=== PATIENT | female | born 1935 ===

== ENCOUNTER 2017-10-31 12:19 | Inpatient (IN) | payer MEDICARE, OTHER ==
--- NOTE | 2017-10-31 13:22 | C.PDOC ---
History Of Present Illness <Tho Herrera - Last Filed: 10/31/17 22:23> <Darlene Sanabria - Last Filed: 11/03/17 11:56> Patient is an 82 y/o female, with a Hx of stroke, who presents to the ED BIBA for evaluation of swollen and gangrenous right foot. Patient is not a reliable historian; unclear when patient noticed symptoms. Patient states she was seen at [facility] within the last few days; unknown antibiotics given. Patient denies fever or any pain to right foot. No other physical complaints at this time. (Darlene Sanabria) <Tho Herrera E - Last Filed: 10/31/17 22:23> History Per: Patient History/Exam Limitations: no limitations Onset/Duration Of Symptoms: Days Current Symptoms Are (Timing): Still Present <Darlene Sanabria - Last Filed: 11/03/17 11:56> Time Seen by Provider: 10/31/17 12:59 Chief Complaint (Nursing): Lower Extremity Problem/Injury Past Medical History Reviewed: Historical Data, Nursing Documentation, Vital Signs - Medical History PMH: HTN, Hyperlipidemia, TIA Surgical History: No Surg Hx Family History: States: No Known Family Hx - Social History Hx Tobacco Use: No Hx Alcohol Use: No Hx Substance Use: No <Darlene Sanabria - Last Filed: 11/03/17 11:56> Vital Signs: Last Vital Signs Temp 97.3 F L 11/03/17 08:49 Pulse 59 L 11/03/17 08:49 Resp 18 11/03/17 08:49 BP 148/64 11/03/17 08:49 Pulse Ox 96 11/03/17 08:49 Review Of Systems Constitutional: Negative for: Fever Musculoskeletal: Negative for: Foot Pain Skin: Positive for: Other (swollen and gangrenous right foot) <Darlene Sanabria - Last Filed: 11/03/17 11:56> Physical Exam - Physical Exam Appears: Non-toxic, No Acute Distress, Other (left sided paralysis to body secondary to stroke) Skin: Dry, Other (right foot distally erythematous; dry gangrenous lesion and ulcerations to great right toe; dry gangrenous lesion to 4th right toe; white exudate between toes) Head: Atraumatic, Normacephalic Eye(s): bilateral: PERRL, EOMI Oral Mucosa: Moist Neck: Supple Chest: Symmetrical Cardiovascular: Rhythm Regular, No Murmur, Other (regular rate) Respiratory: Normal Breath Sounds, No Rales, No Rhonchi, No Wheezing, Other ( clear to auscultation bilaterally) Gastrointestinal/Abdominal: Bowel Sounds (normoactive), Soft, No Tenderness, No Distention, No Guarding, No Rebound Back: No CVA Tenderness Extremity: No Tenderness, Swelling (right foot), Other (+1 TP pulse right foot, no palpable right dp pulse; RN did doppler of right foot with faint dppulse noted. ) Pulses: Right Dorsalis Pedis: Absent (not palpable) Neurological/Psych: Oriented x3, Normal Speech, Normal Cognition, Other (no focal deficits) <Darlene Sanabria - Last Filed: 11/03/17 11:56> ED Course And Treatment - Laboratory Results Result Diagrams: 10/31/17 13:36 10/31/17 13:36 ECG: Interpreted By Me (ED attending Dr. Herrera) ECG Rhythm: Sinus Rhythm ECG Interpretation: Normal Rate From EC <Tho Herrera - Last Filed: 10/31/17 22:23> - Laboratory Results Result Diagrams: 11/02/17 08:10 11/02/17 08:10 O2 Sat by Pulse Oximetry: 98 - Other Rad right foot XR X-Ray: Interpreted by Me, Viewed By Me Interpretation: PROCEDURE: Right Foot Radiographs. HISTORY: infection to toes and dorsum foot, eval for osteo. COMPARISON: None. FINDINGS: BONES: There is severe diffuse bone demineralization. There is no acute displaced fracture or bone destruction. Bone alignment is normal. Calcifications there is a prominent plantar calcaneal spur. JOINTS: Normal. SOFT TISSUES: Normal. OTHER FINDINGS: There are advanced atherosclerotic vascular. IMPRESSION: No radiographic evidence of bone destruction or osteomyelitis. Progress Note: Blood work, UA, right foot XR ordered. Podiatry consult. <Darlene Sanabria - Last Filed: 11/03/17 11:56> Disposition <Tho Herrera Last Filed: 10/31/17 22:23> Discussed With DrCarol: Shauna Jason Doctor Will See Patient In The: Hospital - Disposition Disposition Time: 16:07 <Darlene Sanabria - Last Filed: 11/03/17 11:56> - Disposition Disposition: HOSPITALIZED Condition: GOOD - Clinical Impression Clinical Impression: Dry gangrene, Diabetic infection of right foot <Tho Herrera - Last Filed: 10/31/17 22:23> - Scribe Statement The provider has reviewed the documentation as recorded by the Scribe <Darlene Sanabria - Last Filed: 11/03/17 11:56> - Scribe Statement Laurita Salguero All medical record entries made by the Scribe were at my direction and personally dictated by me. I have reviewed the chart and agree that the record accurately reflects my personal performance of the history, physical exam, medical decision making, and the department course for this patient. I have also personally directed, reviewed, and agree with the discharge instructions and disposition. (Darlene Sanabria)
[2017-10-31 13:46] LABS: BASO % 0.4 % (0.0-2.0); EOS # 0.2 K/uL (0.0-0.7); HEMOGLOBIN 11.3 g/dL (11.0-16.0); LYMPH # 1.3 K/uL (1.0-4.3); LYMPH % 15.5 % (20.0-40.0); MEAN CELL VOLUME 87.2 fL (81.0-99.0); MEAN CORPUSCULAR HEMOGLOBIN 29.8 pg (27.0-31.0); MEAN CORPUSCULAR HGB CONC 34.2 g/dL (33.0-37.0); MEAN PLATELET VOLUME 8.2 fL (7.2-11.7); MONO # 0.5 K/uL (0.0-0.8); MONO % 6.1 % (0.0-10.0); NEUT # 6.1 K/uL (1.8-7.0); RBC 3.79 Mil/uL (3.80-5.20); RED CELL DISTRIBUTION WIDTH 20.3 % (11.5-14.5)
[2017-10-31 13:55] LABS: INR 1.6; PROTHROMBIN TIME 17.2 SECONDS (9.7-12.2)
--- NOTE | 2017-10-31 13:58 | RAD ---
PROCEDURE: Right Foot Radiographs. HISTORY: infection to toes and dorsum foot, eval for osteo COMPARISON: None. FINDINGS: BONES: There is severe diffuse bone demineralization. There is no acute displaced fracture or bone destruction. Bone alignment is normal. Calcifications there is a prominent plantar calcaneal spur. JOINTS: Normal. SOFT TISSUES: Normal. OTHER FINDINGS: There are advanced atherosclerotic vascular. IMPRESSION: No radiographic evidence of bone destruction or osteomyelitis.
[2017-10-31 14:05] LABS: ALB/GLOB RATIO 0.9 (1.0-2.1); ALT/SGPT 20 U/L (9-52); AST/SGOT 26 U/L (14-36); BLOOD UREA NITROGEN 7 mg/dL (7-17); CALCIUM 8.2 mg/dl (8.6-10.4); GFR AFRICAN-AMERICAN > 60; GFR NON-AFRICAN AMERICAN > 60
[2017-10-31] MEDS ORDERED: Potassium Chloride 20 mEq/15 ml LIQ UD PO STA (14:42)
[2017-10-31] MEDS ORDERED: Piperacillin/Tazobact 3.375 gm 100 ML IVPB STA (14:48)
[2017-10-31] MEDS ORDERED: Piperacillin/Tazobact 3.375 gm 100 ML IVPB ONE (15:28)
--- NOTE | 2017-10-31 15:39 | CP.PCM.CON ---
History of Present Illness - History of Present Illness History of Present Illness: 82 y/o female with pmhx of HTN, Hyperlipidemia, TIA, DM, left sided hemiparesis seen at bedside in the ED regarding right foot gangrenous digits. Patient denies any pain to her foot but states that she noticed it has gotten worse over the past few days. Patient states that she first noticed swelling and discoloration on 10/20/17 and went to [facility]. She states that she was given doxycycline and percocet as outpatient. Patient states that she lives alone and called an ambulance to take her to the ED today. Patient denies any other pedal complaints at this time. She denies n/f/c/d/v/sob. Review of Systems - Constitutional Constitutional: As Per HPI Past Patient History - Past Social History Smoking Status: Never Smoked - CARDIAC Hx Hypertension: Yes - NEUROLOGICAL Hx Transient Ischemic Attacks (TIA): Yes - ENDOCRINE/METABOLIC Hx Endocrine Disorders: Yes Hx Diabetes Mellitus Type 2: Yes - PSYCHIATRIC Hx Substance Use: No Meds Allergies/Adverse Reactions: Allergies Allergy/AdvReac Type Severity Reaction Status Date / Time Iodine and Iodide Containing Allergy Verified 10/31/17 12:46 Produc Physical Exam - Constitutional Appears: Well, Non-toxic, No Acute Distress - Extremities Exam Additional comments: left lower extremity hemiparesis, drop foot, nonpalpable pedal pulses right lower extremity: vasc: nonpalpable pedal pulses, TG reversed- cool to warm, CFT sluggish, no edema, pedal hair absent neuro: grossly diminished derm: no edema, localized erythema to forefoot, dry gangrenous patches on hallux and dorsal 4th digit, interdigital maceration to 4th interspace, mild malodor noted, no fluctuance, no purulence, no active drainage, dried peeling skin to dorsum of hallux ortho: no pain on palpation of digits 1,4 - Neurological Exam Neurological exam: Alert - Psychiatric Exam Psychiatric exam: Normal Affect Results - Vital Signs Recent Vital Signs: Last Vital Signs Temp 98.8 F 10/31/17 12:24 Pulse 60 10/31/17 12:24 Resp 14 10/31/17 12:24 BP 154/55 H 10/31/17 12:24 Pulse Ox 98 10/31/17 15:27 - Labs Result Diagrams: 10/31/17 13:36 10/31/17 13:36 Labs: Laboratory Results - last 24 hr 10/31/17 10/31/17 10/31/17 12:28 13:36 13:36 WBC 8.0 RBC 3.79 L Hgb 11.3 Hct 33.0 L MCV 87.2 MCH 29.8 MCHC 34.2 RDW 20.3 H Plt Count 444 H MPV 8.2 Neut % (Auto) 76.0 H Lymph % (Auto) 15.5 L [place] % (Auto) 6.1 Eos % (Auto) 2.0 Baso % (Auto) 0.4 Neut # (Auto) 6.1 Lymph # (Auto) 1.3 [place] # (Auto) 0.5 Eos # (Auto) 0.2 Baso # (Auto) 0.0 PT INR APTT Sodium 139 Potassium 3.0 L Chloride 101 Carbon Dioxide 28 Anion Gap 13 BUN 7 Creatinine 0.7 Est GFR ( Amer) > 60 Est GFR (Non-Af Amer) > 60 POC Glucose (mg/dL) 156 H Random Glucose 153 H Calcium 8.2 L Total Bilirubin 0.2 AST 26 ALT 20 Alkaline Phosphatase 67 Total Protein 6.4 Albumin 3.0 L Globulin 3.4 Albumin/Globulin Ratio 0.9 L 10/31/17 13:36 WBC RBC Hgb Hct MCV MCH MCHC RDW Plt Count MPV Neut % (Auto) Lymph % (Auto) [place] % (Auto) Eos % (Auto) Baso % (Auto) Neut # (Auto) Lymph # (Auto) [place] # (Auto) Eos # (Auto) Baso # (Auto) PT 17.2 H INR 1.6 APTT 35 H Sodium Potassium Chloride Carbon Dioxide Anion Gap BUN Creatinine Est GFR ( Amer) Est GFR (Non-Af Amer) POC Glucose (mg/dL) Random Glucose Calcium Total Bilirubin AST ALT Alkaline Phosphatase Total Protein Albumin Globulin Albumin/Globulin Ratio Assessment & Plan - Assessment and Plan (Free Text) Assessment: 82 y/o female with pmhx of HTN, Hyperlipidemia, TIA, DM, left sided hemiparesis , seen at bedside in ED for right foot gangrenous changes of digits 1,4 Plan: patient evaluated and chart reviewed discussed in detail with attending Dr. Hooker labs and vitals reviewed; afebrile, WBC 8.0 x rays of right foot reveal osteopenic changes, no acute evidence of OM f/u HO/PVR start zosyn 3.375g q6h f/u vascular consult and reccs applied betadine, DSD to right foot podiatry willl continue to monitor while patient remains in house
[2017-10-31] MEDS ORDERED: Potassium Chloride 20 mEq/15 ml LIQ UD ONE (15:46)
[2017-10-31 17:24] LABS: SQUAMOUS EPITHIAL 2 /hpf (0-5); URINE BACTERIA MOD (<OCC); URINE BILIRUBIN NEGATIVE (NEGATIVE); URINE BLOOD 1+ (NEGATIVE); URINE CLARITY Hazy (Clear); URINE COLOR Yellow (YELLOW); URINE GLUCOSE (UA) NORMAL (Normal); URINE LEUKOCYTE ESTERASE 3+ Leu/uL (Negative); URINE PROTEIN NEGATIVE (NEGATIVE); URINE UROBILINOGEN NORMAL mg/dL (0.2-1.0)
[2017-10-31] MEDS ORDERED: Oxycodone/Acetaminophen 5/325 mg Tab PO PRN (21:40)
[2017-10-31] MEDS: (Novolog) Insulin Aspart, Recombinant 100 u/ml 10 ml vial SC SCH (22:46)
[2017-10-31] MEDS: Piperacillin/Tazobact 3.375 GM in Sodium Chloride 100 ML IVPB SCH (22:52)
[2017-11-01] MEDS: Piperacillin/Tazobact 3.375 GM in Sodium Chloride 100 ML IVPB SCH ×4 (04:05→22:11)
[2017-11-01] MEDS: (Novolog) Insulin Aspart, Recombinant 100 u/ml 10 ml vial SC SCH ×4 (07:45→22:27)
[2017-11-01] MEDS ORDERED: Glucagon Recombinant 1 mg Inj IM PRN (08:57)
[2017-11-01] MEDS ORDERED: Dextrose 50% SYRINGE Inj (50 ml) IV PRN (08:57)
--- NOTE | 2017-11-01 09:06 | CP.PCM.PN ---
Subjective - Date & Time of Evaluation Date of Evaluation: 11/01/17 Time of Evaluation: 08:50 - Subjective Subjective: PGY-[address] Jason's service: Pt seen and examined at bedside. Nursing reports no acute events overnight. Patient denies pain in her foot at this time. Further denies fever, chills, SOB , chest pain - but ROS limited by patient being poor historian. Patient is 82 year old Female, PMHx of HTN, Hyperlipidemia, Diabetes Mellitus, TIA (with sequelae of left sided hemiparesis) presenting for right foot gangrenous digits. Patient denies foot pain, but admits worsening swelling this Patient states that she first noticed swelling and discoloration on . Admits recent admission at [facility]. Reports receiving doxycycline and percocet from PMD. Objective - Vital Signs/Intake and Output Vital Signs (last 24 hours): Temp Pulse Resp BP Pulse Ox 98.3 F 58 L 20 164/62 H 95 11/01/17 04:10 11/01/17 04:10 11/01/17 04:10 11/01/17 04:10 11/01/17 04:10 - Medications Medications: Current Medications Enoxaparin Sodium (Lovenox) 40 mg SC DAILY SAMANTHA Piperacillin Sod/Tazobactam (Sod 3.375 gm/ Sodium Chloride) 100 mls @ 200 mls/ hr IVPB Q6H SAMANTHA PRN Reason: Protocol Last Admin: 11/01/17 04:05 Dose: 200 mls/hr Vancomycin HCl (Vancomycin 1gm In Normal Saline Addvantage) 1 gm in 250 mls @ 167 mls/hr IVPB Q12 SAMANTHA PRN Reason: Protocol Insulin Aspart (Novolog) 0 unit SC ACHS SAMANTHA PRN Reason: Protocol Last Admin: 11/01/17 07:45 Dose: Not Given Oxycodone/Acetaminophen (Percocet 5/325 Mg Tab) 1 tab PO Q4H PRN PRN Reason: Pain, moderate (4-7) Stop: 11/03/17 21:41 - Labs Labs: 10/31/17 13:36 10/31/17 13:36 PT 17.2 SECONDS (9.7-12.2) H 05/31/18 13:36 INR 1.6 10/31/17 13:36 APTT 35 SECONDS (21-34) H 10/31/17 13:36 - Constitutional Appears: Non-toxic, No Acute Distress, Older Than Stated Age, Chronically Ill - Head Exam Head Exam: ATRAUMATIC, NORMAL INSPECTION - Eye Exam Eye Exam: EOMI, Normal appearance. absent: Scleral icterus Pupil Exam: PERRL - ENT Exam ENT Exam: Mucous Membranes Moist - Neck Exam Neck Exam: Full ROM - Respiratory Exam Respiratory Exam: Clear to Ausculation Bilateral, NORMAL BREATHING PATTERN. absent: Chest Wall Tenderness, Rales, Rhonchi, Wheezes - Cardiovascular Exam Cardiovascular Exam: REGULAR RHYTHM, RRR, +S1, +S2 - GI/Abdominal Exam GI & Abdominal Exam: Soft, Normal Bowel Sounds. absent: Tenderness - Extremities Exam Extremities Exam: Pedal Edema, Tenderness. absent: Calf Tenderness, Normal Inspection Additional comments: Right foot/ankle edema (gangrenous lesion/ulcer on distal hallux/4th toe) Eschar / Discoloration in toes - Back Exam Back Exam: absent: CVA tenderness (L), CVA tenderness (R) - Neurological Exam Neurological Exam: Alert, Awake, Oriented x3 - Psychiatric Exam Psychiatric exam: Normal Affect, Normal Mood - Skin Skin Exam: Normal Color (except o/w noted on right foot), Warm Assessment and Plan - Assessment and Plan (Free Text) Plan: Gangrene, Right Foot Admit to tele Recent admission at [facility] Xray Right foot (11/01/17): FINDINGS: BONES: There is severe diffuse bone demineralization. There is no acute displaced fracture or bone destruction. Bone alignment is normal. Calcifications there is a prominent plantar calcaneal spur. JOINTS: Normal. SOFT TISSUES: Normal. OTHER FINDINGS: There are advanced atherosclerotic vascular. IMPRESSION: No radiographic evidence of bone destruction or osteomyelitis. Dr. Jenkins, ID Vanco 1 gm Q12H (start 10/31) Zosyn 3.375gm Q6H (Start 10/31) Diflucan 200mg IV x 3 days (Start 11/01/17) Dr. Prather, Podiatry - f/u HO/PVR - f/u arterial US Dr. Ken, Cardio/Vascular consult - start ASA 81mg PO daily - restart home med Xarelto 20mg PO Daily - f/u ABD angiography Percocet 5/325mg PO Q4H PRN pain Blood cultures (10/31/17): no growth x 24 hours Wound culture (10/31/17): Yeast species Right buttock wound Wound care nursing f/u reccs HTN Elevated this AM Hyperlipidemia Crestor 10mg PO HS f/u lipid panel Hx TIA Sequelae of left sided-hemiparesis Hypokalemia K 3.0 on admission; f/u AM BMP Hypothyroidism Restart home Levothyroxine 88 mcg f/u TSH/Free T4 Diabetes Mellitus A1C: 5.3, well controlled Accuchecks ACHS Hypoglycemia Protocol MISS f/u lipid panel Seizure d/o Restart home Keppra 500mg PO BID Anxiety/Depression Restart home Lexapro 10mg PO Daily Constipation Colace 100mg PO BID Elevated INR INR 1.6 Monitor Prophylaxis SCDs on left (right c/i) ASA/Xarelto HOLD Lovenox 40mg SC daily GI not indicated Maulik Dowell PGY-2 All medical management per Eren
[2017-11-01] MEDS ORDERED: Vancomycin 1 GM 1 GM/250 ML BAG IVPB SCH (10:00)
[2017-11-01] MEDS ORDERED: Enoxaparin 40 mg Syringe SC SCH (10:00)
[2017-11-01 11:35] LABS: BASO % 0.4 % (0.0-2.0); EOS # 0.1 K/uL (0.0-0.7); EOS % 1.1 % (0.0-4.0); HEMOGLOBIN 12.1 g/dL (11.0-16.0); LYMPH # 0.8 K/uL (1.0-4.3); LYMPH % 11.6 % (20.0-40.0); MEAN CELL VOLUME 88.7 fL (81.0-99.0); MEAN CORPUSCULAR HEMOGLOBIN 29.8 pg (27.0-31.0); MEAN CORPUSCULAR HGB CONC 33.6 g/dL (33.0-37.0); MEAN PLATELET VOLUME 8.8 fL (7.2-11.7); MONO # 0.3 K/uL (0.0-0.8); MONO % 4.2 % (0.0-10.0); NEUT # 5.9 K/uL (1.8-7.0); NEUT % 82.7 % (50.0-75.0); RBC 4.07 Mil/uL (3.80-5.20); WHITE BLOOD COUNT 7.2 K/uL (4.8-10.8)
[2017-11-01 12:01] LABS: ALB/GLOB RATIO 0.9 (1.0-2.1); ALBUMIN 3.1 g/dL (3.5-5.0); ALT/SGPT 14 U/L (9-52); AST/SGOT 30 U/L (14-36); BLOOD UREA NITROGEN 5 mg/dL (7-17); CALCIUM 8.5 mg/dl (8.6-10.4); GFR AFRICAN-AMERICAN > 60; GFR NON-AFRICAN AMERICAN > 60
--- NOTE | 2017-11-01 14:05 | CP.PCM.CON ---
<Chris Hinkle - Last Filed: 11/01/17 15:03> History of Present Illness - History of Present Illness History of Present Illness: Chris Hinkle PGY1 Vascular Consult Note for Dr. Ken Ms. 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 Scott lives alone, is wheelchair bound and has a home health aide. She presented to [facility] on October 20 and was prescribed doxycycline with no relief of symptoms. Patient denies chest pain, palpitations, and pain in feet. Vascular service is consulted for possible ischemia of lower extremity. PMH: as above PSH:non-contributory Meds: as per MAR Allergies: iodine SHx: denies tobacco, ETOH and drug use Review of Systems - Review of Systems All systems: reviewed and no additional remarkable complaints except (as per HPI ) Past Patient History - Past Medical History & Family History Past Medical History?: Yes Past Family History: Reviewed and not pertinent - Past Social History Smoking Status: Never Smoked Alcohol: None Drugs: Denies Home Situation {Lives}: Alone - CARDIAC Hx Hypercholesterolemia: Yes Hx Hypertension: Yes - PULMONARY Hx Respiratory Disorders: No - NEUROLOGICAL HX Cerebrovascular Accident: Yes - HEENT Hx HEENT Problems: No - RENAL Hx Chronic Kidney Disease: No - ENDOCRINE/METABOLIC Hx Endocrine Disorders: Yes Hx Diabetes Mellitus Type 2: Yes - HEMATOLOGICAL/ONCOLOGICAL Hx Blood Disorders: No - INTEGUMENTARY Hx Dermatological Problems: No - MUSCULOSKELETAL/RHEUMATOLOGICAL 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) - GASTROINTESTINAL Hx Gastrointestinal Disorders: No - GENITOURINARY/GYNECOLOGICAL Hx Genitourinary Disorders: No - PSYCHIATRIC Hx Psychophysiologic Disorder: No Hx Substance Use: No Meds Allergies/Adverse Reactions: Allergies Allergy/AdvReac Type Severity Reaction Status Date / Time Iodine and Iodide Containing Allergy Verified 10/31/17 12:46 Produc - Medications Medications: Current Medications Dextrose (Dextrose 50% Inj) 0 ml IV STAT PRN; Protocol PRN Reason: Hypoglycemia Protocol Dextrose (Glutose 15) 0 gm PO ONCE PRN; Protocol PRN Reason: Hypoglycemia Protocol Docusate Sodium (Colace) 100 mg PO BID [facility] Enoxaparin Sodium (Lovenox) 40 mg SC DAILY [facility] Last Admin: 11/01/17 10:34 Dose: 40 mg Escitalopram Oxalate (Lexapro) 10 mg PO DAILY [facility] Glucagon (Glucagen Diagnostic Kit) 0 mg IM STAT PRN; Protocol PRN Reason: Hypoglycemia Protocol Piperacillin Sod/Tazobactam (Sod 3.375 gm/ Sodium Chloride) 100 mls @ 200 mls/ hr IVPB Q6H [facility] PRN Reason: Protocol Last Admin: 11/01/17 10:30 Dose: 200 mls/hr Dextrose (Dextrose 5% In Water 1000 Ml) 1,000 mls @ 0 mls/hr IV .Q0M PRN; Protocol; Per Protocol PRN Reason: Hypoglycemia Protocol Vancomycin HCl 1 gm/ Sodium (Chloride) 250 mls @ 167 mls/hr IVPB Q12 [facility] PRN Reason: Protocol Last Admin: 11/01/17 11:00 Dose: 167 mls/hr Insulin Aspart (Novolog) 0 unit SC ACHS [facility] PRN Reason: Protocol Last Admin: 11/01/17 12:00 Dose: Not Given Levetiracetam (Keppra) 500 mg PO BID [facility] Levothyroxine Sodium (Synthroid) 88 mcg PO 0630 [facility] Oxycodone/Acetaminophen (Percocet 5/325 Mg Tab) 1 tab PO Q4H PRN PRN Reason: Pain, moderate (4-7) Stop: 11/03/17 21:41 Potassium Chloride (K-Dur 20 Meq Er Tab) 20 meq PO Q2H [facility] Stop: 11/01/17 16:01 Rosuvastatin Calcium (Crestor) 10 mg PO HS [facility] Physical Exam - Constitutional Appears: Well, Non-toxic, No Acute Distress - Head Exam Head Exam: NORMAL INSPECTION - Eye Exam Eye Exam: Normal appearance - ENT Exam ENT Exam: Normal Exam - Neck Exam Neck exam: Positive for: Normal Inspection - Respiratory Exam Respiratory Exam: Clear to Auscultation Bilateral, NORMAL BREATHING PATTERN. absent: Rales, Rhonchi, Wheezes, Respiratory Distress - Cardiovascular Exam Cardiovascular Exam: RRR, +S1, +S2, Systolic Murmur - GI/Abdominal Exam GI & Abdominal Exam: Normal Bowel Sounds, Soft. absent: Distended, Tenderness - Extremities Exam Extremities exam: Negative for: calf tenderness, full ROM (LUE/LLE hemiparesis, contracted; right extremities full ROM), normal inspection (eschar and discoloration noted in right toes), pedal edema, tenderness, pedal pulses present - Neurological Exam Neurological exam: Alert, Motor Sensory Deficit (left sided hemiparesis) Results - Vital Signs Recent Vital Signs: Last Vital Signs Temp 97.8 F 11/01/17 08:56 Pulse 67 11/01/17 08:56 Resp 18 11/01/17 08:56 BP 172/60 H 11/01/17 08:56 Pulse Ox 100 11/01/17 08:56 - Labs Result Diagrams: 11/01/17 11:24 11/01/17 11:24 Labs: Laboratory Results - last 24 hr 10/31/17 10/31/17 10/31/17 13:36 17:01 22:38 WBC RBC Hgb Hct MCV MCH MCHC RDW Plt Count MPV Neut % (Auto) Lymph % (Auto) [place] % (Auto) Eos % (Auto) Baso % (Auto) Neut # (Auto) Lymph # (Auto) [place] # (Auto) Eos # (Auto) Baso # (Auto) Sodium 139 Potassium 3.0 L Chloride 101 Carbon Dioxide 28 Anion Gap 13 BUN 7 Creatinine 0.7 Est GFR ( Amer) > 60 Est GFR (Non-Af Amer) > 60 POC Glucose (mg/dL) 162 H Random Glucose 153 H Hemoglobin A1c Calcium 8.2 L Phosphorus Magnesium Total Bilirubin 0.2 AST 26 ALT 20 Alkaline Phosphatase 67 Total Protein 6.4 Albumin 3.0 L Globulin 3.4 Albumin/Globulin Ratio 0.9 L Urine Color Yellow Urine Clarity Hazy Urine pH 7.0 Ur Specific [place] 1.006 Urine Protein Negative Urine Glucose (UA) Normal Urine Ketones Negative Urine Blood 1+ H Urine Nitrate Positive H Urine Bilirubin Negative Urine Urobilinogen Normal Ur Leukocyte Esterase 3+ H Urine WBC (Auto) 151 H Urine RBC (Auto) 9 H Ur Squamous Epith Cells 2 Urine Bacteria Mod H 11/01/17 11/01/17 11/01/17 06:31 11:24 11:24 WBC 7.2 RBC 4.07 Hgb 12.1 Hct 36.1 MCV 88.7 MCH 29.8 MCHC 33.6 RDW 20.0 H Plt Count 396 MPV 8.8 Neut % (Auto) 82.7 H Lymph % (Auto) 11.6 L [place] % (Auto) 4.2 Eos % (Auto) 1.1 Baso % (Auto) 0.4 Neut # (Auto) 5.9 Lymph # (Auto) 0.8 L [place] # (Auto) 0.3 Eos # (Auto) 0.1 Baso # (Auto) 0.0 Sodium 141 Potassium 3.2 L Chloride 101 Carbon Dioxide 29 Anion Gap 13 BUN 5 L Creatinine 0.7 Est GFR ( Amer) > 60 Est GFR (Non-Af Amer) > 60 POC Glucose (mg/dL) 118 H Random Glucose 109 H Hemoglobin A1c Calcium 8.5 L Phosphorus 3.2 Magnesium 2.2 Total Bilirubin < 0.1 L AST 30 ALT 14 Alkaline Phosphatase 78 Total Protein 6.4 Albumin 3.1 L Globulin 3.3 Albumin/Globulin Ratio 0.9 L Urine Color Urine Clarity Urine pH Ur Specific [place] Urine Protein Urine Glucose (UA) Urine Ketones Urine Blood Urine Nitrate Urine Bilirubin Urine Urobilinogen Ur Leukocyte Esterase Urine WBC (Auto) Urine RBC (Auto) Ur Squamous Epith Cells Urine Bacteria 11/01/17 11/01/17 11:24 11:44 WBC RBC Hgb Hct MCV MCH MCHC RDW Plt Count MPV Neut % (Auto) Lymph % (Auto) [place] % (Auto) Eos % (Auto) Baso % (Auto) Neut # (Auto) Lymph # (Auto) [place] # (Auto) Eos # (Auto) Baso # (Auto) Sodium Potassium Chloride Carbon Dioxide Anion Gap BUN Creatinine Est GFR ( Amer) Est GFR (Non-Af Amer) POC Glucose (mg/dL) 137 H Random Glucose Hemoglobin A1c 5.3 Calcium Phosphorus Magnesium Total Bilirubin AST ALT Alkaline Phosphatase Total Protein Albumin Globulin Albumin/Globulin Ratio Urine Color Urine Clarity Urine pH Ur Specific [place] Urine Protein Urine Glucose (UA) Urine Ketones Urine Blood Urine Nitrate Urine Bilirubin Urine Urobilinogen Ur Leukocyte Esterase Urine WBC (Auto) Urine RBC (Auto) Ur Squamous Epith Cells Urine Bacteria Assessment & Plan - Assessment and Plan (Free Text) Assessment: 82yo Female with a PMH of DM2, HTN, HLD and CVA (2010) w/ left sided hemiparesis who presents for right toe discoloration x1 month Plan: 1. PVD - XR does not show evidence of OM - abd angio w/ runoff ordered; given hx of iodine allergy, will give contrast w / prednisone protocol - arterial duplex LE ordered - cont crestor - start on ASA and Xarelto home dose, according to recommendations of [facility] trial - patient states that she agrees to interventional therapy - podiatry and ID following 2. HTN - cont home meds - cont to monitor 3. DM2 - medical management - A1C ordered 4. HLD - lipid panel ordered - cont statin Patient was reviewed and discussed with Dr. Ken <Garrett Ken - Last Filed: 11/01/17 15:49> Meds - Medications Medications: Current Medications Aspirin (Ecotrin) 81 mg PO DAILY [facility] Dextrose (Dextrose 50% Inj) 0 ml IV STAT PRN; Protocol PRN Reason: Hypoglycemia Protocol Dextrose (Glutose 15) 0 gm PO ONCE PRN; Protocol PRN Reason: Hypoglycemia Protocol Diphenhydramine HCl (Benadryl) 50 mg IVP ONCE ONE Stop: 11/02/17 09:01 Docusate Sodium (Colace) 100 mg PO BID [facility] Enoxaparin Sodium (Lovenox) 40 mg SC DAILY [facility] Last Admin: 11/01/17 10:34 Dose: 40 mg Escitalopram Oxalate (Lexapro) 10 mg PO DAILY [facility] Glucagon (Glucagen Diagnostic Kit) 0 mg IM STAT PRN; Protocol PRN Reason: Hypoglycemia Protocol Piperacillin Sod/Tazobactam (Sod 3.375 gm/ Sodium Chloride) 100 mls @ 200 mls/ hr IVPB Q6H [facility] PRN Reason: Protocol Last Admin: 11/01/17 10:30 Dose: 200 mls/hr Dextrose (Dextrose 5% In Water 1000 Ml) 1,000 mls @ 0 mls/hr IV .Q0M PRN; Protocol; Per Protocol PRN Reason: Hypoglycemia Protocol Vancomycin HCl 1 gm/ Sodium (Chloride) 250 mls @ 167 mls/hr IVPB Q12 [facility] PRN Reason: Protocol Last Admin: 11/01/17 11:00 Dose: 167 mls/hr Fluconazole (Diflucan Iv 200 Mg/100 Ml Ns) 100 mls @ 100 mls/hr IVPB DAILY [facility] PRN Reason: Protocol Stop: 11/03/17 10:59 Insulin Aspart (Novolog) 0 unit SC ACHS [facility] PRN Reason: Protocol Last Admin: 11/01/17 12:00 Dose: Not Given Levetiracetam (Keppra) 500 mg PO BID [facility] Levothyroxine Sodium (Synthroid) 88 mcg PO 0630 [facility] Oxycodone/Acetaminophen (Percocet 5/325 Mg Tab) 1 tab PO Q4H PRN PRN Reason: Pain, moderate (4-7) Stop: 11/03/17 21:41 Potassium Chloride (K-Dur 20 Meq Er Tab) 20 meq PO Q2H [facility] Stop: 11/01/17 16:01 Last Admin: 11/01/17 14:20 Dose: 20 meq Prednisone (Prednisone Tab) 50 mg PO ONCE ONE Stop: 11/02/17 03:01 Prednisone (Prednisone Tab) 50 mg PO ONCE ONE Stop: 11/02/17 09:01 Rivaroxaban (Xarelto) 20 mg PO DAILY [facility] Rosuvastatin Calcium (Crestor) 10 mg PO [facility] Results - Vital Signs Recent Vital Signs: Last Vital Signs Temp 97.8 F 11/01/17 08:56 Pulse 67 11/01/17 08:56 Resp 18 11/01/17 08:56 BP 172/60 H 11/01/17 08:56 Pulse Ox 100 11/01/17 08:56 - Labs Result Diagrams: 11/01/17 11:24 11/01/17 11:24 Labs: Laboratory Results - last 24 hr 10/31/17 10/31/17 11/01/17 17:01 22:38 06:31 WBC RBC Hgb Hct MCV MCH MCHC RDW Plt Count MPV Neut % (Auto) Lymph % (Auto) [place] % (Auto) Eos % (Auto) Baso % (Auto) Neut # (Auto) Lymph # (Auto) [place] # (Auto) Eos # (Auto) Baso # (Auto) Sodium Potassium Chloride Carbon Dioxide Anion Gap BUN Creatinine Est GFR ( Amer) Est GFR (Non-Af Amer) POC Glucose (mg/dL) 162 H 118 H Random Glucose Hemoglobin A1c Calcium Phosphorus Magnesium Total Bilirubin AST ALT Alkaline Phosphatase Total Protein Albumin Globulin Albumin/Globulin Ratio Urine Color Yellow Urine Clarity Hazy Urine pH 7.0 Ur Specific [place] 1.006 Urine Protein Negative Urine Glucose (UA) Normal Urine Ketones Negative Urine Blood 1+ H Urine Nitrate Positive H Urine Bilirubin Negative Urine Urobilinogen Normal Ur Leukocyte Esterase 3+ H Urine WBC (Auto) 151 H Urine RBC (Auto) 9 H Ur Squamous Epith Cells 2 Urine Bacteria Mod H 11/01/17 11/01/17 11/01/17 11:24 11:24 11:24 WBC 7.2 RBC 4.07 Hgb 12.1 Hct 36.1 MCV 88.7 MCH 29.8 MCHC 33.6 RDW 20.0 H Plt Count 396 MPV 8.8 Neut % (Auto) 82.7 H Lymph % (Auto) 11.6 L [place] % (Auto) 4.2 Eos % (Auto) 1.1 Baso % (Auto) 0.4 Neut # (Auto) 5.9 Lymph # (Auto) 0.8 L [place] # (Auto) 0.3 Eos # (Auto) 0.1 Baso # (Auto) 0.0 Sodium 141 Potassium 3.2 L Chloride 101 Carbon Dioxide 29 Anion Gap 13 BUN 5 L Creatinine 0.7 Est GFR ( Amer) > 60 Est GFR (Non-Af Amer) > 60 POC Glucose (mg/dL) Random Glucose 109 H Hemoglobin A1c 5.3 Calcium 8.5 L Phosphorus 3.2 Magnesium 2.2 Total Bilirubin < 0.1 L AST 30 ALT 14 Alkaline Phosphatase 78 Total Protein 6.4 Albumin 3.1 L Globulin 3.3 Albumin/Globulin Ratio 0.9 L Urine Color Urine Clarity Urine pH Ur Specific [place] Urine Protein Urine Glucose (UA) Urine Ketones Urine Blood Urine Nitrate Urine Bilirubin Urine Urobilinogen Ur Leukocyte Esterase Urine WBC (Auto) Urine RBC (Auto) Ur Squamous Epith Cells Urine Bacteria 11/01/17 11:44 WBC RBC Hgb Hct MCV MCH MCHC RDW Plt Count MPV Neut % (Auto) Lymph % (Auto) [place] % (Auto) Eos % (Auto) Baso % (Auto) Neut # (Auto) Lymph # (Auto) [place] # (Auto) Eos # (Auto) Baso # (Auto) Sodium Potassium Chloride Carbon Dioxide Anion Gap BUN Creatinine Est GFR ( Amer) Est GFR (Non-Af Amer) POC Glucose (mg/dL) 137 H Random Glucose Hemoglobin A1c Calcium Phosphorus Magnesium Total Bilirubin AST ALT Alkaline Phosphatase Total Protein Albumin Globulin Albumin/Globulin Ratio Urine Color Urine Clarity Urine pH Ur Specific [place] Urine Protein Urine Glucose (UA) Urine Ketones Urine Blood Urine Nitrate Urine Bilirubin Urine Urobilinogen Ur Leukocyte Esterase Urine WBC (Auto) Urine RBC (Auto) Ur Squamous Epith Cells Urine Bacteria Attending/Attestation - Attestation I have personally seen and examined this patient.: Yes I have fully participated in the care of the patient.: Yes I have reviewed all pertinent clinical information: Yes Notes (Text): 11/01/17 15:[address] aortogram with runoff prep for dye allergy asa, plavix statins acei
[2017-11-01] MEDS: Potassium Chloride 20 mEq ER Tab PO SCH ×2 (14:20→17:17)
--- NOTE | 2017-11-01 15:17 | CP.PCM.PN ---
Subjective - Date & Time of Evaluation Date of Evaluation: 11/01/17 Time of Evaluation: 15:14 - Subjective Subjective: Podiatry Progress note: Dr. Hooker 82 year old female patient seen and evaluated at bedside for right foot gangrenous digits. Patient is AAOx3 and is in NAD. Denies of having any acute overnight events. Denies any pain today. Nurse at bedside who reports that the patient will be going for CTA today. Denies F/N/V/C/SOB/CP/headache. No new pedal complains. Objective - Vital Signs/Intake and Output Vital Signs (last 24 hours): Temp Pulse Resp BP Pulse Ox 97.8 F 67 18 172/60 H 100 11/01/17 08:56 11/01/17 08:56 11/01/17 08:56 11/01/17 08:56 11/01/17 08:56 - Medications Medications: Current Medications Aspirin (Ecotrin) 81 mg PO DAILY [facility] Dextrose (Dextrose 50% Inj) 0 ml IV STAT PRN; Protocol PRN Reason: Hypoglycemia Protocol Dextrose (Glutose 15) 0 gm PO ONCE PRN; Protocol PRN Reason: Hypoglycemia Protocol Diphenhydramine HCl (Benadryl) 50 mg IVP ONCE ONE Stop: 11/02/17 09:01 Docusate Sodium (Colace) 100 mg PO BID [facility] Enoxaparin Sodium (Lovenox) 40 mg SC DAILY [facility] Last Admin: 11/01/17 10:34 Dose: 40 mg Escitalopram Oxalate (Lexapro) 10 mg PO DAILY [facility] Glucagon (Glucagen Diagnostic Kit) 0 mg IM STAT PRN; Protocol PRN Reason: Hypoglycemia Protocol Piperacillin Sod/Tazobactam (Sod 3.375 gm/ Sodium Chloride) 100 mls @ 200 mls/ hr IVPB Q6H [facility] PRN Reason: Protocol Last Admin: 11/01/17 10:30 Dose: 200 mls/hr Dextrose (Dextrose 5% In Water 1000 Ml) 1,000 mls @ 0 mls/hr IV .Q0M PRN; Protocol; Per Protocol PRN Reason: Hypoglycemia Protocol Vancomycin HCl 1 gm/ Sodium (Chloride) 250 mls @ 167 mls/hr IVPB Q12 [facility] PRN Reason: Protocol Last Admin: 11/01/17 11:00 Dose: 167 mls/hr Fluconazole (Diflucan Iv 200 Mg/100 Ml Ns) 100 mls @ 100 mls/hr IVPB DAILY [facility] PRN Reason: Protocol Stop: 11/03/17 10:59 Insulin Aspart (Novolog) 0 unit SC ACHS [facility] PRN Reason: Protocol Last Admin: 11/01/17 12:00 Dose: Not Given Levetiracetam (Keppra) 500 mg PO BID [facility] Levothyroxine Sodium (Synthroid) 88 mcg PO 0630 [facility] Oxycodone/Acetaminophen (Percocet 5/325 Mg Tab) 1 tab PO Q4H PRN PRN Reason: Pain, moderate (4-7) Stop: 11/03/17 21:41 Potassium Chloride (K-Dur 20 Meq Er Tab) 20 meq PO Q2H [facility] Stop: 11/01/17 16:01 Last Admin: 11/01/17 14:20 Dose: 20 meq Prednisone (Prednisone Tab) 50 mg PO ONCE ONE Stop: 11/02/17 03:01 Prednisone (Prednisone Tab) 50 mg PO ONCE ONE Stop: 11/02/17 09:01 Rivaroxaban (Xarelto) 1 mg PO DAILY [facility] Rosuvastatin Calcium (Crestor) 10 mg PO HS [facility] - Labs Labs: 11/01/17 11:24 11/01/17 11:24 PT 17.2 SECONDS (9.7-12.2) H 10/31/17 13:36 INR 1.6 10/31/17 13:36 APTT 35 SECONDS (21-34) H 10/31/17 13:36 - Constitutional Appears: Well, Non-toxic, No Acute Distress - Extremities Exam Additional comments: left lower extremity hemiparesis, drop foot, nonpalpable pedal pulses right lower extremity: vasc: nonpalpable pedal pulses, TG reversed- cool to warm, CFT sluggish, no edema, pedal hair absent neuro: grossly diminished derm: no edema, localized erythema to forefoot, dry gangrenous patches on hallux and dorsal 4th digit, interdigital maceration to 4th interspace, mild malodor noted, no fluctuance, no purulence, no active drainage, dried peeling skin to dorsum of hallux ortho: no pain on palpation of digits 1,4 - Neurological Exam Neurological Exam: Alert, Awake, Oriented x3 - Psychiatric Exam Psychiatric exam: Normal Affect, Normal Mood Assessment and Plan - Assessment and Plan (Free Text) Assessment: 82 y/o female seen and evaluated for right foot gangrenous changes of digits 1,4 Plan: patient evaluated and chart reviewed discussed in detail with attending Dr. Hooker labs and vitals reviewed; afebrile, WBC 7.2 x rays of right foot reveal osteopenic changes, no acute evidence of OM Continue IV abx - zosyn 3.375g q6h; Vancomycin 1 gm HO/PVR - pending f/u vascular consult and reccs Apply DSD to right foot podiatry will continue to monitor while patient remains in house
[2017-11-01] MEDS: Fluconazole IV 200mg/100 ml NS 100 ML IVPB SCH (16:19)
--- NOTE | 2017-11-01 16:32 | CP.PCM.CON ---
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 Scott lives alone, is wheelchair bound and has a home health aide. She presented to [facility] on October 20 and was prescribed doxycycline with no relief of symptoms. Patient denies chest pain, palpitations, and pain in feet. Vascular service is consulted for possible ischemia of lower extremity. PMH: as above PSH:non-contributory Meds: as per MAR Allergies: iodine SHx: denies tobacco, ETOH and drug use Review of Systems - Constitutional Constitutional: As Per HPI - EENT Eyes: absent: As Per HPI, Blind Spots, Blurred Vision, Change in Vision, Decreased Night Vision, Diplopia, Discharge, Dry Eye, Exophthalmos, Floaters, Irritation, Itchy Eyes, Loss of Peripheral Vision, Pain, Photophobia, Requires Corrective Lenses, Sees Flashes, Spots in Vision, Tunnel Vision, Other Visual Disturbances, Loss of Vision, Other Ears: absent: As Per HPI, Decreased Hearing, Ear Discharge, Ear Pain, Tinnitus, Abnormal Hearing, Disequilibrium, Dizziness, Other Nose/Mouth/Throat: absent: As Per HPI, Epistaxis, Nasal Congestion, Nasal Discharge, Nasal Obstruction, Nasal Trauma, Nose Pain, Post Nasal Drip, Sinus Pain, Sinus Pressure, Bleeding Gums, Change in Voice, Dental Pain, Dry Mouth, Dysphagia, Halitosis, Hoarsness, Lip Swelling, Mouth Lesions, Mouth Pain, Odynophagia, Sore Throat, Throat Swelling, Tongue Swelling, Facial Pain, Neck Pain, Neck Mass, Other - Breasts Breasts: absent: As Per HPI, Change in Shape, Mass, Pain, Nipple Discharge, Nipple Inversion, Skin Changes, Swelling, Other - Cardiovascular Cardiovascular: As Per HPI - Respiratory Respiratory: absent: As Per HPI, Cough, Dyspnea, Hemoptysis, Dyspnea on Exertion , Wheezing, Snoring, Stridor, Pain on Inspiration, Chest Congestion, Excessive Mucous Production, Change in Mucous Color, Pain with Coughing, Other - Gastrointestinal Gastrointestinal: absent: As Per HPI, Abdominal Pain, Belching, Bloating, Change in Bowel Habits, Change in Stool Character, Coffee Ground Emesis, Constipation, Cramping, Diarrhea, Dyspepsia, Dysphagia, Early Satiety, Excessive Flatus, Fecal Incontinence, Heartburn, Hematemesis, Hematochezia, Loose Stools, Melena, Nausea, Odynophagia, Temesmus, Vomiting, Other - Genitourinary Genitourinary: absent: As Per HPI, Change in Urinary Stream, Difficulty Urinating, Dysuria, Flank Pain, Hematuria, Pyuria, Nocturia, Urinary Incontinence, Urinary Frequency, Urinary Hesitance, Urinary Urgency, Voiding Freq/Small Amts, Freq UTI, Hx Renal/Bladder Calculi, Hx /Renal Surgery, Bladder Distension, Other - Reproductive: Female Reproductive:Female: absent: As Per HPI, Amenorrhea, Amenorrhea/ Control, Currently Menstual, Cycle <21 Days, Cycle >35 Days, Cycle Variable, Menses 1-7 Days, Menses >/= 8 Days, Menses Variable, Cycle > 4 Weeks Between, No Menses for 6 Months, Heavy Menses, Light Menses, Normal Menses, Spotting Between Cycles , S/P Hysterectomy, Menopausal, Post Menopausal, Premenarche, Abnormal Vaginal Bleeding, Dysmenorrhea, Dyspareunia, Genital Lesions, Genital Pruritis, Pelvic Pain, Prolapse Symptoms, Sexual Dysfunction, Vaginal Discharge, Vaginal Dryness , Vaginal Odor, Vaginal Pruritis, Other - Menstruation Menstruation: absent: As Per HPI, Amenorrhea, Amenorrhea/ Control, Currently Menstual, Cycle <21 Days, Cycle >35 Days, Cycle Variable, Menses 1-7 Days, Menses >/= 8 Days, Menses Variable, Cycle > 4 Weeks Between, No Menses for 6 Months, Heavy Menses, Light Menses, Normal Menses, Spotting Between Cycles , S/P Hysterectomy, Menopausal, Post Menopausal, Premenarche, Abnormal Vaginal Bleeding, Dysmenorrhea, Other - Musculoskeletal Musculoskeletal: As Per HPI - Integumentary Integumentary: As Per HPI, Skin Pain, Wounds - Neurological Neurological: As Per HPI - Psychiatric Psychiatric: absent: As Per HPI, Abnormal Sleep Pattern, Anhedonia, Anxiety, Auditory Hallucinations, Behavioral Changes, Change in Appetite, Change in Libido, Confusion, Depression, Difficulty Concentrating, Hallucinations, Homicidal Ideation, Hopelessness, Irritability, Memory Loss, Mood Swings, Panic Attacks, Paranoia, Suicidal Ideation, Visual Hallucinations, Tactile Hallucinations, Other - Endocrine Endocrine: absent: As Per HPI, Change in Body Appearance, Change in Libido, Cold Intolorance, Deepening of Voice, Excessive Sweating, Fatigue, Flushing, Heat Intolorance, Increase in Ring/Shoe/Hat Size, Palpitations, Polydipsia, Polyphagia, Polyuria, Other - Hematologic/Lymphatic Hematologic: absent: As Per HPI, Easy Bleeding, Easy Bruising, Lymphadenopathy, Other Past Patient History - Past Medical History & Family History Past Medical History?: Yes Past Family History: Reviewed and not pertinent - Past Social History Smoking Status: Never Smoked Alcohol: None Drugs: Denies Home Situation {Lives}: Alone - CARDIAC Hx Hypercholesterolemia: Yes Hx Hypertension: Yes - PULMONARY Hx Respiratory Disorders: No - NEUROLOGICAL HX Cerebrovascular Accident: Yes - HEENT Hx HEENT Problems: No - RENAL Hx Chronic Kidney Disease: No - ENDOCRINE/METABOLIC Hx Endocrine Disorders: Yes Hx Diabetes Mellitus Type 2: Yes - HEMATOLOGICAL/ONCOLOGICAL Hx Blood Disorders: No - INTEGUMENTARY Hx Dermatological Problems: No - MUSCULOSKELETAL/RHEUMATOLOGICAL 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) - GASTROINTESTINAL Hx Gastrointestinal Disorders: No - GENITOURINARY/GYNECOLOGICAL Hx Genitourinary Disorders: No - PSYCHIATRIC Hx Psychophysiologic Disorder: No Hx Substance Use: No Meds Allergies/Adverse Reactions: Allergies Allergy/AdvReac Type Severity Reaction Status Date / Time Iodine and Iodide Containing Allergy Verified 10/31/17 12:46 Produc - Medications Medications: Current Medications Aspirin (Ecotrin) 81 mg PO DAILY [facility] Dextrose (Dextrose 50% Inj) 0 ml IV STAT PRN; Protocol PRN Reason: Hypoglycemia Protocol Dextrose (Glutose 15) 0 gm PO ONCE PRN; Protocol PRN Reason: Hypoglycemia Protocol Diphenhydramine HCl (Benadryl) 50 mg IVP ONCE ONE Stop: 11/02/17 09:01 Docusate Sodium (Colace) 100 mg PO BID [facility] Enoxaparin Sodium (Lovenox) 40 mg SC DAILY [facility] Last Admin: 11/01/17 10:34 Dose: 40 mg Escitalopram Oxalate (Lexapro) 10 mg PO DAILY [facility] Glucagon (Glucagen Diagnostic Kit) 0 mg IM STAT PRN; Protocol PRN Reason: Hypoglycemia Protocol Piperacillin Sod/Tazobactam (Sod 3.375 gm/ Sodium Chloride) 100 mls @ 200 mls/ hr IVPB Q6H [facility] PRN Reason: Protocol Last Admin: 11/01/17 10:30 Dose: 200 mls/hr Dextrose (Dextrose 5% In Water 1000 Ml) 1,000 mls @ 0 mls/hr IV .Q0M PRN; Protocol; Per Protocol PRN Reason: Hypoglycemia Protocol Vancomycin HCl 1 gm/ Sodium (Chloride) 250 mls @ 167 mls/hr IVPB Q12 [facility] PRN Reason: Protocol Last Admin: 11/01/17 11:00 Dose: 167 mls/hr Fluconazole (Diflucan Iv 200 Mg/100 Ml Ns) 100 mls @ 100 mls/hr IVPB DAILY [facility] PRN Reason: Protocol Stop: 11/03/17 10:59 Last Admin: 11/01/17 16:19 Dose: 100 mls/hr Insulin Aspart (Novolog) 0 unit SC ACHS [facility] PRN Reason: Protocol Last Admin: 11/01/17 12:00 Dose: Not Given Levetiracetam (Keppra) 500 mg PO BID [facility] Levothyroxine Sodium (Synthroid) 88 mcg PO 0630 [facility] Oxycodone/Acetaminophen (Percocet 5/325 Mg Tab) 1 tab PO Q4H PRN PRN Reason: Pain, moderate (4-7) Stop: 11/03/17 21:41 Prednisone (Prednisone Tab) 50 mg PO ONCE ONE Stop: 11/02/17 03:01 Prednisone (Prednisone Tab) 50 mg PO ONCE ONE Stop: 11/02/17 09:01 Rivaroxaban (Xarelto) 20 mg PO DAILY [facility] Rosuvastatin Calcium (Crestor) 10 mg PO HS [facility] Physical Exam - Constitutional Appears: Non-toxic, Cachectic, Chronically Ill - Head Exam Head Exam: NORMOCEPHALIC - Eye Exam Eye Exam: PERRL. absent: Scleral icterus - ENT Exam ENT Exam: Mucous Membranes Dry, Normal External Ear Exam - Neck Exam Neck exam: Negative for: Lymphadenopathy - Respiratory Exam Respiratory Exam: Decreased Breath Sounds, Clear to Auscultation Bilateral - Cardiovascular Exam Cardiovascular Exam: REGULAR RHYTHM, +S1, +S2 - GI/Abdominal Exam GI & Abdominal Exam: Diminished Bowel Sounds, Soft. absent: Tenderness - Rectal Exam Rectal Exam: Deferred - Exam Exam: NORMAL INSPECTION - Extremities Exam Extremities exam: Negative for: calf tenderness, tenderness, pedal pulses present Additional comments: left lower extremity hemiparesis, drop foot, nonpalpable pedal pulses right lower extremity: vasc: nonpalpable pedal pulses, TG reversed- cool to warm, CFT sluggish, no edema, pedal hair absent neuro: grossly diminished derm: no edema, localized erythema to forefoot, dry gangrenous patches on hallux and dorsal 4th digit, interdigital maceration to 4th interspace, mild malodor noted, no fluctuance, no purulence, no active drainage, dried peeling skin to dorsum of hallux ortho: no pain on palpation of digits 1,4 - Neurological Exam Neurological exam: Alert, CN II-XII Intact, Oriented x3, Reflexes Normal - Psychiatric Exam Psychiatric exam: Depressed - Skin Skin Exam: Dry Results - Vital Signs Recent Vital Signs: Last Vital Signs Temp 97.8 F 11/01/17 08:56 Pulse 67 11/01/17 08:56 Resp 18 11/01/17 08:56 BP 172/60 H 11/01/17 08:56 Pulse Ox 100 11/01/17 08:56 - Labs Result Diagrams: 11/01/17 11:24 11/01/17 11:24 Labs: Laboratory Results - last 24 hr 10/31/17 10/31/17 11/01/17 17:01 22:38 06:31 WBC RBC Hgb Hct MCV MCH MCHC RDW Plt Count MPV Neut % (Auto) Lymph % (Auto) Coffee % (Auto) Eos % (Auto) Baso % (Auto) Neut # (Auto) Lymph # (Auto) Coffee # (Auto) Eos # (Auto) Baso # (Auto) Sodium Potassium Chloride Carbon Dioxide Anion Gap BUN Creatinine Est GFR ( Amer) Est GFR (Non-Af Amer) POC Glucose (mg/dL) 162 H 118 H Random Glucose Hemoglobin A1c Calcium Phosphorus Magnesium Total Bilirubin AST ALT Alkaline Phosphatase Total Protein Albumin Globulin Albumin/Globulin Ratio Urine Color Yellow Urine Clarity Hazy Urine pH 7.0 Ur Specific Holden 1.006 Urine Protein Negative Urine Glucose (UA) Normal Urine Ketones Negative Urine Blood 1+ H Urine Nitrate Positive H Urine Bilirubin Negative Urine Urobilinogen Normal Ur Leukocyte Esterase 3+ H Urine WBC (Auto) 151 H Urine RBC (Auto) 9 H Ur Squamous Epith Cells 2 Urine Bacteria Mod H 11/01/17 11/01/17 11/01/17 11:24 11:24 11:24 WBC 7.2 RBC 4.07 Hgb 12.1 Hct 36.1 MCV 88.7 MCH 29.8 MCHC 33.6 RDW 20.0 H Plt Count 396 MPV 8.8 Neut % (Auto) 82.7 H Lymph % (Auto) 11.6 L Coffee % (Auto) 4.2 Eos % (Auto) 1.1 Baso % (Auto) 0.4 Neut # (Auto) 5.9 Lymph # (Auto) 0.8 L Coffee # (Auto) 0.3 Eos # (Auto) 0.1 Baso # (Auto) 0.0 Sodium 141 Potassium 3.2 L Chloride 101 Carbon Dioxide 29 Anion Gap 13 BUN 5 L Creatinine 0.7 Est GFR ( Amer) > 60 Est GFR (Non-Af Amer) > 60 POC Glucose (mg/dL) Random Glucose 109 H Hemoglobin A1c 5.3 Calcium 8.5 L Phosphorus 3.2 Magnesium 2.2 Total Bilirubin < 0.1 L AST 30 ALT 14 Alkaline Phosphatase 78 Total Protein 6.4 Albumin 3.1 L Globulin 3.3 Albumin/Globulin Ratio 0.9 L Urine Color Urine Clarity Urine pH Ur Specific Holden Urine Protein Urine Glucose (UA) Urine Ketones Urine Blood Urine Nitrate Urine Bilirubin Urine Urobilinogen Ur Leukocyte Esterase Urine WBC (Auto) Urine RBC (Auto) Ur Squamous Epith Cells Urine Bacteria 11/01/17 11:44 WBC RBC Hgb Hct MCV MCH MCHC RDW Plt Count MPV Neut % (Auto) Lymph % (Auto) Coffee % (Auto) Eos % (Auto) Baso % (Auto) Neut # (Auto) Lymph # (Auto) Coffee # (Auto) Eos # (Auto) Baso # (Auto) Sodium Potassium Chloride Carbon Dioxide Anion Gap BUN Creatinine Est GFR ( Amer) Est GFR (Non-Af Amer) POC Glucose (mg/dL) 137 H Random Glucose Hemoglobin A1c Calcium Phosphorus Magnesium Total Bilirubin AST ALT Alkaline Phosphatase Total Protein Albumin Globulin Albumin/Globulin Ratio Urine Color Urine Clarity Urine pH Ur Specific Holden Urine Protein Urine Glucose (UA) Urine Ketones Urine Blood Urine Nitrate Urine Bilirubin Urine Urobilinogen Ur Leukocyte Esterase Urine WBC (Auto) Urine RBC (Auto) Ur Squamous Epith Cells Urine Bacteria Assessment & Plan (1) Diabetic infection of right foot Status: Acute (2) Dry gangrene Status: Acute - Assessment and Plan (Free Text) Assessment: vascular and podiatry eval in progress need to eval circulation to RLE may need BKA or AKA in chronically bedridden state cardio eval also recommended cont empiric IV antibiotics and wound care
--- NOTE | 2017-11-02 02:10 | CARD ---
APPROVED REPORT EKG Measurement Heart [id number] <Conclusion> Sinus rhythm with baseline artifact. Incomplete right bundle branch block Nonspecific ST and T wave abnormality Prolonged QT Abnormal ECG
[2017-11-02] MEDS: Piperacillin/Tazobact 3.375 GM in Sodium Chloride 100 ML IVPB SCH ×4 (03:59→22:42)
[2017-11-02] MEDS: Levothyroxine 88 MCG TAB PO SCH (06:26)
[2017-11-02] MEDS: (Novolog) Insulin Aspart, Recombinant 100 u/ml 10 ml vial SC SCH ×4 (07:18→21:26)
--- NOTE | 2017-11-02 08:08 | HP ---
SUBJECTIVE: The patient comes to the hospital with a chief complaint of gangrene to the right big toe. The patient has a history of hypertension, peripheral vascular disease. PHYSICAL EXAMINATION: GENERAL: The patient is awake, alert, oriented. VITAL SIGNS: Temperature 98, pulse 90. HEENT: Within normal limits. NECK: Supple. CHEST: Symmetrical. HEART: Regular. ABDOMEN: Soft. . EXTREMITIES: There is no edema. There is a gangrenous exudate in the big toe of the right leg. IMPRESSION AND PLAN: Peripheral vascular disease, gangrene of the foot. Patient get bedrest, . Shauna Jason MD
[2017-11-02 08:22] LABS: BASO % 0.4 % (0.0-2.0); EOS # 0.1 K/uL (0.0-0.7); EOS % 0.8 % (0.0-4.0); HEMOGLOBIN 12.5 g/dL (11.0-16.0); LYMPH # 0.5 K/uL (1.0-4.3); LYMPH % 7.4 % (20.0-40.0); MEAN CELL VOLUME 88.6 fL (81.0-99.0); MEAN CORPUSCULAR HEMOGLOBIN 30.1 pg (27.0-31.0); MEAN PLATELET VOLUME 8.5 fL (7.2-11.7); MONO # 0.1 K/uL (0.0-0.8); MONO % 1.4 % (0.0-10.0); NEUT # 6.5 K/uL (1.8-7.0); NRBC % 0.1 % (0.0-2.0); PLATELET COUNT 389 K/uL (130-400); RBC 4.16 Mil/uL (3.80-5.20); RED CELL DISTRIBUTION WIDTH 20.3 % (11.5-14.5); WHITE BLOOD COUNT 7.2 K/uL (4.8-10.8)
[2017-11-02 08:42] LABS: ALB/GLOB RATIO 0.9 (1.0-2.1); ALT/SGPT 23 U/L (9-52); AST/SGOT 27 U/L (14-36); BLOOD UREA NITROGEN 4 mg/dL (7-17); CALCIUM 8.5 mg/dl (8.6-10.4); GFR AFRICAN-AMERICAN > 60; GFR NON-AFRICAN AMERICAN > 60; HDL CHOLESTEROL 35 mg/dL (30-70)
[2017-11-02 08:47] LABS: LDL CHOLESTEROL 56 mg/dL (0-129)
[2017-11-02] MEDS ORDERED: DiphenhydrAMINE 50 mg/ml Inj IVP ONE (09:00)
[2017-11-02 09:09] LABS: EOSINOPHIL 1 % (0-4); LYMPHOCYTE 5 % (20-40); NEUTROPHIL 94 % (50-75); TOTAL CELLS COUNTED 100
[2017-11-02 09:10] LABS: ANISOCYTOSIS SLIGHT; PLATELET ESTIMATE NORMAL (NORMAL)
[2017-11-02] MEDS ORDERED: Potassium Chloride 20 mEq ER Tab PO ONE (09:38)
--- NOTE | 2017-11-02 09:51 | CP.PCM.PN ---
Subjective - Date & Time of Evaluation Date of Evaluation: 11/02/17 Time of Evaluation: 09:51 - Subjective Subjective: Podiatry Progress note: Dr. Hooker 82 year old female patient seen and evaluated at bedside for right foot gangrenous digits. Patient hemodynamically stable, NAD. No acute events overnight. Reports minimal pain to right foot. No new pedal complaints. Denies N /V/F/D/C/SOB. Objective - Vital Signs/Intake and Output Vital Signs (last 24 hours): Temp Pulse Resp BP Pulse Ox 97.9 F 56 L 20 142/66 98 11/02/17 07:00 11/02/17 07:00 11/02/17 07:00 11/02/17 07:00 11/02/17 07:00 Intake and Output: 11/02/17 11/02/17 06:59 18:59 Output Total 650 Balance -650 - Medications Medications: Current Medications Aspirin (Ecotrin) 81 mg PO DAILY [facility] Last Admin: 11/02/17 09:45 Dose: 81 mg Dextrose (Dextrose 50% Inj) 0 ml IV STAT PRN; Protocol PRN Reason: Hypoglycemia Protocol Dextrose (Glutose 15) 0 gm PO ONCE PRN; Protocol PRN Reason: Hypoglycemia Protocol Docusate Sodium (Colace) 100 mg PO BID [facility] Last Admin: 11/02/17 09:45 Dose: 100 mg Enoxaparin Sodium (Lovenox) 40 mg SC DAILY [facility] Last Admin: 11/01/17 10:34 Dose: 40 mg Escitalopram Oxalate (Lexapro) 10 mg PO DAILY [facility] Last Admin: 11/02/17 09:45 Dose: 10 mg Glucagon (Glucagen Diagnostic Kit) 0 mg IM STAT PRN; Protocol PRN Reason: Hypoglycemia Protocol Piperacillin Sod/Tazobactam (Sod 3.375 gm/ Sodium Chloride) 100 mls @ 200 mls/ hr IVPB Q6H [facility] PRN Reason: Protocol Last Admin: 11/02/17 09:43 Dose: 200 mls/hr Dextrose (Dextrose 5% In Water 1000 Ml) 1,000 mls @ 0 mls/hr IV .Q0M PRN; Protocol; Per Protocol PRN Reason: Hypoglycemia Protocol Vancomycin HCl 1 gm/ Sodium (Chloride) 250 mls @ 167 mls/hr IVPB Q12 [facility] PRN Reason: Protocol Last Admin: 11/01/17 22:26 Dose: 167 mls/hr Fluconazole (Diflucan Iv 200 Mg/100 Ml Ns) 100 mls @ 100 mls/hr IVPB DAILY [facility] PRN Reason: Protocol Stop: 11/03/17 10:59 Last Admin: 11/01/17 16:19 Dose: 100 mls/hr Insulin Aspart (Novolog) 0 unit SC ACHS [facility] PRN Reason: Protocol Last Admin: 11/02/17 07:18 Dose: Not Given Levetiracetam (Keppra) 500 mg PO BID [facility] Last Admin: 11/01/17 17:17 Dose: 500 mg Levothyroxine Sodium (Synthroid) 88 mcg PO 0630 [facility] Last Admin: 11/02/17 06:26 Dose: 88 mcg Oxycodone/Acetaminophen (Percocet 5/325 Mg Tab) 1 tab PO Q4H PRN PRN Reason: Pain, moderate (4-7) Stop: 11/03/17 21:41 Rivaroxaban (Xarelto) 20 mg PO DAILY [facility] Last Admin: 11/02/17 09:45 Dose: 20 mg Rosuvastatin Calcium (Crestor) 10 mg PO HS [facility] Last Admin: 11/01/17 22:12 Dose: 10 mg Zolpidem Tartrate (Ambien) 5 mg PO HS PRN PRN Reason: Insomnia Last Admin: 11/01/17 22:12 Dose: 5 mg - Labs Labs: 11/02/17 08:10 11/02/17 08:10 PT 17.2 SECONDS (9.7-12.2) H 10/31/17 13:36 INR 1.6 10/31/17 13:36 APTT 35 SECONDS (21-34) H 10/31/17 13:36 - Constitutional Appears: Well, Non-toxic, No Acute Distress - Extremities Exam Additional comments: left lower extremity hemiparesis, drop foot, nonpalpable pedal pulses right lower extremity: vasc: nonpalpable pedal pulses, TG reversed- cool to warm, CFT sluggish, no edema, pedal hair absent neuro: grossly diminished derm: no edema, localized erythema to forefoot, dry gangrenous patches on hallux and dorsal 4th digit, interdigital maceration to 4th interspace, mild malodor noted, no fluctuance, no purulence, no active drainage, dried peeling skin to dorsum of hallux ortho: no pain on palpation of digits 1,4 - Neurological Exam Neurological Exam: Alert, Awake, Oriented x3 - Psychiatric Exam Psychiatric exam: Normal Affect, Normal Mood Assessment and Plan - Assessment and Plan (Free Text) Assessment: 82 y/o female seen and evaluated for right foot gangrenous changes of digits 1,4 Plan: patient evaluated and chart reviewed discussed in detail with attending Dr. Hooker labs and vitals reviewed; afebrile, WBC 7.2 x rays of right foot reveal osteopenic changes, no acute evidence of OM Continue IV abx - zosyn 3.375g q6h; Vancomycin 1 gm HO/PVR - pending Vascular recs appreciated CTA - Heavily calcified iliac, femoral, popliteal, and tibial arteries bilaterally. Arterial supply below both knees from a single miniscule collateral vessel. Apply DSD to right foot Podiatry will continue to follow
[2017-11-02] MEDS: Fluconazole IV 200mg/100 ml NS 100 ML IVPB SCH (11:11)
[2017-11-02] MEDS ORDERED: Iodixanol 320 MG/ML 100 ML BOTTLE IV ONE (11:55)
[2017-11-02] MEDS: Vancomycin 1 gm/NS 200 ml 1 GM/200 ML BAG IVPB SCH (12:29)
--- NOTE | 2017-11-02 13:51 | CT ---
EXAM: CT Angiography Abdomen and Pelvis With Runoff to the Lower Extremities With Intravenous Contrast EXAM DATE/TIME: 11/02/2017 12:48 PM CLINICAL HISTORY: 82 years old, female; Signs and symptoms; Other: Ulcers; Additional info: Ulcers. Dry gangrene right big toe. Diabetic foot. TECHNIQUE: Axial computed tomographic angiography images of the abdomen, pelvis and lower extremities with intravenous contrast using CT angiography protocol. All CT scans at this facility use one or more dose reduction techniques, viz.: automated exposure control; ma/kV adjustment per patient size (including targeted exams where dose is matched to indication; i.e. head); or iterative reconstruction technique. MIP reconstructed images were created and reviewed. Coronal and sagittal reformatted images were created and reviewed. CONTRAST: 100 mL of VISIPAQUE administered intravenously. COMPARISON: No relevant prior studies available. FINDINGS: VASCULATURE: Aorta: Moderate to marked atherosclerotic calcifications are aorta and branch vessels. No abdominal aortic aneurysm. No dissection. Celiac trunk and mesenteric arteries: Large calcifications at the ostium and proximal SMA, at least 50% stenosis. Renal arteries: Calcifications left greater than right proximal renal arteries. High grade stenosis on the left, estimated 50-75% stenosis on the right. Right iliac arteries: No acute findings. No occlusion or significant stenosis. Right femoral/popliteal arteries: Marked atherosclerotic calcifications right iliac and common femoral arteries, segmental stenoses of up to 75%. A patent vessel closely parallel the heavily calcified superficial femoral artery, to the popliteal artery. Surgical correlation for graft. Right calf/foot arteries: Heavily calcified right peroneal and tibial arteries. Vascular supply below the knee from a small posterior collateral branch. Left iliac arteries: No acute findings. No occlusion or significant stenosis. Left femoral/popliteal arteries: Heavily calcified in the left iliac and femoral arteries. High grade stenosis of the common iliac, distal external iliac, common and superficial femoral arteries. Small collateral branches. Left calf/foot arteries: Heavily calcified popliteal and tibial arteries with high grade stenosis. Tiny tortuous collateral vessels from the popliteal region to below the knee and lower leg. Inferior vena cava: IVC filter ends below the renal veins. Lung bases: Unremarkable. No mass. No consolidation. ABDOMEN: Liver: Fatty liver. Gallbladder and bile ducts: Unremarkable. No calcified stones. No ductal dilation. Pancreas: Unremarkable. No ductal dilation. No mass. Spleen: Unremarkable. No splenomegaly. Adrenals: Unremarkable. No mass. Kidneys and ureters: Unremarkable. No hydronephrosis. No solid mass. Stomach and bowel: Unremarkable. No obstruction. No mucosal thickening. PELVIS: Appendix: No findings to suggest acute appendicitis. Bladder: Unremarkable. No mass. Reproductive: Unremarkable as visualized. ABDOMEN, PELVIS and LOWER EXTREMITIES: Intraperitoneal space: Unremarkable. No significant fluid collection. No free air. Bones/joints: Marked degenerative changes have both knees. No obvious periosteal reaction or lytic lesion upper right big toe. Degenerative disc and facet joint disease. Spinal stenosis at L3-4 and L4-5. Soft tissues: Unremarkable. Lymph nodes: Unremarkable. No enlarged lymph nodes. IMPRESSION: Heavily calcified iliac, femoral, popliteal and tibial arteries bilaterally. Arterial supply below both knees from a single miniscule collateral vessel.
[2017-11-03] MEDS: Vancomycin 1 gm/NS 200 ml 1 GM/200 ML BAG IVPB SCH ×2 (01:00→12:42)
[2017-11-03] MEDS: Piperacillin/Tazobact 3.375 GM in Sodium Chloride 100 ML IVPB SCH ×4 (04:06→21:37)
[2017-11-03] MEDS: Levothyroxine 88 MCG TAB PO SCH (05:59)
[2017-11-03] MEDS: (Novolog) Insulin Aspart, Recombinant 100 u/ml 10 ml vial SC SCH ×4 (07:45→22:46)
--- NOTE | 2017-11-03 10:15 | CP.PCM.PN ---
Subjective - Date & Time of Evaluation Date of Evaluation: 11/03/17 Time of Evaluation: 10:15 - Subjective Subjective: Podiatry Progress note: Dr. Hooker 82 year old female patient seen and evaluated at bedside for right foot gangrenous digits. Patient hemodynamically stable, NAD. No acute events overnight. Reports minimal pain to right foot, well-controlled. Dressing to RLE remains clean/dry/intact. No new pedal complaints. Denies N/V/F/D/C/SOB. Objective - Vital Signs/Intake and Output Vital Signs (last 24 hours): Temp Pulse Resp BP Pulse Ox 97.3 F L 59 L 18 148/64 96 11/03/17 08:49 11/03/17 08:49 11/03/17 08:49 11/03/17 08:49 11/03/17 08:49 Intake and Output: 11/03/17 11/03/17 06:59 18:59 Output Total 1999 Balance -1999 - Medications Medications: Current Medications Aspirin (Ecotrin) 81 mg PO DAILY [facility] Last Admin: 11/02/17 09:45 Dose: 81 mg Dextrose (Dextrose 50% Inj) 0 ml IV STAT PRN; Protocol PRN Reason: Hypoglycemia Protocol Dextrose (Glutose 15) 0 gm PO ONCE PRN; Protocol PRN Reason: Hypoglycemia Protocol Docusate Sodium (Colace) 100 mg PO BID [facility] Last Admin: 11/03/17 09:07 Dose: 100 mg Enoxaparin Sodium (Lovenox) 40 mg SC DAILY [facility] Last Admin: 11/01/17 10:34 Dose: 40 mg Escitalopram Oxalate (Lexapro) 10 mg PO DAILY [facility] Last Admin: 11/02/17 09:45 Dose: 10 mg Glucagon (Glucagen Diagnostic Kit) 0 mg IM STAT PRN; Protocol PRN Reason: Hypoglycemia Protocol Piperacillin Sod/Tazobactam (Sod 3.375 gm/ Sodium Chloride) 100 mls @ 200 mls/ hr IVPB Q6H [facility] PRN Reason: Protocol Last Admin: 11/03/17 04:06 Dose: 200 mls/hr Dextrose (Dextrose 5% In Water 1000 Ml) 1,000 mls @ 0 mls/hr IV .Q0M PRN; Protocol; Per Protocol PRN Reason: Hypoglycemia Protocol Fluconazole (Diflucan Iv 200 Mg/100 Ml Ns) 100 mls @ 100 mls/hr IVPB DAILY [facility] PRN Reason: Protocol Stop: 11/03/17 10:59 Last Admin: 11/02/17 11:11 Dose: 100 mls/hr Vancomycin/Sodium Chloride (Vancomycin 1 Gm/Ns 200 Ml) 1 gm in 200 mls @ 133.333 mls/hr IVPB Q12H [facility] PRN Reason: Protocol Last Admin: 11/03/17 01:00 Dose: 133.333 mls/hr Insulin Aspart (Novolog) 0 unit SC ACHS [facility] PRN Reason: Protocol Last Admin: 11/03/17 07:45 Dose: Not Given Levetiracetam (Keppra) 500 mg PO BID [facility] Last Admin: 11/03/17 09:07 Dose: 500 mg Levothyroxine Sodium (Synthroid) 88 mcg PO 0630 [facility] Last Admin: 11/03/17 05:59 Dose: 88 mcg Oxycodone/Acetaminophen (Percocet 5/325 Mg Tab) 1 tab PO Q4H PRN PRN Reason: Pain, moderate (4-7) Stop: 11/03/17 21:41 Last Admin: 11/02/17 12:30 Dose: 1 tab Rivaroxaban (Xarelto) 20 mg PO DAILY [facility] Last Admin: 11/03/17 09:07 Dose: 20 mg Rosuvastatin Calcium (Crestor) 10 mg PO HS [facility] Last Admin: 11/02/17 21:32 Dose: 10 mg Zolpidem Tartrate (Ambien) 5 mg PO HS PRN PRN Reason: Insomnia Last Admin: 11/02/17 21:31 Dose: 5 mg - Labs Labs: 11/02/17 08:10 11/02/17 08:10 PT 17.2 SECONDS (9.7-12.2) H 10/31/17 13:36 INR 1.6 10/31/17 13:36 APTT 35 SECONDS (21-34) H 10/31/17 13:36 - Constitutional Appears: Well, Non-toxic, No Acute Distress - Extremities Exam Additional comments: left lower extremity hemiparesis, drop foot, nonpalpable pedal pulses right lower extremity: vasc: nonpalpable pedal pulses, TG cool to cool/cool to cold at gangrenous digits, CFT >3 seconds - unable to be assessed at hallux, no edema, pedal hair absent neuro: grossly diminished derm: no edema, localized erythema to forefoot, dry gangrenous patches on hallux and dorsal 4th digit, interdigital maceration to 4th interspace, mild malodor noted, no fluctuance, no purulence, no active drainage, dried peeling skin to dorsum of hallux, friable skin noted ortho: pain on palpation noted to areas of gangrene - Neurological Exam Neurological Exam: Alert, Awake, Oriented x3 - Psychiatric Exam Psychiatric exam: Normal Affect, Normal Mood Assessment and Plan - Assessment and Plan (Free Text) Assessment: 82 y/o female seen and evaluated for right foot gangrene of digits 1,4 Plan: Patient seen and evaluated Discussed with attending, Dr. Hooker Afebrile R foot XR: osteopenic changes, negative OM Continue abx - Zosyn, Vancomycin HO/PVR - pending CTA - Heavily calcified iliac, femoral, popliteal, and tibial arteries bilaterally. Arterial supply below both knees from a single miniscule collateral vessel. -f/u vascular recs Continue local wound care - DSD Pain regimen per medicine Podiatry will continue to follow
[2017-11-03] MEDS: Fluconazole IV 200mg/100 ml NS 100 ML IVPB SCH (11:35)
--- NOTE | 2017-11-03 16:57 | CP.PCM.PN ---
Subjective - Date & Time of Evaluation Date of Evaluation: 11/03/17 Time of Evaluation: 08:00 - Subjective Subjective: 82 year old female patient seen and evaluated at bedside for right foot gangrenous digits. Patient hemodynamically stable, NAD. No acute events overnight. Reports minimal pain to right foot. No new pedal complaints. Denies N /V/F/D/C/SOB. Objective - Vital Signs/Intake and Output Vital Signs (last 24 hours): Temp Pulse Resp BP Pulse Ox 97.3 F L 59 L 18 148/64 98 11/03/17 08:49 11/03/17 08:49 11/03/17 08:49 11/03/17 08:49 11/03/17 11:56 Intake and Output: 11/03/17 11/03/17 06:59 18:59 Intake Total 640 Output Total 2000 400 Balance -1999 240 - Medications Medications: Current Medications Aspirin (Ecotrin) 81 mg PO DAILY [facility] Last Admin: 11/03/17 10:24 Dose: 81 mg Dextrose (Dextrose 50% Inj) 0 ml IV STAT PRN; Protocol PRN Reason: Hypoglycemia Protocol Dextrose (Glutose 15) 0 gm PO ONCE PRN; Protocol PRN Reason: Hypoglycemia Protocol Docusate Sodium (Colace) 100 mg PO BID [facility] Last Admin: 11/03/17 09:07 Dose: 100 mg Enoxaparin Sodium (Lovenox) 40 mg SC DAILY [facility] Last Admin: 11/01/17 10:34 Dose: 40 mg Escitalopram Oxalate (Lexapro) 10 mg PO DAILY [facility] Last Admin: 11/03/17 10:24 Dose: 10 mg Glucagon (Glucagen Diagnostic Kit) 0 mg IM STAT PRN; Protocol PRN Reason: Hypoglycemia Protocol Piperacillin Sod/Tazobactam (Sod 3.375 gm/ Sodium Chloride) 100 mls @ 200 mls/ hr IVPB Q6H [facility] PRN Reason: Protocol Last Admin: 11/03/17 15:24 Dose: 200 mls/hr Dextrose (Dextrose 5% In Water 1000 Ml) 1,000 mls @ 0 mls/hr IV .Q0M PRN; Protocol; Per Protocol PRN Reason: Hypoglycemia Protocol Vancomycin/Sodium Chloride (Vancomycin 1 Gm/Ns 200 Ml) 1 gm in 200 mls @ 133.333 mls/hr IVPB Q12H [facility] PRN Reason: Protocol Last Admin: 11/03/17 12:42 Dose: 133.333 mls/hr Insulin Aspart (Novolog) 0 unit SC ACHS [facility] PRN Reason: Protocol Last Admin: 11/03/17 12:46 Dose: Not Given Levetiracetam (Keppra) 500 mg PO BID [facility] Last Admin: 11/03/17 09:07 Dose: 500 mg Levothyroxine Sodium (Synthroid) 88 mcg PO 0630 [facility] Last Admin: 11/03/17 05:59 Dose: 88 mcg Oxycodone/Acetaminophen (Percocet 5/325 Mg Tab) 1 tab PO Q4H PRN PRN Reason: Pain, moderate (4-7) Stop: 11/03/17 21:41 Last Admin: 11/02/17 12:30 Dose: 1 tab Rivaroxaban (Xarelto) 20 mg PO DAILY [facility] Last Admin: 11/03/17 09:07 Dose: 20 mg Rosuvastatin Calcium (Crestor) 10 mg PO HS [facility] Last Admin: 11/02/17 21:32 Dose: 10 mg Zolpidem Tartrate (Ambien) 5 mg PO HS PRN PRN Reason: Insomnia Last Admin: 11/02/17 21:31 Dose: 5 mg - Labs Labs: 11/02/17 08:10 11/02/17 08:10 PT 17.2 SECONDS (9.7-12.2) H 10/31/17 13:36 INR 1.6 10/31/17 13:36 APTT 35 SECONDS (21-34) H 10/31/17 13:36 - Constitutional Appears: Non-toxic - Head Exam Head Exam: NORMOCEPHALIC - Eye Exam Eye Exam: PERRL - ENT Exam ENT Exam: Mucous Membranes Dry - Neck Exam Neck Exam: absent: Lymphadenopathy - Respiratory Exam Respiratory Exam: Decreased Breath Sounds - Cardiovascular Exam Cardiovascular Exam: REGULAR RHYTHM - GI/Abdominal Exam GI & Abdominal Exam: Distended - Rectal Exam Rectal Exam: Deferred - Exam Exam: NORMAL INSPECTION - Extremities Exam Extremities Exam: Pedal Edema, Tenderness. absent: Calf Tenderness - Back Exam Back Exam: absent: CVA tenderness (L), CVA tenderness (R) - Neurological Exam Neurological Exam: Alert, Awake - Psychiatric Exam Psychiatric exam: Depressed - Skin Skin Exam: Dry Assessment and Plan (1) Diabetic infection of right foot Status: Acute (2) Dry gangrene Status: Acute - Assessment and Plan (Free Text) Assessment: 82 year old female patient seen and evaluated at bedside for right foot gangrenous digits. P cultures pending IV rx in progress will need OR / amp after vascular eval completed
[2017-11-04] MEDS: Vancomycin 1 gm/NS 200 ml 1 GM/200 ML BAG IVPB SCH ×2 (00:14→12:00)
[2017-11-04] MEDS: Piperacillin/Tazobact 3.375 GM in Sodium Chloride 100 ML IVPB SCH ×4 (03:36→21:16)
[2017-11-04] MEDS: Levothyroxine 88 MCG TAB PO SCH (05:44)
[2017-11-04] MEDS: (Novolog) Insulin Aspart, Recombinant 100 u/ml 10 ml vial SC SCH ×4 (07:56→21:33)
--- NOTE | 2017-11-04 08:31 | PN ---
DATE: 11/02/2017 SUBJECTIVE: The patient getting supportive care. Continue treatment. Laboratory evaluation needed. Shauna Jason MD
--- NOTE | 2017-11-04 10:12 | VASCLAB ---
PROCEDURE: HISTORY: right foot gangrenous digits COMPARISON: None available. TECHNIQUE: Grayscale and duplex Doppler evaluation of the right common femoral, femoral, profunda femoral, popliteal, posterior tibial, anterior tibial and dorsalis pedis arteries was performed. Report prepared by Michael Moyer, BS, RVT FINDINGS: RIGHT LOWER EXTREMITY: * Common Femoral Artery: Peak Systolic Velocity - 238: Doppler Waveform: Biphasic: Plaque description - Calcific * Profunda Femoral Artery: Peak Systolic Velocity - 243: Doppler Waveform: Biphasic.: Plaque description - Calcific * Femoral Artery o Proximal Segment: Peak Systolic Velocity - 287: Doppler Waveform: Biphasic: Plaque description - Calcific o Middle Segment: Peak Systolic Velocity - 412: Doppler Waveform: Biphasic: Plaque description - Calcific o Distal Segment: Peak Systolic Velocity - 67: Doppler Waveform: Biphasic: Plaque description - Calcific * Popliteal Artery o Proximal Segment: Peak Systolic Velocity - 92: Doppler Waveform: Biphasic: Plaque description - Calcific o Middle Segment: Peak Systolic Velocity - 193: Doppler Waveform: Biphasic: Plaque description - Calcific o Distal Segment: Peak Systolic Velocity - 54: Doppler Waveform: Biphasic: Plaque description - Calcific * Posterior Tibial Artery: Peak Systolic Velocity - 0: Doppler Waveform: Absent: Plaque description - Calcific * Anterior Tibial Artery: Peak Systolic Velocity - 0: Doppler Waveform: Absent: Plaque description - Calcific * Dorsalis Pedis Artery: Peak Systolic Velocity - 0: Doppler Waveform: Absent: Plaque description - Calcific OTHER FINDINGS: Technically limited study due to severe arterial wall calcification. IMPRESSION: Possible occlusion of the right anterior and posterior arteries. Greater than 75% stenosis of the right mid superficial femoral artery. 50-75% stenosis of the right common femoral, proximal profunda femoral and proximal superficial femoral arteries. 30-49% stenosis of the right mid popliteal artery. Recommend angiogram and revascularization.
--- NOTE | 2017-11-04 10:37 | CP.PCM.PN ---
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 Objective - Vital Signs/Intake and Output Vital Signs (last 24 hours): Temp Pulse Resp BP Pulse Ox 98.2 F 56 L 20 152/63 H 98 11/04/17 07:30 11/04/17 07:30 11/04/17 07:30 11/04/17 07:30 11/04/17 07:30 Intake and Output: 11/04/17 11/04/17 06:59 18:59 Intake Total 1070 Output Total 1850 Balance -780 - Medications Medications: Current Medications Aspirin (Ecotrin) 81 mg PO DAILY [facility] Last Admin: 11/04/17 09:31 Dose: 81 mg Dextrose (Dextrose 50% Inj) 0 ml IV STAT PRN; Protocol PRN Reason: Hypoglycemia Protocol Dextrose (Glutose 15) 0 gm PO ONCE PRN; Protocol PRN Reason: Hypoglycemia Protocol Docusate Sodium (Colace) 100 mg PO BID [facility] Last Admin: 11/04/17 09:31 Dose: Not Given Enoxaparin Sodium (Lovenox) 40 mg SC DAILY [facility] Last Admin: 11/01/17 10:34 Dose: 40 mg Escitalopram Oxalate (Lexapro) 10 mg PO DAILY [facility] Last Admin: 11/04/17 09:32 Dose: 10 mg Glucagon (Glucagen Diagnostic Kit) 0 mg IM STAT PRN; Protocol PRN Reason: Hypoglycemia Protocol Piperacillin Sod/Tazobactam (Sod 3.375 gm/ Sodium Chloride) 100 mls @ 200 mls/ hr IVPB Q6H [facility] PRN Reason: Protocol Last Admin: 11/04/17 09:32 Dose: 200 mls/hr Vancomycin/Sodium Chloride (Vancomycin 1 Gm/Ns 200 Ml) 1 gm in 200 mls @ 133.333 mls/hr IVPB Q12H [facility] PRN Reason: Protocol Last Admin: 11/04/17 00:14 Dose: 133.333 mls/hr Insulin Aspart (Novolog) 0 unit SC ACHS [facility] PRN Reason: Protocol Last Admin: 11/04/17 07:56 Dose: Not Given Levetiracetam (Keppra) 500 mg PO BID [facility] Last Admin: 11/04/17 09:31 Dose: 500 mg Levothyroxine Sodium (Synthroid) 88 mcg PO 0630 [facility] Last Admin: 11/04/17 05:44 Dose: 88 mcg Rivaroxaban (Xarelto) 20 mg PO DAILY [facility] Last Admin: 11/04/17 09:32 Dose: 20 mg Rosuvastatin Calcium (Crestor) 10 mg PO HS [facility] Last Admin: 11/03/17 21:38 Dose: 10 mg Zolpidem Tartrate (Ambien) 5 mg PO HS PRN PRN Reason: Insomnia Last Admin: 11/02/17 21:31 Dose: 5 mg - Labs Labs: 11/02/17 08:10 11/02/17 08:10 PT 17.2 SECONDS (9.7-12.2) H 10/31/17 13:36 INR 1.6 10/31/17 13:36 APTT 35 SECONDS (21-34) H 10/31/17 13:36 - Constitutional Appears: Non-toxic, Chronically Ill - Eye Exam Eye Exam: PERRL - ENT Exam ENT Exam: Mucous Membranes Dry - Neck Exam Neck Exam: absent: Lymphadenopathy - Respiratory Exam Respiratory Exam: Decreased Breath Sounds - Cardiovascular Exam Cardiovascular Exam: REGULAR RHYTHM - GI/Abdominal Exam GI & Abdominal Exam: Distended, Soft - Rectal Exam Rectal Exam: Deferred - Exam Exam: NORMAL INSPECTION - Extremities Exam Extremities Exam: Tenderness - Back Exam Back Exam: absent: CVA tenderness (L), CVA tenderness (R) - Neurological Exam Neurological Exam: Alert, Awake Assessment and Plan (1) Diabetic infection of right foot Status: Acute (2) Dry gangrene Status: Acute - Assessment and Plan (Free Text) Assessment: admitted with necrotic toes 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
--- NOTE | 2017-11-04 11:25 | CP.PCM.PN ---
<James Perez - Last Filed: 11/06/17 14:06> Subjective - Date & Time of Evaluation Date of Evaluation: 11/04/17 Time of Evaluation: 11:22 - Subjective Subjective: Cardiology Progress Note: Patient seen and assessed at bedside. No acute events overnight. Patient has no new complaints at this time including fevers, chills, headache, chest pain, palpitations, SOB, cough, abdominal pain, N/V/D/C or changes in urine output. Objective - Vital Signs/Intake and Output Vital Signs (last 24 hours): Temp Pulse Resp BP Pulse Ox 98.2 F 56 L 20 152/63 H 98 11/04/17 07:30 11/04/17 07:30 11/04/17 07:30 11/04/17 07:30 11/04/17 07:30 Intake and Output: 11/04/17 11/04/17 06:59 18:59 Intake Total 1070 Output Total 1850 Balance -780 - Medications Medications: Current Medications Aspirin (Ecotrin) 81 mg PO DAILY [facility] Last Admin: 11/04/17 09:31 Dose: 81 mg Dextrose (Dextrose 50% Inj) 0 ml IV STAT PRN; Protocol PRN Reason: Hypoglycemia Protocol Dextrose (Glutose 15) 0 gm PO ONCE PRN; Protocol PRN Reason: Hypoglycemia Protocol Docusate Sodium (Colace) 100 mg PO BID [facility] Last Admin: 11/04/17 09:31 Dose: Not Given Enoxaparin Sodium (Lovenox) 40 mg SC DAILY [facility] Last Admin: 11/01/17 10:34 Dose: 40 mg Escitalopram Oxalate (Lexapro) 10 mg PO DAILY [facility] Last Admin: 11/04/17 09:32 Dose: 10 mg Glucagon (Glucagen Diagnostic Kit) 0 mg IM STAT PRN; Protocol PRN Reason: Hypoglycemia Protocol Piperacillin Sod/Tazobactam (Sod 3.375 gm/ Sodium Chloride) 100 mls @ 200 mls/ hr IVPB Q6H [facility] PRN Reason: Protocol Last Admin: 11/04/17 09:32 Dose: 200 mls/hr Vancomycin/Sodium Chloride (Vancomycin 1 Gm/Ns 200 Ml) 1 gm in 200 mls @ 133.333 mls/hr IVPB Q12H [facility] PRN Reason: Protocol Last Admin: 11/04/17 00:14 Dose: 133.333 mls/hr Insulin Aspart (Novolog) 0 unit SC ACHS [facility] PRN Reason: Protocol Last Admin: 11/04/17 07:56 Dose: Not Given Levetiracetam (Keppra) 500 mg PO BID [facility] Last Admin: 11/04/17 09:31 Dose: 500 mg Levothyroxine Sodium (Synthroid) 88 mcg PO 0630 [facility] Last Admin: 11/04/17 05:44 Dose: 88 mcg Rivaroxaban (Xarelto) 20 mg PO DAILY [facility] Last Admin: 11/04/17 09:32 Dose: 20 mg Rosuvastatin Calcium (Crestor) 10 mg PO HS [facility] Last Admin: 11/03/17 21:38 Dose: 10 mg Zolpidem Tartrate (Ambien) 5 mg PO HS PRN PRN Reason: Insomnia Last Admin: 11/02/17 21:31 Dose: 5 mg - Labs Labs: 11/02/17 08:10 11/02/17 08:10 PT 17.2 SECONDS (9.7-12.2) H 10/31/17 13:36 INR 1.6 10/31/17 13:36 APTT 35 SECONDS (21-34) H 10/31/17 13:36 - Constitutional Appears: Non-toxic, No Acute Distress - Head Exam Head Exam: ATRAUMATIC, NORMOCEPHALIC - ENT Exam ENT Exam: Mucous Membranes Moist, Normal Exam - Respiratory Exam Respiratory Exam: Clear to Ausculation Bilateral. absent: Prolonged Expiratory Phase, Rales, Rhonchi, Wheezes, Respiratory Distress, Stridor - Cardiovascular Exam Cardiovascular Exam: Bradycardia, REGULAR RHYTHM, +S1, +S2, Murmur (Systolic grade I/II) - GI/Abdominal Exam GI & Abdominal Exam: Soft, Normal Bowel Sounds. absent: Tenderness - Extremities Exam Extremities Exam: absent: Calf Tenderness, Joint Swelling, Pedal Edema Additional comments: Necrotic tissue to first digit of RLE with wound dressing clean, dry and intact ; No palpable pulses bilaterally; Right DP present with doppler - Neurological Exam Neurological Exam: Alert, Awake, Oriented x3 - Skin Skin Exam: Dry Assessment and Plan - Assessment and Plan (Free Text) Assessment: 82 year old female with severe PAD and dry gangrene of RLE Plan: 1. Severe PAD w/ Dry Gangrene of RLE -Using in demand medical biller/coder, patient was informed that she will need a peripheral angiogram. This was explained in detail, including descriptions of the procedure, possible risks and expected benefits. Patient verbally agreed to understanding the procedure and the risks of not having the procedure but refused to have this done at this time. She asks that she speak to her children first regarding the matter and afterwards will get back to us. -Continue IV abx and wound care -Podiatry and Surgery consultations appreciated Patient seen and case discussed with attending, Dr. Ken. Ritika PGY1 <Garrett Ken - Last Filed: 11/07/17 23:40> Objective - Vital Signs/Intake and Output Vital Signs (last 24 hours): Temp Pulse Resp BP Pulse Ox 98.1 F 57 L 18 150/54 L 98 11/07/17 15:40 11/07/17 15:40 11/07/17 15:40 11/07/17 15:40 11/07/17 15:40 Intake and Output: 11/07/17 11/08/17 18:59 06:59 Output Total 350 Balance -350 - Medications Medications: Current Medications Aspirin (Ecotrin) 81 mg PO DAILY [facility] Last Admin: 11/07/17 10:10 Dose: 81 mg Dextrose (Dextrose 50% Inj) 0 ml IV STAT PRN; Protocol PRN Reason: Hypoglycemia Protocol Dextrose (Glutose 15) 0 gm PO ONCE PRN; Protocol PRN Reason: Hypoglycemia Protocol Docusate Sodium (Colace) 100 mg PO BID [facility] Last Admin: 11/07/17 17:33 Dose: 100 mg Enoxaparin Sodium (Lovenox) 40 mg SC DAILY [facility] Last Admin: 11/01/17 10:34 Dose: 40 mg Escitalopram Oxalate (Lexapro) 10 mg PO DAILY [facility] Last Admin: 11/07/17 10:10 Dose: 10 mg Glucagon (Glucagen Diagnostic Kit) 0 mg IM STAT PRN; Protocol PRN Reason: Hypoglycemia Protocol Vancomycin/Sodium Chloride (Vancomycin 1 Gm/Ns 200 Ml) 1 gm in 200 mls @ 133.333 mls/hr IVPB Q12H [facility] PRN Reason: Protocol Last Admin: 11/04/17 12:00 Dose: Not Given Insulin Aspart (Novolog) 0 unit SC ACHS [facility] PRN Reason: Protocol Last Admin: 11/07/17 21:22 Dose: Not Given Levetiracetam (Keppra) 500 mg PO BID [facility] Last Admin: 11/07/17 17:33 Dose: 500 mg Levothyroxine Sodium (Synthroid) 88 mcg PO 0630 [facility] Last Admin: 11/07/17 05:48 Dose: 88 mcg Loperamide HCl (Imodium) 2 mg PO Q12 PRN PRN Reason: diarrhea Last Admin: 11/05/17 17:59 Dose: 2 mg Rivaroxaban (Xarelto) 20 mg PO DAILY [facility] Last Admin: 11/06/17 10:12 Dose: Not Given Rosuvastatin Calcium (Crestor) 10 mg PO HS [facility] Last Admin: 11/07/17 21:22 Dose: 10 mg Zolpidem Tartrate (Ambien) 5 mg PO HS PRN PRN Reason: Insomnia Last Admin: 11/06/17 21:51 Dose: 5 mg - Labs Labs: 11/07/17 07:31 11/07/17 07:31 PT 18.6 SECONDS (9.7-12.2) H 11/07/17 07:31 INR 1.7 11/07/17 07:31 APTT 35 SECONDS (21-34) H 10/31/17 13:36 Attending/Attestation - Attestation I have personally seen and examined this patient.: Yes I have fully participated in the care of the patient.: Yes I have reviewed all pertinent clinical information, including history, physical exam and plan: Yes Notes (Text): 11/07/17 23:40 pt refusing for peripheral angiogram cont med rx for PVD
[2017-11-04 11:41] LABS: BASO % 0.5 % (0.0-2.0); EOS # 0.1 K/uL (0.0-0.7); EOS % 1.1 % (0.0-4.0); HEMOGLOBIN 11.7 g/dL (11.0-16.0); LYMPH # 1.2 K/uL (1.0-4.3); LYMPH % 13.4 % (20.0-40.0); MEAN CELL VOLUME 87.8 fL (81.0-99.0); MEAN CORPUSCULAR HEMOGLOBIN 29.9 pg (27.0-31.0); MEAN PLATELET VOLUME 8.5 fL (7.2-11.7); MONO # 0.5 K/uL (0.0-0.8); MONO % 5.4 % (0.0-10.0); NEUT # 7.3 K/uL (1.8-7.0); NEUT % 79.6 % (50.0-75.0); RBC 3.92 Mil/uL (3.80-5.20); WHITE BLOOD COUNT 9.1 K/uL (4.8-10.8)
--- NOTE | 2017-11-04 11:51 | CP.PCM.PN ---
Subjective - Date & Time of Evaluation Date of Evaluation: 11/04/17 Time of Evaluation: 11:50 - Subjective Subjective: Progress note. Attending: Dr. Jason Pt seen and examined at bedside. No acute distress. No events overnight. No fevers, chills, vomiting, diarrhea. Objective - Vital Signs/Intake and Output Vital Signs (last 24 hours): Temp Pulse Resp BP Pulse Ox 98.2 F 56 L 20 152/63 H 98 11/04/17 07:30 11/04/17 07:30 11/04/17 07:30 11/04/17 07:30 11/04/17 07:30 Intake and Output: 11/04/17 11/04/17 06:59 18:59 Intake Total 1070 Output Total 1850 Balance -780 - Medications Medications: Current Medications Aspirin (Ecotrin) 81 mg PO DAILY [facility] Last Admin: 11/04/17 09:31 Dose: 81 mg Dextrose (Dextrose 50% Inj) 0 ml IV STAT PRN; Protocol PRN Reason: Hypoglycemia Protocol Dextrose (Glutose 15) 0 gm PO ONCE PRN; Protocol PRN Reason: Hypoglycemia Protocol Docusate Sodium (Colace) 100 mg PO BID [facility] Last Admin: 11/04/17 09:31 Dose: Not Given Enoxaparin Sodium (Lovenox) 40 mg SC DAILY [facility] Last Admin: 11/01/17 10:34 Dose: 40 mg Escitalopram Oxalate (Lexapro) 10 mg PO DAILY [facility] Last Admin: 11/04/17 09:32 Dose: 10 mg Glucagon (Glucagen Diagnostic Kit) 0 mg IM STAT PRN; Protocol PRN Reason: Hypoglycemia Protocol Piperacillin Sod/Tazobactam (Sod 3.375 gm/ Sodium Chloride) 100 mls @ 200 mls/ hr IVPB Q6H [facility] PRN Reason: Protocol Last Admin: 11/04/17 09:32 Dose: 200 mls/hr Vancomycin/Sodium Chloride (Vancomycin 1 Gm/Ns 200 Ml) 1 gm in 200 mls @ 133.333 mls/hr IVPB Q12H [facility] PRN Reason: Protocol Last Admin: 11/04/17 00:14 Dose: 133.333 mls/hr Insulin Aspart (Novolog) 0 unit SC ACHS [facility] PRN Reason: Protocol Last Admin: 11/04/17 07:56 Dose: Not Given Levetiracetam (Keppra) 500 mg PO BID [facility] Last Admin: 11/04/17 09:31 Dose: 500 mg Levothyroxine Sodium (Synthroid) 88 mcg PO 0630 [facility] Last Admin: 11/04/17 05:44 Dose: 88 mcg Rivaroxaban (Xarelto) 20 mg PO DAILY [facility] Last Admin: 11/04/17 09:32 Dose: 20 mg Rosuvastatin Calcium (Crestor) 10 mg PO HS [facility] Last Admin: 11/03/17 21:38 Dose: 10 mg Zolpidem Tartrate (Ambien) 5 mg PO HS PRN PRN Reason: Insomnia Last Admin: 11/02/17 21:31 Dose: 5 mg - Labs Labs: 11/04/17 11:33 11/02/17 08:10 PT 17.2 SECONDS (9.7-12.2) H 10/31/17 13:36 INR 1.6 10/31/17 13:36 APTT 35 SECONDS (21-34) H 10/31/17 13:36 - Constitutional Appears: Non-toxic, No Acute Distress, Chronically Ill - Head Exam Head Exam: ATRAUMATIC, NORMAL INSPECTION, NORMOCEPHALIC - Eye Exam Eye Exam: EOMI - ENT Exam ENT Exam: Mucous Membranes Moist - Neck Exam Neck Exam: Full ROM, Normal Inspection - Respiratory Exam Respiratory Exam: NORMAL BREATHING PATTERN. absent: Respiratory Distress - Cardiovascular Exam Cardiovascular Exam: +S1, +S2 - GI/Abdominal Exam GI & Abdominal Exam: Soft, Normal Bowel Sounds. absent: Tenderness - Extremities Exam Extremities Exam: absent: Full ROM, Normal Inspection Additional comments: foot wrapped, dressing clean dry intact. - Neurological Exam Neurological Exam: Alert, Awake, CN II-XII Intact - Psychiatric Exam Psychiatric exam: Normal Affect, Normal Mood - Skin Skin Exam: Dry, Intact, Normal Color, Warm Assessment and Plan - Assessment and Plan (Free Text) Assessment: This is an 82 yo female, originally from [place], with Gangrene, Right Foot Admit to tele Recent admission at [facility] Xray Right foot (11/01/17): FINDINGS: BONES: There is severe diffuse bone demineralization. There is no acute displaced fracture or bone destruction. Bone alignment is normal. Calcifications there is a prominent plantar calcaneal spur. JOINTS: Normal. SOFT TISSUES: Normal. OTHER FINDINGS: There are advanced atherosclerotic vascular. IMPRESSION: No radiographic evidence of bone destruction or osteomyelitis. Dr. Jenkins, ID Vanco 1 gm Q12H (start 10/31) Zosyn 3.375gm Q6H (Start 10/31) Diflucan 200mg IV x 3 days (Start 11/01/17) Dr. Prather, Podiatry - f/u HO/PVR - f/u arterial US Dr. Ken, Cardio/Vascular consult - start ASA 81mg PO daily - restart home med Xarelto 20mg PO Daily - f/u ABD angiography Percocet 5/325mg PO Q4H PRN pain Blood cultures (10/31/17): no growth x 24 hours Wound culture (10/31/17): Yeast species Right buttock wound Wound care nursing f/u reccs HTN Elevated this AM Hyperlipidemia Crestor 10mg PO HS f/u lipid panel Hx TIA Sequelae of left sided-hemiparesis Hypokalemia resolved Hypothyroidism Restart home Levothyroxine 88 mcg f/u TSH/Free T4 Diabetes Mellitus A1C: 5.3, well controlled Accuchecks ACHS Hypoglycemia Protocol MISS f/u lipid panel Seizure d/o Restart home Keppra 500mg PO BID Anxiety/Depression Restart home Lexapro 10mg PO Daily Constipation Colace 100mg PO BID Elevated INR INR 1.6 Monitor Prophylaxis SCDs on left (right c/i) ASA/Xarelto HOLD Lovenox 40mg SC daily GI not indicated
[2017-11-04 12:05] LABS: BLOOD UREA NITROGEN 9 mg/dL (7-17); CALCIUM 8.2 mg/dl (8.6-10.4); GFR AFRICAN-AMERICAN > 60; GFR NON-AFRICAN AMERICAN > 60
[2017-11-04] MEDS ORDERED: Potassium Chloride 20 mEq ER Tab PO ONE (15:42)
--- NOTE | 2017-11-04 16:54 | CP.PCM.CON ---
History of Present Illness - History of Present Illness History of Present Illness: VASCULAR SURGERY CONSULT NOTE FOR DR. DOBSON 82F presents with right 1st toe dry gangrene x1 month. Patient lives alone, is wheelchair bound and has a home health aide. Patient denies chest pain, palpitations, and pain in feet. Vascular surgery consulted for possible angiogram as recommended by radiology following results of lower extremity duplex. 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 Meds: as per MAR Allergies: iodine SHx: denies tobacco, ETOH and drug use Past Patient History - Past Medical History & Family History Past Medical History?: Yes - Past Social History Smoking Status: Never Smoked - CARDIAC Hx Hypertension: Yes - PULMONARY Hx Respiratory Disorders: No - NEUROLOGICAL HX Cerebrovascular Accident: Yes - HEENT Hx HEENT Problems: No - RENAL Hx Chronic Kidney Disease: No - ENDOCRINE/METABOLIC Hx Endocrine Disorders: Yes Hx Diabetes Mellitus Type 2: Yes - HEMATOLOGICAL/ONCOLOGICAL Hx Blood Disorders: No - INTEGUMENTARY Hx Dermatological Problems: No - MUSCULOSKELETAL/RHEUMATOLOGICAL Hx Falls: No 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) - GASTROINTESTINAL Hx Gastrointestinal Disorders: No - GENITOURINARY/GYNECOLOGICAL Hx Genitourinary Disorders: No - PSYCHIATRIC Hx Substance Use: No - ANESTHESIA Hx Anesthesia: No Meds Allergies/Adverse Reactions: Allergies Allergy/AdvReac Type Severity Reaction Status Date / Time Iodine and Iodide Containing Allergy Verified 10/31/17 12:46 Produc - Medications Medications: Current Medications Aspirin (Ecotrin) 81 mg PO DAILY [facility] Last Admin: 11/04/17 09:31 Dose: 81 mg Dextrose (Dextrose 50% Inj) 0 ml IV STAT PRN; Protocol PRN Reason: Hypoglycemia Protocol Dextrose (Glutose 15) 0 gm PO ONCE PRN; Protocol PRN Reason: Hypoglycemia Protocol Docusate Sodium (Colace) 100 mg PO BID [facility] Last Admin: 11/04/17 09:31 Dose: Not Given Enoxaparin Sodium (Lovenox) 40 mg SC DAILY [facility] Last Admin: 11/01/17 10:34 Dose: 40 mg Escitalopram Oxalate (Lexapro) 10 mg PO DAILY [facility] Last Admin: 11/04/17 09:32 Dose: 10 mg Glucagon (Glucagen Diagnostic Kit) 0 mg IM STAT PRN; Protocol PRN Reason: Hypoglycemia Protocol Piperacillin Sod/Tazobactam (Sod 3.375 gm/ Sodium Chloride) 100 mls @ 200 mls/ hr IVPB Q6H [facility] PRN Reason: Protocol Last Admin: 11/04/17 15:59 Dose: 200 mls/hr Vancomycin/Sodium Chloride (Vancomycin 1 Gm/Ns 200 Ml) 1 gm in 200 mls @ 133.333 mls/hr IVPB Q12H [facility] PRN Reason: Protocol Last Admin: 11/04/17 12:00 Dose: Not Given Insulin Aspart (Novolog) 0 unit SC ACHS [facility] PRN Reason: Protocol Last Admin: 11/04/17 13:03 Dose: Not Given Levetiracetam (Keppra) 500 mg PO BID [facility] Last Admin: 11/04/17 09:31 Dose: 500 mg Levothyroxine Sodium (Synthroid) 88 mcg PO 0630 [facility] Last Admin: 11/04/17 05:44 Dose: 88 mcg Rivaroxaban (Xarelto) 20 mg PO DAILY [facility] Last Admin: 11/04/17 09:32 Dose: 20 mg Rosuvastatin Calcium (Crestor) 10 mg PO HS [facility] Last Admin: 11/03/17 21:38 Dose: 10 mg Zolpidem Tartrate (Ambien) 5 mg PO HS PRN PRN Reason: Insomnia Last Admin: 11/02/17 21:31 Dose: 5 mg Physical Exam - Constitutional Appears: Non-toxic, No Acute Distress Additional comments: left side contracture (UE/LE) - Eye Exam Eye Exam: EOMI, PERRL - Respiratory Exam Respiratory Exam: Clear to Auscultation Bilateral, NORMAL BREATHING PATTERN - Cardiovascular Exam Cardiovascular Exam: REGULAR RHYTHM, +S1, +S2 - GI/Abdominal Exam GI & Abdominal Exam: Soft. absent: Distended, Firm, Guarding, Rebound, Rigid, Tenderness - Extremities Exam Extremities exam: Negative for: pedal edema, tenderness Additional comments: Left UE/LE contracture/ weakness Right 1st toe dry gangrene, no palpable pulses, intact sensation - Neurological Exam Neurological exam: Alert - Psychiatric Exam Psychiatric exam: Normal Affect, Normal Mood - Skin Skin Exam: Dry, Intact, Normal Color, Warm Results - Vital Signs Recent Vital Signs: Last Vital Signs Temp 98.1 F 11/04/17 15:35 Pulse 60 11/04/17 15:35 Resp 18 11/04/17 15:35 BP 167/61 H 11/04/17 15:35 Pulse Ox 99 11/04/17 15:35 - Labs Result Diagrams: 11/04/17 11:33 11/04/17 11:33 Labs: Laboratory Results - last 24 hr 11/03/17 11/03/17 11/03/17 11:45 17:08 21:49 WBC RBC Hgb Hct MCV MCH MCHC RDW Plt Count MPV Neut % (Auto) Lymph % (Auto) Hernando % (Auto) Eos % (Auto) Baso % (Auto) Neut # (Auto) Lymph # (Auto) Hernando # (Auto) Eos # (Auto) Baso # (Auto) ESR Sodium Potassium Chloride Carbon Dioxide Anion Gap BUN Creatinine Est GFR ( Amer) Est GFR (Non-Af Amer) POC Glucose (mg/dL) 115 H 102 135 H Random Glucose Calcium C-Reactive Protein Vancomycin Trough 11/04/17 11/04/17 11/04/17 06:33 11:15 11:33 WBC RBC Hgb Hct MCV MCH MCHC RDW Plt Count MPV Neut % (Auto) Lymph % (Auto) Hernando % (Auto) Eos % (Auto) Baso % (Auto) Neut # (Auto) Lymph # (Auto) Hernando # (Auto) Eos # (Auto) Baso # (Auto) ESR Sodium Potassium Chloride Carbon Dioxide Anion Gap BUN Creatinine Est GFR ( Amer) Est GFR (Non-Af Amer) POC Glucose (mg/dL) 100 159 H Random Glucose Calcium C-Reactive Protein Vancomycin Trough 26.7 H 11/04/17 11/04/17 11:33 11:33 WBC 9.1 RBC 3.92 Hgb 11.7 Hct 34.4 MCV 87.8 MCH 29.9 MCHC 34.0 RDW 20.0 H Plt Count 424 H MPV 8.5 Neut % (Auto) 79.6 H Lymph % (Auto) 13.4 L Hernando % (Auto) 5.4 Eos % (Auto) 1.1 Baso % (Auto) 0.5 Neut # (Auto) 7.3 H Lymph # (Auto) 1.2 Hernando # (Auto) 0.5 Eos # (Auto) 0.1 Baso # (Auto) 0.0 ESR 50 H Sodium 138 Potassium 2.7 L Chloride 102 Carbon Dioxide 27 Anion Gap 12 BUN 9 Creatinine 0.7 Est GFR ( Amer) > 60 Est GFR (Non-Af Amer) > 60 POC Glucose (mg/dL) Random Glucose 147 H Calcium 8.2 L C-Reactive Protein 7.70 Vancomycin Trough Assessment & Plan - Assessment and Plan (Free Text) Assessment: 82F with PVD, right first toe gangrene Plan: - Need angiogram - Interventional Cardio/IR on board already, they plan on angiogram, however - Patient has been refusing angiogram recommended by interventional cardio/IR Further recs discuss with Dr. Ned Candelario, PGY2
--- NOTE | 2017-11-04 21:14 | CP.PCM.PN ---
Subjective - Date & Time of Evaluation Date of Evaluation: 11/04/17 Time of Evaluation: 09:20 - Subjective Subjective: Podiatry Progress note: Dr. Hooker 82 year old female patient seen and evaluated at bedside for right foot gangrenous digits. Patient hemodynamically stable, NAD. No acute events overnight. Reports minimal pain to right foot, well-controlled. Dressing to RLE remains clean/dry/intact. No new pedal complaints. Denies N/V/F/D/C/SOB. Objective - Vital Signs/Intake and Output Vital Signs (last 24 hours): Temp Pulse Resp BP Pulse Ox 98.1 F 60 18 167/61 H 99 11/04/17 15:35 11/04/17 15:35 11/04/17 15:35 11/04/17 15:35 11/04/17 15:35 Intake and Output: 11/04/17 11/05/17 18:59 06:59 Intake Total 50 Output Total 600 Balance -550 - Medications Medications: Current Medications Aspirin (Ecotrin) 81 mg PO DAILY [facility] Last Admin: 11/04/17 09:31 Dose: 81 mg Dextrose (Dextrose 50% Inj) 0 ml IV STAT PRN; Protocol PRN Reason: Hypoglycemia Protocol Dextrose (Glutose 15) 0 gm PO ONCE PRN; Protocol PRN Reason: Hypoglycemia Protocol Docusate Sodium (Colace) 100 mg PO BID [facility] Last Admin: 11/04/17 17:58 Dose: Not Given Enoxaparin Sodium (Lovenox) 40 mg SC DAILY [facility] Last Admin: 11/01/17 10:34 Dose: 40 mg Escitalopram Oxalate (Lexapro) 10 mg PO DAILY [facility] Last Admin: 11/04/17 09:32 Dose: 10 mg Glucagon (Glucagen Diagnostic Kit) 0 mg IM STAT PRN; Protocol PRN Reason: Hypoglycemia Protocol Piperacillin Sod/Tazobactam (Sod 3.375 gm/ Sodium Chloride) 100 mls @ 200 mls/ hr IVPB Q6H [facility] PRN Reason: Protocol Last Admin: 11/04/17 15:59 Dose: 200 mls/hr Vancomycin/Sodium Chloride (Vancomycin 1 Gm/Ns 200 Ml) 1 gm in 200 mls @ 133.333 mls/hr IVPB Q12H [facility] PRN Reason: Protocol Last Admin: 11/04/17 12:00 Dose: Not Given Insulin Aspart (Novolog) 0 unit SC [facility] PRN Reason: Protocol Last Admin: 11/04/17 16:30 Dose: Not Given Levetiracetam (Keppra) 500 mg PO BID [facility] Last Admin: 11/04/17 17:16 Dose: 500 mg Levothyroxine Sodium (Synthroid) 88 mcg PO 0630 [facility] Last Admin: 11/04/17 05:44 Dose: 88 mcg Loperamide HCl (Imodium) 2 mg PO Q12 PRN PRN Reason: diarrhea Last Admin: 11/04/17 20:54 Dose: 2 mg Rivaroxaban (Xarelto) 20 mg PO DAILY [facility] Last Admin: 11/04/17 09:32 Dose: 20 mg Rosuvastatin Calcium (Crestor) 10 mg PO HS [facility] Last Admin: 11/03/17 21:38 Dose: 10 mg Zolpidem Tartrate (Ambien) 5 mg PO HS PRN PRN Reason: Insomnia Last Admin: 11/02/17 21:31 Dose: 5 mg - Labs Labs: 11/04/17 11:33 11/04/17 11:33 PT 17.2 SECONDS (9.7-12.2) H 10/31/17 13:36 INR 1.6 10/31/17 13:36 APTT 35 SECONDS (21-34) H 10/31/17 13:36 - Constitutional Appears: Well, Non-toxic, No Acute Distress - Extremities Exam Additional comments: left lower extremity hemiparesis, drop foot, nonpalpable pedal pulses right lower extremity: vasc: nonpalpable pedal pulses, TG cool to cool/cool to cold at gangrenous digits, CFT >3 seconds - unable to be assessed at hallux, no edema, pedal hair absent neuro: grossly diminished derm: no edema, localized erythema to forefoot, dry gangrenous patches on hallux and dorsal 4th digit, interdigital maceration to 4th interspace, mild malodor noted, no fluctuance, no purulence, no active drainage, dried peeling skin to dorsum of hallux, friable skin noted ortho: pain on palpation noted to areas of gangrene - Neurological Exam Neurological Exam: Alert, Awake, Oriented x3 - Psychiatric Exam Psychiatric exam: Normal Affect, Normal Mood Assessment and Plan - Assessment and Plan (Free Text) Assessment: 82 y/o female seen and evaluated for right foot gangrene of digits 1,4 Plan: Patient seen and evaluated Discussed with attending, Dr. Hooker Afebrile, absent leukocytosis. R foot XR: osteopenic changes, negative OM Continue abx - Zosyn, Vancomycin HO/PVR - 75% Stenosis of SFA and 30-49% stenosis of poplitela artery CTA - Heavily calcified iliac, femoral, popliteal, and tibial arteries bilaterally. Arterial supply below both knees from a single miniscule collateral vessel. Vascular rec: plan on angiogram Continue local wound care - DSD Pain regimen per medicine Podiatry intervention: wound care pending, vascular optimization. Podiatry will continue to follow
[2017-11-05] MEDS: Piperacillin/Tazobact 3.375 GM in Sodium Chloride 100 ML IVPB SCH ×4 (03:27→21:06)
[2017-11-05] MEDS: Levothyroxine 88 MCG TAB PO SCH (06:11)
[2017-11-05 07:28] LABS: BASO # 0.1 K/uL (0.0-0.2); BASO % 0.7 % (0.0-2.0); EOS # 0.2 K/uL (0.0-0.7); EOS % 2.4 % (0.0-4.0); HEMOGLOBIN 13.2 g/dL (11.0-16.0); LYMPH # 1.5 K/uL (1.0-4.3); MEAN CELL VOLUME 88.1 fL (81.0-99.0); MEAN CORPUSCULAR HEMOGLOBIN 30.1 pg (27.0-31.0); MEAN CORPUSCULAR HGB CONC 34.2 g/dL (33.0-37.0); MEAN PLATELET VOLUME 8.4 fL (7.2-11.7); MONO # 0.5 K/uL (0.0-0.8); NEUT # 5.1 K/uL (1.8-7.0); NEUT % 69.9 % (50.0-75.0); NRBC % 0.1 % (0.0-2.0); RBC 4.38 Mil/uL (3.80-5.20); RED CELL DISTRIBUTION WIDTH 20.2 % (11.5-14.5); WHITE BLOOD COUNT 7.3 K/uL (4.8-10.8)
[2017-11-05 07:51] LABS: ALB/GLOB RATIO 0.9 (1.0-2.1); ALBUMIN 3.4 g/dL (3.5-5.0); ALT/SGPT 21 U/L (9-52); AST/SGOT 33 U/L (14-36); BLOOD UREA NITROGEN 6 mg/dL (7-17); CALCIUM 8.8 mg/dl (8.6-10.4); GFR AFRICAN-AMERICAN > 60; GFR NON-AFRICAN AMERICAN > 60
[2017-11-05] MEDS: (Novolog) Insulin Aspart, Recombinant 100 u/ml 10 ml vial SC SCH ×4 (08:30→21:08)
[2017-11-05] MEDS ORDERED: Potassium Chloride 20 mEq ER Tab PO ONE (10:15)
--- NOTE | 2017-11-05 11:03 | CP.PCM.PN ---
Subjective - Date & Time of Evaluation Date of Evaluation: 11/05/17 Time of Evaluation: 09:00 - Subjective Subjective: awake alert confused wound same right foot refusing CT Angio Objective - Vital Signs/Intake and Output Vital Signs (last 24 hours): Temp Pulse Resp BP Pulse Ox 97.8 F 56 L 18 154/66 H 97 11/05/17 08:30 11/05/17 08:30 11/05/17 08:30 11/05/17 08:30 11/05/17 08:30 Intake and Output: 11/05/17 11/05/17 06:59 18:59 Intake Total 550 Output Total 1000 Balance -450 - Medications Medications: Current Medications Aspirin (Ecotrin) 81 mg PO DAILY [facility] Last Admin: 11/05/17 10:25 Dose: 81 mg Dextrose (Dextrose 50% Inj) 0 ml IV STAT PRN; Protocol PRN Reason: Hypoglycemia Protocol Dextrose (Glutose 15) 0 gm PO ONCE PRN; Protocol PRN Reason: Hypoglycemia Protocol Docusate Sodium (Colace) 100 mg PO BID [facility] Last Admin: 11/05/17 10:25 Dose: 100 mg Enoxaparin Sodium (Lovenox) 40 mg SC DAILY [facility] Last Admin: 11/01/17 10:34 Dose: 40 mg Escitalopram Oxalate (Lexapro) 10 mg PO DAILY [facility] Last Admin: 11/05/17 10:25 Dose: 10 mg Glucagon (Glucagen Diagnostic Kit) 0 mg IM STAT PRN; Protocol PRN Reason: Hypoglycemia Protocol Piperacillin Sod/Tazobactam (Sod 3.375 gm/ Sodium Chloride) 100 mls @ 200 mls/ hr IVPB Q6H [facility] PRN Reason: Protocol Last Admin: 11/05/17 10:25 Dose: 200 mls/hr Vancomycin/Sodium Chloride (Vancomycin 1 Gm/Ns 200 Ml) 1 gm in 200 mls @ 133.333 mls/hr IVPB Q12H [facility] PRN Reason: Protocol Last Admin: 11/04/17 12:00 Dose: Not Given Insulin Aspart (Novolog) 0 unit SC ACHS [facility] PRN Reason: Protocol Last Admin: 11/05/17 08:30 Dose: Not Given Levetiracetam (Keppra) 500 mg PO BID [facility] Last Admin: 11/05/17 10:25 Dose: 500 mg Levothyroxine Sodium (Synthroid) 88 mcg PO 0630 [facility] Last Admin: 11/05/17 06:11 Dose: 88 mcg Loperamide HCl (Imodium) 2 mg PO Q12 PRN PRN Reason: diarrhea Last Admin: 11/04/17 20:54 Dose: 2 mg Rivaroxaban (Xarelto) 20 mg PO DAILY [facility] Last Admin: 11/05/17 10:25 Dose: 20 mg Rosuvastatin Calcium (Crestor) 10 mg PO HS [facility] Last Admin: 11/04/17 21:15 Dose: 10 mg Zolpidem Tartrate (Ambien) 5 mg PO HS PRN PRN Reason: Insomnia Last Admin: 11/02/17 21:31 Dose: 5 mg - Labs Labs: 11/05/17 07:11 11/05/17 07:11 PT 17.2 SECONDS (9.7-12.2) H 10/31/17 13:36 INR 1.6 10/31/17 13:36 APTT 35 SECONDS (21-34) H 10/31/17 13:36 - Constitutional Appears: Non-toxic, Chronically Ill - Head Exam Head Exam: NORMOCEPHALIC - Eye Exam Eye Exam: PERRL - ENT Exam ENT Exam: Mucous Membranes Dry - Neck Exam Neck Exam: absent: Lymphadenopathy - Respiratory Exam Respiratory Exam: Decreased Breath Sounds, Prolonged Expiratory Phase - Cardiovascular Exam Cardiovascular Exam: REGULAR RHYTHM - GI/Abdominal Exam GI & Abdominal Exam: Distended, Soft Assessment and Plan (1) Diabetic infection of right foot Status: Acute (2) Dry gangrene Status: Acute
--- NOTE | 2017-11-05 11:30 | CP.PCM.PN ---
Subjective - Date & Time of Evaluation Date of Evaluation: 11/05/17 Time of Evaluation: 11:25 - Subjective Subjective: Progress note. Attending: Dr. Jason. Pt seen and examined at bedside. No acute distress. No events overnight. No fevers, chills, vomiting, diarrhea. Objective - Vital Signs/Intake and Output Vital Signs (last 24 hours): Temp Pulse Resp BP Pulse Ox 97.8 F 56 L 18 154/66 H 97 11/05/17 08:30 11/05/17 08:30 11/05/17 08:30 11/05/17 08:30 11/05/17 08:30 Intake and Output: 11/05/17 11/05/17 06:59 18:59 Intake Total 550 Output Total 1000 Balance -450 - Medications Medications: Current Medications Aspirin (Ecotrin) 81 mg PO DAILY [facility] Last Admin: 11/05/17 10:25 Dose: 81 mg Dextrose (Dextrose 50% Inj) 0 ml IV STAT PRN; Protocol PRN Reason: Hypoglycemia Protocol Dextrose (Glutose 15) 0 gm PO ONCE PRN; Protocol PRN Reason: Hypoglycemia Protocol Docusate Sodium (Colace) 100 mg PO BID [facility] Last Admin: 11/05/17 10:25 Dose: 100 mg Enoxaparin Sodium (Lovenox) 40 mg SC DAILY [facility] Last Admin: 11/01/17 10:34 Dose: 40 mg Escitalopram Oxalate (Lexapro) 10 mg PO DAILY [facility] Last Admin: 11/05/17 10:25 Dose: 10 mg Glucagon (Glucagen Diagnostic Kit) 0 mg IM STAT PRN; Protocol PRN Reason: Hypoglycemia Protocol Piperacillin Sod/Tazobactam (Sod 3.375 gm/ Sodium Chloride) 100 mls @ 200 mls/ hr IVPB Q6H [facility] PRN Reason: Protocol Last Admin: 11/05/17 10:25 Dose: 200 mls/hr Vancomycin/Sodium Chloride (Vancomycin 1 Gm/Ns 200 Ml) 1 gm in 200 mls @ 133.333 mls/hr IVPB Q12H [facility] PRN Reason: Protocol Last Admin: 11/04/17 12:00 Dose: Not Given Insulin Aspart (Novolog) 0 unit SC ACHS [facility] PRN Reason: Protocol Last Admin: 11/05/17 08:30 Dose: Not Given Levetiracetam (Keppra) 500 mg PO BID [facility] Last Admin: 11/05/17 10:25 Dose: 500 mg Levothyroxine Sodium (Synthroid) 88 mcg PO 0630 [facility] Last Admin: 11/05/17 06:11 Dose: 88 mcg Loperamide HCl (Imodium) 2 mg PO Q12 PRN PRN Reason: diarrhea Last Admin: 11/04/17 20:54 Dose: 2 mg Rivaroxaban (Xarelto) 20 mg PO DAILY [facility] Last Admin: 11/05/17 10:25 Dose: 20 mg Rosuvastatin Calcium (Crestor) 10 mg PO HS [facility] Last Admin: 11/04/17 21:15 Dose: 10 mg Zolpidem Tartrate (Ambien) 5 mg PO HS PRN PRN Reason: Insomnia Last Admin: 11/02/17 21:31 Dose: 5 mg - Labs Labs: 11/05/17 07:11 11/05/17 07:11 PT 17.2 SECONDS (9.7-12.2) H 10/31/17 13:36 INR 1.6 10/31/17 13:36 APTT 35 SECONDS (21-34) H 10/31/17 13:36 - Constitutional Appears: Non-toxic, No Acute Distress - Head Exam Head Exam: ATRAUMATIC, NORMAL INSPECTION, NORMOCEPHALIC - Eye Exam Eye Exam: EOMI - ENT Exam ENT Exam: Mucous Membranes Moist - Neck Exam Neck Exam: Full ROM, Normal Inspection - Respiratory Exam Respiratory Exam: NORMAL BREATHING PATTERN. absent: Respiratory Distress - Cardiovascular Exam Cardiovascular Exam: +S1, +S2 - GI/Abdominal Exam GI & Abdominal Exam: Soft, Normal Bowel Sounds. absent: Tenderness - Extremities Exam Extremities Exam: absent: Full ROM, Normal Inspection - Neurological Exam Neurological Exam: Alert, Awake. absent: Normal Gait - Psychiatric Exam Psychiatric exam: Flat Affect - Skin Skin Exam: Dry, Intact, Normal Color, Warm Assessment and Plan - Assessment and Plan (Free Text) Assessment: This is an 82 yo female, originally from [place], with Gangrene, Right Foot Admit to telemetry Recent admission at [facility] Xray Right foot (11/01/17): FINDINGS: BONES: There is severe diffuse bone demineralization. There is no acute displaced fracture or bone destruction. Bone alignment is normal. Calcifications there is a prominent plantar calcaneal spur. JOINTS: Normal. SOFT TISSUES: Normal. OTHER FINDINGS: There are advanced atherosclerotic vascular. IMPRESSION: No radiographic evidence of bone destruction or osteomyelitis. Dr. Jenkins, ID Vanco 1 gm Q12H (start 10/31) Zosyn 3.375gm Q6H (Start 10/31) Diflucan 200mg IV x 3 days (Start 11/01/17) Dr. Prather, Podiatry -abnormal arterial doppler -vascular surgery consult. Dr. Marino. recs appreciated. Dr. Ken, Cardio/Vascular consult - start ASA 81mg PO daily - restart home med Xarelto 20mg PO Daily - f/u ABD angiography Percocet 5/325mg PO Q4H PRN pain Blood cultures (10/31/17): no growth x 24 hours Wound culture (10/31/17): Yeast species Right buttock wound Wound care nursing f/u reccs HTN -continue to monitor Hyperlipidemia Crestor 10mg PO HS LDL 56 Hx TIA - Sequelae of left sided-hemiparesis Hypokalemia -will give oral potassium today -recheck Hypothyroidism Restart home Levothyroxine 88 mcg f/u TSH/Free T4 Diabetes Mellitus A1C: 5.3, well controlled Accuchecks ACHS Hypoglycemia Protocol MISS -LDL 56 Seizure d/o Restart home Keppra 500mg PO BID Anxiety/Depression -Restart home Lexapro 10mg PO Daily Constipation -Colace 100mg PO BID Elevated INR INR 1.6 Monitor Prophylaxis SCDs on left (right c/i) ASA/Xarelto HOLD Lovenox 40mg SC daily GI not indicated
[2017-11-06] MEDS ORDERED: Potassium Chloride 20 mEq ER Tab PO ONE (00:21)
[2017-11-06] MEDS ORDERED: Potassium Chloride 20 mEq ER Tab PO SCH (00:30)
[2017-11-06] MEDS: Potassium Chloride 20 mEq ER Tab PO SCH ×2 (02:40→05:10)
[2017-11-06] MEDS: Levothyroxine 88 MCG TAB PO SCH (05:53)
[2017-11-06 07:23] LABS: BLOOD UREA NITROGEN 6 mg/dL (7-17); CALCIUM 8.9 mg/dl (8.6-10.4); GFR AFRICAN-AMERICAN > 60; GFR NON-AFRICAN AMERICAN > 60
[2017-11-06] MEDS: (Novolog) Insulin Aspart, Recombinant 100 u/ml 10 ml vial SC SCH ×4 (07:47→21:38)
--- NOTE | 2017-11-06 10:24 | CP.PCM.PN ---
Subjective - Date & Time of Evaluation Date of Evaluation: 11/06/17 Time of Evaluation: 10:21 - Subjective Subjective: Podiatry Progress note: Dr. Hooker 82 year old female patient seen and evaluated at bedside for right foot gangrenous digits 1 and 4. At present, patient remains hemodynamically stable and is in NAD. No acute events overnight. Denies having any pain in the right foot today. Dressing to RLE remains clean/dry/intact. No new pedal complaints. Denies N/V/F/D/C/SOB. Objective - Vital Signs/Intake and Output Vital Signs (last 24 hours): Temp Pulse Resp BP Pulse Ox 97.8 F 60 20 159/56 H 99 11/06/17 07:00 11/06/17 07:00 11/06/17 07:00 11/06/17 07:00 11/06/17 07:00 Intake and Output: 11/06/17 11/06/17 06:59 18:59 Intake Total 680 Output Total 500 Balance 180 - Medications Medications: Current Medications Aspirin (Ecotrin) 81 mg PO DAILY [facility] Last Admin: 11/06/17 10:12 Dose: Not Given Dextrose (Dextrose 50% Inj) 0 ml IV STAT PRN; Protocol PRN Reason: Hypoglycemia Protocol Dextrose (Glutose 15) 0 gm PO ONCE PRN; Protocol PRN Reason: Hypoglycemia Protocol Docusate Sodium (Colace) 100 mg PO BID [facility] Last Admin: 11/06/17 10:12 Dose: Not Given Enoxaparin Sodium (Lovenox) 40 mg SC DAILY [facility] Last Admin: 11/01/17 10:34 Dose: 40 mg Escitalopram Oxalate (Lexapro) 10 mg PO DAILY [facility] Last Admin: 11/06/17 10:12 Dose: Not Given Glucagon (Glucagen Diagnostic Kit) 0 mg IM STAT PRN; Protocol PRN Reason: Hypoglycemia Protocol Vancomycin/Sodium Chloride (Vancomycin 1 Gm/Ns 200 Ml) 1 gm in 200 mls @ 133.333 mls/hr IVPB Q12H [facility] PRN Reason: Protocol Last Admin: 11/04/17 12:00 Dose: Not Given Insulin Aspart (Novolog) 0 unit SC ACHS [facility] PRN Reason: Protocol Last Admin: 11/06/17 07:47 Dose: Not Given Levetiracetam (Keppra) 500 mg PO BID [facility] Last Admin: 11/06/17 10:11 Dose: Not Given Levothyroxine Sodium (Synthroid) 88 mcg PO 0630 [facility] Last Admin: 11/06/17 05:53 Dose: 88 mcg Loperamide HCl (Imodium) 2 mg PO Q12 PRN PRN Reason: diarrhea Last Admin: 11/05/17 17:59 Dose: 2 mg Rivaroxaban (Xarelto) 20 mg PO DAILY [facility] Last Admin: 11/06/17 10:12 Dose: Not Given Rosuvastatin Calcium (Crestor) 10 mg PO HS [facility] Last Admin: 11/05/17 21:08 Dose: 10 mg Zolpidem Tartrate (Ambien) 5 mg PO HS PRN PRN Reason: Insomnia Last Admin: 11/02/17 21:31 Dose: 5 mg - Labs Labs: 11/05/17 07:11 11/06/17 06:51 PT 17.2 SECONDS (9.7-12.2) H 10/31/17 13:36 INR 1.6 10/31/17 13:36 APTT 35 SECONDS (21-34) H 10/31/17 13:36 - Constitutional Appears: Well, Non-toxic, No Acute Distress - Extremities Exam Additional comments: LLEhemiparesis with drop foot, nonpalpable pedal pulses Right lower extremity focused exam: Vasc: nonpalpable pedal pulses, TG cool to cool/cool to cold at gangrenous digits, CFT >3 seconds - unable to be assessed at hallux, no pedal edema, pedal hair absent Neuro: protective sensation grossly diminished Derm: no edema, localized erythema to forefoot, dry gangrenous patches on hallux and dorsal 4th digit, interdigital maceration to 4th interspace, mild malodor noted, no fluctuance, no purulence, no active drainage, dried peeling skin to dorsum of hallux, friable skin noted Ortho: pain on palpation noted to areas of gangrene - Neurological Exam Neurological Exam: Alert, Awake, Oriented x3 - Psychiatric Exam Psychiatric exam: Normal Affect, Normal Mood Assessment and Plan - Assessment and Plan (Free Text) Assessment: 82 y/o female seen and evaluated for right foot gangrene of digits 1,4 Plan: Patient seen and evaluated Discussed with attending, Dr. Morro Loco foot XR: osteopenic changes, negative OM Continue abx - Zosyn, Vancomycin HO/PVR - 75% Stenosis of SFA and 30-49% stenosis of poplitela artery CTA - Heavily calcified iliac, femoral, popliteal, and tibial arteries bilaterally. Arterial supply below both knees from a single miniscule collateral vessel. Vascular rec: plan on angiogram, pt states today that she is understanding and agreeable to proceed with test Continue local wound care - DSD Pain regimen per medicine Podiatry will continue to follow while in house
--- NOTE | 2017-11-06 13:00 | CP.PCM.PN ---
Subjective - Date & Time of Evaluation Date of Evaluation: 11/06/17 Time of Evaluation: 12:57 - Subjective Subjective: Progress Note for Dr. Jason's Service Patient seen and examined at bedside this morning. She was scheduled for an angiogram today but refused to have the procedure done. It appears that she may have been confused about the nature of the test and is more agreeable upon explanation. She is otherwise stable without any acute changes overnight. No fevers of chills. Objective - Vital Signs/Intake and Output Vital Signs (last 24 hours): Temp Pulse Resp BP Pulse Ox 97.8 F 60 20 159/56 H 99 11/06/17 07:00 11/06/17 07:00 11/06/17 07:00 11/06/17 07:00 11/06/17 07:00 Intake and Output: 11/06/17 11/06/17 06:59 18:59 Intake Total 680 Output Total 500 Balance 180 - Medications Medications: Current Medications Aspirin (Ecotrin) 81 mg PO DAILY [facility] Last Admin: 11/06/17 10:12 Dose: Not Given Dextrose (Dextrose 50% Inj) 0 ml IV STAT PRN; Protocol PRN Reason: Hypoglycemia Protocol Dextrose (Glutose 15) 0 gm PO ONCE PRN; Protocol PRN Reason: Hypoglycemia Protocol Docusate Sodium (Colace) 100 mg PO BID [facility] Last Admin: 11/06/17 10:12 Dose: Not Given Enoxaparin Sodium (Lovenox) 40 mg SC DAILY [facility] Last Admin: 11/01/17 10:34 Dose: 40 mg Escitalopram Oxalate (Lexapro) 10 mg PO DAILY [facility] Last Admin: 11/06/17 10:12 Dose: Not Given Glucagon (Glucagen Diagnostic Kit) 0 mg IM STAT PRN; Protocol PRN Reason: Hypoglycemia Protocol Vancomycin/Sodium Chloride (Vancomycin 1 Gm/Ns 200 Ml) 1 gm in 200 mls @ 133.333 mls/hr IVPB Q12H [facility] PRN Reason: Protocol Last Admin: 11/04/17 12:00 Dose: Not Given Insulin Aspart (Novolog) 0 unit SC ACHS [facility] PRN Reason: Protocol Last Admin: 11/06/17 12:05 Dose: Not Given Levetiracetam (Keppra) 500 mg PO BID [facility] Last Admin: 11/06/17 10:11 Dose: Not Given Levothyroxine Sodium (Synthroid) 88 mcg PO 0630 [facility] Last Admin: 11/06/17 05:53 Dose: 88 mcg Loperamide HCl (Imodium) 2 mg PO Q12 PRN PRN Reason: diarrhea Last Admin: 11/05/17 17:59 Dose: 2 mg Rivaroxaban (Xarelto) 20 mg PO DAILY [facility] Last Admin: 11/06/17 10:12 Dose: Not Given Rosuvastatin Calcium (Crestor) 10 mg PO HS [facility] Last Admin: 11/05/17 21:08 Dose: 10 mg Zolpidem Tartrate (Ambien) 5 mg PO HS PRN PRN Reason: Insomnia Last Admin: 11/02/17 21:31 Dose: 5 mg - Labs Labs: 11/05/17 07:11 11/06/17 06:51 PT 17.2 SECONDS (9.7-12.2) H 10/31/17 13:36 INR 1.6 10/31/17 13:36 APTT 35 SECONDS (21-34) H 10/31/17 13:36 - Constitutional Appears: No Acute Distress - Head Exam Head Exam: ATRAUMATIC, NORMOCEPHALIC - Eye Exam Eye Exam: EOMI, Normal appearance - ENT Exam ENT Exam: Mucous Membranes Moist - Respiratory Exam Respiratory Exam: Clear to Ausculation Bilateral, NORMAL BREATHING PATTERN - Cardiovascular Exam Cardiovascular Exam: REGULAR RHYTHM, +S1 - GI/Abdominal Exam GI & Abdominal Exam: Soft. absent: Tenderness - Extremities Exam Additional comments: RLE diminished pedal pulse, cool to touch, gangrenous digits - Neurological Exam Neurological Exam: Alert, Awake, Oriented x3 - Psychiatric Exam Psychiatric exam: Normal Affect, Normal Mood Assessment and Plan - Assessment and Plan (Free Text) Plan: Gangrene of Right Foot secondary to PVD Admit to telemetry Recent admission at [facility] Xray Right foot (11/01/17): FINDINGS: BONES: There is severe diffuse bone demineralization. There is no acute displaced fracture or bone destruction. Bone alignment is normal. Calcifications there is a prominent plantar calcaneal spur. JOINTS: Normal. SOFT TISSUES: Normal. OTHER FINDINGS: There are advanced atherosclerotic vascular. IMPRESSION: No radiographic evidence of bone destruction or osteomyelitis. ID consult placed to tashi Johnson appreciated Vanco 1 gm Q12H (start 10/31) Zosyn 3.375gm Q6H (Start 10/31) Stopped Diflucan 200mg IV x 3 days (Start 11/01/17) Podiatry consult placed to tashi Valentino appreciated R foot XR: osteopenic changes, negative OM Continue abx - Zosyn, Vancomycin HO/PVR - 75% Stenosis of SFA and 30-49% stenosis of poplitela artery CTA - Heavily calcified iliac, femoral, popliteal, and tibial arteries bilaterally. Arterial supply below both knees from a single miniscule collateral vessel Continue local wound care - DSD Pain regimen per medicine Podiatry will continue to follow while in house Vascular surgery consult placed to tashi Wall appreciated plan on angiogram, pt states today that she is understanding and agreeable to proceed with test Cardio consult placed to tashi Joy appreciated start ASA 81mg PO daily restart home med Xarelto 20mg PO Daily Abdominal angiogram- heavily calcified iliac, femoral, popliteal, and tibial arteries Blood cultures (10/31/17): no growth to date Wound culture (10/31/17): Staph epidermidis and fercho tropicalis Right buttock wound Wound care nursing f/u reccs HTN- stable -continue to monitor Hyperlipidemia Crestor 10mg PO HS LDL 56 Hx CVA with residual left sided hemiparesis No acute intervention Xarelto ASA Hypokalemia Resolved K= 3.6 Continue to monitor Hypothyroidism Levothyroxine 88 mcg f/u TSH/Free T4 Diabetes Mellitus A1C: 5.3, well controlled Accuchecks ACHS Hypoglycemia Protocol MISS -LDL 56 Seizure d/o Keppra 500mg PO BID Anxiety/Depression Lexapro 10mg PO Daily Constipation Colace 100mg PO BID Elevated INR INR 1.6 Monitor Prophylaxis SCDs on left (right c/i) ASA/Xarelto HOLD Lovenox 40mg SC daily GI not indicated Case discussed with Dr. Jason All management as per Dr. Jason
--- NOTE | 2017-11-06 13:59 | CP.PCM.PN ---
<James Perez - Last Filed: 11/06/17 15:03> Subjective - Date & Time of Evaluation Date of Evaluation: 11/06/17 Time of Evaluation: 13:59 - Subjective Subjective: Cardiology Progress Note (Dr. Ken) Patient seen and assessed at bedside. No acute events overnight. [employer] translation services used for translation. Patient reports that she would like to proceed with peripheral angiogram. She has no complaints at this time. Objective - Vital Signs/Intake and Output Vital Signs (last 24 hours): Temp Pulse Resp BP Pulse Ox 97.8 F 60 20 159/56 H 99 11/06/17 07:00 11/06/17 07:00 11/06/17 07:00 11/06/17 07:00 11/06/17 07:00 Intake and Output: 11/06/17 11/06/17 06:59 18:59 Intake Total 680 Output Total 500 Balance 180 - Medications Medications: Current Medications Aspirin (Ecotrin) 81 mg PO DAILY [facility] Last Admin: 11/06/17 10:12 Dose: Not Given Dextrose (Dextrose 50% Inj) 0 ml IV STAT PRN; Protocol PRN Reason: Hypoglycemia Protocol Dextrose (Glutose 15) 0 gm PO ONCE PRN; Protocol PRN Reason: Hypoglycemia Protocol Docusate Sodium (Colace) 100 mg PO BID [facility] Last Admin: 11/06/17 10:12 Dose: Not Given Enoxaparin Sodium (Lovenox) 40 mg SC DAILY [facility] Last Admin: 11/01/17 10:34 Dose: 40 mg Escitalopram Oxalate (Lexapro) 10 mg PO DAILY [facility] Last Admin: 11/06/17 10:12 Dose: Not Given Glucagon (Glucagen Diagnostic Kit) 0 mg IM STAT PRN; Protocol PRN Reason: Hypoglycemia Protocol Vancomycin/Sodium Chloride (Vancomycin 1 Gm/Ns 200 Ml) 1 gm in 200 mls @ 133.333 mls/hr IVPB Q12H [facility] PRN Reason: Protocol Last Admin: 11/04/17 12:00 Dose: Not Given Insulin Aspart (Novolog) 0 unit SC ACHS [facility] PRN Reason: Protocol Last Admin: 11/06/17 12:05 Dose: Not Given Levetiracetam (Keppra) 500 mg PO BID [facility] Last Admin: 11/06/17 10:11 Dose: Not Given Levothyroxine Sodium (Synthroid) 88 mcg PO 0630 [facility] Last Admin: 11/06/17 05:53 Dose: 88 mcg Loperamide HCl (Imodium) 2 mg PO Q12 PRN PRN Reason: diarrhea Last Admin: 11/05/17 17:59 Dose: 2 mg Rivaroxaban (Xarelto) 20 mg PO DAILY [facility] Last Admin: 11/06/17 10:12 Dose: Not Given Rosuvastatin Calcium (Crestor) 10 mg PO HS [facility] Last Admin: 11/05/17 21:08 Dose: 10 mg Zolpidem Tartrate (Ambien) 5 mg PO HS PRN PRN Reason: Insomnia Last Admin: 11/02/17 21:31 Dose: 5 mg - Labs Labs: 11/05/17 07:11 11/06/17 06:51 PT 17.2 SECONDS (9.7-12.2) H 10/31/17 13:36 INR 1.6 10/31/17 13:36 APTT 35 SECONDS (21-34) H 10/31/17 13:36 - Constitutional Appears: Non-toxic, No Acute Distress - Head Exam Head Exam: ATRAUMATIC, NORMOCEPHALIC - Eye Exam Eye Exam: EOMI, Normal appearance - ENT Exam ENT Exam: Mucous Membranes Moist - Respiratory Exam Respiratory Exam: Clear to Ausculation Bilateral, NORMAL BREATHING PATTERN - Cardiovascular Exam Cardiovascular Exam: REGULAR RHYTHM, RRR, +S1, +S2 - GI/Abdominal Exam GI & Abdominal Exam: Soft, Normal Bowel Sounds. absent: Tenderness - Extremities Exam Extremities Exam: absent: Normal Inspection Additional comments: RLE wound dressing clean, dry and intact - Neurological Exam Neurological Exam: Alert, Awake, Oriented x3 - Psychiatric Exam Psychiatric exam: Normal Affect, Normal Mood - Skin Skin Exam: Dry, Warm Assessment and Plan - Assessment and Plan (Free Text) Assessment: 82 year old female with severe PAD and dry gangrene of RLE. Plan: 1. Severe PAD w/ Dry Gangrene of RLE -Using [employer] patient portal representative Margarette ([id number]), discussion was had at bedside regarding peripheral angiogram. Patient was given a thorough description of the procedure in layman terms with all risks, benefits and expectations reviewed. Patient verbalized understanding of everything discussed and consent was signed by patient with RN as witness. -Plan for peripheral angiogram with Dr. Marino on 11/08/17 -Hold Xarelto and Lovenox -NPO after midnight on 11/08/17 Patient seen and case discussed with attending, Dr. Ken. Ritika PGY1 <Garrett Ken - Last Filed: 11/07/17 23:42> Objective - Vital Signs/Intake and Output Vital Signs (last 24 hours): Temp Pulse Resp BP Pulse Ox 98.1 F 57 L 18 150/54 L 98 11/07/17 15:40 11/07/17 15:40 11/07/17 15:40 11/07/17 15:40 11/07/17 15:40 Intake and Output: 11/07/17 11/08/17 18:59 06:59 Output Total 350 Balance -350 - Medications Medications: Current Medications Aspirin (Ecotrin) 81 mg PO DAILY [facility] Last Admin: 11/07/17 10:10 Dose: 81 mg Dextrose (Dextrose 50% Inj) 0 ml IV STAT PRN; Protocol PRN Reason: Hypoglycemia Protocol Dextrose (Glutose 15) 0 gm PO ONCE PRN; Protocol PRN Reason: Hypoglycemia Protocol Docusate Sodium (Colace) 100 mg PO BID [facility] Last Admin: 11/07/17 17:33 Dose: 100 mg Enoxaparin Sodium (Lovenox) 40 mg SC DAILY [facility] Last Admin: 11/01/17 10:34 Dose: 40 mg Escitalopram Oxalate (Lexapro) 10 mg PO DAILY [facility] Last Admin: 11/07/17 10:10 Dose: 10 mg Glucagon (Glucagen Diagnostic Kit) 0 mg IM STAT PRN; Protocol PRN Reason: Hypoglycemia Protocol Vancomycin/Sodium Chloride (Vancomycin 1 Gm/Ns 200 Ml) 1 gm in 200 mls @ 133.333 mls/hr IVPB Q12H [facility] PRN Reason: Protocol Last Admin: 11/04/17 12:00 Dose: Not Given Insulin Aspart (Novolog) 0 unit SC ACHS [facility] PRN Reason: Protocol Last Admin: 11/07/17 21:22 Dose: Not Given Levetiracetam (Keppra) 500 mg PO BID [facility] Last Admin: 11/07/17 17:33 Dose: 500 mg Levothyroxine Sodium (Synthroid) 88 mcg PO 0630 [facility] Last Admin: 11/07/17 05:48 Dose: 88 mcg Loperamide HCl (Imodium) 2 mg PO Q12 PRN PRN Reason: diarrhea Last Admin: 11/05/17 17:59 Dose: 2 mg Rivaroxaban (Xarelto) 20 mg PO DAILY [facility] Last Admin: 11/06/17 10:12 Dose: Not Given Rosuvastatin Calcium (Crestor) 10 mg PO HS [facility] Last Admin: 11/07/17 21:22 Dose: 10 mg Zolpidem Tartrate (Ambien) 5 mg PO HS PRN PRN Reason: Insomnia Last Admin: 11/06/17 21:51 Dose: 5 mg - Labs Labs: 11/07/17 07:31 11/07/17 07:31 PT 18.6 SECONDS (9.7-12.2) H 11/07/17 07:31 INR 1.7 11/07/17 07:31 APTT 35 SECONDS (21-34) H 10/31/17 13:36 Attending/Attestation - Attestation I have personally seen and examined this patient.: Yes I have fully participated in the care of the patient.: Yes I have reviewed all pertinent clinical information, including history, physical exam and plan: Yes Notes (Text): 11/07/17 23:41 pt agreed for procedure now hold xarelto x 48 hours discussed case with who will be arranging for peripheral angiogram on Saturday cont med rx for PVD
[2017-11-07] MEDS: Levothyroxine 88 MCG TAB PO SCH (05:48)
[2017-11-07 07:39] LABS: BASO # 0.1 K/uL (0.0-0.2); BASO % 0.8 % (0.0-2.0); EOS # 0.3 K/uL (0.0-0.7); EOS % 3.7 % (0.0-4.0); HEMOGLOBIN 12.3 g/dL (11.0-16.0); LYMPH # 1.6 K/uL (1.0-4.3); LYMPH % 21.4 % (20.0-40.0); MEAN CELL VOLUME 88.6 fL (81.0-99.0); MEAN CORPUSCULAR HEMOGLOBIN 29.5 pg (27.0-31.0); MEAN CORPUSCULAR HGB CONC 33.3 g/dL (33.0-37.0); MEAN PLATELET VOLUME 8.5 fL (7.2-11.7); MONO # 0.5 K/uL (0.0-0.8); MONO % 6.6 % (0.0-10.0); NEUT # 4.9 K/uL (1.8-7.0); NEUT % 67.5 % (50.0-75.0); RBC 4.18 Mil/uL (3.80-5.20); RED CELL DISTRIBUTION WIDTH 20.3 % (11.5-14.5); WHITE BLOOD COUNT 7.3 K/uL (4.8-10.8)
[2017-11-07 07:44] LABS: INR 1.7; PROTHROMBIN TIME 18.6 SECONDS (9.7-12.2)
[2017-11-07 07:58] LABS: ALBUMIN 3.3 g/dL (3.5-5.0); ALT/SGPT 16 U/L (9-52); AST/SGOT 36 U/L (14-36); BLOOD UREA NITROGEN 8 mg/dL (7-17); CALCIUM 9.4 mg/dl (8.6-10.4); GFR AFRICAN-AMERICAN > 60; GFR NON-AFRICAN AMERICAN > 60
[2017-11-07] MEDS: (Novolog) Insulin Aspart, Recombinant 100 u/ml 10 ml vial SC SCH ×4 (08:00→21:22)
--- NOTE | 2017-11-07 09:44 | CP.PCM.PN ---
Subjective - Date & Time of Evaluation Date of Evaluation: 11/07/17 Time of Evaluation: 09:43 - Subjective Subjective: Progress Note for Dr. Jason's Service Patient seen and examined at bedside this morning. Will be going for angiogram tomorrow with Dr. Marino. She is resting comfortably in bed this morning and denies any acute changes in her health. She denies pain in the lower extremities. Objective - Vital Signs/Intake and Output Vital Signs (last 24 hours): Temp Pulse Resp BP Pulse Ox 97.2 F L 60 20 173/53 H 97 11/07/17 09:22 11/07/17 09:22 11/07/17 09:22 11/07/17 09:22 11/07/17 09:22 Intake and Output: 11/07/17 11/07/17 06:59 18:59 Output Total 350 Balance -350 - Medications Medications: Current Medications Aspirin (Ecotrin) 81 mg PO DAILY [facility] Last Admin: 11/06/17 10:12 Dose: Not Given Dextrose (Dextrose 50% Inj) 0 ml IV STAT PRN; Protocol PRN Reason: Hypoglycemia Protocol Dextrose (Glutose 15) 0 gm PO ONCE PRN; Protocol PRN Reason: Hypoglycemia Protocol Docusate Sodium (Colace) 100 mg PO BID [facility] Last Admin: 11/06/17 17:39 Dose: Not Given Enoxaparin Sodium (Lovenox) 40 mg SC DAILY [facility] Last Admin: 11/01/17 10:34 Dose: 40 mg Escitalopram Oxalate (Lexapro) 10 mg PO DAILY [facility] Last Admin: 11/06/17 10:12 Dose: Not Given Glucagon (Glucagen Diagnostic Kit) 0 mg IM STAT PRN; Protocol PRN Reason: Hypoglycemia Protocol Vancomycin/Sodium Chloride (Vancomycin 1 Gm/Ns 200 Ml) 1 gm in 200 mls @ 133.333 mls/hr IVPB Q12H [facility] PRN Reason: Protocol Last Admin: 11/04/17 12:00 Dose: Not Given Insulin Aspart (Novolog) 0 unit SC ACHS [facility] PRN Reason: Protocol Last Admin: 11/07/17 08:00 Dose: Not Given Levetiracetam (Keppra) 500 mg PO BID [facility] Last Admin: 11/06/17 17:52 Dose: 500 mg Levothyroxine Sodium (Synthroid) 88 mcg PO 0630 [facility] Last Admin: 11/07/17 05:48 Dose: 88 mcg Loperamide HCl (Imodium) 2 mg PO Q12 PRN PRN Reason: diarrhea Last Admin: 11/05/17 17:59 Dose: 2 mg Rivaroxaban (Xarelto) 20 mg PO DAILY [facility] Last Admin: 11/06/17 10:12 Dose: Not Given Rosuvastatin Calcium (Crestor) 10 mg PO HS [facility] Last Admin: 11/06/17 21:48 Dose: 10 mg Zolpidem Tartrate (Ambien) 5 mg PO HS PRN PRN Reason: Insomnia Last Admin: 11/06/17 21:51 Dose: 5 mg - Labs Labs: 11/07/17 07:31 11/07/17 07:31 PT 18.6 SECONDS (9.7-12.2) H 11/07/17 07:31 INR 1.7 11/07/17 07:31 APTT 35 SECONDS (21-34) H 10/31/17 13:36 - Constitutional Appears: No Acute Distress - Head Exam Head Exam: ATRAUMATIC - Eye Exam Eye Exam: EOMI, Normal appearance - ENT Exam ENT Exam: Mucous Membranes Moist - Respiratory Exam Respiratory Exam: Clear to Ausculation Bilateral, NORMAL BREATHING PATTERN - Cardiovascular Exam Cardiovascular Exam: REGULAR RHYTHM, +S1, +S2 - GI/Abdominal Exam GI & Abdominal Exam: Soft. 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 There is no acute displaced fracture or bone destruction. Bone alignment is normal. Calcifications there is a prominent plantar calcaneal spur. JOINTS: Normal. SOFT TISSUES: Normal. OTHER FINDINGS: There are advanced atherosclerotic vascular. IMPRESSION: No radiographic evidence of bone destruction or osteomyelitis. ID consult placed to tashi Johnson appreciated Vanco 1 gm Q12H (start 10/31) Zosyn 3.375gm Q6H (Start 10/31) Stopped Diflucan 200mg IV x 3 days (Start 11/01/17) Podiatry consult placed to tashi Valentino appreciated R foot XR: osteopenic changes, negative OM Continue abx - Zosyn, Vancomycin HO/PVR - 75% Stenosis of SFA and 30-49% stenosis of poplitela artery CTA - Heavily calcified iliac, femoral, popliteal, and tibial arteries bilaterally. Arterial supply below both knees from a single miniscule collateral vessel Continue local wound care - DSD Pain regimen per medicine Podiatry will continue to follow while in house Vascular surgery consult placed to tashi Wall appreciated plan on angiogram, pt states today that she is understanding and agreeable to proceed with test- Angiogram with Dr. Marino 11/08/17 Cardio consult placed to tashi Joy appreciated start ASA 81mg PO daily restart home med Xarelto 20mg PO Daily Abdominal angiogram- heavily calcified iliac, femoral, popliteal, and tibial arteries Blood cultures (10/31/17): no growth to date Wound culture (10/31/17): Staph epidermidis and fercho tropicalis Right buttock wound Wound care nursing f/u reccs HTN- stable -continue to monitor Hyperlipidemia Crestor 10mg PO HS LDL 56 Hx CVA with residual left sided hemiparesis No acute intervention Xarelto ASA Hypokalemia Resolved K= 3.6 Continue to monitor Hypothyroidism Levothyroxine 88 mcg TSH 2.21 Diabetes Mellitus A1C: 5.3, well controlled Accuchecks ACHS Hypoglycemia Protocol MISS -LDL 56 Seizure d/o Keppra 500mg PO BID Anxiety/Depression Lexapro 10mg PO Daily Constipation Colace 100mg PO BID Elevated INR INR 1.6 Monitor Prophylaxis SCDs on left (right c/i) ASA/Xarelto HOLD Lovenox 40mg SC daily GI not indicated Case discussed with Dr. Jason All management as per Dr. Jason
--- NOTE | 2017-11-07 18:51 | CP.PCM.PN ---
Subjective - Date & Time of Evaluation Date of Evaluation: 11/07/17 Time of Evaluation: 09:00 - Subjective Subjective: events noted IV rx in progress Objective - Vital Signs/Intake and Output Vital Signs (last 24 hours): Temp Pulse Resp BP Pulse Ox 98.1 F 57 L 18 150/54 L 98 11/07/17 15:40 11/07/17 15:40 11/07/17 15:40 11/07/17 15:40 11/07/17 15:40 Intake and Output: 11/07/17 11/07/17 06:59 18:59 Output Total 350 Balance -350 - Medications Medications: Current Medications Aspirin (Ecotrin) 81 mg PO DAILY [facility] Last Admin: 11/07/17 10:10 Dose: 81 mg Dextrose (Dextrose 50% Inj) 0 ml IV STAT PRN; Protocol PRN Reason: Hypoglycemia Protocol Dextrose (Glutose 15) 0 gm PO ONCE PRN; Protocol PRN Reason: Hypoglycemia Protocol Docusate Sodium (Colace) 100 mg PO BID [facility] Last Admin: 11/07/17 17:33 Dose: 100 mg Enoxaparin Sodium (Lovenox) 40 mg SC DAILY [facility] Last Admin: 11/01/17 10:34 Dose: 40 mg Escitalopram Oxalate (Lexapro) 10 mg PO DAILY [facility] Last Admin: 11/07/17 10:10 Dose: 10 mg Glucagon (Glucagen Diagnostic Kit) 0 mg IM STAT PRN; Protocol PRN Reason: Hypoglycemia Protocol Vancomycin/Sodium Chloride (Vancomycin 1 Gm/Ns 200 Ml) 1 gm in 200 mls @ 133.333 mls/hr IVPB Q12H [facility] PRN Reason: Protocol Last Admin: 11/04/17 12:00 Dose: Not Given Insulin Aspart (Novolog) 0 unit SC ACHS [facility] PRN Reason: Protocol Last Admin: 11/07/17 17:01 Dose: Not Given Levetiracetam (Keppra) 500 mg PO BID [facility] Last Admin: 11/07/17 17:33 Dose: 500 mg Levothyroxine Sodium (Synthroid) 88 mcg PO 0630 [facility] Last Admin: 11/07/17 05:48 Dose: 88 mcg Loperamide HCl (Imodium) 2 mg PO Q12 PRN PRN Reason: diarrhea Last Admin: 11/05/17 17:59 Dose: 2 mg Rivaroxaban (Xarelto) 20 mg PO DAILY [facility] Last Admin: 11/06/17 10:12 Dose: Not Given Rosuvastatin Calcium (Crestor) 10 mg PO HS [facility] Last Admin: 11/06/17 21:48 Dose: 10 mg Zolpidem Tartrate (Ambien) 5 mg PO HS PRN PRN Reason: Insomnia Last Admin: 11/06/17 21:51 Dose: 5 mg - Labs Labs: 11/07/17 07:31 11/07/17 07:31 PT 18.6 SECONDS (9.7-12.2) H 11/07/17 07:31 INR 1.7 11/07/17 07:31 APTT 35 SECONDS (21-34) H 10/31/17 13:36 - Constitutional Appears: Non-toxic, Chronically Ill - Head Exam Head Exam: NORMOCEPHALIC - Eye Exam Eye Exam: absent: Scleral icterus - ENT Exam ENT Exam: Mucous Membranes Dry - Neck Exam Neck Exam: absent: Lymphadenopathy - Respiratory Exam Respiratory Exam: Decreased Breath Sounds - Cardiovascular Exam Cardiovascular Exam: REGULAR RHYTHM - GI/Abdominal Exam GI & Abdominal Exam: Distended - Rectal Exam Rectal Exam: Deferred - Exam Exam: NORMAL INSPECTION - Extremities Exam Extremities Exam: Pedal Edema, Tenderness - Back Exam Back Exam: absent: CVA tenderness (L), CVA tenderness (R) - Neurological Exam Neurological Exam: Alert, Awake - Psychiatric Exam Psychiatric exam: Depressed - Skin Skin Exam: Dry Assessment and Plan (1) Diabetic infection of right foot Status: Acute (2) Dry gangrene Status: Acute - Assessment and Plan (Free Text) Assessment: 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
[2017-11-08] MEDS: Levothyroxine 88 MCG TAB PO SCH (05:36)
[2017-11-08 07:29] LABS: BASO # 0.1 K/uL (0.0-0.2); BASO % 1.1 % (0.0-2.0); EOS # 0.2 K/uL (0.0-0.7); EOS % 2.6 % (0.0-4.0); HEMOGLOBIN 12.4 g/dL (11.0-16.0); LYMPH # 1.5 K/uL (1.0-4.3); MEAN CELL VOLUME 87.7 fL (81.0-99.0); MEAN CORPUSCULAR HEMOGLOBIN 29.5 pg (27.0-31.0); MEAN CORPUSCULAR HGB CONC 33.6 g/dL (33.0-37.0); MEAN PLATELET VOLUME 8.4 fL (7.2-11.7); MONO # 0.4 K/uL (0.0-0.8); MONO % 6.2 % (0.0-10.0); NEUT # 4.7 K/uL (1.8-7.0); NEUT % 68.1 % (50.0-75.0); RBC 4.2 Mil/uL (3.80-5.20); RED CELL DISTRIBUTION WIDTH 20.3 % (11.5-14.5); WHITE BLOOD COUNT 6.9 K/uL (4.8-10.8)
[2017-11-08] MEDS: (Novolog) Insulin Aspart, Recombinant 100 u/ml 10 ml vial SC SCH ×3 (07:37→22:25)
[2017-11-08 07:48] LABS: INR 1.5; PROTHROMBIN TIME 16.4 SECONDS (9.7-12.2)
[2017-11-08 07:52] LABS: ALBUMIN 3.3 g/dL (3.5-5.0); ALT/SGPT 24 U/L (9-52); AST/SGOT 45 U/L (14-36); BLOOD UREA NITROGEN 8 mg/dL (7-17); GFR AFRICAN-AMERICAN > 60; GFR NON-AFRICAN AMERICAN > 60
--- NOTE | 2017-11-08 11:45 | CP.PCM.PN ---
Subjective - Date & Time of Evaluation Date of Evaluation: 11/08/17 Time of Evaluation: 09:10 - Subjective Subjective: Podiatry Progress note: Dr. Hooker 82 year old female patient seen and evaluated at bedside for right foot gangrenous digits 1 and 4. No acute events overnight. Denies having any pain in the right foot today. Dressing to RLE remains clean/dry/intact. No new pedal complaints. Denies N/V/F/D/C/SOB. Objective - Vital Signs/Intake and Output Vital Signs (last 24 hours): Temp Pulse Resp BP Pulse Ox 97.8 F 58 L 20 144/69 98 11/08/17 01:00 11/08/17 01:00 11/08/17 01:00 11/08/17 01:00 11/08/17 01:00 Intake and Output: 11/08/17 11/08/17 06:59 18:59 Output Total 550 Balance -550 - Medications Medications: Current Medications Aspirin (Ecotrin) 81 mg PO DAILY [facility] Last Admin: 11/08/17 09:40 Dose: 81 mg Dextrose (Dextrose 50% Inj) 0 ml IV STAT PRN; Protocol PRN Reason: Hypoglycemia Protocol Dextrose (Glutose 15) 0 gm PO ONCE PRN; Protocol PRN Reason: Hypoglycemia Protocol Docusate Sodium (Colace) 100 mg PO BID [facility] Last Admin: 11/08/17 09:48 Dose: Not Given Enoxaparin Sodium (Lovenox) 40 mg SC DAILY [facility] Last Admin: 11/01/17 10:34 Dose: 40 mg Escitalopram Oxalate (Lexapro) 10 mg PO DAILY [facility] Last Admin: 11/08/17 09:40 Dose: 10 mg Glucagon (Glucagen Diagnostic Kit) 0 mg IM STAT PRN; Protocol PRN Reason: Hypoglycemia Protocol Vancomycin/Sodium Chloride (Vancomycin 1 Gm/Ns 200 Ml) 1 gm in 200 mls @ 133.333 mls/hr IVPB Q12H [facility] PRN Reason: Protocol Last Admin: 11/04/17 12:00 Dose: Not Given Potassium Chloride (Potassium Chloride 20 Meq/100 Ml) 20 meq in 100 mls @ 50 mls/hr IVPB ONCE ONE Stop: 11/08/17 12:05 Insulin Aspart (Novolog) 0 unit SC ACHS [facility] PRN Reason: Protocol Last Admin: 11/08/17 07:37 Dose: Not Given Levetiracetam (Keppra) 500 mg PO BID [facility] Last Admin: 11/08/17 09:39 Dose: 500 mg Levothyroxine Sodium (Synthroid) 88 mcg PO 0630 [facility] Last Admin: 11/08/17 05:36 Dose: 88 mcg Loperamide HCl (Imodium) 2 mg PO Q12 PRN PRN Reason: diarrhea Last Admin: 11/05/17 17:59 Dose: 2 mg Rivaroxaban (Xarelto) 20 mg PO DAILY [facility] Last Admin: 11/06/17 10:12 Dose: Not Given Rosuvastatin Calcium (Crestor) 10 mg PO HS [facility] Last Admin: 11/07/17 21:22 Dose: 10 mg Zolpidem Tartrate (Ambien) 5 mg PO HS PRN PRN Reason: Insomnia Last Admin: 11/06/17 21:51 Dose: 5 mg - Labs Labs: 11/08/17 07:22 11/08/17 07:22 PT 16.4 SECONDS (9.7-12.2) H 11/08/17 07:22 INR 1.5 11/08/17 07:22 APTT 37 SECONDS (21-34) H 11/08/17 07:22 - Constitutional Appears: Well, Non-toxic, No Acute Distress - Extremities Exam Additional comments: LLEhemiparesis with drop foot, nonpalpable pedal pulses Right lower extremity focused exam: Vasc: nonpalpable pedal pulses, TG cool to cool/cool to cold at gangrenous digits, CFT >3 seconds - unable to be assessed at hallux, no pedal edema, pedal hair absent Neuro: protective sensation grossly diminished Derm: no edema, localized erythema to forefoot, dry gangrenous patches on hallux and dorsal 4th digit, interdigital maceration to 4th interspace, mild malodor noted, no fluctuance, no purulence, no active drainage, dried peeling skin to dorsum of hallux, friable skin noted Ortho: pain on palpation noted to areas of gangrene - Neurological Exam Neurological Exam: Alert, Awake, Oriented x3 - Psychiatric Exam Psychiatric exam: Normal Affect, Normal Mood Assessment and Plan - Assessment and Plan (Free Text) Assessment: 82 y/o female seen and evaluated for right foot gangrene of digits 1,4 Plan: Patient seen and evaluated Discussed with attending, Dr. Morro Loco foot XR: osteopenic changes, negative OM Continue abx - Zosyn, Vancomycin OH/PVR - 75% Stenosis of SFA and 30-49% stenosis of poplitela artery CTA - Heavily calcified iliac, femoral, popliteal, and tibial arteries bilaterally. Arterial supply below both knees from a single miniscule collateral vessel. Vascular: pt to angio this morning. Continue local wound care - DSD Pain regimen per medicine Podiatry will continue to follow while in house
[2017-11-08] MEDS ORDERED: Propofol 10 mg/ml Inj (20 ML) ONE (12:09)
[2017-11-08] MEDS ORDERED: Lidocaine 2% MPF (5 ml) Inj ONE (12:12)
[2017-11-08] MEDS ORDERED: Iodixanol 320 MG/ML 200 ML BOTTLE IV ONE (12:13)
[2017-11-08] MEDS ORDERED: Nitroglycerin 50mg in D5W 50 MG/250 ML BOTTLE IV ONE (12:13)
--- NOTE | 2017-11-08 12:33 | CP.PCM.PN ---
Subjective - Date & Time of Evaluation Date of Evaluation: 11/08/17 Time of Evaluation: 12:29 - Subjective Subjective: Progress Note for Dr. Jason's Service Patient seen and examined at bedside this morning. Will be going for angiogram today with Dr. Marino. She is resting comfortably in bed this morning and denies any acute changes in her health. She denies pain in the lower extremities. Objective - Vital Signs/Intake and Output Vital Signs (last 24 hours): Temp Pulse Resp BP Pulse Ox 97.8 F 58 L 20 144/69 98 11/08/17 01:00 11/08/17 01:00 11/08/17 01:00 11/08/17 01:00 11/08/17 01:00 Intake and Output: 11/08/17 11/08/17 06:59 18:59 Output Total 550 Balance -550 - Medications Medications: Current Medications Aspirin (Ecotrin) 81 mg PO DAILY [facility] Last Admin: 11/08/17 09:40 Dose: 81 mg Dextrose (Dextrose 50% Inj) 0 ml IV STAT PRN; Protocol PRN Reason: Hypoglycemia Protocol Dextrose (Glutose 15) 0 gm PO ONCE PRN; Protocol PRN Reason: Hypoglycemia Protocol Docusate Sodium (Colace) 100 mg PO BID [facility] Last Admin: 11/08/17 09:48 Dose: Not Given Enoxaparin Sodium (Lovenox) 40 mg SC DAILY [facility] Last Admin: 11/01/17 10:34 Dose: 40 mg Escitalopram Oxalate (Lexapro) 10 mg PO DAILY [facility] Last Admin: 11/08/17 09:40 Dose: 10 mg Glucagon (Glucagen Diagnostic Kit) 0 mg IM STAT PRN; Protocol PRN Reason: Hypoglycemia Protocol Vancomycin/Sodium Chloride (Vancomycin 1 Gm/Ns 200 Ml) 1 gm in 200 mls @ 133.333 mls/hr IVPB Q12H [facility] PRN Reason: Protocol Last Admin: 11/04/17 12:00 Dose: Not Given Insulin Aspart (Novolog) 0 unit SC ACHS [facility] PRN Reason: Protocol Last Admin: 11/08/17 07:37 Dose: Not Given Levetiracetam (Keppra) 500 mg PO BID [facility] Last Admin: 11/08/17 09:39 Dose: 500 mg Levothyroxine Sodium (Synthroid) 88 mcg PO 0630 [facility] Last Admin: 11/08/17 05:36 Dose: 88 mcg Loperamide HCl (Imodium) 2 mg PO Q12 PRN PRN Reason: diarrhea Last Admin: 11/05/17 17:59 Dose: 2 mg Rivaroxaban (Xarelto) 20 mg PO DAILY [facility] Last Admin: 11/06/17 10:12 Dose: Not Given Rosuvastatin Calcium (Crestor) 10 mg PO HS [facility] Last Admin: 11/07/17 21:22 Dose: 10 mg Zolpidem Tartrate (Ambien) 5 mg PO HS PRN PRN Reason: Insomnia Last Admin: 11/06/17 21:51 Dose: 5 mg - Labs Labs: 11/08/17 07:22 11/08/17 07:22 PT 16.4 SECONDS (9.7-12.2) H 11/08/17 07:22 INR 1.5 11/08/17 07:22 APTT 37 SECONDS (21-34) H 11/08/17 07:22 - Constitutional Appears: No Acute Distress - Head Exam Head Exam: ATRAUMATIC, NORMOCEPHALIC - Eye Exam Eye Exam: EOMI, Normal appearance - ENT Exam ENT Exam: Mucous Membranes Moist - Respiratory Exam Respiratory Exam: Clear to Ausculation Bilateral, NORMAL BREATHING PATTERN - Cardiovascular Exam Cardiovascular Exam: REGULAR RHYTHM - GI/Abdominal Exam GI & Abdominal Exam: Soft. 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 There is no acute displaced fracture or bone destruction. Bone alignment is normal. Calcifications there is a prominent plantar calcaneal spur. JOINTS: Normal. SOFT TISSUES: Normal. OTHER FINDINGS: There are advanced atherosclerotic vascular. IMPRESSION: No radiographic evidence of bone destruction or osteomyelitis. ID consult placed to Dr. Jenkins recjacky appreciated Vanco 1 gm Q12H (start 10/31) Zosyn 3.375gm Q6H (Start 10/31) Stopped Diflucan 200mg IV x 3 days (Start 11/01/17) Podiatry consult placed to tashi Valentino appreciated R foot XR: osteopenic changes, negative OM Continue abx - Zosyn, Vancomycin HO/PVR - 75% Stenosis of SFA and 30-49% stenosis of poplitela artery CTA - Heavily calcified iliac, femoral, popliteal, and tibial arteries bilaterally. Arterial supply below both knees from a single miniscule collateral vessel Continue local wound care - DSD Pain regimen per medicine Podiatry will continue to follow while in house Vascular surgery consult placed to tashi Wall appreciated plan on angiogram, pt states today that she is understanding and agreeable to proceed with test- Angiogram with Dr. Marino 11/08/17 Cardio consult placed to tashi Joy appreciated start ASA 81mg PO daily restart home med Xarelto 20mg PO Daily Abdominal angiogram- heavily calcified iliac, femoral, popliteal, and tibial arteries Blood cultures (10/31/17): no growth to date Wound culture (10/31/17): Staph epidermidis and fercho tropicalis Right buttock wound Wound care nursing f/u reccs HTN- stable -continue to monitor Hyperlipidemia Crestor 10mg PO HS LDL 56 Hx CVA with residual left sided hemiparesis No acute intervention Xarelto ASA Hypokalemia Resolved K= 3.6 Continue to monitor Hypothyroidism Levothyroxine 88 mcg TSH 2.21 Diabetes Mellitus A1C: 5.3, well controlled Accuchecks ACHS Hypoglycemia Protocol MISS -LDL 56 Seizure d/o Keppra 500mg PO BID Anxiety/Depression Lexapro 10mg PO Daily Constipation Colace 100mg PO BID Elevated INR INR 1.6 Monitor Prophylaxis SCDs on left (right c/i) ASA/Xarelto HOLD Lovenox 40mg SC daily GI not indicated Case discussed with Dr. Jason All management as per Dr. Jason
--- NOTE | 2017-11-08 14:06 | PCM.SURG1 ---
Surgeon's Initial Post Op Note - Surgeon's Notes Surgeon: [employer] Advisor: 0 Type of Anesthesia: IV Sedation Anesthesia Administered By: wilmar Pre-Operative Diagnosis: gangrene right foot Operative Findings: left common iliac stenosis. severe sfa disease. distal tibial av fistula. peroneal major vessel on right. no detailed calf pictures due to avf Post-Operative Diagnosis: same Operation Performed: aortofemoral angiogram via left femoral artery. left common iliac stent 7x39. right sfa/popliteal angioplasty using 4 anf 5 mm balloons. pressure closure left groin Specimen/Specimens Removed: 0 Estimated Blood Loss: EBL {In ML}: 50 Blood Products Given: N/A Drains Used: No Drains Post-Op Condition: Good Date of Surgery/Procedure: 11/08/17 Time of Surgery/Procedure: 14:06
[2017-11-08] MEDS: Dextrose 5%/0.45% NS 1,000 ML IV SCH (14:47)
[2017-11-08] MEDS ORDERED: Potassium Chloride 20 mEq 100 ML ONE (14:48)
--- NOTE | 2017-11-09 02:26 | VAS ---
DATE: 11/08/2017 PREOPERATIVE DIAGNOSIS: Gangrene of the right foot. POSTOPERATIVE DIAGNOSIS: Gangrene of the right foot. PROCEDURE CARRIED OUT: 1. Aortofemoral angiogram via left groin with selective catheterization of right femoral artery, left common iliac artery balloon angioplasty, and deployment of 7 mm balloon expandable stent. 2. Right superficial femoral artery angioplasty using a 4 mm and 5 mm balloon of the popliteal and superficial femoral artery. SURGEON: Jhonny Marino Jr., MD [employer] SUPERVISOR: None. ANESTHESIOLOGIST: Mr. Montoya. INDICATIONS: The patient is an 82-year-old woman, previous stroke, left sided paralyzed, presents with gangrenous changes on toe on the right side. 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 No power injectors available, hand injections were carried out. The left common iliac artery had a high grade stenosis, just below its origin and had to be predilated with a 4 mm balloon to allow passage of a catheter and sheath. Below this, both common iliac arteries were widely patent. Both external arteries and common femoral arteries were widely patent. Below this, the superficial femoral artery was patent on the left side and detailed tibial vessels were not visualized on the left. On the right side, the superficial femoral artery had multiple high grade stenosis with 99% or greater, particularly near the Justice's canal. Below this, there was severe tibial disease, peroneal artery being major vessel, runoff and then arteriovenous fistula which obscured anatomy. With great difficulty, we were able to get a 6-Namibian sheath over the aortic bifurcation, positioned at the distal external iliac artery. We were able to cross the superficial femoral artery lesions, we then ballooned it with first a 4 mm and a 5 mm balloon. Heparin was given prior to doing this. We had already previously dilated using a 4 mm balloon in the left common iliac artery. We then dilated the right superficial femoral and popliteal with 4 mm and subsequently 5 mm balloon, in its more proximal segments, and down the way, I have deployed a 7 mm x 37 mm balloon expandable stent in the left common iliac artery with excellent cosmetic results. Pressure was applied to the groin. No device was used. Blood loss for the procedure was 50 mL. Operation carried out, aortofemoral angiogram via left groin with selective catheterization of right femoral artery; left common iliac artery stenting, and right superficial femoral and popliteal artery stenting using a 4 and 5 mm balloon. Jhonny Marino Jr., MD
[2017-11-09] MEDS: Dextrose 5%/0.45% NS 1,000 ML IV SCH ×3 (05:06→18:23)
[2017-11-09] MEDS: Levothyroxine 88 MCG TAB PO SCH (05:57)
[2017-11-09] MEDS: (Novolog) Insulin Aspart, Recombinant 100 u/ml 10 ml vial SC SCH ×4 (08:06→21:26)
[2017-11-09 08:15] LABS: BASO # 0.1 K/uL (0.0-0.2); BASO % 0.5 % (0.0-2.0); EOS # 0.2 K/uL (0.0-0.7); EOS % 1.9 % (0.0-4.0); LYMPH # 1.3 K/uL (1.0-4.3); LYMPH % 13.1 % (20.0-40.0); MEAN CELL VOLUME 87.8 fL (81.0-99.0); MEAN CORPUSCULAR HEMOGLOBIN 29.4 pg (27.0-31.0); MEAN CORPUSCULAR HGB CONC 33.5 g/dL (33.0-37.0); MEAN PLATELET VOLUME 8.9 fL (7.2-11.7); MONO # 0.6 K/uL (0.0-0.8); MONO % 5.6 % (0.0-10.0); NEUT % 78.9 % (50.0-75.0); RBC 3.54 Mil/uL (3.80-5.20); RED CELL DISTRIBUTION WIDTH 20.3 % (11.5-14.5); WHITE BLOOD COUNT 10.1 K/uL (4.8-10.8)
[2017-11-09 08:21] LABS: HEMOGLOBIN 10.4 g/dL (11.0-16.0)
[2017-11-09 08:26] LABS: ALBUMIN 2.9 g/dL (3.5-5.0); ALT/SGPT 23 U/L (9-52); AST/SGOT 31 U/L (14-36); BLOOD UREA NITROGEN 8 mg/dL (7-17); CALCIUM 8.6 mg/dl (8.6-10.4); GFR AFRICAN-AMERICAN > 60; GFR NON-AFRICAN AMERICAN > 60
--- NOTE | 2017-11-09 09:11 | CP.PCM.PN ---
Subjective - Date & Time of Evaluation Date of Evaluation: 11/09/17 Time of Evaluation: 08:59 - Subjective Subjective: Vascular Surgery: Dr. Marino Pt seen and examined. No acute overnight events. States she feels ok. Admits to some pain in the L groin secondary to angio. Denies other complaints. Objective - Vital Signs/Intake and Output Vital Signs (last 24 hours): Temp Pulse Resp BP Pulse Ox 97.9 F 81 18 142/59 L 100 11/09/17 08:42 11/09/17 08:42 11/09/17 08:42 11/09/17 08:42 11/09/17 08:42 Intake and Output: 11/09/17 11/09/17 06:59 18:59 Intake Total 1600 Output Total 1100 Balance 500 - Medications Medications: Current Medications Aspirin (Ecotrin) 81 mg PO DAILY [facility] Last Admin: 11/08/17 09:40 Dose: 81 mg Dextrose (Dextrose 50% Inj) 0 ml IV STAT PRN; Protocol PRN Reason: Hypoglycemia Protocol Dextrose (Glutose 15) 0 gm PO ONCE PRN; Protocol PRN Reason: Hypoglycemia Protocol Docusate Sodium (Colace) 100 mg PO BID [facility] Last Admin: 11/08/17 18:00 Dose: Not Given Enoxaparin Sodium (Lovenox) 40 mg SC DAILY [facility] Last Admin: 11/01/17 10:34 Dose: 40 mg Escitalopram Oxalate (Lexapro) 10 mg PO DAILY [facility] Last Admin: 11/08/17 09:40 Dose: 10 mg Glucagon (Glucagen Diagnostic Kit) 0 mg IM STAT PRN; Protocol PRN Reason: Hypoglycemia Protocol Vancomycin/Sodium Chloride (Vancomycin 1 Gm/Ns 200 Ml) 1 gm in 200 mls @ 133.333 mls/hr IVPB Q12H [facility] PRN Reason: Protocol Last Admin: 11/04/17 12:00 Dose: Not Given Dextrose/Sodium Chloride (Dextrose 5%/0.45% Ns 1000 Ml) 1,000 mls @ 75 mls/hr IV .[id number] [facility] Last Admin: 11/09/17 06:28 Dose: 75 mls/hr Insulin Aspart (Novolog) 0 unit SC ACHS [facility] PRN Reason: Protocol Last Admin: 11/09/17 08:06 Dose: Not Given Levetiracetam (Keppra) 500 mg PO BID [facility] Last Admin: 11/08/17 17:59 Dose: 500 mg Levothyroxine Sodium (Synthroid) 88 mcg PO 0630 [facility] Last Admin: 11/09/17 05:57 Dose: 88 mcg Loperamide HCl (Imodium) 2 mg PO Q12 PRN PRN Reason: diarrhea Last Admin: 11/05/17 17:59 Dose: 2 mg Rivaroxaban (Xarelto) 20 mg PO DAILY [facility] Last Admin: 11/06/17 10:12 Dose: Not Given Rosuvastatin Calcium (Crestor) 10 mg PO HS [facility] Last Admin: 11/08/17 21:38 Dose: 10 mg Zolpidem Tartrate (Ambien) 5 mg PO HS PRN PRN Reason: Insomnia Last Admin: 11/06/17 21:51 Dose: 5 mg - Labs Labs: 11/09/17 08:03 11/09/17 08:03 PT 16.4 SECONDS (9.7-12.2) H 11/08/17 07:22 INR 1.5 11/08/17 07:22 APTT 37 SECONDS (21-34) H 11/08/17 07:22 - Constitutional Appears: Well, No Acute Distress - Head Exam Head Exam: ATRAUMATIC, NORMOCEPHALIC - ENT Exam ENT Exam: Mucous Membranes Moist - Respiratory Exam Respiratory Exam: NORMAL BREATHING PATTERN - Cardiovascular Exam Cardiovascular Exam: RRR - GI/Abdominal Exam GI & Abdominal Exam: Soft. absent: Tenderness - Extremities Exam Additional comments: Left groin with dressing, clean/dry/intact. Some tenderness to palpation; small hematoma noted. - Neurological Exam Neurological Exam: Alert, Awake - Skin Skin Exam: Dry, Warm Assessment and Plan - Assessment and Plan (Free Text) Assessment: 82F with PVD s/p peripheral angio with L common iliac stent & R SFA angioplasty Plan: - encourage PT - no further vascular intervention at this time - d/w Dr. Ned Vail, PGY-3
--- NOTE | 2017-11-09 09:11 | CP.PCM.PN ---
Subjective - Date & Time of Evaluation Date of Evaluation: 11/09/17 Time of Evaluation: 09:10 - Subjective Subjective: has strong right popliteal pulse , not present pre intervention time is needed to see effects of endovascular intervention Objective - Vital Signs/Intake and Output Vital Signs (last 24 hours): Temp Pulse Resp BP Pulse Ox 97.9 F 81 18 142/59 L 100 11/09/17 08:42 11/09/17 08:42 11/09/17 08:42 11/09/17 08:42 11/09/17 08:42 Intake and Output: 11/09/17 11/09/17 06:59 18:59 Intake Total 1600 Output Total 1100 Balance 500 - Medications Medications: Current Medications Aspirin (Ecotrin) 81 mg PO DAILY [facility] Last Admin: 11/08/17 09:40 Dose: 81 mg Dextrose (Dextrose 50% Inj) 0 ml IV STAT PRN; Protocol PRN Reason: Hypoglycemia Protocol Dextrose (Glutose 15) 0 gm PO ONCE PRN; Protocol PRN Reason: Hypoglycemia Protocol Docusate Sodium (Colace) 100 mg PO BID [facility] Last Admin: 11/08/17 18:00 Dose: Not Given Enoxaparin Sodium (Lovenox) 40 mg SC DAILY [facility] Last Admin: 11/01/17 10:34 Dose: 40 mg Escitalopram Oxalate (Lexapro) 10 mg PO DAILY [facility] Last Admin: 11/08/17 09:40 Dose: 10 mg Glucagon (Glucagen Diagnostic Kit) 0 mg IM STAT PRN; Protocol PRN Reason: Hypoglycemia Protocol Vancomycin/Sodium Chloride (Vancomycin 1 Gm/Ns 200 Ml) 1 gm in 200 mls @ 133.333 mls/hr IVPB Q12H [facility] PRN Reason: Protocol Last Admin: 11/04/17 12:00 Dose: Not Given Dextrose/Sodium Chloride (Dextrose 5%/0.45% Ns 1000 Ml) 1,000 mls @ 75 mls/hr IV .[id number] [facility] Last Admin: 11/09/17 06:28 Dose: 75 mls/hr Insulin Aspart (Novolog) 0 unit SC ACHS [facility] PRN Reason: Protocol Last Admin: 11/09/17 08:06 Dose: Not Given Levetiracetam (Keppra) 500 mg PO BID [facility] Last Admin: 11/08/17 17:59 Dose: 500 mg Levothyroxine Sodium (Synthroid) 88 mcg PO 0630 [facility] Last Admin: 11/09/17 05:57 Dose: 88 mcg Loperamide HCl (Imodium) 2 mg PO Q12 PRN PRN Reason: diarrhea Last Admin: 11/05/17 17:59 Dose: 2 mg Rivaroxaban (Xarelto) 20 mg PO DAILY [facility] Last Admin: 11/06/17 10:12 Dose: Not Given Rosuvastatin Calcium (Crestor) 10 mg PO HS [facility] Last Admin: 11/08/17 21:38 Dose: 10 mg Zolpidem Tartrate (Ambien) 5 mg PO HS PRN PRN Reason: Insomnia Last Admin: 11/06/17 21:51 Dose: 5 mg - Labs Labs: 11/09/17 08:03 11/09/17 08:03 PT 16.4 SECONDS (9.7-12.2) H 11/08/17 07:22 INR 1.5 11/08/17 07:22 APTT 37 SECONDS (21-34) H 11/08/17 07:22
[2017-11-09] MEDS ORDERED: Potassium Chloride 20 mEq ER Tab PO SCH (10:15)
--- NOTE | 2017-11-09 12:01 | CARD ---
APPROVED REPORT EKG Measurement Heart [id number] <Conclusion> Sinus rhythm with 1st degree AV block Left axis deviation Low voltage QRS Right bundle branch block Inferior infarct, age undetermined Abnormal ECG
--- NOTE | 2017-11-09 14:10 | CP.PCM.PN ---
Subjective - Date & Time of Evaluation Date of Evaluation: 11/09/17 Time of Evaluation: 14:07 - Subjective Subjective: s/p peripheral angiogram resume xarelto Objective - Vital Signs/Intake and Output Vital Signs (last 24 hours): Temp Pulse Resp BP Pulse Ox 97.9 F 81 18 142/59 L 100 11/09/17 08:42 11/09/17 08:42 11/09/17 08:42 11/09/17 08:42 11/09/17 08:42 Intake and Output: 11/09/17 11/09/17 06:59 18:59 Intake Total 1600 Output Total 1100 Balance 500 - Medications Medications: Current Medications Aspirin (Ecotrin) 81 mg PO DAILY [facility] Last Admin: 11/09/17 10:59 Dose: 81 mg Dextrose (Dextrose 50% Inj) 0 ml IV STAT PRN; Protocol PRN Reason: Hypoglycemia Protocol Dextrose (Glutose 15) 0 gm PO ONCE PRN; Protocol PRN Reason: Hypoglycemia Protocol Docusate Sodium (Colace) 100 mg PO BID [facility] Last Admin: 11/09/17 10:59 Dose: Not Given Enoxaparin Sodium (Lovenox) 40 mg SC DAILY [facility] Last Admin: 11/01/17 10:34 Dose: 40 mg Escitalopram Oxalate (Lexapro) 10 mg PO DAILY [facility] Last Admin: 11/09/17 10:59 Dose: 10 mg Glucagon (Glucagen Diagnostic Kit) 0 mg IM STAT PRN; Protocol PRN Reason: Hypoglycemia Protocol Vancomycin/Sodium Chloride (Vancomycin 1 Gm/Ns 200 Ml) 1 gm in 200 mls @ 133.333 mls/hr IVPB Q12H [facility] PRN Reason: Protocol Last Admin: 11/04/17 12:00 Dose: Not Given Dextrose/Sodium Chloride (Dextrose 5%/0.45% Ns 1000 Ml) 1,000 mls @ 75 mls/hr IV .[id number] [facility] Last Admin: 11/09/17 06:28 Dose: 75 mls/hr Insulin Aspart (Novolog) 0 unit SC ACHS [facility] PRN Reason: Protocol Last Admin: 11/09/17 13:00 Dose: Not Given Levetiracetam (Keppra) 500 mg PO BID [facility] Last Admin: 11/09/17 10:59 Dose: 500 mg Levothyroxine Sodium (Synthroid) 88 mcg PO 0630 [facility] Last Admin: 11/09/17 05:57 Dose: 88 mcg Loperamide HCl (Imodium) 2 mg PO Q12 PRN PRN Reason: diarrhea Last Admin: 11/05/17 17:59 Dose: 2 mg Potassium Chloride (K-Dur 20 Meq Er Tab) 20 meq PO DAILY [facility] Stop: 11/10/17 16:01 Rivaroxaban (Xarelto) 20 mg PO DAILY [facility] Last Admin: 11/09/17 10:59 Dose: 20 mg Rosuvastatin Calcium (Crestor) 10 mg PO HS [facility] Last Admin: 11/08/17 21:38 Dose: 10 mg Zolpidem Tartrate (Ambien) 5 mg PO HS PRN PRN Reason: Insomnia Last Admin: 11/06/17 21:51 Dose: 5 mg - Labs Labs: 11/09/17 08:03 11/09/17 08:03 PT 16.4 SECONDS (9.7-12.2) H 11/08/17 07:22 INR 1.5 11/08/17 07:22 APTT 37 SECONDS (21-34) H 11/08/17 07:22 - Constitutional Appears: Well - Head Exam Head Exam: ATRAUMATIC, NORMAL INSPECTION, NORMOCEPHALIC - Eye Exam Eye Exam: EOMI, Normal appearance, PERRL Pupil Exam: NORMAL ACCOMODATION, PERRL - ENT Exam ENT Exam: Mucous Membranes Moist, Normal Exam - Neck Exam Neck Exam: Full ROM, Normal Inspection. absent: Lymphadenopathy - Respiratory Exam Respiratory Exam: Clear to Ausculation Bilateral, NORMAL BREATHING PATTERN - Cardiovascular Exam Cardiovascular Exam: REGULAR RHYTHM, +S1, +S2. absent: Murmur - GI/Abdominal Exam GI & Abdominal Exam: Soft, Normal Bowel Sounds. absent: Tenderness - Extremities Exam Extremities Exam: Full ROM, Normal Capillary Refill, Normal Inspection. absent : Joint Swelling, Pedal Edema - Back Exam Back Exam: NORMAL INSPECTION - Neurological Exam Neurological Exam: Alert, Awake, CN II-XII Intact, Normal Gait, Oriented x3 - Psychiatric Exam Psychiatric exam: Normal Affect, Normal Mood - Skin Skin Exam: Dry, Intact, Normal Color, Warm Assessment and Plan (1) PVD (peripheral vascular disease) Status: Acute (2) Afib Status: Acute (3) Dry gangrene Status: Acute
[2017-11-10] MEDS: Levothyroxine 88 MCG TAB PO SCH (05:42)
[2017-11-10] MEDS: (Novolog) Insulin Aspart, Recombinant 100 u/ml 10 ml vial SC SCH ×4 (08:10→21:50)
--- NOTE | 2017-11-10 08:56 | CP.PCM.PN ---
Subjective - Date & Time of Evaluation Date of Evaluation: 11/10/17 Time of Evaluation: 08:54 - Subjective Subjective: SURGERY NOTE FOR DR. DOBSON 82F seen and examined at bedside. Resting no acute events overnight, resting comfortably. Objective - Vital Signs/Intake and Output Vital Signs (last 24 hours): Temp Pulse Resp BP Pulse Ox 98.1 F 78 20 147/64 98 11/09/17 23:20 11/09/17 23:20 11/09/17 23:20 11/09/17 23:20 11/09/17 23:20 Intake and Output: 11/10/17 11/10/17 06:59 18:59 Output Total 350 Balance -350 - Medications Medications: Current Medications Aspirin (Ecotrin) 81 mg PO DAILY [facility] Last Admin: 11/09/17 10:59 Dose: 81 mg Dextrose (Dextrose 50% Inj) 0 ml IV STAT PRN; Protocol PRN Reason: Hypoglycemia Protocol Dextrose (Glutose 15) 0 gm PO ONCE PRN; Protocol PRN Reason: Hypoglycemia Protocol Docusate Sodium (Colace) 100 mg PO BID [facility] Last Admin: 11/09/17 18:23 Dose: Not Given Enoxaparin Sodium (Lovenox) 40 mg SC DAILY [facility] Last Admin: 11/01/17 10:34 Dose: 40 mg Escitalopram Oxalate (Lexapro) 10 mg PO DAILY [facility] Last Admin: 11/09/17 10:59 Dose: 10 mg Glucagon (Glucagen Diagnostic Kit) 0 mg IM STAT PRN; Protocol PRN Reason: Hypoglycemia Protocol Vancomycin/Sodium Chloride (Vancomycin 1 Gm/Ns 200 Ml) 1 gm in 200 mls @ 133.333 mls/hr IVPB Q12H [facility] PRN Reason: Protocol Last Admin: 11/04/17 12:00 Dose: Not Given Dextrose/Sodium Chloride (Dextrose 5%/0.45% Ns 1000 Ml) 1,000 mls @ 75 mls/hr IV .[id number] [facility] Last Admin: 11/09/17 18:23 Dose: 75 mls/hr Insulin Aspart (Novolog) 0 unit SC ACHS [facility] PRN Reason: Protocol Last Admin: 11/10/17 08:10 Dose: Not Given Levetiracetam (Keppra) 500 mg PO BID [facility] Last Admin: 11/09/17 18:23 Dose: 500 mg Levothyroxine Sodium (Synthroid) 88 mcg PO 0630 [facility] Last Admin: 11/10/17 05:42 Dose: 88 mcg Loperamide HCl (Imodium) 2 mg PO Q12 PRN PRN Reason: diarrhea Last Admin: 11/05/17 17:59 Dose: 2 mg Potassium Chloride (K-Dur 20 Meq Er Tab) 20 meq PO DAILY [facility] Stop: 11/10/17 16:01 Rivaroxaban (Xarelto) 20 mg PO DAILY [facility] Last Admin: 11/09/17 10:59 Dose: 20 mg Rosuvastatin Calcium (Crestor) 10 mg PO HS [facility] Last Admin: 11/09/17 21:50 Dose: 10 mg Zolpidem Tartrate (Ambien) 5 mg PO HS PRN PRN Reason: Insomnia Last Admin: 11/09/17 21:52 Dose: 5 mg - Labs Labs: 11/09/17 08:03 11/09/17 08:03 PT 16.4 SECONDS (9.7-12.2) H 11/08/17 07:22 INR 1.5 11/08/17 07:22 APTT 37 SECONDS (21-34) H 11/08/17 07:22 - Constitutional Appears: Non-toxic, No Acute Distress - Respiratory Exam Respiratory Exam: Clear to Ausculation Bilateral, NORMAL BREATHING PATTERN - Cardiovascular Exam Cardiovascular Exam: REGULAR RHYTHM, +S1, +S2 - Extremities Exam Additional comments: left groin hematoma stable, mildly tender, no pulsatile mass - Neurological Exam Neurological Exam: Awake Assessment and Plan - Assessment and Plan (Free Text) Assessment: 82F with right 1st toe gangrene s/p angiogram Stable hematoma at site of puncture Plan: - f/u AM CBC - monitor hematoma Further recs discuss with Dr. Ned Candelario, PGY2
[2017-11-10] MEDS: Dextrose 5%/0.45% NS 1,000 ML IV SCH ×3 (10:02→22:15)
--- NOTE | 2017-11-10 10:26 | CP.PCM.PN ---
Subjective - Date & Time of Evaluation Date of Evaluation: 11/10/17 Time of Evaluation: 10:22 - Subjective Subjective: Podiatry Progress note: Dr. Hooker 82 y/o female seen and evaluated at bedside this morning for right foot 1st and 4th digit gangrenous changes. No acute events overnight. Admits to intermittent pain to the right foot. No dressing in place to R foot at time of visit. No new pedal complaints. Denies N/V/F/D/C/SOB. Objective - Vital Signs/Intake and Output Vital Signs (last 24 hours): Temp Pulse Resp BP Pulse Ox 98 F 60 18 168/59 H 99 11/10/17 09:07 11/10/17 09:07 11/10/17 09:07 11/10/17 09:07 11/10/17 09:07 Intake and Output: 11/10/17 11/10/17 06:59 18:59 Output Total 350 Balance -350 - Medications Medications: Current Medications Aspirin (Ecotrin) 81 mg PO DAILY [facility] Last Admin: 11/10/17 10:02 Dose: 81 mg Dextrose (Dextrose 50% Inj) 0 ml IV STAT PRN; Protocol PRN Reason: Hypoglycemia Protocol Dextrose (Glutose 15) 0 gm PO ONCE PRN; Protocol PRN Reason: Hypoglycemia Protocol Docusate Sodium (Colace) 100 mg PO BID [facility] Last Admin: 11/10/17 10:02 Dose: 100 mg Enoxaparin Sodium (Lovenox) 40 mg SC DAILY [facility] Last Admin: 11/01/17 10:34 Dose: 40 mg Escitalopram Oxalate (Lexapro) 10 mg PO DAILY [facility] Last Admin: 11/10/17 10:02 Dose: 10 mg Glucagon (Glucagen Diagnostic Kit) 0 mg IM STAT PRN; Protocol PRN Reason: Hypoglycemia Protocol Vancomycin/Sodium Chloride (Vancomycin 1 Gm/Ns 200 Ml) 1 gm in 200 mls @ 133.333 mls/hr IVPB Q12H [facility] PRN Reason: Protocol Last Admin: 11/04/17 12:00 Dose: Not Given Dextrose/Sodium Chloride (Dextrose 5%/0.45% Ns 1000 Ml) 1,000 mls @ 75 mls/hr IV .[id number] [facility] Last Admin: 11/10/17 10:02 Dose: 75 mls/hr Insulin Aspart (Novolog) 0 unit SC ACHS [facility] PRN Reason: Protocol Last Admin: 11/10/17 08:10 Dose: Not Given Levetiracetam (Keppra) 500 mg PO BID [facility] Last Admin: 11/10/17 10:02 Dose: 500 mg Levothyroxine Sodium (Synthroid) 88 mcg PO 0630 [facility] Last Admin: 11/10/17 05:42 Dose: 88 mcg Loperamide HCl (Imodium) 2 mg PO Q12 PRN PRN Reason: diarrhea Last Admin: 11/05/17 17:59 Dose: 2 mg Potassium Chloride (K-Dur 20 Meq Er Tab) 20 meq PO DAILY [facility] Stop: 11/10/17 16:01 Rivaroxaban (Xarelto) 20 mg PO DAILY [facility] Last Admin: 11/10/17 10:02 Dose: 20 mg Rosuvastatin Calcium (Crestor) 10 mg PO HS [facility] Last Admin: 11/09/17 21:50 Dose: 10 mg Zolpidem Tartrate (Ambien) 5 mg PO HS PRN PRN Reason: Insomnia Last Admin: 11/09/17 21:52 Dose: 5 mg - Labs Labs: 11/09/17 08:03 11/09/17 08:03 PT 16.4 SECONDS (9.7-12.2) H 11/08/17 07:22 INR 1.5 11/08/17 07:22 APTT 37 SECONDS (21-34) H 11/08/17 07:22 - Constitutional Appears: Well, Non-toxic, No Acute Distress - Extremities Exam Additional comments: LLE hemiparesis with drop foot, nonpalpable pedal pulses Right lower extremity focused exam: Right lower extremity focused exam: Vasc: nonpalpable pedal pulses, TG slightly warm to cool at gangrenous digits, CFT >3 seconds - unable to be assessed at hallux. No pedal edema noted. Pedal hair growth is absent Neuro: protective sensation grossly diminished Derm: Mild localized erythema to forefoot. Dry gangrenous skin patches on hallux and dorsal 4th digit. Minimal-mild malodor noted. No fluctuance, no purulence, no active drainage, friable skin noted. No open lesions or breaks in skin or soft tissue are noted at this time Ortho: pain on palpation noted to areas of gangrene of digits 1 and 4 - Neurological Exam Neurological Exam: Alert, Awake, Oriented x3 - Psychiatric Exam Psychiatric exam: Normal Affect, Normal Mood Assessment and Plan - Assessment and Plan (Free Text) Assessment: 82 y/o female seen and evaluated for right foot gangrene of digits 1,4 Plan: Patient seen and evaluated Discussed with attending, Dr. Morro Loco foot XR: osteopenic changes, negative OM Continue abx - Zosyn, Vancomycin HO/PVR - 75% Stenosis of SFA and 30-49% stenosis of popliteal artery CTA - Heavily calcified iliac, femoral, popliteal, and tibial arteries bilaterally. Arterial supply below both knees from a single miniscule collateral vessel. Pt is s/p right SFA arthroplasty - per Dr. Marino, recommends waiting to see effects of vascular intervention Continue local wound care - DSD to R foot Pain regimen per medicine Podiatry will continue to follow while in house
[2017-11-10 12:04] LABS: BASO # 0.1 K/uL (0.0-0.2); BASO % 0.9 % (0.0-2.0); EOS # 0.2 K/uL (0.0-0.7); EOS % 2.9 % (0.0-4.0); HEMOGLOBIN 10.1 g/dL (11.0-16.0); LYMPH # 1.2 K/uL (1.0-4.3); LYMPH % 14.9 % (20.0-40.0); MEAN CORPUSCULAR HEMOGLOBIN 29.8 pg (27.0-31.0); MEAN CORPUSCULAR HGB CONC 33.5 g/dL (33.0-37.0); MEAN PLATELET VOLUME 9.8 fL (7.2-11.7); MONO # 0.5 K/uL (0.0-0.8); MONO % 5.8 % (0.0-10.0); NEUT # 6.3 K/uL (1.8-7.0); NEUT % 75.5 % (50.0-75.0); RBC 3.4 Mil/uL (3.80-5.20); RED CELL DISTRIBUTION WIDTH 20.7 % (11.5-14.5); WHITE BLOOD COUNT 8.3 K/uL (4.8-10.8)
[2017-11-10 12:22] LABS: ALBUMIN 2.9 g/dL (3.5-5.0); ALT/SGPT 31 U/L (9-52); AST/SGOT 36 U/L (14-36); BLOOD UREA NITROGEN 5 mg/dL (7-17); CALCIUM 8.5 mg/dl (8.6-10.4); GFR AFRICAN-AMERICAN > 60; GFR NON-AFRICAN AMERICAN > 60
[2017-11-10] MEDS ORDERED: Potassium Chloride 20 mEq ER Tab PO SCH (16:00)
--- NOTE | 2017-11-10 16:30 | CP.PCM.CON ---
History of Present Illness - History of Present Illness History of Present Illness: 82 y/o female seen and evaluated at bedside this morning for right foot 1st and 4th digit gangrenous changes. Admits to intermittent pain to the right foot. No dressing in place to R foot at time of visit. - Extremities Exam Additional comments: LLE hemiparesis with drop foot, nonpalpable pedal pulses Past Patient History - Past Medical History & Family History Past Medical History?: Yes - Past Social History Smoking Status: Never Smoked - CARDIAC Hx Hypertension: Yes - PULMONARY Hx Respiratory Disorders: No - NEUROLOGICAL HX Cerebrovascular Accident: Yes - HEENT Hx HEENT Problems: No - RENAL Hx Chronic Kidney Disease: No - ENDOCRINE/METABOLIC Hx Diabetes Mellitus Type 2: Yes - HEMATOLOGICAL/ONCOLOGICAL Hx Blood Disorders: No - INTEGUMENTARY Hx Dermatological Problems: No - MUSCULOSKELETAL/RHEUMATOLOGICAL Hx Falls: No 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) - GASTROINTESTINAL Hx Gastrointestinal Disorders: No - GENITOURINARY/GYNECOLOGICAL Hx Genitourinary Disorders: No - PSYCHIATRIC Hx Substance Use: No - ANESTHESIA Hx Anesthesia: No Meds Allergies/Adverse Reactions: Allergies Allergy/AdvReac Type Severity Reaction Status Date / Time Iodine and Iodide Containing Allergy Verified 10/31/17 12:46 Produc - Medications Medications: Current Medications Aspirin (Ecotrin) 81 mg PO DAILY [facility] Last Admin: 11/10/17 10:02 Dose: 81 mg Dextrose (Dextrose 50% Inj) 0 ml IV STAT PRN; Protocol PRN Reason: Hypoglycemia Protocol Dextrose (Glutose 15) 0 gm PO ONCE PRN; Protocol PRN Reason: Hypoglycemia Protocol Docusate Sodium (Colace) 100 mg PO BID [facility] Last Admin: 11/10/17 10:02 Dose: 100 mg Enoxaparin Sodium (Lovenox) 40 mg SC DAILY [facility] Last Admin: 11/01/17 10:34 Dose: 40 mg Escitalopram Oxalate (Lexapro) 10 mg PO DAILY [facility] Last Admin: 11/10/17 10:02 Dose: 10 mg Glucagon (Glucagen Diagnostic Kit) 0 mg IM STAT PRN; Protocol PRN Reason: Hypoglycemia Protocol Vancomycin/Sodium Chloride (Vancomycin 1 Gm/Ns 200 Ml) 1 gm in 200 mls @ 133.333 mls/hr IVPB Q12H [facility] PRN Reason: Protocol Last Admin: 11/04/17 12:00 Dose: Not Given Dextrose/Sodium Chloride (Dextrose 5%/0.45% Ns 1000 Ml) 1,000 mls @ 75 mls/hr IV .[id number] [facility] Last Admin: 11/10/17 10:02 Dose: 75 mls/hr Insulin Aspart (Novolog) 0 unit SC ACHS [facility] PRN Reason: Protocol Last Admin: 11/10/17 14:01 Dose: Not Given Levetiracetam (Keppra) 500 mg PO BID [facility] Last Admin: 11/10/17 10:02 Dose: 500 mg Levothyroxine Sodium (Synthroid) 88 mcg PO 0630 [facility] Last Admin: 11/10/17 05:42 Dose: 88 mcg Loperamide HCl (Imodium) 2 mg PO Q12 PRN PRN Reason: diarrhea Last Admin: 11/05/17 17:59 Dose: 2 mg Rivaroxaban (Xarelto) 20 mg PO DAILY [facility] Last Admin: 11/10/17 10:02 Dose: 20 mg Rosuvastatin Calcium (Crestor) 10 mg PO HS [facility] Last Admin: 11/09/17 21:50 Dose: 10 mg Zolpidem Tartrate (Ambien) 5 mg PO HS PRN PRN Reason: Insomnia Last Admin: 11/09/17 21:52 Dose: 5 mg Physical Exam - Constitutional Appears: Chronically Ill - Head Exam Head Exam: ATRAUMATIC - Eye Exam Eye Exam: PERRL - ENT Exam ENT Exam: Mucous Membranes Dry - Neck Exam Neck exam: Negative for: Lymphadenopathy - Respiratory Exam Respiratory Exam: Decreased Breath Sounds - Cardiovascular Exam Cardiovascular Exam: REGULAR RHYTHM - GI/Abdominal Exam GI & Abdominal Exam: Diminished Bowel Sounds - Rectal Exam Rectal Exam: Deferred - Exam Exam: NORMAL INSPECTION - Extremities Exam Extremities exam: Positive for: pedal edema Additional comments: Right lower extremity focused exam: Right lower extremity focused exam: Vasc: nonpalpable pedal pulses, TG slightly warm to cool at gangrenous digits, CFT >3 seconds - unable to be assessed at hallux. No pedal edema noted. Pedal hair growth is absent Neuro: protective sensation grossly diminished Derm: Mild localized erythema to forefoot. Dry gangrenous skin patches on hallux and dorsal 4th digit. Minimal-mild malodor noted. No fluctuance, no purulence, no active drainage, friable skin noted. No open lesions or breaks in skin or soft tissue are noted at this time Ortho: pain on palpation noted to areas of gangrene of digits 1 and 4 Results - Vital Signs Recent Vital Signs: Last Vital Signs Temp 98 F 11/10/17 09:07 Pulse 60 11/10/17 09:07 Resp 18 11/10/17 09:07 BP 168/59 H 11/10/17 09:07 Pulse Ox 99 11/10/17 09:07 - Labs Result Diagrams: 11/10/17 11:51 11/10/17 11:51 Labs: Laboratory Results - last 24 hr 11/09/17 11/09/17 11/10/17 17:38 20:54 11:51 WBC 8.3 RBC 3.40 L Hgb 10.1 L Hct 30.3 L MCV 89.0 MCH 29.8 MCHC 33.5 RDW 20.7 H Plt Count 183 MPV 9.8 Neut % (Auto) 75.5 H Lymph % (Auto) 14.9 L [place] % (Auto) 5.8 Eos % (Auto) 2.9 Baso % (Auto) 0.9 Neut # (Auto) 6.3 Lymph # (Auto) 1.2 [place] # (Auto) 0.5 Eos # (Auto) 0.2 Baso # (Auto) 0.1 Sodium Potassium Chloride Carbon Dioxide Anion Gap BUN Creatinine Est GFR ( Amer) Est GFR (Non-Af Amer) POC Glucose (mg/dL) 122 H 125 H Random Glucose Calcium Total Bilirubin AST ALT Alkaline Phosphatase Total Protein Albumin Globulin Albumin/Globulin Ratio 11/10/17 11/10/17 11:51 12:17 WBC RBC Hgb Hct MCV MCH MCHC RDW Plt Count MPV Neut % (Auto) Lymph % (Auto) [place] % (Auto) Eos % (Auto) Baso % (Auto) Neut # (Auto) Lymph # (Auto) [place] # (Auto) Eos # (Auto) Baso # (Auto) Sodium 131 L Potassium 3.8 Chloride 99 Carbon Dioxide 25 Anion Gap 11 BUN 5 L Creatinine 0.5 L Est GFR ( Amer) > 60 Est GFR (Non-Af Amer) > 60 POC Glucose (mg/dL) 136 H Random Glucose 119 H Calcium 8.5 L Total Bilirubin 0.6 AST 36 ALT 31 Alkaline Phosphatase 49 Total Protein 6.0 L Albumin 2.9 L Globulin 3.0 Albumin/Globulin Ratio 1.0 Assessment & Plan (1) Diabetic infection of right foot Status: Acute (2) Dry gangrene Status: Acute - Assessment and Plan (Free Text) Assessment: 82 y/o female seen and evaluated for right foot gangrene of digits 1,4 R foot XR: osteopenic changes, negative OM HO/PVR - 75% Stenosis of SFA and 30-49% stenosis of popliteal artery CTA - Heavily calcified iliac, femoral, popliteal, and tibial arteries bilaterally. Arterial supply below both knees from a single miniscule collateral vessel. Pt is s/p right SFA arthroplasty - per Dr. Marino, recommends waiting to see effects of vascular intervention R foot XR: osteopenic changes, negative OM Continue abx
[2017-11-11] MEDS: Levothyroxine 88 MCG TAB PO SCH (06:01)
[2017-11-11] MEDS: (Novolog) Insulin Aspart, Recombinant 100 u/ml 10 ml vial SC SCH ×4 (07:45→21:56)
--- NOTE | 2017-11-11 08:03 | PN ---
DATE: 11/10/2017 The patient was given IV, getting fluids, supportive care. Neurovascular evaluation. Follow up. Shauna Jason MD
[2017-11-11] MEDS: Dextrose 5%/0.45% NS 1,000 ML IV SCH (10:37)
--- NOTE | 2017-11-11 11:29 | CP.PCM.PN ---
Subjective - Date & Time of Evaluation Date of Evaluation: 11/11/17 Time of Evaluation: 11:25 - Subjective Subjective: Progress note. Attending: Dr. Jason Pt seen and examined at bedside. No acute distress. Pt is s/p angiogram with stent and angioplasty. No fevers, chills, vomiting, diarrhea. Objective - Vital Signs/Intake and Output Vital Signs (last 24 hours): Temp Pulse Resp BP Pulse Ox 97.7 F 61 18 166/59 H 97 11/11/17 08:53 11/11/17 08:53 11/11/17 08:53 11/11/17 08:53 11/11/17 08:53 Intake and Output: 11/11/17 11/11/17 06:59 18:59 Intake Total 1100 Output Total 280 Balance 820 - Medications Medications: Current Medications Aspirin (Ecotrin) 81 mg PO DAILY [facility] Last Admin: 11/11/17 10:25 Dose: 81 mg Dextrose (Dextrose 50% Inj) 0 ml IV STAT PRN; Protocol PRN Reason: Hypoglycemia Protocol Dextrose (Glutose 15) 0 gm PO ONCE PRN; Protocol PRN Reason: Hypoglycemia Protocol Docusate Sodium (Colace) 100 mg PO BID [facility] Last Admin: 11/11/17 10:25 Dose: 100 mg Enoxaparin Sodium (Lovenox) 40 mg SC DAILY [facility] Last Admin: 11/01/17 10:34 Dose: 40 mg Escitalopram Oxalate (Lexapro) 10 mg PO DAILY [facility] Last Admin: 11/11/17 10:34 Dose: 10 mg Glucagon (Glucagen Diagnostic Kit) 0 mg IM STAT PRN; Protocol PRN Reason: Hypoglycemia Protocol Vancomycin/Sodium Chloride (Vancomycin 1 Gm/Ns 200 Ml) 1 gm in 200 mls @ 133.333 mls/hr IVPB Q12H [facility] PRN Reason: Protocol Last Admin: 11/04/17 12:00 Dose: Not Given Dextrose/Sodium Chloride (Dextrose 5%/0.45% Ns 1000 Ml) 1,000 mls @ 75 mls/hr IV .[id number] [facility] Last Admin: 11/11/17 10:37 Dose: 75 mls/hr Insulin Aspart (Novolog) 0 unit SC ACHS [facility] PRN Reason: Protocol Last Admin: 11/11/17 07:45 Dose: Not Given Levetiracetam (Keppra) 500 mg PO BID [facility] Last Admin: 11/11/17 10:25 Dose: 500 mg Levothyroxine Sodium (Synthroid) 88 mcg PO 0630 [facility] Last Admin: 11/11/17 06:01 Dose: 88 mcg Loperamide HCl (Imodium) 2 mg PO Q12 PRN PRN Reason: diarrhea Last Admin: 11/05/17 17:59 Dose: 2 mg Rivaroxaban (Xarelto) 20 mg PO DAILY [facility] Last Admin: 11/11/17 10:36 Dose: 20 mg Rosuvastatin Calcium (Crestor) 10 mg PO HS [facility] Last Admin: 11/10/17 21:26 Dose: 10 mg Zolpidem Tartrate (Ambien) 5 mg PO HS PRN PRN Reason: Insomnia Last Admin: 11/10/17 22:01 Dose: 5 mg - Labs Labs: 11/10/17 11:51 11/10/17 11:51 PT 16.4 SECONDS (9.7-12.2) H 11/08/17 07:22 INR 1.5 11/08/17 07:22 APTT 37 SECONDS (21-34) H 11/08/17 07:22 - Constitutional Appears: Non-toxic, No Acute Distress, Confused, Chronically Ill - Head Exam Head Exam: ATRAUMATIC, NORMAL INSPECTION, NORMOCEPHALIC - Eye Exam Eye Exam: EOMI - ENT Exam ENT Exam: Mucous Membranes Moist - Neck Exam Neck Exam: Full ROM, Normal Inspection - Respiratory Exam Respiratory Exam: NORMAL BREATHING PATTERN. absent: Respiratory Distress - Cardiovascular Exam Cardiovascular Exam: +S1, +S2 - GI/Abdominal Exam GI & Abdominal Exam: Soft, Normal Bowel Sounds. absent: Tenderness - Extremities Exam Extremities Exam: Full ROM, Normal Inspection - Back Exam Back Exam: NORMAL INSPECTION - Neurological Exam Neurological Exam: Alert, Awake, Oriented x3 - Psychiatric Exam Psychiatric exam: Normal Affect, Normal Mood - Skin Skin Exam: Dry, Intact, Normal Color, Warm Additional comments: dressing, clean, dry, intact. 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 There is no acute displaced fracture or bone destruction. Bone alignment is normal. Calcifications there is a prominent plantar calcaneal spur. JOINTS: Normal. SOFT TISSUES: Normal. OTHER FINDINGS: There are advanced atherosclerotic vascular. IMPRESSION: No radiographic evidence of bone destruction or osteomyelitis. ID consult placed to tashi Johnson appreciated Vanco 1 gm Q12H (start 10/31) Podiatry consult placed to tashi Valentino appreciated HO/PVR - 75% Stenosis of SFA and 30-49% stenosis of poplitela artery CTA - Heavily calcified iliac, femoral, popliteal, and tibial arteries bilaterally. Arterial supply below both knees from a single miniscule collateral vessel Continue local wound care - DSD Pain regimen per medicine Podiatry will continue to follow while in house pt is s/p angiogram with angioplasty and stent placement Cardio consult placed to tashi Joy appreciated start ASA 81mg PO daily restart home med Xarelto 20mg PO Daily Abdominal angiogram- heavily calcified iliac, femoral, popliteal, and tibial arteries Blood cultures (10/31/17): no growth to date Wound culture (10/31/17): Staph epidermidis and fercho tropicalis Right buttock wound Wound care nursing f/u recs HTN- stable -continue to monitor Hyperlipidemia Crestor 10mg PO HS LDL 56 Hx CVA with residual left sided hemiparesis No acute intervention Xarelto 20 mg po daily ASA 81 mg po daily Hypokalemia Resolved Continue to monitor Hypothyroidism Levothyroxine 88 mcg TSH 2.21 Diabetes Mellitus A1C: 5.3, well controlled Accuchecks ACHS Hypoglycemia Protocol MISS -LDL 56 Seizure d/o Keppra 500mg PO BID Anxiety/Depression Lexapro 10mg PO Daily Constipation Colace 100mg PO BID Elevated INR INR 1.6 Monitor Prophylaxis SCDs on left (right c/i) ASA/Xarelto HOLD Lovenox 40mg SC daily GI not indicated Case discussed with Dr. Jason All management as per Dr. Jason
[2017-11-12] MEDS: Levothyroxine 88 MCG TAB PO SCH (06:10)
[2017-11-12] MEDS: (Novolog) Insulin Aspart, Recombinant 100 u/ml 10 ml vial SC SCH ×4 (08:04→21:39)
[2017-11-12 08:48] LABS: BASO # 0.1 K/uL (0.0-0.2); BASO % 1.2 % (0.0-2.0); EOS # 0.2 K/uL (0.0-0.7); EOS % 2.3 % (0.0-4.0); HEMOGLOBIN 9.5 g/dL (11.0-16.0); LYMPH # 1.2 K/uL (1.0-4.3); LYMPH % 15.3 % (20.0-40.0); MEAN CELL VOLUME 87.9 fL (81.0-99.0); MEAN CORPUSCULAR HEMOGLOBIN 29.7 pg (27.0-31.0); MEAN CORPUSCULAR HGB CONC 33.8 g/dL (33.0-37.0); MEAN PLATELET VOLUME 9.6 fL (7.2-11.7); MONO # 0.5 K/uL (0.0-0.8); MONO % 6.6 % (0.0-10.0); NEUT # 5.9 K/uL (1.8-7.0); NEUT % 74.6 % (50.0-75.0); RBC 3.2 Mil/uL (3.80-5.20); RED CELL DISTRIBUTION WIDTH 20.1 % (11.5-14.5); WHITE BLOOD COUNT 7.8 K/uL (4.8-10.8)
[2017-11-12 09:14] LABS: ALB/GLOB RATIO 0.9 (1.0-2.1); ALBUMIN 2.9 g/dL (3.5-5.0); ALT/SGPT 54 U/L (9-52); AST/SGOT 75 U/L (14-36); BLOOD UREA NITROGEN 4 mg/dL (7-17); CALCIUM 8.5 mg/dl (8.6-10.4); GFR AFRICAN-AMERICAN > 60; GFR NON-AFRICAN AMERICAN > 60
--- NOTE | 2017-11-12 11:07 | CP.PCM.PN ---
Subjective - Date & Time of Evaluation Date of Evaluation: 11/12/17 Time of Evaluation: 11:00 - Subjective Subjective: Progress note. Attending: Dr. Jason. Pt seen and examined at bedside. No acute distress. No events overnight. No fevers, chills, vomiting, diarrhea. SX has signed off. Objective - Vital Signs/Intake and Output Vital Signs (last 24 hours): Temp Pulse Resp BP Pulse Ox 98.6 F 61 18 185/48 H 97 11/12/17 08:28 11/12/17 08:28 11/12/17 08:28 11/12/17 08:28 11/11/17 23:30 - Medications Medications: Current Medications Aspirin (Ecotrin) 81 mg PO DAILY [facility] Last Admin: 11/12/17 09:41 Dose: 81 mg Dextrose (Dextrose 50% Inj) 0 ml IV STAT PRN; Protocol PRN Reason: Hypoglycemia Protocol Dextrose (Glutose 15) 0 gm PO ONCE PRN; Protocol PRN Reason: Hypoglycemia Protocol Docusate Sodium (Colace) 100 mg PO BID [facility] Last Admin: 11/12/17 09:41 Dose: Not Given Enoxaparin Sodium (Lovenox) 40 mg SC DAILY [facility] Last Admin: 11/01/17 10:34 Dose: 40 mg Escitalopram Oxalate (Lexapro) 10 mg PO DAILY [facility] Last Admin: 11/12/17 09:40 Dose: 10 mg Glucagon (Glucagen Diagnostic Kit) 0 mg IM STAT PRN; Protocol PRN Reason: Hypoglycemia Protocol Vancomycin/Sodium Chloride (Vancomycin 1 Gm/Ns 200 Ml) 1 gm in 200 mls @ 133.333 mls/hr IVPB Q12H [facility] PRN Reason: Protocol Last Admin: 11/04/17 12:00 Dose: Not Given Insulin Aspart (Novolog) 0 unit SC ACHS [facility] PRN Reason: Protocol Last Admin: 11/12/17 08:04 Dose: Not Given Levetiracetam (Keppra) 500 mg PO BID [facility] Last Admin: 11/12/17 09:41 Dose: 500 mg Levothyroxine Sodium (Synthroid) 88 mcg PO 0630 [facility] Last Admin: 11/12/17 06:10 Dose: 88 mcg Loperamide HCl (Imodium) 2 mg PO Q12 PRN PRN Reason: diarrhea Last Admin: 11/05/17 17:59 Dose: 2 mg Rivaroxaban (Xarelto) 20 mg PO DAILY [facility] Last Admin: 11/12/17 09:40 Dose: 20 mg Rosuvastatin Calcium (Crestor) 10 mg PO HS [facility] Last Admin: 11/11/17 21:13 Dose: 10 mg Zolpidem Tartrate (Ambien) 5 mg PO HS PRN PRN Reason: Insomnia Last Admin: 11/10/17 22:01 Dose: 5 mg - Labs Labs: 11/12/17 08:50 11/12/17 08:27 PT 16.4 SECONDS (9.7-12.2) H 11/08/17 07:22 INR 1.5 11/08/17 07:22 APTT 37 SECONDS (21-34) H 11/08/17 07:22 - Constitutional Appears: Non-toxic, No Acute Distress - Head Exam Head Exam: ATRAUMATIC, NORMAL INSPECTION, NORMOCEPHALIC - Eye Exam Eye Exam: EOMI - ENT Exam ENT Exam: Mucous Membranes Moist - Neck Exam Neck Exam: Full ROM, Normal Inspection - Respiratory Exam Respiratory Exam: NORMAL BREATHING PATTERN. absent: Respiratory Distress - Cardiovascular Exam Cardiovascular Exam: REGULAR RHYTHM, +S1, +S2. absent: Murmur - Extremities Exam Extremities Exam: absent: Full ROM, Normal Inspection - Back Exam Back Exam: NORMAL INSPECTION - Neurological Exam Neurological Exam: Alert, Awake, Oriented x3 - Psychiatric Exam Psychiatric exam: Normal Affect, Normal Mood - Skin Skin Exam: Dry, Intact, Normal Color, Warm Assessment and Plan - Assessment and Plan (Free Text) Assessment: This is an 82 yo female with Gangrene of Right Foot secondary to PVD Admit to telemetry Recent admission at [facility] Xray Right foot (11/01/17): FINDINGS: BONES: There is severe diffuse bone demineralization. There is no acute displaced fracture or bone destruction. Bone alignment is normal. Calcifications there is a prominent plantar calcaneal spur. JOINTS: Normal. SOFT TISSUES: Normal. OTHER FINDINGS: There are advanced atherosclerotic vascular. IMPRESSION: No radiographic evidence of bone destruction or osteomyelitis. 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 Arterial supply below both knees from a single miniscule collateral vessel Continue local wound care - DSD Pain regimen per medicine Podiatry will continue to follow while in house pt is s/p angiogram with angioplasty and stent placement -sx has signed off Cardio consult placed to Dr. Ken, recs appreciated start ASA 81mg PO daily restart home med Xarelto 20mg PO Daily Abdominal angiogram- heavily calcified iliac, femoral, popliteal, and tibial arteries Blood cultures (10/31/17): no growth to date Wound culture (10/31/17): Staph epidermidis and fercho tropicalis Right buttock wound Wound care nursing f/u recs HTN- stable -continue to monitor Hyperlipidemia Crestor 10mg PO HS LDL 56 Hx CVA with residual left sided hemiparesis No acute intervention Xarelto 20 mg po daily ASA 81 mg po daily Hypokalemia Resolved Continue to monitor Hypothyroidism Levothyroxine 88 mcg TSH 2.21 Diabetes Mellitus A1C: 5.3, well controlled Accuchecks ACHS Hypoglycemia Protocol MISS -LDL 56 Seizure d/o Keppra 500mg PO BID Anxiety/Depression Lexapro 10mg PO Daily Constipation Colace 100mg PO BID Elevated INR INR 1.6 Monitor Prophylaxis SCDs on left (right c/i) ASA/Xarelto HOLD Lovenox 40mg SC daily GI not indicated Case discussed with Dr. Jason All management as per Dr. Jason
--- NOTE | 2017-11-12 11:13 | CP.PCM.PN ---
Subjective - Date & Time of Evaluation Date of Evaluation: 11/12/17 Time of Evaluation: 07:20 - Subjective Subjective: Podiatry Progress note: Dr. Hooker 82 y/o female seen and evaluated at bedside this morning for right foot 1st and 4th digit gangrenous changes. No acute events overnight. Admits to intermittent pain to the right foot, well controlled by pain medications. No dressing in place to R foot at time of visit. No new pedal complaints. Denies N/V/F/D/C/SOB. Objective - Vital Signs/Intake and Output Vital Signs (last 24 hours): Temp Pulse Resp BP Pulse Ox 98.6 F 61 18 185/48 H 97 11/12/17 08:28 11/12/17 08:28 11/12/17 08:28 11/12/17 08:28 11/11/17 23:30 - Medications Medications: Current Medications Aspirin (Ecotrin) 81 mg PO DAILY [facility] Last Admin: 11/12/17 09:41 Dose: 81 mg Dextrose (Dextrose 50% Inj) 0 ml IV STAT PRN; Protocol PRN Reason: Hypoglycemia Protocol Dextrose (Glutose 15) 0 gm PO ONCE PRN; Protocol PRN Reason: Hypoglycemia Protocol Docusate Sodium (Colace) 100 mg PO BID [facility] Last Admin: 11/12/17 09:41 Dose: Not Given Enoxaparin Sodium (Lovenox) 40 mg SC DAILY [facility] Last Admin: 11/01/17 10:34 Dose: 40 mg Escitalopram Oxalate (Lexapro) 10 mg PO DAILY [facility] Last Admin: 11/12/17 09:40 Dose: 10 mg Glucagon (Glucagen Diagnostic Kit) 0 mg IM STAT PRN; Protocol PRN Reason: Hypoglycemia Protocol Vancomycin/Sodium Chloride (Vancomycin 1 Gm/Ns 200 Ml) 1 gm in 200 mls @ 133.333 mls/hr IVPB Q12H [facility] PRN Reason: Protocol Last Admin: 11/04/17 12:00 Dose: Not Given Insulin Aspart (Novolog) 0 unit SC ACHS [facility] PRN Reason: Protocol Last Admin: 11/12/17 08:04 Dose: Not Given Levetiracetam (Keppra) 500 mg PO BID [facility] Last Admin: 11/12/17 09:41 Dose: 500 mg Levothyroxine Sodium (Synthroid) 88 mcg PO 629 [facility] Last Admin: 11/12/17 06:10 Dose: 88 mcg Loperamide HCl (Imodium) 2 mg PO Q12 PRN PRN Reason: diarrhea Last Admin: 11/05/17 17:59 Dose: 2 mg Rivaroxaban (Xarelto) 20 mg PO DAILY [facility] Last Admin: 11/12/17 09:40 Dose: 20 mg Rosuvastatin Calcium (Crestor) 10 mg PO HS [facility] Last Admin: 11/11/17 21:13 Dose: 10 mg Zolpidem Tartrate (Ambien) 5 mg PO HS PRN PRN Reason: Insomnia Last Admin: 11/10/17 22:01 Dose: 5 mg - Labs Labs: 11/12/17 08:50 11/12/17 08:27 PT 16.4 SECONDS (9.7-12.2) H 11/08/17 07:22 INR 1.5 11/08/17 07:22 APTT 37 SECONDS (21-34) H 11/08/17 07:22 - Constitutional Appears: Well, Non-toxic, No Acute Distress - Extremities Exam Additional comments: LLE hemiparesis with drop foot, nonpalpable pedal pulses Right lower extremity focused exam: Right lower extremity focused exam: Vasc: nonpalpable pedal pulses, TG slightly warm to cool at gangrenous digits, CFT >3 seconds - unable to be assessed at hallux. No pedal edema noted. Pedal hair growth is absent Neuro: protective sensation grossly diminished Derm: Mild localized erythema to forefoot. Dry gangrenous ischemic atrophy and mummification noted to distal asptect of hallux and to dorsal 4th digit PIPJ and distal tuft. Minimal-mild malodor noted. No fluctuance, no purulence, no active drainage, friable skin noted. No open lesions or breaks in skin or soft tissue are noted at this time Ortho: pain on palpation noted to areas of gangrene of digits 1 and 4 - Neurological Exam Neurological Exam: Alert, Awake, Oriented x3 - Psychiatric Exam Psychiatric exam: Normal Affect, Normal Mood Assessment and Plan - Assessment and Plan (Free Text) Assessment: 82 y/o female seen and evaluated for right foot gangrene of digits 1,4 secondary to PVD Plan: Patient seen and evaluated Discussed with attending, Dr. Morro Martinez abx - Vancomycin HO/PVR - 75% Stenosis of SFA and 30-49% stenosis of popliteal artery CTA - Heavily calcified iliac, femoral, popliteal, and tibial arteries bilaterally. Arterial supply below both knees from a single miniscule collateral vessel. Pt is s/p right SFA arthroplasty - per Dr. Marino, recommends waiting to see effects of vascular intervention Continue local wound care - DSD to R foot Pain regimen per medicine Podiatry will continue to follow while in house
[2017-11-12 16:26] VITALS: RESP 20
[2017-11-13] MEDS: Levothyroxine 88 MCG TAB PO SCH (05:49)
--- NOTE | 2017-11-13 07:14 | CP.PCM.PN ---
Subjective - Date & Time of Evaluation Date of Evaluation: 11/13/17 Time of Evaluation: :13 - Subjective Subjective: Progress Note for Dr. Jason's Service Pt seen and examined at bedside. No acute events. Monitoring as per podiatry/ surgery. Objective - Vital Signs/Intake and Output Vital Signs (last 24 hours): Temp Pulse Resp BP Pulse Ox 98.3 F 57 L 20 151/54 H 97 11/12/17 23:25 11/12/17 23:25 11/12/17 23:25 11/12/17 23:25 11/12/17 23:25 - Medications Medications: Current Medications Aspirin (Ecotrin) 81 mg PO DAILY [facility] Last Admin: 11/12/17 09:41 Dose: 81 mg Dextrose (Dextrose 50% Inj) 0 ml IV STAT PRN; Protocol PRN Reason: Hypoglycemia Protocol Dextrose (Glutose 15) 0 gm PO ONCE PRN; Protocol PRN Reason: Hypoglycemia Protocol Docusate Sodium (Colace) 100 mg PO BID [facility] Last Admin: 11/12/17 17:33 Dose: Not Given Enoxaparin Sodium (Lovenox) 40 mg SC DAILY [facility] Last Admin: 11/01/17 10:34 Dose: 40 mg Escitalopram Oxalate (Lexapro) 10 mg PO DAILY [facility] Last Admin: 11/12/17 09:40 Dose: 10 mg Glucagon (Glucagen Diagnostic Kit) 0 mg IM STAT PRN; Protocol PRN Reason: Hypoglycemia Protocol Vancomycin/Sodium Chloride (Vancomycin 1 Gm/Ns 200 Ml) 1 gm in 200 mls @ 133.333 mls/hr IVPB Q12H [facility] PRN Reason: Protocol Last Admin: 11/04/17 12:00 Dose: Not Given Insulin Aspart (Novolog) 0 unit SC ACHS [facility] PRN Reason: Protocol Last Admin: 11/12/17 21:39 Dose: Not Given Levetiracetam (Keppra) 500 mg PO BID [facility] Last Admin: 11/12/17 17:34 Dose: 500 mg Levothyroxine Sodium (Synthroid) 88 mcg PO 0630 [facility] Last Admin: 11/13/17 05:49 Dose: 88 mcg Loperamide HCl (Imodium) 2 mg PO Q12 PRN PRN Reason: diarrhea Last Admin: 11/05/17 17:59 Dose: 2 mg Rivaroxaban (Xarelto) 20 mg PO DAILY [facility] Last Admin: 11/12/17 09:40 Dose: 20 mg Rosuvastatin Calcium (Crestor) 10 mg PO HS [facility] Last Admin: 11/12/17 21:36 Dose: 10 mg Zolpidem Tartrate (Ambien) 5 mg PO HS PRN PRN Reason: Insomnia Last Admin: 11/10/17 22:01 Dose: 5 mg - Labs Labs: 11/12/17 08:50 11/12/17 08:27 PT 16.4 SECONDS (9.7-12.2) H 11/08/17 07:22 INR 1.5 11/08/17 07:22 APTT 37 SECONDS (21-34) H 11/08/17 07:22 - Constitutional Appears: No Acute Distress - Head Exam Head Exam: ATRAUMATIC, NORMOCEPHALIC - Eye Exam Eye Exam: EOMI - ENT Exam ENT Exam: Mucous Membranes Moist - Respiratory Exam Respiratory Exam: Clear to Ausculation Bilateral, NORMAL BREATHING PATTERN - Cardiovascular Exam Cardiovascular Exam: REGULAR RHYTHM - GI/Abdominal Exam GI & Abdominal Exam: Soft. absent: Tenderness - Extremities Exam Additional comments: dressing c/d/i - Neurological Exam Neurological Exam: Alert, Awake, Oriented x3 - Psychiatric Exam Psychiatric exam: Normal Affect, Normal Mood - Skin Skin Exam: Dry, Warm Assessment and Plan - Assessment and Plan (Free Text) Plan: Gangrene of Right Foot secondary to PVD Admit to telemetry Recent admission at [facility] Xray Right foot (11/01/17): FINDINGS: BONES: There is severe diffuse bone demineralization. There is no acute displaced fracture or bone destruction. Bone alignment is normal. Calcifications there is a prominent plantar calcaneal spur. JOINTS: Normal. SOFT TISSUES: Normal. OTHER FINDINGS: There are advanced atherosclerotic vascular. IMPRESSION: No radiographic evidence of bone destruction or osteomyelitis. 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 Arterial supply below both knees from a single miniscule collateral vessel Continue local wound care - DSD Pain regimen per medicine Podiatry will continue to follow while in house pt is s/p angiogram with angioplasty and stent placement- R SFA arthroplasty -sx has signed off Cardio consult placed to Dr. Ken, recs appreciated start ASA 81mg PO daily restart home med Xarelto 20mg PO Daily Abdominal angiogram- heavily calcified iliac, femoral, popliteal, and tibial arteries Blood cultures (10/31/17): no growth to date Wound culture (10/31/17): Staph epidermidis and fercho tropicalis Right buttock wound Wound care nursing f/u recs HTN- stable -continue to monitor Hyperlipidemia Crestor 10mg PO HS LDL 56 Hx CVA with residual left sided hemiparesis No acute intervention Xarelto 20 mg po daily ASA 81 mg po daily Hypokalemia Resolved Continue to monitor Hypothyroidism Levothyroxine 88 mcg TSH 2.21 Diabetes Mellitus A1C: 5.3, well controlled Accuchecks ACHS Hypoglycemia Protocol MISS -LDL 56 Seizure d/o Keppra 500mg PO BID Anxiety/Depression Lexapro 10mg PO Daily Constipation Colace 100mg PO BID Elevated INR INR 1.6 Monitor Prophylaxis SCDs on left (right c/i) ASA/Xarelto HOLD Lovenox 40mg SC daily GI not indicated Awaiting podiatry recommendations for further intervention vs discharge with outpatient follow up. Case discussed with Dr. Jason All management as per Dr. Jason
[2017-11-13] MEDS: (Novolog) Insulin Aspart, Recombinant 100 u/ml 10 ml vial SC SCH ×4 (07:29→21:41)
[2017-11-13 08:32] LABS: BASO # 0.1 K/uL (0.0-0.2); BASO % 1.1 % (0.0-2.0); EOS # 0.2 K/uL (0.0-0.7); EOS % 2.5 % (0.0-4.0); HEMOGLOBIN 10.4 g/dL (11.0-16.0); LYMPH # 1.5 K/uL (1.0-4.3); LYMPH % 22.7 % (20.0-40.0); MEAN CELL VOLUME 88.4 fL (81.0-99.0); MEAN CORPUSCULAR HEMOGLOBIN 30.1 pg (27.0-31.0); MEAN CORPUSCULAR HGB CONC 34.1 g/dL (33.0-37.0); MEAN PLATELET VOLUME 9.2 fL (7.2-11.7); MONO # 0.4 K/uL (0.0-0.8); MONO % 6.2 % (0.0-10.0); NEUT # 4.5 K/uL (1.8-7.0); NEUT % 67.5 % (50.0-75.0); NRBC % 0.1 % (0.0-2.0); RBC 3.45 Mil/uL (3.80-5.20); RED CELL DISTRIBUTION WIDTH 20.4 % (11.5-14.5); WHITE BLOOD COUNT 6.7 K/uL (4.8-10.8)
[2017-11-13 08:52] LABS: ALB/GLOB RATIO 1.2 (1.0-2.1); ALBUMIN 3.6 g/dL (3.5-5.0); ALT/SGPT 57 U/L (9-52); AST/SGOT 69 U/L (14-36); BLOOD UREA NITROGEN 6 mg/dL (7-17); GFR AFRICAN-AMERICAN > 60; GFR NON-AFRICAN AMERICAN > 60
--- NOTE | 2017-11-13 18:23 | CP.PCM.PN ---
Subjective - Date & Time of Evaluation Date of Evaluation: 11/13/17 Time of Evaluation: 08:00 - Subjective Subjective: no fever pain right foot less Objective - Vital Signs/Intake and Output Vital Signs (last 24 hours): Temp Pulse Resp BP Pulse Ox 98.6 F 85 20 139/58 L 99 11/13/17 15:00 11/13/17 15:00 11/13/17 15:00 11/13/17 15:00 11/13/17 15:00 - Medications Medications: Current Medications Aspirin (Ecotrin) 81 mg PO DAILY [facility] Last Admin: 11/13/17 09:38 Dose: 81 mg Dextrose (Dextrose 50% Inj) 0 ml IV STAT PRN; Protocol PRN Reason: Hypoglycemia Protocol Dextrose (Glutose 15) 0 gm PO ONCE PRN; Protocol PRN Reason: Hypoglycemia Protocol Docusate Sodium (Colace) 100 mg PO BID [facility] Last Admin: 11/13/17 18:15 Dose: Not Given Enoxaparin Sodium (Lovenox) 40 mg SC DAILY [facility] Last Admin: 11/01/17 10:34 Dose: 40 mg Escitalopram Oxalate (Lexapro) 10 mg PO DAILY [facility] Last Admin: 11/13/17 09:39 Dose: 10 mg Glucagon (Glucagen Diagnostic Kit) 0 mg IM STAT PRN; Protocol PRN Reason: Hypoglycemia Protocol Vancomycin/Sodium Chloride (Vancomycin 1 Gm/Ns 200 Ml) 1 gm in 200 mls @ 133.333 mls/hr IVPB Q12H [facility] PRN Reason: Protocol Last Admin: 11/04/17 12:00 Dose: Not Given Insulin Aspart (Novolog) 0 unit SC ACHS [facility] PRN Reason: Protocol Last Admin: 11/13/17 17:20 Dose: Not Given Levetiracetam (Keppra) 500 mg PO BID [facility] Last Admin: 11/13/17 17:39 Dose: 500 mg Levothyroxine Sodium (Synthroid) 88 mcg PO 0630 [facility] Last Admin: 11/13/17 05:49 Dose: 88 mcg Loperamide HCl (Imodium) 2 mg PO Q12 PRN PRN Reason: diarrhea Last Admin: 11/05/17 17:59 Dose: 2 mg Rivaroxaban (Xarelto) 20 mg PO DAILY [facility] Last Admin: 11/13/17 09:39 Dose: 20 mg Rosuvastatin Calcium (Crestor) 10 mg PO HS [facility] Last Admin: 11/12/17 21:36 Dose: 10 mg Zolpidem Tartrate (Ambien) 5 mg PO HS PRN PRN Reason: Insomnia Last Admin: 11/10/17 22:01 Dose: 5 mg - Labs Labs: 11/13/17 08:16 11/13/17 08:16 PT 16.4 SECONDS (9.7-12.2) H 11/08/17 07:22 INR 1.5 11/08/17 07:22 APTT 37 SECONDS (21-34) H 11/08/17 07:22 - Constitutional Appears: Non-toxic, Chronically Ill - Head Exam Head Exam: NORMOCEPHALIC - Eye Exam Eye Exam: PERRL - ENT Exam ENT Exam: Mucous Membranes Dry - Neck Exam Neck Exam: absent: Lymphadenopathy - Respiratory Exam Respiratory Exam: Decreased Breath Sounds - Cardiovascular Exam Cardiovascular Exam: REGULAR RHYTHM - GI/Abdominal Exam GI & Abdominal Exam: Distended - Rectal Exam Rectal Exam: Deferred - Exam Exam: NORMAL INSPECTION Assessment and Plan (1) Diabetic infection of right foot Status: Acute (2) Dry gangrene Status: Acute - Assessment and Plan (Free Text) Assessment: s/p angioplasty due to PVD gangrene 1st and 4th digits Right foot iv rx in progress prognosis guarded for limb salvage
[2017-11-13] MEDS: Vancomycin 1 gm/NS 200 ml 1 GM/200 ML BAG IVPB SCH (21:34)
--- NOTE | 2017-11-13 22:15 | CP.PCM.PN ---
Subjective - Date & Time of Evaluation Date of Evaluation: 11/13/17 Time of Evaluation: 16:00 - Subjective Subjective: Podiatry Progress note: Dr. oHoker 82 y/o female seen and evaluated at bedside this morning for right foot 1st and 4th digit gangrenous changes. No acute events overnight. Admits to intermittent pain to the right foot, well controlled by pain medications. No dressing in place to R foot at time of visit. No new pedal complaints. Denies N/V/F/D/C/SOB. Objective - Vital Signs/Intake and Output Vital Signs (last 24 hours): Temp Pulse Resp BP Pulse Ox 98.6 F 85 20 139/58 L 99 11/13/17 15:00 11/13/17 15:00 11/13/17 15:00 11/13/17 15:00 11/13/17 15:00 Intake and Output: 11/13/17 11/14/17 18:59 06:59 Output Total 300 Balance -300 - Medications Medications: Current Medications Aspirin (Ecotrin) 81 mg PO DAILY [facility] Last Admin: 11/13/17 09:38 Dose: 81 mg Dextrose (Dextrose 50% Inj) 0 ml IV STAT PRN; Protocol PRN Reason: Hypoglycemia Protocol Dextrose (Glutose 15) 0 gm PO ONCE PRN; Protocol PRN Reason: Hypoglycemia Protocol Docusate Sodium (Colace) 100 mg PO BID [facility] Last Admin: 11/13/17 18:15 Dose: Not Given Enoxaparin Sodium (Lovenox) 40 mg SC DAILY [facility] Last Admin: 11/01/17 10:34 Dose: 40 mg Escitalopram Oxalate (Lexapro) 10 mg PO DAILY [facility] Last Admin: 11/13/17 09:39 Dose: 10 mg Glucagon (Glucagen Diagnostic Kit) 0 mg IM STAT PRN; Protocol PRN Reason: Hypoglycemia Protocol Vancomycin/Sodium Chloride (Vancomycin 1 Gm/Ns 200 Ml) 1 gm in 200 mls @ 133 mls/hr IVPB Q24H [facility] PRN Reason: Protocol Stop: 11/18/17 19:01 Last Admin: 11/13/17 21:34 Dose: 133 mls/hr Insulin Aspart (Novolog) 0 unit SC ACHS [facility] PRN Reason: Protocol Last Admin: 11/13/17 21:41 Dose: Not Given Levetiracetam (Keppra) 500 mg PO BID [facility] Last Admin: 11/13/17 17:39 Dose: 500 mg Levothyroxine Sodium (Synthroid) 88 mcg PO 0630 [facility] Last Admin: 11/13/17 05:49 Dose: 88 mcg Loperamide HCl (Imodium) 2 mg PO Q12 PRN PRN Reason: diarrhea Last Admin: 11/05/17 17:59 Dose: 2 mg Rivaroxaban (Xarelto) 20 mg PO DAILY [facility] Last Admin: 11/13/17 09:39 Dose: 20 mg Rosuvastatin Calcium (Crestor) 10 mg PO HS [facility] Last Admin: 11/13/17 21:35 Dose: 10 mg Zolpidem Tartrate (Ambien) 5 mg PO HS PRN PRN Reason: Insomnia Last Admin: 11/10/17 22:01 Dose: 5 mg - Labs Labs: 11/13/17 08:16 11/13/17 08:16 PT 16.4 SECONDS (9.7-12.2) H 11/08/17 07:22 INR 1.5 11/08/17 07:22 APTT 37 SECONDS (21-34) H 11/08/17 07:22 - Constitutional Appears: Well, Non-toxic, No Acute Distress - Extremities Exam Additional comments: LLE hemiparesis with drop foot, nonpalpable pedal pulses Right lower extremity focused exam: Vasc: nonpalpable pedal pulses, TG slightly warm to cool at gangrenous digits, CFT >3 seconds - unable to be assessed at hallux. No pedal edema noted. Pedal hair growth is absent Neuro: protective sensation grossly diminished Derm: Mild localized erythema to forefoot. Dry gangrenous ischemic atrophy and mummification noted to distal asptect of hallux and to dorsal 4th digit PIPJ and distal tuft. Minimal-mild malodor noted. No fluctuance, no purulence, no active drainage, friable skin noted. No open lesions or breaks in skin or soft tissue are noted at this time Ortho: pain on palpation noted to areas of gangrene of digits 1 and 4 - Neurological Exam Neurological Exam: Alert, Awake, Oriented x3 - Psychiatric Exam Psychiatric exam: Normal Affect, Normal Mood Assessment and Plan - Assessment and Plan (Free Text) Assessment: 82 y/o female seen and evaluated for right foot gangrene of digits 1,4 secondary to PVD Plan: Patient seen and evaluated Discussed with attending, Dr. Hooker Continue abx per ID - Vancomycin Pt is s/p right SFA arthroplasty - per Dr. Marino, recommends waiting to see effects of vascular intervention Continue local wound care - DSD to R foot Pain regimen per medicine Podiatric Intervention: Digital amputations to be performed on outpatinet basis within 2 weeks time to allow full demarcation of ischemic zone of necrosis. -Prior to discharge medical clearance requested from inhouse primary team to allow surgical intervention/ digital amputation on outpatient basis within 2 weeks. Pt stable from podiatry standpoint for discharge. .
[2017-11-14] MEDS: Levothyroxine 88 MCG TAB PO SCH (05:59)
[2017-11-14 07:05] LABS: BASO # 0.1 K/uL (0.0-0.2); BASO % 1.1 % (0.0-2.0); EOS # 0.2 K/uL (0.0-0.7); EOS % 3.6 % (0.0-4.0); HEMOGLOBIN 8.9 g/dL (11.0-16.0); LYMPH # 1.1 K/uL (1.0-4.3); MEAN CELL VOLUME 87.9 fL (81.0-99.0); MEAN CORPUSCULAR HEMOGLOBIN 30.6 pg (27.0-31.0); MEAN CORPUSCULAR HGB CONC 34.8 g/dL (33.0-37.0); MEAN PLATELET VOLUME 9.2 fL (7.2-11.7); MONO # 0.5 K/uL (0.0-0.8); MONO % 8.2 % (0.0-10.0); NEUT # 4.4 K/uL (1.8-7.0); NEUT % 69.1 % (50.0-75.0); NRBC % 0.1 % (0.0-2.0); RBC 2.9 Mil/uL (3.80-5.20); RED CELL DISTRIBUTION WIDTH 20.2 % (11.5-14.5); WHITE BLOOD COUNT 6.4 K/uL (4.8-10.8)
--- NOTE | 2017-11-14 07:28 | CP.PCM.PN ---
Subjective - Date & Time of Evaluation Date of Evaluation: 11/14/17 Time of Evaluation: 07:27 - Subjective Subjective: Progress Note for Dr. Jason's Service Pt seen and examined at bedside. She denies any acute complaints. She has been cleared for d/c with outpatient follow up with podiatry in [address] Jason has cleared patient for surgery if needed. Pt states that she is welcoming to the idea of going home with follow up but her family is not available today to help her get home. S/W is aware and preparing transport. Objective - Vital Signs/Intake and Output Vital Signs (last 24 hours): Temp Pulse Resp BP Pulse Ox 98.4 F 61 20 124/54 L 98 11/13/17 23:25 11/13/17 23:25 11/13/17 23:25 11/13/17 23:25 11/13/17 23:25 Intake and Output: 11/14/17 11/14/17 06:59 18:59 Intake Total 550 Output Total 300 Balance 250 - Medications Medications: Current Medications Aspirin (Ecotrin) 81 mg PO DAILY [facility] Last Admin: 11/13/17 09:38 Dose: 81 mg Dextrose (Dextrose 50% Inj) 0 ml IV STAT PRN; Protocol PRN Reason: Hypoglycemia Protocol Dextrose (Glutose 15) 0 gm PO ONCE PRN; Protocol PRN Reason: Hypoglycemia Protocol Docusate Sodium (Colace) 100 mg PO BID [facility] Last Admin: 11/13/17 18:15 Dose: Not Given Enoxaparin Sodium (Lovenox) 40 mg SC DAILY [facility] Last Admin: 11/01/17 10:34 Dose: 40 mg Escitalopram Oxalate (Lexapro) 10 mg PO DAILY [facility] Last Admin: 11/13/17 09:39 Dose: 10 mg Glucagon (Glucagen Diagnostic Kit) 0 mg IM STAT PRN; Protocol PRN Reason: Hypoglycemia Protocol Vancomycin/Sodium Chloride (Vancomycin 1 Gm/Ns 200 Ml) 1 gm in 200 mls @ 133 mls/hr IVPB Q24H [facility] PRN Reason: Protocol Stop: 11/18/17 19:01 Last Admin: 11/13/17 21:34 Dose: 133 mls/hr Insulin Aspart (Novolog) 0 unit SC ACHS [facility] PRN Reason: Protocol Last Admin: 11/13/17 21:41 Dose: Not Given Levetiracetam (Keppra) 500 mg PO BID [facility] Last Admin: 11/13/17 17:39 Dose: 500 mg Levothyroxine Sodium (Synthroid) 88 mcg PO 0630 [facility] Last Admin: 11/14/17 05:59 Dose: 88 mcg Loperamide HCl (Imodium) 2 mg PO Q12 PRN PRN Reason: diarrhea Last Admin: 11/05/17 17:59 Dose: 2 mg Rivaroxaban (Xarelto) 20 mg PO DAILY [facility] Last Admin: 11/13/17 09:39 Dose: 20 mg Rosuvastatin Calcium (Crestor) 10 mg PO HS [facility] Last Admin: 11/13/17 21:35 Dose: 10 mg Zolpidem Tartrate (Ambien) 5 mg PO HS PRN PRN Reason: Insomnia Last Admin: 11/10/17 22:01 Dose: 5 mg - Labs Labs: 11/14/17 06:28 11/13/17 08:16 PT 16.4 SECONDS (9.7-12.2) H 11/08/17 07:22 INR 1.5 11/08/17 07:22 APTT 37 SECONDS (21-34) H 11/08/17 07:22 - Constitutional Appears: Well, No Acute Distress - Head Exam Head Exam: ATRAUMATIC, NORMOCEPHALIC - Eye Exam Eye Exam: Normal appearance - ENT Exam ENT Exam: Mucous Membranes Moist - Respiratory Exam Respiratory Exam: Clear to Ausculation Bilateral, NORMAL BREATHING PATTERN - Cardiovascular Exam Cardiovascular Exam: REGULAR RHYTHM, +S1, +S2 - GI/Abdominal Exam GI & Abdominal Exam: Soft. absent: Tenderness - Extremities Exam Additional comments: dressing c/d/i - Neurological Exam Neurological Exam: Alert, Awake, Oriented x3 - Psychiatric Exam Psychiatric exam: Normal Affect, Normal Mood - Skin Skin Exam: Dry, Warm Assessment and Plan - Assessment and Plan (Free Text) Plan: Gangrene of Right Foot secondary to PVD Admit to telemetry Recent admission at [facility] Xray Right foot (11/01/17): FINDINGS: BONES: There is severe diffuse bone demineralization. There is no acute displaced fracture or bone destruction. Bone alignment is normal. Calcifications there is a prominent plantar calcaneal spur. JOINTS: Normal. SOFT TISSUES: Normal. OTHER FINDINGS: There are advanced atherosclerotic vascular. IMPRESSION: No radiographic evidence of bone destruction or osteomyelitis. ID consult placed to tashi Johnson appreciated Vanco 1 gm Q12H (start 10/31) Podiatry consult placed to tashi Valentino appreciated Podiatric Intervention: Digital amputations to be performed on outpatinet basis within 2 weeks time to allow full demarcation of ischemic zone of necrosis. As per Dr. Jason, pt is cleared for surgery HO/PVR - 75% Stenosis of SFA and 30-49% stenosis of poplitela artery CTA - Heavily calcified iliac, femoral, popliteal, and tibial arteries bilaterally. Arterial supply below both knees from a single miniscule collateral vessel Continue local wound care - DSD Pain regimen per medicine Podiatry will continue to follow while in house pt is s/p angiogram with angioplasty and stent placement- R SFA arthroplasty -sx has signed off Cardio consult placed to tashi Joy appreciated start ASA 81mg PO daily restart home med Xarelto 20mg PO Daily Abdominal angiogram- heavily calcified iliac, femoral, popliteal, and tibial arteries Blood cultures (10/31/17): no growth to date Wound culture (10/31/17): Staph epidermidis and fercho tropicalis Right buttock wound Wound care nursing f/u recs HTN- stable -continue to monitor Hyperlipidemia Crestor 10mg PO HS LDL 56 Hx CVA with residual left sided hemiparesis No acute intervention Xarelto 20 mg po daily ASA 81 mg po daily Hypokalemia Resolved Continue to monitor Hypothyroidism Levothyroxine 88 mcg TSH 2.21 Diabetes Mellitus A1C: 5.3, well controlled Accuchecks ACHS Hypoglycemia Protocol MISS -LDL 56 Seizure d/o Keppra 500mg PO BID Anxiety/Depression Lexapro 10mg PO Daily Constipation Colace 100mg PO BID Elevated INR INR 1.6 Monitor Prophylaxis SCDs on left (right c/i) ASA/Xarelto HOLD Lovenox 40mg SC daily GI not indicated Plan for discharge home with podiatry follow up. Case discussed with Dr. Jason All management as per Dr. Jason
[2017-11-14] MEDS: (Novolog) Insulin Aspart, Recombinant 100 u/ml 10 ml vial SC SCH ×4 (07:35→21:28)
[2017-11-14 07:44] LABS: ALBUMIN 2.8 g/dL (3.5-5.0); ALT/SGPT 50 U/L (9-52); AST/SGOT 49 U/L (14-36); BLOOD UREA NITROGEN 10 mg/dL (7-17); CALCIUM 8.7 mg/dl (8.6-10.4); GFR AFRICAN-AMERICAN > 60; GFR NON-AFRICAN AMERICAN > 60
[2017-11-14] MEDS ORDERED: Potassium Chloride 20 mEq/15 ml LIQ UD PO ONE (09:15)
[2017-11-14] MEDS: Vancomycin 1 gm/NS 200 ml 1 GM/200 ML BAG IVPB SCH (19:04)
[2017-11-15 01:04] VITALS: O2SAT 97
[2017-11-15] MEDS: Levothyroxine 88 MCG TAB PO SCH (06:13)
[2017-11-15 07:23] LABS: BASO # 0.1 K/uL (0.0-0.2); BASO % 1.5 % (0.0-2.0); EOS # 0.2 K/uL (0.0-0.7); EOS % 2.9 % (0.0-4.0); HEMOGLOBIN 8.9 g/dL (11.0-16.0); LYMPH # 1.3 K/uL (1.0-4.3); LYMPH % 19.4 % (20.0-40.0); MEAN CELL VOLUME 88.9 fL (81.0-99.0); MEAN CORPUSCULAR HEMOGLOBIN 30.3 pg (27.0-31.0); MEAN PLATELET VOLUME 9.5 fL (7.2-11.7); MONO # 0.6 K/uL (0.0-0.8); MONO % 8.5 % (0.0-10.0); NEUT # 4.5 K/uL (1.8-7.0); NEUT % 67.7 % (50.0-75.0); RBC 2.95 Mil/uL (3.80-5.20); RED CELL DISTRIBUTION WIDTH 20.7 % (11.5-14.5); WHITE BLOOD COUNT 6.7 K/uL (4.8-10.8)
--- NOTE | 2017-11-15 07:35 | CP.PCM.PN ---
Subjective - Date & Time of Evaluation Date of Evaluation: 11/15/17 Time of Evaluation: 09:16 - Subjective Subjective: PGY2 Note for Dr. Jason; all management as per Dr. Jason This patient was seen and examined at bedside this AM; denies any complaints; is very fiesty; denies fevers/chills, AMADO, CP, SOB, abdominal pain, N?V/D, dysuria/freq/urg or lower extremity pain. Objective - Vital Signs/Intake and Output Vital Signs (last 24 hours): Temp Pulse Resp BP Pulse Ox 98.0 F 58 L 20 162/64 H 97 11/14/17 23:25 11/14/17 23:25 11/14/17 23:25 11/15/17 04:00 11/14/17 23:25 Intake and Output: 11/15/17 11/15/17 06:59 18:59 Intake Total 520 Output Total 200 Balance 320 - Medications Medications: Current Medications Aspirin (Ecotrin) 81 mg PO DAILY [facility] Last Admin: 11/14/17 09:40 Dose: 81 mg Dextrose (Dextrose 50% Inj) 0 ml IV STAT PRN; Protocol PRN Reason: Hypoglycemia Protocol Dextrose (Glutose 15) 0 gm PO ONCE PRN; Protocol PRN Reason: Hypoglycemia Protocol Docusate Sodium (Colace) 100 mg PO BID [facility] Last Admin: 11/14/17 17:53 Dose: Not Given Enoxaparin Sodium (Lovenox) 40 mg SC DAILY [facility] Last Admin: 11/01/17 10:34 Dose: 40 mg Escitalopram Oxalate (Lexapro) 10 mg PO DAILY [facility] Last Admin: 11/14/17 09:41 Dose: 10 mg Glucagon (Glucagen Diagnostic Kit) 0 mg IM STAT PRN; Protocol PRN Reason: Hypoglycemia Protocol Vancomycin/Sodium Chloride (Vancomycin 1 Gm/Ns 200 Ml) 1 gm in 200 mls @ 133 mls/hr IVPB Q24H [facility] PRN Reason: Protocol Stop: 11/18/17 19:01 Last Admin: 11/14/17 19:04 Dose: 133 mls/hr Insulin Aspart (Novolog) 0 unit SC ACHS [facility] PRN Reason: Protocol Last Admin: 11/14/17 21:28 Dose: Not Given Levetiracetam (Keppra) 500 mg PO BID [facility] Last Admin: 11/14/17 17:53 Dose: 500 mg Levothyroxine Sodium (Synthroid) 88 mcg PO 0630 [facility] Last Admin: 11/15/17 06:13 Dose: 88 mcg Loperamide HCl (Imodium) 2 mg PO Q12 PRN PRN Reason: diarrhea Last Admin: 11/05/17 17:59 Dose: 2 mg Rivaroxaban (Xarelto) 20 mg PO DAILY [facility] Last Admin: 11/14/17 09:41 Dose: 20 mg Rosuvastatin Calcium (Crestor) 10 mg PO HS [facility] Last Admin: 11/14/17 21:18 Dose: 10 mg Zolpidem Tartrate (Ambien) 5 mg PO HS PRN PRN Reason: Insomnia Last Admin: 11/10/17 22:01 Dose: 5 mg - Labs Labs: 11/14/17 06:28 11/14/17 06:28 PT 16.4 SECONDS (9.7-12.2) H 11/08/17 07:22 INR 1.5 11/08/17 07:22 APTT 37 SECONDS (21-34) H 11/08/17 07:22 Assessment and Plan - Assessment and Plan (Free Text) Assessment: - Constitutional Appears: Well, No Acute Distress - Head Exam Head Exam: ATRAUMATIC, NORMOCEPHALIC - Eye Exam Eye Exam: Normal appearance - ENT Exam ENT Exam: Mucous Membranes Moist - Respiratory Exam Respiratory Exam: Clear to Ausculation Bilateral, NORMAL BREATHING PATTERN - Cardiovascular Exam Cardiovascular Exam: REGULAR RHYTHM, +S1, +S2 - GI/Abdominal Exam GI & Abdominal Exam: Soft. absent: Tenderness - Extremities Exam Additional comments: dressing c/d/i - Neurological Exam Neurological Exam: Alert, Awake, Oriented x3 - Psychiatric Exam Psychiatric exam: Normal Affect, Normal Mood - Skin Skin Exam: Dry, Warm Assessment and Plan - Assessment and Plan (Free Text) Plan: Gangrene of Right Foot secondary to PVD;stable and pending outpatient surgery Admit to telemetry Recent admission at [facility] Xray Right foot (11/01/17): FINDINGS: BONES: There is severe diffuse bone demineralization. There is no acute displaced fracture or bone destruction. Bone alignment is normal. Calcifications there is a prominent plantar calcaneal spur. JOINTS: Normal. SOFT TISSUES: Normal. OTHER FINDINGS: There are advanced atherosclerotic vascular. IMPRESSION: No radiographic evidence of bone destruction or osteomyelitis. ID consult placed to tashi Johnson appreciated Vanco 1 gm Q12H (start 10/31) Podiatry consult placed to tashi Valentino appreciated Podiatric Intervention: Digital amputations to be performed on outpatinet basis within 2 weeks time to allow full demarcation of ischemic zone of necrosis. As per Dr. Jason, pt is cleared for surgery HO/PVR - 75% Stenosis of SFA and 30-49% stenosis of poplitela artery CTA - Heavily calcified iliac, femoral, popliteal, and tibial arteries bilaterally. Arterial supply below both knees from a single miniscule collateral vessel Continue local wound care - DSD Pain regimen per medicine Podiatry will continue to follow while in house pt is s/p angiogram with angioplasty and stent placement- R SFA arthroplasty -sx has signed off Cardio consult placed to tashi Joy appreciated start ASA 81mg PO daily restart home med Xarelto 20mg PO Daily Abdominal angiogram- heavily calcified iliac, femoral, popliteal, and tibial arteries Blood cultures (10/31/17): no growth to date Wound culture (10/31/17): Staph epidermidis and fercho tropicalis Right buttock wound Wound care nursing f/u recs HTN- stable -continue to monitor Hyperlipidemia Crestor 10mg PO HS LDL 56 Hx CVA with residual left sided hemiparesis No acute intervention Xarelto 20 mg po daily ASA 81 mg po daily Hypokalemia Resolved Continue to monitor Hypothyroidism Levothyroxine 88 mcg TSH 2.21 Diabetes Mellitus A1C: 5.3, well controlled Accuchecks ACHS Hypoglycemia Protocol MISS -LDL 56 Seizure d/o Keppra 500mg PO BID Anxiety/Depression Lexapro 10mg PO Daily Constipation Colace 100mg PO BID Elevated INR INR 1.6 Monitor Prophylaxis SCDs on left (right c/i) ASA/Xarelto HOLD Lovenox 40mg SC daily GI not indicated Plan for discharge home with podiatry follow up; patient to follow up in [facility] w/ appointment on first saturday after discharge; please walk in if no time available and get there early c/w home meds patient is cleared for outpatient surgery with podiatry Case discussed with Dr. Jason All management as per Dr. Jason
[2017-11-15 07:52] VITALS: BP 105/53; PULSE 60; TEMP 97.8
[2017-11-15 07:55] LABS: ALB/GLOB RATIO 1.2 (1.0-2.1); ALBUMIN 3.2 g/dL (3.5-5.0); ALT/SGPT 56 U/L (9-52); AST/SGOT 51 U/L (14-36); BLOOD UREA NITROGEN 8 mg/dL (7-17); CALCIUM 8.8 mg/dl (8.6-10.4); GFR AFRICAN-AMERICAN > 60; GFR NON-AFRICAN AMERICAN > 60
[2017-11-15] MEDS: (Novolog) Insulin Aspart, Recombinant 100 u/ml 10 ml vial SC SCH ×2 (08:18→12:30)
== END 2017-11-15 14:42 | disposition home or self-care (01) | DRG 253 ==
LOC: C.ER 12:19 → C.9E 16:05 → C.6T 21:06 → OBSVTOIN 11-02 10:57
PROVIDERS: ADMIT Internal Medicine Pulmonary Disease; ATTEND Internal Medicine Pulmonary Disease
PROC: 047D34Z Dilation of Left Common Iliac Artery with Drug-eluting Intraluminal Device, Percutaneous Approach (ICD-10-PCS; principal; 2017-11-08)
DX: E11.52 Type 2 diabetes mellitus with diabetic peripheral angiopathy with gangrene (principal); I69.354 Hemiplegia and hemiparesis following cerebral infarction affecting left non-dominant side; E03.9 Hypothyroidism, unspecified; E87.6 Hypokalemia; I10 Essential (primary) hypertension; I48.91 Unspecified atrial fibrillation; I70.209 Unspecified atherosclerosis of native arteries of extremities, unspecified extremity; I70.8 Atherosclerosis of other arteries; G40.909 Epilepsy, unspecified, not intractable, without status epilepticus; M77.30 Calcaneal spur, unspecified foot; M81.0 Age-related osteoporosis without current pathological fracture; R79.1 Abnormal coagulation profile; Z79.01 Long term (current) use of anticoagulants; Z79.82 Long term (current) use of aspirin; Z91.041 Radiographic dye allergy status; Z99.3 Dependence on wheelchair; M21.379 Foot drop, unspecified foot; K59.00 Constipation, unspecified; F41.9 Anxiety disorder, unspecified; F32.9 Major depressive disorder, single episode, unspecified; E78.5 Hyperlipidemia, unspecified; E78.00 Pure hypercholesterolemia, unspecified

== ENCOUNTER 2017-11-19 11:29 | Inpatient (IN) | payer MEDICARE, OTHER ==
--- NOTE | 2017-11-19 11:51 | C.PDOC ---
History Of Present Illness 82 Y/O MALE PRESENTS TO ED WITH C/O WORSENING TOE PAIN X SEVERAL DAYS. PATIENT RECENTLY ADMITTED 11/2017 FOR SAME SP ANGIOGRAM WITH ANGIOPLASTY AND STENT PLACEMENT-R SFA ARTHROPLASTY 11/08/2017 DR DOBSON. PER OLD RECORDS, DIGITAL AMPUTATIONS TO BE PERFORMED ON OUTPATIENT BASIS WITHIN 2 WEEKS TIME TO ALLOW FULL DEMARCATION OF ISCHEMIC ZONE OF NECROSIS. NO FEVER, OTHER ASSOC SX. EXAM MILD DIST NONTOXIC SKIN +DRY GANGRENE R 1ST TOE, TIPS 3+4TH TOES. NO LYMPHANGITIS REMAINDER NEG Time Seen by Provider: 11/19/17 11:48 Chief Complaint (Nursing): Lower Extremity Problem/Injury History Per: Patient History/Exam Limitations: no limitations Onset/Duration Of Symptoms: Days Current Symptoms Are (Timing): Still Present Past Medical History Reviewed: Historical Data, Nursing Documentation, Vital Signs Vital Signs: Last Vital Signs Temp 98.5 F 11/19/17 11:38 Pulse 63 11/19/17 11:38 Resp 18 11/19/17 11:38 BP 116/63 11/19/17 11:38 Pulse Ox 100 11/19/17 12:36 - Medical History PMH: HTN, Hypercholesterolemia, Hyperlipidemia, TIA Surgical History: No Surg Hx - [facility] Procedures DILATE L COM ILIAC ART W DRUG-ELUT INTRA, PERC (11/02/17) Family History: States: No Known Family Hx - Social History Hx Tobacco Use: No Hx Alcohol Use: No Hx Substance Use: No - Immunization History Hx Tetanus Toxoid Vaccination: Yes Hx Influenza Vaccination: Yes Hx Pneumococcal Vaccination: No Review Of Systems Constitutional: Negative for: Fever, Chills Cardiovascular: Negative for: Palpitations Gastrointestinal: Negative for: Nausea, Vomiting Musculoskeletal: Positive for: Foot Pain (toe) Skin: Negative for: Rash Physical Exam - Physical Exam Appears: Non-toxic, Other (In mild distress) Skin: Warm, Dry, Other (Gangrene to Right 1st toe and Tips of 3+4th toes. No lymphangitis) Head: Atraumatic, Normacephalic Eye(s): bilateral: Normal Inspection Oral Mucosa: Moist Neck: Normal ROM, Supple Cardiovascular: Rhythm Regular Respiratory: Normal Breath Sounds, No Rales, No Rhonchi, No Wheezing Extremity: Normal ROM, Capillary Refill (<2 seconds) Pulses: Right Dorsalis Pedis: Normal Neurological/Psych: Oriented x3, Normal Speech, Normal Cognition, Normal Motor, Normal Sensation ED Course And Treatment - Laboratory Results Result Diagrams: 11/19/17 12:50 11/19/17 12:50 ECG: Interpreted By Me, Viewed By Me ECG Rhythm: Sinus Rhythm Rate From EC (BPM) O2 Sat by Pulse Oximetry: 100 (RA) Pulse Ox Interpretation: Normal Progress - Re-Evaluation Re-evaluation Note: 11/19/17 12:18 D/W DR DEJESUS AWARE OF ER FINDINGS, WILL ADMIT 11/19/17 12:24 D/W PODIATRY RESIDENT WILL EVAL IN ER - Data Reviewed Data Reviewed: Lab, Diagnostic imaging, EKG, Old records - Continuity of Care Discussed patient case with:: Patient, PMD Disposition Counseled Patient/Family Regarding: Studies Performed, Diagnosis - Disposition Disposition: HOSPITALIZED Disposition Time: 12:27 Condition: STABLE - POA Present On Arrival: None - Clinical Impression Clinical Impression: Dry gangrene - Scribe Statement The provider has reviewed the documentation as recorded by the Maryibjohn Barber All medical record entries made by the Maryibjohn were at my direction and personally dictated by me. I have reviewed the chart and agree that the record accurately reflects my personal performance of the history, physical exam, medical decision making, and the department course for this patient. I have also personally directed, reviewed, and agree with the discharge instructions and disposition. Decision To Admit - Pt Status Changed To: Hospital Disposition Of: Inpatient - Admit Certification Admit to Inpatient:: After my assessment, the patient will require hospitalization for at least two midnights. This is because of the severity of symptoms shown, intensity of services needed, and/or the medical risk in this patient being treated as an outpatient. - InPatient: Physician Admission Certification: I certify that this patient requires 2 or more midnights of care for the following reason:: SEE NOTE - . Bed Request Type: Regular Admitting Physician: Shauna Dejesus Patient Diagnosis: Dry gangrene
[2017-11-19 12:53] LABS: EOS # 0.2 K/uL (0.0-0.7); HEMOGLOBIN 9.4 g/dL (11.0-16.0); MEAN CELL VOLUME 90.6 fL (81.0-99.0); MONO # 0.4 K/uL (0.0-0.8)
[2017-11-19 12:57] LABS: BASO # 0.1 K/uL (0.0-0.2); BASO % 1.1 % (0.0-2.0); LYMPH # 1.2 K/uL (1.0-4.3); LYMPH % 23.2 % (20.0-40.0); MEAN CORPUSCULAR HEMOGLOBIN 30.4 pg (27.0-31.0); MEAN CORPUSCULAR HGB CONC 33.5 g/dL (33.0-37.0); MEAN PLATELET VOLUME 8.7 fL (7.2-11.7); MONO % 7.6 % (0.0-10.0); NEUT # 3.5 K/uL (1.8-7.0); NEUT % 65.1 % (50.0-75.0); NRBC % 0.2 % (0.0-2.0); RBC 3.1 Mil/uL (3.80-5.20); RED CELL DISTRIBUTION WIDTH 19.9 % (11.5-14.5); WHITE BLOOD COUNT 5.4 K/uL (4.8-10.8)
[2017-11-19 13:13] LABS: BLOOD UREA NITROGEN 12 mg/dL (7-17); CALCIUM 8.8 mg/dl (8.6-10.4); GFR AFRICAN-AMERICAN > 60; GFR NON-AFRICAN AMERICAN > 60
--- NOTE | 2017-11-19 13:19 | RAD ---
PROCEDURE: CHEST RADIOGRAPH, 1 VIEW HISTORY: MED CLEAR COMPARISON: None available. FINDINGS: LUNGS: Low lung volumes. There is vague bandlike opacity projecting of the medial left heart -indeterminate in its significance. There is lower density in amorphous opacity right paratracheal -some interspersed radiolucency throughout is noted -indeterminate. 10 mm rounded nodular opacity bordering the right heart border may represent a prominent vessel on end. . The right hemidiaphragm is asymmetrically elevated. PLEURA: No pneumothorax or pleural fluid seen. CARDIOVASCULAR: Minimal cardiomegaly left ventricular enlargement configuration probable. Macro f vascNormal. OSSEOUS STRUCTURES: Bilateral shoulder arthrosis thoracic spondylosis VISUALIZED UPPER ABDOMEN: The right hemidiaphragm is asymmetrically elevated. There is a crescent of lucency noted at this right hemidiaphragmatic level. Summation of right lung subjacent to a right very diaphragmatic discoid atelectasis and/or prominent vessel coursing horizontally is 1 consideration. Conceivably subdiaphragmatic air is not excluded this is believed less likely. OTHER FINDINGS: None. IMPRESSION: Left medial lung base overseas projecting over left left heart opacity indeterminate. Right paratracheal patchy opacity possible tortuous brachiocephalic vascularity -other pathology here not excluded-indeterminate. Probable prominent right hilar vessel seen on end. Asymmetrically elevated right hemidiaphragm - bordering discoid atelectasis/ scarring and/or prominent vessel coursing horizontally are some considerations. Fragment care is believe less likely. Correlate clinically. Comments: Study marked for PA review.
--- NOTE | 2017-11-19 13:55 | CP.PCM.CON ---
History of Present Illness - History of Present Illness History of Present Illness: Podiatry note for Dr. Hooker 82 year old female patient with PMHx of HTN, Hypercholesterolemia, Hyperlipidemia, TIA was seen at bedside ED this afternoon after request for podiatry consultation. Patient presents with gangrenous right foot hallux and 4th digit. Patient recently had stent placement in right SFA by Dr. Marino on 11/08 and returns today for amputation of demarcated necrosis to right foot digits. Patient admits to right foot pain. Dr. Hooker plans for surgery of right foot hallux amputation. Specific date and time will be determined soon per Dr. Hooker Review of Systems - Constitutional Constitutional: As Per HPI Past Patient History - Past Medical History & Family History Past Medical History?: Yes - Past Social History Smoking Status: Never Smoked - CARDIAC Hx Hypercholesterolemia: Yes Hx Hypertension: Yes - PULMONARY Hx Respiratory Disorders: No - NEUROLOGICAL Hx Transient Ischemic Attacks (TIA): Yes - HEENT Hx HEENT Problems: No - RENAL Hx Chronic Kidney Disease: No - ENDOCRINE/METABOLIC Hx Diabetes Mellitus Type 2: Yes - HEMATOLOGICAL/ONCOLOGICAL Hx Blood Disorders: No - INTEGUMENTARY Hx Dermatological Problems: No - MUSCULOSKELETAL/RHEUMATOLOGICAL Hx Falls: No 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) - GASTROINTESTINAL Hx Gastrointestinal Disorders: No - GENITOURINARY/GYNECOLOGICAL Hx Genitourinary Disorders: No - PSYCHIATRIC Hx Substance Use: No - SURGICAL HISTORY Hx Surgeries: Yes Other/Comment: "HERNIA REMOVAL IN [place]" - ANESTHESIA Hx Anesthesia: Yes Hx Anesthesia Reactions: No Meds Allergies/Adverse Reactions: Allergies Allergy/AdvReac Type Severity Reaction Status Date / Time Iodine and Iodide Containing Allergy Verified 11/19/17 11:40 Produc Physical Exam - Constitutional Appears: Well, Non-toxic, No Acute Distress - Head Exam Head Exam: ATRAUMATIC - Extremities Exam Additional comments: LLE hemiparesis with drop foot, nonpalpable pedal pulses Right lower extremity focused exam: Derm: Dry gangrenous ischemic atrophy and mummification noted to distal asptect of hallux and to 4th digit PIPJ and distal tuft. Minimal-mild malodor noted. No fluctuance, no purulence, no active drainage, friable skin noted. No open lesions or breaks in skin or soft tissue are noted at this time Vasc: nonpalpable pedal pulses, TG slightly warm to cool at gangrenous digits, CFT >3 seconds - unable to be assessed at hallux. No pedal edema noted. Pedal hair growth is absent Neuro: protective sensation grossly diminished Ortho: pain on palpation noted to areas of gangrene of digits 1 and 4 - Neurological Exam Neurological exam: Alert - Skin Skin Exam: Normal Color, Warm Results - Vital Signs Recent Vital Signs: Last Vital Signs Temp 99.2 F 11/19/17 13:24 Pulse 58 L 11/19/17 13:24 Resp 18 11/19/17 13:24 BP 123/55 L 11/19/17 13:24 Pulse Ox 100 11/19/17 13:24 - Labs Result Diagrams: 11/19/17 12:50 11/19/17 12:50 Labs: Laboratory Results - last 24 hr 11/19/17 11/19/17 11/19/17 11:32 12:50 12:50 WBC 5.4 RBC 3.10 L Hgb 9.4 L Hct 28.1 L MCV 90.6 MCH 30.4 MCHC 33.5 RDW 19.9 H Plt Count 344 MPV 8.7 Neut % (Auto) 65.1 Lymph % (Auto) 23.2 Smith % (Auto) 7.6 Eos % (Auto) 3.0 Baso % (Auto) 1.1 Neut # (Auto) 3.5 Lymph # (Auto) 1.2 Smith # (Auto) 0.4 Eos # (Auto) 0.2 Baso # (Auto) 0.1 Sodium 136 Potassium 3.7 Chloride 100 Carbon Dioxide 24 Anion Gap 16 BUN 12 Creatinine 0.6 L Est GFR ( Amer) > 60 Est GFR (Non-Af Amer) > 60 POC Glucose (mg/dL) 149 H Random Glucose 104 Calcium 8.8 Assessment & Plan - Assessment and Plan (Free Text) Assessment: 82 y/o female seen and evaluated for right foot gangrene of digits 1,4 secondary to PVD Plan: Patient seen and evaluated labs and vitals reviewed Discussed with attending, Dr. Hooker HO/PVR - 75% Stenosis of SFA and 30-49% stenosis of popliteal artery CTA - Heavily calcified iliac, femoral, popliteal, and tibial arteries bilaterally. Arterial supply below both knees from a single miniscule collateral vessel. Pt is s/p right SFA arthroplasty Continue local wound care - DSD to R foot Podiatry plan for right foot hallux amputation under local anesthesia only. Date and time to be determined Medical clearance note appreciated
--- NOTE | 2017-11-19 15:34 | CP.PCM.PN ---
Subjective - Date & Time of Evaluation Date of Evaluation: 11/19/17 Time of Evaluation: 15:26 - Subjective Subjective: Medicine note for Dr. Jason's service: Patient is an 82 year old female with PMHx HTN, Hyperlipidemia, Diabetes Mellitus, TIA (with sequelae of left sided hemiparesis) presenting with right foot dry gangrene. Patient was recently hospitalized beginning of November for similar issue. During that admission patient had angiogram with R SFA arthroplasty with Dr. Marino. During that hospitalization, patient was given IV antibiotics and was followed by podiatry team with Dr. Hooker. Plan at that time was to wait two weeks to see effects of vascular intervention and allow for full demarcation of ischemic zone of necrosis. Patient is to have amputation of necrotic tissue later this week per podiatry team. Patient currently denies complaints but does state she has pain around borders of gangrenous tissue. PMD: Clay Fragoso Podiatry: Dr. Hooker Meds: crestor 10mg, xarelto 20mg, asa 81mg, levothyroxine 88mcg, keppra 500mg BID, lexapro 10mg daily Objective - Vital Signs/Intake and Output Vital Signs (last 24 hours): Temp Pulse Resp BP Pulse Ox 99.2 F 58 L 18 123/55 L 100 11/19/17 13:24 11/19/17 13:24 11/19/17 13:24 11/19/17 13:24 11/19/17 13:24 - Labs Labs: 11/19/17 12:50 11/19/17 12:50 - Constitutional Appears: No Acute Distress - Head Exam Head Exam: ATRAUMATIC, NORMOCEPHALIC - Eye Exam Eye Exam: EOMI - ENT Exam ENT Exam: Mucous Membranes Moist - Respiratory Exam Respiratory Exam: Clear to Ausculation Bilateral, NORMAL BREATHING PATTERN - Cardiovascular Exam Cardiovascular Exam: +S1, +S2 - GI/Abdominal Exam GI & Abdominal Exam: Soft, Normal Bowel Sounds. absent: Tenderness - Extremities Exam Additional comments: right foot with gauze dressing, right hallux dark in color, not malodorous, no discharge from wound betadyne noted on gauze - Neurological Exam Neurological Exam: Alert, Awake - Psychiatric Exam Psychiatric exam: Normal Affect Assessment and Plan - Assessment and Plan (Free Text) Assessment: Gangrene of Right Foot secondary to PVD Recent admission at [facility] beginning of November HO/PVR - 75% Stenosis of SFA and 30-49% stenosis of poplitela artery CTA - Heavily calcified iliac, femoral, popliteal, and tibial arteries bilaterally. Arterial supply below both knees from a single miniscule collateral vessel Abdominal angiogram- heavily calcified iliac, femoral, popliteal, and tibial arteries s/p angiogram with angioplasty and stent placement- R SFA arthroplasty with Dr. Marino earlier this month Xray Right foot (11/01/17): FINDINGS: BONES: There is severe diffuse bone demineralization. There is no acute displaced fracture or bone destruction. Bone alignment is normal. Calcifications there is a prominent plantar calcaneal spur. JOINTS: Normal. SOFT TISSUES: Normal. OTHER FINDINGS: There are advanced atherosclerotic vascular. IMPRESSION: No radiographic evidence of bone destruction or osteomyelitis. Podiatry, Dr. Hooker, help appreciated patient to have amputation later this week Continue local wound care Dr. Ken, cardiology, saw patient earlier this month. will re-consult to evaluate continuation xarelto Hyperlipidemia Crestor 10mg PO HS LDL 56 on last admission Hx CVA with residual left sided hemiparesis No acute intervention HOLD Xarelto 20 mg po daily as patient to have amputation later this week ASA 81 mg po daily Hypothyroidism Levothyroxine 88 mcg TSH 2.21 on last admission Diabetes Mellitus A1C: 5.3 on last admission Accuchecks ACHS Hypoglycemia Protocol ISS Seizure disorder Keppra 500mg PO BID Anxiety/Depression Lexapro 10mg PO Daily Prophylaxis HOLD Xarelto for surgery heparin sc 5000u q8h All medical management as per Dr. Jason
[2017-11-19] MEDS ORDERED: Glucagon Recombinant 1 mg Inj IM PRN (15:42)
[2017-11-19] MEDS ORDERED: Dextrose 50% SYRINGE Inj (50 ml) IVP PRN (15:42)
[2017-11-19] MEDS: (Novolin R) Insulin Human Regular 100 units/ml vial SC SCH ×2 (20:05→21:52)
--- NOTE | 2017-11-19 21:47 | CP.PCM.CON ---
History of Present Illness - History of Present Illness History of Present Illness: Cardiology Consult Note (Dr. Ken): Ms. Thapa is an 82 year old femaly with a past medical history significant for PVD s/p stent placement in right SFA (11/2017), DM2, HTN, HLD, CVA (2010) with residual left sided hemiparesis, and gangrenous right foot hallux/4th digit presents for amputation of demarcated necrosis to right foot digits/hallux by Dr. Hooker. Patient reports that she was instructed to go home and rest for several days after her procedure. Since that time she has continued to experience pain in the right foot. Of note, she reports that she hasn't taken her Xarelto since her previous admission. When asked, she reports that she was started on Xarelto for "leg pain". She denies any fevers, chills, headache, chest pain, palpitations, SOB, cough, wheezing, abdominal pain, N/V/D/ C, or changes in urine output. PMH: As stated above PSH: As stated above Family History: Denies Social History: Denies any tobacco, alcohol or illicit drug use Allergies: Iodine Home Medications: As per MAR Review of Systems - Review of Systems Review of Systems: As stated in HPI, otherwise negative Past Patient History - Past Medical History & Family History Past Medical History?: Yes - Past Social History Smoking Status: Never Smoked - CARDIAC Hx Hypercholesterolemia: Yes Hx Hypertension: Yes - PULMONARY Hx Respiratory Disorders: No - NEUROLOGICAL Hx Transient Ischemic Attacks (TIA): Yes - HEENT Hx HEENT Problems: No - RENAL Hx Chronic Kidney Disease: No - ENDOCRINE/METABOLIC Hx Diabetes Mellitus Type 2: Yes - HEMATOLOGICAL/ONCOLOGICAL Hx Blood Disorders: No - INTEGUMENTARY Hx Dermatological Problems: No - MUSCULOSKELETAL/RHEUMATOLOGICAL Hx Falls: No 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) - GASTROINTESTINAL Hx Gastrointestinal Disorders: No - GENITOURINARY/GYNECOLOGICAL Hx Genitourinary Disorders: No - PSYCHIATRIC Hx Substance Use: No - SURGICAL HISTORY Hx Surgeries: Yes Other/Comment: "HERNIA REMOVAL IN [place]" - ANESTHESIA Hx Anesthesia: Yes Hx Anesthesia Reactions: No Meds Allergies/Adverse Reactions: Allergies Allergy/AdvReac Type Severity Reaction Status Date / Time Iodine and Iodide Containing Allergy Verified 11/19/17 11:40 Produc - Medications Medications: Current Medications Acetaminophen (Tylenol 325mg Tab) 650 mg PO Q6 PRN PRN Reason: Pain, Mild (1-3) Aspirin (Aspirin Chewable) 81 mg PO DAILY [facility] Dextrose (Dextrose 50% Inj) 0 ml IVP .STAT PRN; Protocol PRN Reason: Hypoglycemia Protocol Dextrose (Glutose 15) 15 gm PO .ONCE PRN; Protocol PRN Reason: Hypoglycemia Protocol Last Admin: 11/19/17 21:45 Dose: 15 gm Escitalopram Oxalate (Lexapro) 10 mg PO DAILY [facility] Glucagon (Glucagen Diagnostic Kit) 1 mg IM .STAT PRN; Protocol PRN Reason: Hypoglycemia Protocol Heparin Sodium (Porcine) (Heparin) 5,000 units SC Q8 [facility] Last Admin: 11/19/17 21:41 Dose: 5,000 units Dextrose (Dextrose 5% In Water 1000 Ml) 1,000 mls @ 0 mls/hr IV .Q0M PRN; Protocol; Per Protocol PRN Reason: Hypoglycemia Protocol Insulin Human Regular (Novolin R) 0 unit SC ACHS [facility] PRN Reason: Protocol Last Admin: 11/19/17 20:05 Dose: Not Given Levetiracetam (Keppra) 500 mg PO BID [facility] Last Admin: 11/19/17 18:24 Dose: 500 mg Levothyroxine Sodium (Synthroid) 88 mcg PO DAILY@0630 [facility] Rosuvastatin Calcium (Crestor) 10 mg PO HS [facility] Last Admin: 11/19/17 21:41 Dose: 10 mg Physical Exam - Constitutional Appears: Non-toxic, No Acute Distress - Head Exam Head Exam: ATRAUMATIC, NORMOCEPHALIC - Eye Exam Eye Exam: EOMI, Normal appearance, PERRL - ENT Exam ENT Exam: Mucous Membranes Moist, Normal Exam - Neck Exam Neck exam: Positive for: Full Rom, Normal Inspection - Respiratory Exam Respiratory Exam: Clear to Auscultation Bilateral, NORMAL BREATHING PATTERN. absent: Accessory Muscle Use, Chest Wall Tenderness, Decreased Breath Sounds, Prolonged Expiratory Phase, Rales, Rhonchi, Wheezes, Respiratory Distress, Stridor - Cardiovascular Exam Cardiovascular Exam: REGULAR RHYTHM, RRR, +S1, +S2, Systolic Murmur (II/). absent: Bradycardia, Tachycardia, Clicks, Diastolic murmur, Gallop, Irregular Rhythm, JVD, Rubs, +S4 - GI/Abdominal Exam GI & Abdominal Exam: Normal Bowel Sounds, Soft. absent: Tenderness - Extremities Exam Additional comments: Nonpalpable pedal pulses bilaterally; LLE hemiparesis; Dry gangrene of right fourth digit with open lesions, skin breaks, fluctuance, purulence or active drainage; Wound dressing clean, dry and intact - Neurological Exam Neurological exam: Alert, Oriented x3 - Psychiatric Exam Psychiatric exam: Normal Affect, Normal Mood - Skin Skin Exam: Dry, Intact Results - Vital Signs Recent Vital Signs: Last Vital Signs Temp 97.2 F L 11/19/17 15:35 Pulse 57 L 11/19/17 15:35 Resp 20 11/19/17 15:35 BP 126/53 L 11/19/17 15:35 Pulse Ox 99 11/19/17 15:35 - Labs Result Diagrams: 11/20/17 07:06 11/20/17 07:06 Labs: Laboratory Results - last 24 hr 11/19/17 11/19/17 11/19/17 11:32 12:50 12:50 WBC 5.4 RBC 3.10 L Hgb 9.4 L Hct 28.1 L MCV 90.6 MCH 30.4 MCHC 33.5 RDW 19.9 H Plt Count 344 MPV 8.7 Neut % (Auto) 65.1 Lymph % (Auto) 23.2 [place]eman % (Auto) 7.6 Eos % (Auto) 3.0 Baso % (Auto) 1.1 Neut # (Auto) 3.5 Lymph # (Auto) 1.2 [place]eman # (Auto) 0.4 Eos # (Auto) 0.2 Baso # (Auto) 0.1 Sodium 136 Potassium 3.7 Chloride 100 Carbon Dioxide 24 Anion Gap 16 BUN 12 Creatinine 0.6 L Est GFR ( Amer) > 60 Est GFR (Non-Af Amer) > 60 POC Glucose (mg/dL) 149 H Random Glucose 104 Calcium 8.8 11/19/17 11/19/17 11/19/17 16:03 16:04 16:59 WBC RBC Hgb Hct MCV MCH MCHC RDW Plt Count MPV Neut % (Auto) Lymph % (Auto) [place]eman % (Auto) Eos % (Auto) Baso % (Auto) Neut # (Auto) Lymph # (Auto) [place]eman # (Auto) Eos # (Auto) Baso # (Auto) Sodium Potassium Chloride Carbon Dioxide Anion Gap BUN Creatinine Est GFR ( Amer) Est GFR (Non-Af Amer) POC Glucose (mg/dL) 67 63 L 92 Random Glucose Calcium 11/19/17 11/19/17 11/19/17 21:24 21:26 21:43 WBC RBC Hgb Hct MCV MCH MCHC RDW Plt Count MPV Neut % (Auto) Lymph % (Auto) [place]eman % (Auto) Eos % (Auto) Baso % (Auto) Neut # (Auto) Lymph # (Auto) [place]eman # (Auto) Eos # (Auto) Baso # (Auto) Sodium Potassium Chloride Carbon Dioxide Anion Gap BUN Creatinine Est GFR ( Amer) Est GFR (Non-Af Amer) POC Glucose (mg/dL) 50 L 49 L 63 L Random Glucose Calcium Assessment & Plan - Assessment and Plan (Free Text) Assessment: 82 year old femaly with a past medical history significant for PVD s/p stent placement in right SFA (11/2017), DM2, HTN, HLD, CVA (2010) with residual left sided hemiparesis, and gangrenous right foot hallux/4th digit presents for amputation of demarcated necrosis to right foot digits/hallux by Dr. Hooker. Plan: 1. Dry Gangrene of RLE -EKG and VS reviewed -Patient not currently taking Xarelto, per patient; Will need to be held 72 hours prior to surgical intervention As per ACC/AHA guidelines, patient being planned for low risk surgery with intermediate cardiac risk factors can proceed for amputation of necrotic areas of tissue on right foot from cardiac standpoint with no further testing Patient seen and case discussed with attending, Dr. Ken. Ritika PGY1 - Date & Time Date: 11/19/17 Time: 21:47
[2017-11-20] MEDS: Levothyroxine 88 MCG TAB PO SCH ×2 (06:56→10:44)
--- NOTE | 2017-11-20 07:12 | CP.PCM.PN ---
Subjective - Date & Time of Evaluation Date of Evaluation: 11/20/17 Time of Evaluation: 07:07 - Subjective Subjective: PGY-[address] Jason's Service: Pt seen and examined at bedside. Nursing reports patient afebrile overnight; no other acute events. Patient reports continued mild pain in right toe, rating severity as 2/3 of 10. Denies fever, chills, SOB, chest pain, abd pain, N/V. Objective - Vital Signs/Intake and Output Vital Signs (last 24 hours): Temp Pulse Resp BP Pulse Ox 98.4 F 61 20 152/62 H 96 11/19/17 23:15 11/19/17 23:15 11/19/17 23:15 11/19/17 23:15 11/19/17 23:15 - Medications Medications: Current Medications Acetaminophen (Tylenol 325mg Tab) 650 mg PO Q6 PRN PRN Reason: Pain, Mild (1-3) Aspirin (Aspirin Chewable) 81 mg PO DAILY [facility] Dextrose (Dextrose 50% Inj) 0 ml IVP .STAT PRN; Protocol PRN Reason: Hypoglycemia Protocol Dextrose (Glutose 15) 15 gm PO .ONCE PRN; Protocol PRN Reason: Hypoglycemia Protocol Last Admin: 11/19/17 21:45 Dose: 15 gm Escitalopram Oxalate (Lexapro) 10 mg PO DAILY [facility] Glucagon (Glucagen Diagnostic Kit) 1 mg IM .STAT PRN; Protocol PRN Reason: Hypoglycemia Protocol Heparin Sodium (Porcine) (Heparin) 5,000 units SC Q8 [facility] Last Admin: 11/20/17 06:53 Dose: 5,000 units Dextrose (Dextrose 5% In Water 1000 Ml) 1,000 mls @ 0 mls/hr IV .Q0M PRN; Protocol; Per Protocol PRN Reason: Hypoglycemia Protocol Levetiracetam (Keppra) 500 mg PO BID [facility] Last Admin: 11/19/17 18:24 Dose: 500 mg Levothyroxine Sodium (Synthroid) 88 mcg PO DAILY@0630 [facility] Last Admin: 11/20/17 06:56 Dose: 88 mcg Rosuvastatin Calcium (Crestor) 10 mg PO HS [facility] Last Admin: 11/19/17 21:41 Dose: 10 mg - Labs Labs: 11/19/17 12:50 11/19/17 12:50 - Additional Findings Additional findings: - Constitutional Appears: No Acute Distress - Head Exam Head Exam: ATRAUMATIC, NORMOCEPHALIC - Eye Exam Eye Exam: EOMI - ENT Exam ENT Exam: Mucous Membranes Moist - Respiratory Exam Respiratory Exam: Clear to Ausculation Bilateral, NORMAL BREATHING PATTERN - Cardiovascular Exam Cardiovascular Exam: +S1, +S2 - GI/Abdominal Exam GI & Abdominal Exam: Soft, Normal Bowel Sounds. absent: Tenderness - Extremities Exam Additional comments: right foot with gauze dressing, right hallux dark in color, not malodorous, no discharge from wound betadyne noted on gauze - Neurological Exam Neurological Exam: Alert, Awake - Psychiatric Exam Psychiatric exam: Normal Affect Assessment and Plan - Assessment and Plan (Free Text) Plan: Gangrene of Right Foot secondary to PVD Recent admission at [facility] [place] beginning of November HO/PVR - 75% Stenosis of SFA and 30-49% stenosis of popliteal artery CTA - Heavily calcified iliac, femoral, popliteal, and tibial arteries bilaterally. Arterial supply below both knees from a single miniscule collateral vessel Abdominal angiogram- heavily calcified iliac, femoral, popliteal, and tibial arteries s/p angiogram with angioplasty and stent placement- R SFA arthroplasty with Dr. Marino earlier this month Xray Right foot (11/01/17): FINDINGS: BONES: There is severe diffuse bone demineralization. There is no acute displaced fracture or bone destruction. Bone alignment is normal. Calcifications there is a prominent plantar calcaneal spur. JOINTS: Normal. SOFT TISSUES: Normal. OTHER FINDINGS: There are advanced atherosclerotic vascular. IMPRESSION: No radiographic evidence of bone destruction or osteomyelitis. Podiatry, Dr. Hooker, help appreciated patient to have amputation later this week Continue local wound care Dr. eKn, cardiology, help appreciated - HOLD Xarelto until after surgery Hyperlipidemia Crestor 10mg PO HS LDL 56 on last admission Hx CVA with residual left sided hemiparesis No acute intervention HOLD Xarelto 20 mg po daily as patient to have amputation later this week ASA 81 mg po daily Hypothyroidism Levothyroxine 88 mcg TSH 2.21 on last admission Diabetes Mellitus A1C: 5.3 on last admission Accuchecks ACHS Hypoglycemia Protocol ISS Seizure disorder Keppra 500mg PO BID Anxiety/Depression Lexapro 10mg PO Daily electrolyte abnormality Will monitor and replete as needed Prophylaxis HOLD Xarelto for surgery heparin sc 5000u q8h All management per Dr Jason
[2017-11-20 07:19] LABS: BASO % 0.7 % (0.0-2.0); EOS # 0.3 K/uL (0.0-0.7); EOS % 4.3 % (0.0-4.0); HEMOGLOBIN 9.9 g/dL (11.0-16.0); LYMPH % 14.8 % (20.0-40.0); MEAN CELL VOLUME 90.1 fL (81.0-99.0); MEAN CORPUSCULAR HEMOGLOBIN 30.3 pg (27.0-31.0); MEAN CORPUSCULAR HGB CONC 33.7 g/dL (33.0-37.0); MEAN PLATELET VOLUME 8.9 fL (7.2-11.7); MONO # 0.4 K/uL (0.0-0.8); MONO % 6.3 % (0.0-10.0); NEUT # 4.8 K/uL (1.8-7.0); NEUT % 73.9 % (50.0-75.0); RBC 3.26 Mil/uL (3.80-5.20); RED CELL DISTRIBUTION WIDTH 19.2 % (11.5-14.5); WHITE BLOOD COUNT 6.5 K/uL (4.8-10.8)
[2017-11-20 07:26] LABS: INR 1.3; PROTHROMBIN TIME 14.6 SECONDS (9.7-12.2)
[2017-11-20 08:12] LABS: ALBUMIN 3.1 g/dL (3.5-5.0); ALT/SGPT 37 U/L (9-52); AST/SGOT 38 U/L (14-36); BLOOD UREA NITROGEN 6 mg/dL (7-17); CALCIUM 8.6 mg/dl (8.6-10.4); GFR AFRICAN-AMERICAN > 60; GFR NON-AFRICAN AMERICAN > 60
[2017-11-20] MEDS: Potassium Chloride 20 mEq ER Tab PO SCH ×2 (09:27→11:28)
--- NOTE | 2017-11-20 12:32 | CP.PCM.PN ---
Subjective - Date & Time of Evaluation Date of Evaluation: 11/20/17 Time of Evaluation: 12:26 - Subjective Subjective: Podiatry progress noted for Dr. Hooker, 82YO female was seen at bedside this morning for gangrenous right foot hallux and 4th digit. Patient is resting comfortably in bed with no report of acute distress. Dressing was dry, clean, and intact. Patient admits to moderate foot pain. Dr. Hooker plans for surgery of right foot hallux and 4th digit amputation. Patient denies any complains of N/V/F/C/SOB. Podiatry plans to take patient for surgery this Saturday (11/22) at 1:00pm for amputation of the right foot hallux and fourth digit. Objective - Vital Signs/Intake and Output Vital Signs (last 24 hours): Temp Pulse Resp BP Pulse Ox 98 F 61 20 140/56 L 99 11/20/17 07:00 11/20/17 07:00 11/20/17 07:00 11/20/17 07:00 11/20/17 07:00 - Medications Medications: Current Medications Acetaminophen (Tylenol 325mg Tab) 650 mg PO Q6 PRN PRN Reason: Pain, Mild (1-3) Aspirin (Aspirin Chewable) 81 mg PO DAILY [facility] Last Admin: 11/20/17 09:27 Dose: 81 mg Dextrose (Dextrose 50% Inj) 0 ml IVP .STAT PRN; Protocol PRN Reason: Hypoglycemia Protocol Dextrose (Glutose 15) 15 gm PO .ONCE PRN; Protocol PRN Reason: Hypoglycemia Protocol Last Admin: 11/19/17 21:45 Dose: 15 gm Escitalopram Oxalate (Lexapro) 10 mg PO DAILY [facility] Last Admin: 11/20/17 09:27 Dose: 10 mg Glucagon (Glucagen Diagnostic Kit) 1 mg IM .STAT PRN; Protocol PRN Reason: Hypoglycemia Protocol Heparin Sodium (Porcine) (Heparin) 5,000 units SC Q8 [facility] Last Admin: 11/20/17 06:53 Dose: 5,000 units Dextrose (Dextrose 5% In Water 1000 Ml) 1,000 mls @ 0 mls/hr IV .Q0M PRN; Protocol; Per Protocol PRN Reason: Hypoglycemia Protocol Levetiracetam (Keppra) 500 mg PO BID [facility] Last Admin: 11/20/17 09:27 Dose: 500 mg Levothyroxine Sodium (Synthroid) 88 mcg PO DAILY@0630 [facility] Last Admin: 11/20/17 10:44 Dose: Not Given Rosuvastatin Calcium (Crestor) 10 mg PO [facility] Last Admin: 11/19/17 21:41 Dose: 10 mg - Labs Labs: 11/20/17 07:06 11/20/17 07:06 PT 14.6 SECONDS (9.7-12.2) H 11/20/17 07:06 INR 1.3 11/20/17 07:06 APTT 35 SECONDS (21-34) H 11/20/17 07:06 - Constitutional Appears: Well, Non-toxic, No Acute Distress - Head Exam Head Exam: ATRAUMATIC - Extremities Exam Additional comments: Right lower extremity examination: Derm: Dry, gangrenous, ischemia noted to the distal aspect of hallux and 4th digit. Mild malodor, no purulence, no active drainage, no open lesions are noted , no clinical signs of acute infection Vascular: Nonpalpable pedal pulses, TG warm to cool, CFT > 3 secs, no edema noted, pedal hair absent. Neuro: protective sensation grossly diminished - Neurological Exam Neurological Exam: Alert, Awake, Oriented x3 Assessment and Plan - Assessment and Plan (Free Text) Assessment: 82YO female patient presents with gangrene to right foot hallux and fourth digit. Plan: Patient seen and evaluated Chart, lab, and vitals reviewed. Afebrile, WBC 6.5 Plan discussed with the attending, Dr. Hooker Podiatry Plan: Amputation of right foot hallux and fourth digit on Saturday (11/22 ) at 1:00pm, local only. Foot dressed with gauze, and kerlix. Podiatry to follow patient
--- NOTE | 2017-11-20 18:07 | CP.PCM.PN ---
Subjective - Date & Time of Evaluation Date of Evaluation: 11/20/17 Time of Evaluation: 18:05 - Subjective Subjective: Cardiology Progress Note (Dr. Ken): Patient seen and assessed at bedside with translation provided via nursing staff. No acute events noted overnight. She endorse continued right foot pain but denies fevers, chills, headache, chest pain, palpitations, leg swelling, syncope, SOB, cough, wheezing, abdominal pain, N/V/D/C, or changes in urine output. Objective - Vital Signs/Intake and Output Vital Signs (last 24 hours): Temp Pulse Resp BP Pulse Ox 98.3 F 55 L 20 137/56 L 98 11/20/17 15:20 11/20/17 15:20 11/20/17 15:20 11/20/17 15:20 11/20/17 15:20 Intake and Output: 11/20/17 11/20/17 06:59 18:59 Intake Total 400 Output Total 300 Balance 100 - Medications Medications: Current Medications Acetaminophen (Tylenol 325mg Tab) 650 mg PO Q6 PRN PRN Reason: Pain, Mild (1-3) Aspirin (Aspirin Chewable) 81 mg PO DAILY [facility] Last Admin: 11/20/17 09:27 Dose: 81 mg Dextrose (Dextrose 50% Inj) 0 ml IVP .STAT PRN; Protocol PRN Reason: Hypoglycemia Protocol Dextrose (Glutose 15) 15 gm PO .ONCE PRN; Protocol PRN Reason: Hypoglycemia Protocol Last Admin: 11/19/17 21:45 Dose: 15 gm Escitalopram Oxalate (Lexapro) 10 mg PO DAILY [facility] Last Admin: 11/20/17 09:27 Dose: 10 mg Glucagon (Glucagen Diagnostic Kit) 1 mg IM .STAT PRN; Protocol PRN Reason: Hypoglycemia Protocol Heparin Sodium (Porcine) (Heparin) 5,000 units SC Q8 [facility] Last Admin: 11/20/17 13:24 Dose: 5,000 units Dextrose (Dextrose 5% In Water 1000 Ml) 1,000 mls @ 0 mls/hr IV .Q0M PRN; Protocol; Per Protocol PRN Reason: Hypoglycemia Protocol Levetiracetam (Keppra) 500 mg PO BID [facility] Last Admin: 11/20/17 09:27 Dose: 500 mg Levothyroxine Sodium (Synthroid) 88 mcg PO DAILY@0630 [facility] Last Admin: 11/20/17 10:44 Dose: Not Given Rosuvastatin Calcium (Crestor) 10 mg PO HS [facility] Last Admin: 11/19/17 21:41 Dose: 10 mg - Labs Labs: 11/20/17 07:06 11/20/17 07:06 PT 14.6 SECONDS (9.7-12.2) H 11/20/17 07:06 INR 1.3 11/20/17 07:06 APTT 35 SECONDS (21-34) H 11/20/17 07:06 - Constitutional Appears: Non-toxic, No Acute Distress - Head Exam Head Exam: ATRAUMATIC, NORMOCEPHALIC - Eye Exam Eye Exam: EOMI, Normal appearance, PERRL - ENT Exam ENT Exam: Mucous Membranes Moist, Normal Exam - Neck Exam Neck Exam: Full ROM, Normal Inspection - Respiratory Exam Respiratory Exam: Clear to Ausculation Bilateral, NORMAL BREATHING PATTERN. absent: Accessory Muscle Use, Chest Wall Tenderness, Decreased Breath Sounds, Prolonged Expiratory Phase, Rales, Rhonchi, Wheezes, Respiratory Distress, Stridor - Cardiovascular Exam Cardiovascular Exam: REGULAR RHYTHM, RRR, +S1, +S2, Murmur (Systolic). absent: Bradycardia, Tachycardia, Clicks, Diastolic murmur, Gallop, Irregular Rhythm, JVD, Rubs, +S4 - GI/Abdominal Exam GI & Abdominal Exam: Soft, Normal Bowel Sounds. absent: Tenderness - Extremities Exam Extremities Exam: absent: Full ROM, Normal Inspection, Pedal Edema Additional comments: Nonpalpable pedal pulses bilaterally; LLE hemiparesis; Dry gangrene of right fourth digit with open lesions, skin breaks, fluctuance, purulence or active drainage; Wound dressing clean, dry and intact - Neurological Exam Neurological Exam: Alert, Awake, Oriented x3 - Psychiatric Exam Psychiatric exam: Normal Affect, Normal Mood - Skin Skin Exam: Dry, Intact Assessment and Plan - Assessment and Plan (Free Text) Assessment: 82 year old femaly with a past medical history significant for PVD s/p stent placement in right SFA (11/2017), DM2, HTN, HLD, CVA (2010) with residual left sided hemiparesis, and gangrenous right foot hallux/4th digit presents for amputation of demarcated necrosis to right foot digits/hallux by Dr. Hooker. Surgery is scheduled for 11/22/17. Plan: 1. Dry Gangrene of RLE -EKG and VS reviewed -Patient not currently taking Xarelto, per patient; Will need to be held 72 hours prior to surgical intervention As per ACC/AHA guidelines, patient being planned for low risk surgery with intermediate cardiac risk factors can proceed for amputation of necrotic areas of tissue on right foot from cardiac standpoint with no further testing Patient seen and case discussed with attending, Dr. Ken. Ritika PGY1
--- NOTE | 2017-11-20 23:07 | CARD ---
APPROVED REPORT EKG Measurement Heart [id number] <Conclusion> Junctional rhythm Incomplete right bundle branch block Abnormal ECG
[2017-11-21] MEDS: Levothyroxine 88 MCG TAB PO SCH (05:54)
[2017-11-21 06:30] LABS: BASO # 0.1 K/uL (0.0-0.2); BASO % 0.8 % (0.0-2.0); EOS # 0.5 K/uL (0.0-0.7); EOS % 6.8 % (0.0-4.0); LYMPH # 1.6 K/uL (1.0-4.3); LYMPH % 21.9 % (20.0-40.0); MEAN CELL VOLUME 89.8 fL (81.0-99.0); MEAN CORPUSCULAR HEMOGLOBIN 30.1 pg (27.0-31.0); MEAN CORPUSCULAR HGB CONC 33.5 g/dL (33.0-37.0); MEAN PLATELET VOLUME 8.1 fL (7.2-11.7); MONO # 0.4 K/uL (0.0-0.8); MONO % 5.7 % (0.0-10.0); NEUT # 4.7 K/uL (1.8-7.0); NEUT % 64.8 % (50.0-75.0); RBC 3.31 Mil/uL (3.80-5.20); RED CELL DISTRIBUTION WIDTH 19.5 % (11.5-14.5); WHITE BLOOD COUNT 7.3 K/uL (4.8-10.8)
[2017-11-21 07:34] LABS: ALB/GLOB RATIO 1.1 (1.0-2.1); ALBUMIN 3.3 g/dL (3.5-5.0); ALT/SGPT 39 U/L (9-52); AST/SGOT 36 U/L (14-36); BLOOD UREA NITROGEN 3 mg/dL (7-17); GFR AFRICAN-AMERICAN > 60; GFR NON-AFRICAN AMERICAN > 60
--- NOTE | 2017-11-21 07:46 | CP.PCM.PN ---
Subjective - Date & Time of Evaluation Date of Evaluation: 11/21/17 Time of Evaluation: 07:46 - Subjective Subjective: Medicine progress note for Dr. Jason's service Patient seen and examined at bedside. No acute events overnight per nursing. Patient with fair appetite. Patient admits to right foot pain around necrotic areas, however she has not asked for prn pain medication. Objective - Vital Signs/Intake and Output Vital Signs (last 24 hours): Temp Pulse Resp BP Pulse Ox 98.0 F 60 20 139/59 L 99 11/20/17 23:15 11/20/17 23:15 11/20/17 23:15 11/20/17 23:15 11/20/17 23:15 Intake and Output: 11/21/17 11/21/17 06:59 18:59 Output Total 300 Balance -300 - Medications Medications: Current Medications Acetaminophen (Tylenol 325mg Tab) 650 mg PO Q6 PRN PRN Reason: Pain, Mild (1-3) Aspirin (Aspirin Chewable) 81 mg PO DAILY [facility] Last Admin: 11/20/17 09:27 Dose: 81 mg Dextrose (Dextrose 50% Inj) 0 ml IVP .STAT PRN; Protocol PRN Reason: Hypoglycemia Protocol Dextrose (Glutose 15) 15 gm PO .ONCE PRN; Protocol PRN Reason: Hypoglycemia Protocol Last Admin: 11/19/17 21:45 Dose: 15 gm Escitalopram Oxalate (Lexapro) 10 mg PO DAILY [facility] Last Admin: 11/20/17 09:27 Dose: 10 mg Glucagon (Glucagen Diagnostic Kit) 1 mg IM .STAT PRN; Protocol PRN Reason: Hypoglycemia Protocol Heparin Sodium (Porcine) (Heparin) 5,000 units SC Q8 [facility] Last Admin: 11/21/17 05:54 Dose: 5,000 units Dextrose (Dextrose 5% In Water 1000 Ml) 1,000 mls @ 0 mls/hr IV .Q0M PRN; Protocol; Per Protocol PRN Reason: Hypoglycemia Protocol Levetiracetam (Keppra) 500 mg PO BID [facility] Last Admin: 11/20/17 19:07 Dose: 500 mg Levothyroxine Sodium (Synthroid) 88 mcg PO DAILY@0630 [facility] Last Admin: 11/21/17 05:54 Dose: 88 mcg Rosuvastatin Calcium (Crestor) 10 mg PO HS [facility] Last Admin: 11/20/17 22:11 Dose: 10 mg - Labs Labs: 11/21/17 06:18 11/21/17 06:18 PT 14.6 SECONDS (9.7-12.2) H 11/20/17 07:06 INR 1.3 11/20/17 07:06 APTT 35 SECONDS (21-34) H 11/20/17 07:06 - Constitutional Appears: No Acute Distress, Chronically Ill - Head Exam Head Exam: ATRAUMATIC, NORMOCEPHALIC - Eye Exam Eye Exam: EOMI - ENT Exam ENT Exam: Mucous Membranes Moist - Respiratory Exam Respiratory Exam: Clear to Ausculation Bilateral - Cardiovascular Exam Cardiovascular Exam: +S1, +S2 - GI/Abdominal Exam GI & Abdominal Exam: Soft, Normal Bowel Sounds. absent: Tenderness - Extremities Exam Additional comments: right foot with dark necrotic hallux, 4th toe, mild tenderness of area adjacent to necrosis, wounds wrapped in clean gauze - Neurological Exam Neurological Exam: Alert, Awake - Skin Skin Exam: Warm Assessment and Plan - Assessment and Plan (Free Text) Assessment: Gangrene of Right Foot secondary to PVD Recent admission at [facility] beginning of November HO/PVR - 75% Stenosis of SFA and 30-49% stenosis of popliteal artery CTA - Heavily calcified iliac, femoral, popliteal, and tibial arteries bilaterally. Arterial supply below both knees from a single miniscule collateral vessel Abdominal angiogram- heavily calcified iliac, femoral, popliteal, and tibial arteries s/p angiogram with angioplasty and stent placement- R SFA arthroplasty with Dr. Marino earlier this month Xray Right foot (11/01/17): FINDINGS: BONES: There is severe diffuse bone demineralization. There is no acute displaced fracture or bone destruction. Bone alignment is normal. Calcifications there is a prominent plantar calcaneal spur. JOINTS: Normal. SOFT TISSUES: Normal. OTHER FINDINGS: There are advanced atherosclerotic vascular. IMPRESSION: No radiographic evidence of bone destruction or osteomyelitis. Podiatry, Dr. Hooker, help appreciated patient to have amputation tomorrow at 1pm with local anesthesia only Continue local wound care Dr. Ken, cardiology, help appreciated - HOLD Xarelto until after surgery Hyperlipidemia Crestor 10mg PO HS LDL 56 on last admission Hx CVA with residual left sided hemiparesis No acute intervention HOLD Xarelto 20 mg po daily as patient to have amputation later this week ASA 81 mg po daily Hypothyroidism Levothyroxine 88 mcg TSH 2.21 on last admission Diabetes Mellitus A1C: 5.3 on last admission Accuchecks [facility] Hypoglycemia Protocol ISS Glucerna shakes Seizure disorder Keppra 500mg PO BID Anxiety/Depression Lexapro 10mg PO Daily electrolyte abnormality Will monitor and replete as needed Prophylaxis HOLD Xarelto for surgery heparin sc 5000u q8h All management per Dr Jason
--- NOTE | 2017-11-21 11:49 | CP.PCM.PN ---
Subjective - Date & Time of Evaluation Date of Evaluation: 11/21/17 Time of Evaluation: 11:44 - Subjective Subjective: Podiatry progress note for Dr. Hooker 82 y/o female patient seen at bedside for right foot hallux and 4th digit gangrene. Patient is AAOX3, and in NAD. Patient dressing was clean, dry and intact. Patient denies any new pedal complaints at this time. Patient thoroughly explained surgical procedure, which is to be performed on 11/22/17Saturday 1:00 PM. Patient demonstrated verbal understanding. Written consent was obtained from the patient. Patient fully understands podiatry plan of amputating the right foot hallux and right 4th digit. Patient denies F/V/N/SOB/ CP/pain to posterior calf. Objective - Vital Signs/Intake and Output Vital Signs (last 24 hours): Temp Pulse Resp BP Pulse Ox 97.4 F L 54 L 20 162/69 H 99 11/21/17 09:24 11/21/17 09:24 11/21/17 09:24 11/21/17 09:24 11/21/17 09:24 Intake and Output: 11/21/17 11/21/17 06:59 18:59 Output Total 300 Balance -300 - Medications Medications: Current Medications Acetaminophen (Tylenol 325mg Tab) 650 mg PO Q6 PRN PRN Reason: Pain, Mild (1-3) Aspirin (Aspirin Chewable) 81 mg PO DAILY [facility] Last Admin: 11/20/17 09:27 Dose: 81 mg Dextrose (Dextrose 50% Inj) 0 ml IVP .STAT PRN; Protocol PRN Reason: Hypoglycemia Protocol Dextrose (Glutose 15) 15 gm PO .ONCE PRN; Protocol PRN Reason: Hypoglycemia Protocol Last Admin: 11/19/17 21:45 Dose: 15 gm Escitalopram Oxalate (Lexapro) 10 mg PO DAILY [facility] Last Admin: 11/20/17 09:27 Dose: 10 mg Glucagon (Glucagen Diagnostic Kit) 1 mg IM .STAT PRN; Protocol PRN Reason: Hypoglycemia Protocol Heparin Sodium (Porcine) (Heparin) 5,000 units SC Q8 [facility] Last Admin: 11/21/17 05:54 Dose: 5,000 units Dextrose (Dextrose 5% In Water 1000 Ml) 1,000 mls @ 0 mls/hr IV .Q0M PRN; Protocol; Per Protocol PRN Reason: Hypoglycemia Protocol Levetiracetam (Keppra) 500 mg PO BID [facility] Last Admin: 11/20/17 19:07 Dose: 500 mg Levothyroxine Sodium (Synthroid) 88 mcg PO DAILY@0630 [facility] Last Admin: 11/21/17 05:54 Dose: 88 mcg Rosuvastatin Calcium (Crestor) 10 mg PO HS [facility] Last Admin: 11/20/17 22:11 Dose: 10 mg - Labs Labs: 11/21/17 06:18 11/21/17 06:18 PT 14.6 SECONDS (9.7-12.2) H 11/20/17 07:06 INR 1.3 11/20/17 07:06 APTT 35 SECONDS (21-34) H 11/20/17 07:06 - Constitutional Appears: Well, Non-toxic, No Acute Distress - Head Exam Head Exam: ATRAUMATIC, NORMOCEPHALIC - Extremities Exam Additional comments: Dressing to right lower extremity clean, dry and intact. - Neurological Exam Neurological Exam: Alert, Awake, Oriented x3 - Psychiatric Exam Psychiatric exam: Normal Affect, Normal Mood Assessment and Plan - Assessment and Plan (Free Text) Assessment: 82 y/o female seen at bedside for right foot hallux and 4th digit gangrene. Patient is scheduled for amputation for right foot hallux and 4th digit on Saturday11/22/17 at 1:00, to be performed by Dr. Hooker Plan: Patient seen and evaluated at bedside Patient plan discussed with Dr. Hooker Chart, Labs and Vitals reviewed- Afebrile, WBC 7.3 Patient thoroughly explained surgical procedure No guaranteed were given or implied regarding surgery Surgery scheduled for Saturday11/22/17 1:00, local only Written consent obtained and is in chart Family medicine note appreciated Podiatry will continue to follow patient in-house
[2017-11-22 06:52] LABS: BASO # 0.1 K/uL (0.0-0.2); EOS # 0.3 K/uL (0.0-0.7); EOS % 6.3 % (0.0-4.0); HEMOGLOBIN 9.3 g/dL (11.0-16.0); LYMPH # 1.4 K/uL (1.0-4.3); LYMPH % 27.9 % (20.0-40.0); MEAN CELL VOLUME 89.2 fL (81.0-99.0); MEAN CORPUSCULAR HEMOGLOBIN 29.9 pg (27.0-31.0); MEAN CORPUSCULAR HGB CONC 33.5 g/dL (33.0-37.0); MEAN PLATELET VOLUME 8.2 fL (7.2-11.7); MONO # 0.4 K/uL (0.0-0.8); MONO % 7.5 % (0.0-10.0); NEUT # 2.9 K/uL (1.8-7.0); NEUT % 57.3 % (50.0-75.0); NRBC % 0.1 % (0.0-2.0); RBC 3.12 Mil/uL (3.80-5.20); RED CELL DISTRIBUTION WIDTH 19.6 % (11.5-14.5); WHITE BLOOD COUNT 5.1 K/uL (4.8-10.8)
[2017-11-22 06:54] LABS: ALT/SGPT 36 U/L (9-52); AST/SGOT 26 U/L (14-36); BLOOD UREA NITROGEN 5 mg/dL (7-17); CALCIUM 8.8 mg/dl (8.6-10.4); GFR AFRICAN-AMERICAN > 60; GFR NON-AFRICAN AMERICAN > 60
[2017-11-22] MEDS: Levothyroxine 88 MCG TAB PO SCH (07:20)
--- NOTE | 2017-11-22 07:34 | CP.PCM.PN ---
Subjective - Date & Time of Evaluation Date of Evaluation: 11/22/17 Time of Evaluation: 07:38 - Subjective Subjective: PGY 3 Medicine Note- Dr. Jason's service Patient seen and examined in no apparent acute distress. Patient states that she is unsure when she is having surgery. She admits to pain of her foot. Objective - Vital Signs/Intake and Output Vital Signs (last 24 hours): Temp Pulse Resp BP Pulse Ox 98.1 F 59 L 20 147/64 97 11/21/17 23:10 11/21/17 23:10 11/21/17 23:10 11/21/17 23:10 11/21/17 23:10 - Medications Medications: Current Medications Acetaminophen (Tylenol 325mg Tab) 650 mg PO Q6 PRN PRN Reason: Pain, Mild (1-3) Dextrose (Dextrose 50% Inj) 0 ml IVP .STAT PRN; Protocol PRN Reason: Hypoglycemia Protocol Dextrose (Glutose 15) 15 gm PO .ONCE PRN; Protocol PRN Reason: Hypoglycemia Protocol Last Admin: 11/19/17 21:45 Dose: 15 gm Escitalopram Oxalate (Lexapro) 10 mg PO DAILY [facility] Last Admin: 11/21/17 12:51 Dose: 10 mg Glucagon (Glucagen Diagnostic Kit) 1 mg IM .STAT PRN; Protocol PRN Reason: Hypoglycemia Protocol Heparin Sodium (Porcine) (Heparin) 5,000 units SC Q8 [facility] Last Admin: 11/22/17 05:52 Dose: 5,000 units Dextrose (Dextrose 5% In Water 1000 Ml) 1,000 mls @ 0 mls/hr IV .Q0M PRN; Protocol; Per Protocol PRN Reason: Hypoglycemia Protocol Levetiracetam (Keppra) 500 mg PO BID [facility] Last Admin: 11/21/17 18:45 Dose: 500 mg Levothyroxine Sodium (Synthroid) 88 mcg PO DAILY@0630 [facility] Last Admin: 11/22/17 07:20 Dose: 88 mcg Rosuvastatin Calcium (Crestor) 10 mg PO HS [facility] Last Admin: 11/21/17 22:36 Dose: 10 mg - Labs Labs: 11/22/17 06:34 11/22/17 06:34 PT 14.6 SECONDS (9.7-12.2) H 11/20/17 07:06 INR 1.3 11/20/17 07:06 APTT 35 SECONDS (21-34) H 11/20/17 07:06 - Constitutional Appears: No Acute Distress - Head Exam Head Exam: ATRAUMATIC, NORMAL INSPECTION - Eye Exam Eye Exam: EOMI - Neck Exam Neck Exam: Full ROM - Respiratory Exam Respiratory Exam: NORMAL BREATHING PATTERN - Cardiovascular Exam Cardiovascular Exam: +S1, +S2, Murmur - Extremities Exam Additional comments: right foot with dark necrotic hallux, 4th toe, mild tenderness of area adjacent to necrosis, wounds wrapped in clean gauze - Back Exam Back Exam: Full ROM - Neurological Exam Neurological Exam: Alert, Awake - Psychiatric Exam Psychiatric exam: Normal Affect, Normal Mood - Skin Skin Exam: Dry, Normal Color, Warm Assessment and Plan - Assessment and Plan (Free Text) Assessment: Gangrene of Right Foot secondary to PVD Recent admission at [facility] beginning of November HO/PVR - 75% Stenosis of SFA and 30-49% stenosis of popliteal artery CTA - Heavily calcified iliac, femoral, popliteal, and tibial arteries bilaterally. Arterial supply below both knees from a single miniscule collateral vessel Abdominal angiogram- heavily calcified iliac, femoral, popliteal, and tibial arteries s/p angiogram with angioplasty and stent placement- R SFA arthroplasty with Dr. Marino earlier this month Xray Right foot (11/01/17): FINDINGS: BONES: There is severe diffuse bone demineralization. There is no acute displaced fracture or bone destruction. Bone alignment is normal. Calcifications there is a prominent plantar calcaneal spur. JOINTS: Normal. SOFT TISSUES: Normal. OTHER FINDINGS: There are advanced atherosclerotic vascular. IMPRESSION: No radiographic evidence of bone destruction or osteomyelitis. Podiatry, Dr. Hooker, help appreciated Patient to have amputation November 25 Continue local wound care Dr. Ken, cardiology, help appreciated - HOLD Xarelto until after surgery Hyperlipidemia Crestor 10mg PO HS LDL 56 on last admission Hx CVA with residual left sided hemiparesis No acute intervention HOLD Xarelto 20 mg po daily as patient to have amputation later this week ASA 81 mg po daily - Being held in preparation for Saturday procedure Hypothyroidism Levothyroxine 88 mcg TSH 2.21 on last admission Diabetes Mellitus A1C: 5.3 on last admission Accuchecks [facility] Hypoglycemia Protocol ISS Glucerna shakes Cont to monitor Seizure disorder Keppra 500mg PO BID Anxiety/Depression Lexapro 10mg PO Daily Electrolyte abnormality Will monitor and replete as needed Prophylaxis HOLD Xarelto for surgery Heparin SC 5000u q8h- -Will hold the night before the procedure All management per Dr Jason
--- NOTE | 2017-11-22 09:47 | CP.PCM.PN ---
Subjective - Date & Time of Evaluation Date of Evaluation: 11/22/17 Time of Evaluation: 09:41 - Subjective Subjective: 82 Y/O female patient scheduled for R foot hallux and 4th digit amputation on Saturday was seen at bed side this morning. Patient is resting comfortably in bed and reports no acute distress. AAO X 3. Patient was informed of the change in surgery schedule on Saturday 11/25 at 7.45 am. Patient expressed verbal understanding of the podiatry plan of amputation of R hallux and 4th digit. Patient's daughter was also informed of the change in surgery date. Patient denies any F/N/V/C or SOB today. Objective - Vital Signs/Intake and Output Vital Signs (last 24 hours): Temp Pulse Resp BP Pulse Ox 98.1 F 59 L 20 147/64 97 11/21/17 23:10 11/21/17 23:10 11/21/17 23:10 11/21/17 23:10 11/21/17 23:10 - Medications Medications: Current Medications Acetaminophen (Tylenol 325mg Tab) 650 mg PO Q6 PRN PRN Reason: Pain, Mild (1-3) Dextrose (Dextrose 50% Inj) 0 ml IVP .STAT PRN; Protocol PRN Reason: Hypoglycemia Protocol Dextrose (Glutose 15) 15 gm PO .ONCE PRN; Protocol PRN Reason: Hypoglycemia Protocol Last Admin: 11/19/17 21:45 Dose: 15 gm Escitalopram Oxalate (Lexapro) 10 mg PO DAILY [facility] Last Admin: 11/21/17 12:51 Dose: 10 mg Glucagon (Glucagen Diagnostic Kit) 1 mg IM .STAT PRN; Protocol PRN Reason: Hypoglycemia Protocol Heparin Sodium (Porcine) (Heparin) 5,000 units SC Q8 [facility] Last Admin: 11/22/17 05:52 Dose: 5,000 units Dextrose (Dextrose 5% In Water 1000 Ml) 1,000 mls @ 0 mls/hr IV .Q0M PRN; Protocol; Per Protocol PRN Reason: Hypoglycemia Protocol Levetiracetam (Keppra) 500 mg PO BID [facility] Last Admin: 11/21/17 18:45 Dose: 500 mg Levothyroxine Sodium (Synthroid) 88 mcg PO DAILY@0630 [facility] Last Admin: 11/22/17 07:20 Dose: 88 mcg Rosuvastatin Calcium (Crestor) 10 mg PO HS [facility] Last Admin: 11/21/17 22:36 Dose: 10 mg - Labs Labs: 11/22/17 06:34 11/22/17 06:34 PT 14.6 SECONDS (9.7-12.2) H 11/20/17 07:06 INR 1.3 11/20/17 07:06 APTT 35 SECONDS (21-34) H 11/20/17 07:06 - Constitutional Appears: Well, No Acute Distress - Head Exam Head Exam: ATRAUMATIC, NORMOCEPHALIC - Extremities Exam Additional comments: Dressing to right lower extremity clean, dry and intact. - Neurological Exam Neurological Exam: Alert, Awake, Oriented x3 - Psychiatric Exam Psychiatric exam: Normal Affect, Normal Mood Assessment and Plan - Assessment and Plan (Free Text) Assessment: 82 Y/O female patient presenting with dry gangreen of the R hallux and 4th digit. Well demarcated and scheduled for amputation of hallux and 4th digit on Saturday 11/25 7.45 am. Plan: Patient seen and evaluated at the bed side. Discussed the paln with Dr. Hooker. Patient informed about the change in the surgery date to Saturday 11/25 7.45 am. Labs and vitals reviewed; afebrile, WBC 5.1. Written concent in chart. Patirnt agrees with podiatry plan. Podiatry will continue to follow in house.
[2017-11-23] MEDS: Levothyroxine 88 MCG TAB PO SCH (06:27)
[2017-11-23 08:06] LABS: BASO # 0.1 K/uL (0.0-0.2); BASO % 1.6 % (0.0-2.0); EOS # 0.2 K/uL (0.0-0.7); EOS % 4.3 % (0.0-4.0); HEMOGLOBIN 9.6 g/dL (11.0-16.0); LYMPH # 1.4 K/uL (1.0-4.3); MEAN CELL VOLUME 90.3 fL (81.0-99.0); MEAN CORPUSCULAR HEMOGLOBIN 30.7 pg (27.0-31.0); MEAN PLATELET VOLUME 8.9 fL (7.2-11.7); MONO # 0.3 K/uL (0.0-0.8); MONO % 6.3 % (0.0-10.0); NEUT # 2.8 K/uL (1.8-7.0); NEUT % 58.8 % (50.0-75.0); RBC 3.13 Mil/uL (3.80-5.20); RED CELL DISTRIBUTION WIDTH 19.5 % (11.5-14.5); WHITE BLOOD COUNT 4.8 K/uL (4.8-10.8)
[2017-11-23 08:25] LABS: ALBUMIN 3.2 g/dL (3.5-5.0); ALT/SGPT 33 U/L (9-52); AST/SGOT 30 U/L (14-36); BLOOD UREA NITROGEN 9 mg/dL (7-17); CALCIUM 8.8 mg/dl (8.6-10.4); GFR AFRICAN-AMERICAN > 60; GFR NON-AFRICAN AMERICAN > 60
--- NOTE | 2017-11-23 14:40 | CP.PCM.PN ---
Subjective - Date & Time of Evaluation Date of Evaluation: 11/23/17 Time of Evaluation: 14:37 - Subjective Subjective: Podiatry progress note for Dr. Hooker 82 Y/O female patient scheduled for R foot hallux and 4th digit amputation on Saturday was seen at bed side this morning. Patient is resting comfortably in bed and reports no acute distress. AAO X 3. Patient denies any acute pain to the site. Patient denies any F/N/V/C or SOB today. Objective - Vital Signs/Intake and Output Vital Signs (last 24 hours): Temp Pulse Resp BP Pulse Ox 97.5 F L 53 L 20 163/51 H 98 11/23/17 07:10 11/23/17 07:10 11/23/17 07:10 11/23/17 07:10 11/23/17 07:10 - Medications Medications: Current Medications Acetaminophen (Tylenol 325mg Tab) 650 mg PO Q6 PRN PRN Reason: Pain, Mild (1-3) Dextrose (Dextrose 50% Inj) 0 ml IVP .STAT PRN; Protocol PRN Reason: Hypoglycemia Protocol Dextrose (Glutose 15) 15 gm PO .ONCE PRN; Protocol PRN Reason: Hypoglycemia Protocol Last Admin: 11/19/17 21:45 Dose: 15 gm Escitalopram Oxalate (Lexapro) 10 mg PO DAILY [facility] Last Admin: 11/23/17 09:32 Dose: 10 mg Glucagon (Glucagen Diagnostic Kit) 1 mg IM .STAT PRN; Protocol PRN Reason: Hypoglycemia Protocol Heparin Sodium (Porcine) (Heparin) 5,000 units SC Q8 [facility] Last Admin: 11/23/17 14:33 Dose: 5,000 units Dextrose (Dextrose 5% In Water 1000 Ml) 1,000 mls @ 0 mls/hr IV .Q0M PRN; Protocol; Per Protocol PRN Reason: Hypoglycemia Protocol Levetiracetam (Keppra) 500 mg PO BID [facility] Last Admin: 11/23/17 09:32 Dose: 500 mg Levothyroxine Sodium (Synthroid) 88 mcg PO DAILY@0630 [facility] Last Admin: 11/23/17 06:27 Dose: 88 mcg Rosuvastatin Calcium (Crestor) 10 mg PO HS [facility] Last Admin: 11/22/17 22:17 Dose: 10 mg - Labs Labs: 11/23/17 07:56 11/23/17 07:56 PT 14.6 SECONDS (9.7-12.2) H 11/20/17 07:06 INR 1.3 11/20/17 07:06 APTT 35 SECONDS (21-34) H 11/20/17 07:06 - Constitutional Appears: Well, Non-toxic, No Acute Distress - Head Exam Head Exam: ATRAUMATIC, NORMOCEPHALIC - Extremities Exam Additional comments: Derm: Dry, gangrenous, ischemia noted to the distal aspect of hallux and 4th digit. Mild malodor, no purulence, no active drainage, no open lesions are noted , no clinical signs of acute infection. Dressing d/c/i Vascular: Nonpalpable pedal pulses, TG warm to cool, CFT > 3 secs, no edema noted, pedal hair absent. Neuro: protective sensation grossly diminished MSK: Rigid contractures of all digits noted. POP to first and fourth digits - Neurological Exam Neurological Exam: Alert, Awake, Oriented x3 - Psychiatric Exam Psychiatric exam: Normal Affect, Normal Mood - Skin Skin Exam: Normal Color Assessment and Plan - Assessment and Plan (Free Text) Assessment: 82YO female patient presents with gangrene to right foot hallux and fourth digit. Plan: Patient seen and evaluated Chart, lab, and vitals reviewed. Afebrile, WBC 4.8 Plan discussed with the attending, Dr. Hooker Podiatry Plan: Amputation of right foot hallux and fourth digit on Saturday 11/25 Foot dressed with gauze, and kerlix. Future hold put on heparin - starting at 11:00 pm on 11/23 Podiatry to follow patient while in-house
[2017-11-24] MEDS: Levothyroxine 88 MCG TAB PO SCH (06:00)
--- NOTE | 2017-11-24 08:48 | CP.PCM.PN ---
Subjective - Date & Time of Evaluation Date of Evaluation: 11/24/17 Time of Evaluation: 08:46 - Subjective Subjective: Podiatry progress note for Dr. Hooker 82 y/o female patient scheduled for R foot hallux and 4th digit amputation on Saturday was seen at bed side this morning. Patient is AAOx3. Patient is resting comfortably in bed and reports no acute distress. Patient denies any acute pain to the site. Patient also denies any further pedal complaints or F/N/ V/C or SOB today. Patient was instructed that she will be NPO after midnight tonight and she cannot eat or drink. Objective - Vital Signs/Intake and Output Vital Signs (last 24 hours): Temp Pulse Resp BP Pulse Ox 98.0 F 60 20 156/57 H 99 11/24/17 07:10 11/24/17 07:10 11/24/17 07:10 11/24/17 07:10 11/24/17 07:10 Intake and Output: 11/24/17 11/24/17 06:59 18:59 Intake Total 400 Output Total 900 Balance -500 - Medications Medications: Current Medications Acetaminophen (Tylenol 325mg Tab) 650 mg PO Q6 PRN PRN Reason: Pain, Mild (1-3) Dextrose (Dextrose 50% Inj) 0 ml IVP .STAT PRN; Protocol PRN Reason: Hypoglycemia Protocol Dextrose (Glutose 15) 15 gm PO .ONCE PRN; Protocol PRN Reason: Hypoglycemia Protocol Last Admin: 11/19/17 21:45 Dose: 15 gm Escitalopram Oxalate (Lexapro) 10 mg PO DAILY [facility] Last Admin: 11/23/17 09:32 Dose: 10 mg Glucagon (Glucagen Diagnostic Kit) 1 mg IM .STAT PRN; Protocol PRN Reason: Hypoglycemia Protocol Heparin Sodium (Porcine) (Heparin) 5,000 units SC Q8 [facility] Stop: 11/24/17 18:00 Last Admin: 11/24/17 06:00 Dose: 5,000 units Dextrose (Dextrose 5% In Water 1000 Ml) 1,000 mls @ 0 mls/hr IV .Q0M PRN; Protocol; Per Protocol PRN Reason: Hypoglycemia Protocol Levetiracetam (Keppra) 500 mg PO BID [facility] Last Admin: 11/23/17 18:27 Dose: 500 mg Levothyroxine Sodium (Synthroid) 88 mcg PO DAILY@0630 [facility] Last Admin: 11/24/17 06:00 Dose: 88 mcg Rosuvastatin Calcium (Crestor) 10 mg PO HS [facility] Last Admin: 11/23/17 21:33 Dose: 10 mg - Labs Labs: 11/23/17 07:56 11/23/17 07:56 PT 14.6 SECONDS (9.7-12.2) H 11/20/17 07:06 INR 1.3 11/20/17 07:06 APTT 35 SECONDS (21-34) H 11/20/17 07:06 - Constitutional Appears: Well, Non-toxic, No Acute Distress - Head Exam Head Exam: ATRAUMATIC, NORMOCEPHALIC - Extremities Exam Additional comments: Right Lower Extremity Examination VASC: Non-palpable pedal pulses, TG warm to cool proximal to distal, CFT > 3 secs, no edema noted, pedal hair absent DERM: Dry, gangrenous, ischemia noted to the distal aspect of hallux and 4th digit, no malodor, no purulence, no active drainage, no open lesions noted, no clinical signs of acute infection. Dressing was clean, dry and intact NEURO: protective sensation grossly diminished MSK: pain on palpation to the 1st and 4th digits, Rigid contractures noted of all digits - Neurological Exam Neurological Exam: Alert, Awake, Oriented x3 - Psychiatric Exam Psychiatric exam: Normal Affect, Normal Mood Assessment and Plan - Assessment and Plan (Free Text) Assessment: 82 y/o female patient presents with gangrene to right foot hallux and fourth digit. Plan: Patient seen and evaluated at bedside Patient plan discussed with attending, Dr. Hooker Chart, lab, and vitals reviewed. Afebrile, WBC 4.8 (11/23/17) Foot dressed with betadine, gauze and kerlix Podiatry Plan: Amputation of right foot hallux and fourth digit on Saturday 11/[address] Hooker Order placed for patient to be NPO post midnight Future hold put on heparin - starting at 11:00 pm on 11/23 Podiatry to follow patient while in-house
[2017-11-25] MEDS: Levothyroxine 88 MCG TAB PO SCH (06:31)
[2017-11-25 06:35] LABS: BASO # 0.1 K/uL (0.0-0.2); BASO % 1.1 % (0.0-2.0); EOS # 0.2 K/uL (0.0-0.7); EOS % 3.3 % (0.0-4.0); HEMOGLOBIN 11.1 g/dL (11.0-16.0); LYMPH # 1.3 K/uL (1.0-4.3); LYMPH % 23.4 % (20.0-40.0); MEAN CORPUSCULAR HEMOGLOBIN 30.2 pg (27.0-31.0); MEAN CORPUSCULAR HGB CONC 33.6 g/dL (33.0-37.0); MEAN PLATELET VOLUME 8.4 fL (7.2-11.7); MONO # 0.4 K/uL (0.0-0.8); MONO % 6.5 % (0.0-10.0); NEUT # 3.6 K/uL (1.8-7.0); NEUT % 65.7 % (50.0-75.0); RBC 3.68 Mil/uL (3.80-5.20); RED CELL DISTRIBUTION WIDTH 19.2 % (11.5-14.5); WHITE BLOOD COUNT 5.5 K/uL (4.8-10.8)
[2017-11-25 06:47] LABS: INR 1.2; PROTHROMBIN TIME 13.2 SECONDS (9.7-12.2)
[2017-11-25] MEDS ORDERED: Bupivacaine HCl 0.5% PF (30 ml) Inj ONE (07:32)
[2017-11-25] MEDS ORDERED: ceFAZolin 1 gm in NS 1 GM/100 ML BAG IVPB ONE (07:32)
[2017-11-25] MEDS ORDERED: Lidocaine 2% MPF (5 ml) Inj ONE (07:33)
[2017-11-25] MEDS ORDERED: Propofol 10 mg/ml Inj (20 ML) ONE (07:36)
[2017-11-25 07:40] LABS: ALB/GLOB RATIO 1.1 (1.0-2.1); ALBUMIN 3.4 g/dL (3.5-5.0); ALT/SGPT 31 U/L (9-52); AST/SGOT 37 U/L (14-36); BLOOD UREA NITROGEN 11 mg/dL (7-17); CALCIUM 9.1 mg/dl (8.6-10.4); GFR AFRICAN-AMERICAN > 60; GFR NON-AFRICAN AMERICAN > 60
--- NOTE | 2017-11-25 08:00 | CP.PCM.PN ---
Subjective - Date & Time of Evaluation Date of Evaluation: 11/25/17 Time of Evaluation: 08:00 - Subjective Subjective: PGY [address] Jason's service: Patient seen and examined in no apparent acute distress. She admits to pain of her foot. She will be going for surgery today. Objective - Vital Signs/Intake and Output Vital Signs (last 24 hours): Temp Pulse Resp BP Pulse Ox 97.7 F 57 L 20 155/65 H 99 11/25/17 07:00 11/25/17 07:00 11/25/17 07:00 11/25/17 07:00 11/25/17 07:00 - Medications Medications: Current Medications Acetaminophen (Tylenol 325mg Tab) 650 mg PO Q6 PRN PRN Reason: Pain, Mild (1-3) Dextrose (Dextrose 50% Inj) 0 ml IVP .STAT PRN; Protocol PRN Reason: Hypoglycemia Protocol Dextrose (Glutose 15) 15 gm PO .ONCE PRN; Protocol PRN Reason: Hypoglycemia Protocol Last Admin: 11/19/17 21:45 Dose: 15 gm Escitalopram Oxalate (Lexapro) 10 mg PO DAILY [facility] Last Admin: 11/24/17 11:18 Dose: 10 mg Glucagon (Glucagen Diagnostic Kit) 1 mg IM .STAT PRN; Protocol PRN Reason: Hypoglycemia Protocol Dextrose (Dextrose 5% In Water 1000 Ml) 1,000 mls @ 0 mls/hr IV .Q0M PRN; Protocol; Per Protocol PRN Reason: Hypoglycemia Protocol Levetiracetam (Keppra) 500 mg PO BID [facility] Last Admin: 11/24/17 18:11 Dose: 500 mg Levothyroxine Sodium (Synthroid) 88 mcg PO DAILY@0630 [facility] Last Admin: 11/25/17 06:31 Dose: Not Given Rosuvastatin Calcium (Crestor) 10 mg PO [facility] Last Admin: 11/24/17 21:24 Dose: 10 mg - Labs Labs: 11/25/17 06:24 11/25/17 06:24 PT 13.2 SECONDS (9.7-12.2) H 11/25/17 06:24 INR 1.2 11/25/17 06:24 APTT 32 SECONDS (21-34) 11/25/17 06:24 - Constitutional Appears: Non-toxic, No Acute Distress - Head Exam Head Exam: NORMAL INSPECTION - Eye Exam Eye Exam: EOMI - ENT Exam ENT Exam: Mucous Membranes Moist - Cardiovascular Exam Cardiovascular Exam: +S1, +S2, Murmur - Extremities Exam Additional comments: right foot with dark necrotic hallux, 4th toe, mild tenderness of area adjacent to necrosis, wounds wrapped in clean gauze - Back Exam Back Exam: NORMAL INSPECTION - Neurological Exam Neurological Exam: Alert, Awake, Oriented x3 - Psychiatric Exam Psychiatric exam: Normal Affect, Normal Mood - Skin Skin Exam: Normal Color Assessment and Plan - Assessment and Plan (Free Text) Assessment: Gangrene of Right 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 Hooker, help appreciated 11/25 - S/P right foot hallux distal Symes amputation, right foot fourth digit distal Symes amputation To restart Xarelto and ASA tomorrow 11/26 HO/PVR - 75% Stenosis of SFA and 30-49% stenosis of popliteal artery CTA - Heavily calcified iliac, femoral, popliteal, and tibial arteries bilaterally. Arterial supply below both knees from a single miniscule collateral vessel Abdominal angiogram- heavily calcified iliac, femoral, popliteal, and tibial arteries s/p angiogram with angioplasty and stent placement- R SFA arthroplasty with Dr. Marino earlier this month Xray Right foot (11/01/17): FINDINGS: BONES: There is severe diffuse bone demineralization. There is no acute displaced fracture or bone destruction. Bone alignment is normal. Calcifications there is a prominent plantar calcaneal spur. JOINTS: Normal. SOFT TISSUES: Normal. OTHER FINDINGS: There are advanced atherosclerotic vascular. IMPRESSION: No radiographic evidence of bone destruction or osteomyelitis. Dr. Ken, cardiology, help appreciated - HOLD Xarelto until after surgery Hyperlipidemia Crestor 10mg PO HS LDL 56 on last admission Hx CVA with residual left sided hemiparesis No acute intervention HOLD Xarelto 20 mg po daily as patient to have amputation later this week ASA 81 mg po daily - Being held in preparation for Saturday procedure Hypothyroidism Levothyroxine 88 mcg TSH 2.21 on last admission Diabetes Mellitus A1C: 5.3 on last admission Accuchecks [facility] Hypoglycemia Protocol ISS Glucerna shakes Seizure disorder Keppra 500mg PO BID Anxiety/Depression Lexapro 10mg PO Daily Electrolyte abnormality Will monitor and replete as needed Prophylaxis Xarelto is on hold for surgery - will restart tomorrow 11/26 Heparin SC 5000u q8h- -Will hold the night before the procedure All orders and management per Dr Eren Cohen D.O. PGY3
[2017-11-25] MEDS ORDERED: HYDROmorphone 0.5 mg/0.5 ml ISec IVP PRN (09:25)
--- NOTE | 2017-11-25 09:52 | PCM.SURG1 ---
Surgeon's Initial Post Op Note - Surgeon's Notes Surgeon: Dr. Marisa Hooker DPM Bellman: Dr. Mitra Sol PGY-1 Type of Anesthesia: IV Sedation, Local Anesthesia Administered By: Andi Fernando CRNA/Dr. Garrett GUILLERMO Pre-Operative Diagnosis: right foot hallux and 4th digit gangrene with osteomyelitis Operative Findings: see dictation. I: 15cc 1:1 mix 2% Lidocaine plain and 0.5% Marcaine plain; 10cc 0.5 Marcaine plain postoperatively. M: 3-0 Nylon, 4-0 Prolene Post-Operative Diagnosis: same Operation Performed: right foot hallux distal Symes amputation, right foot fourth digit distal Symes amputation Specimen/Specimens Removed: right foot 4th digit distal and middle phalanx, right foot hallux distal phalanx and part of proximal phalanx Estimated Blood Loss: EBL {In ML}: 15 Blood Products Given: N/A Drains Used: No Drains Post-Op Condition: Good Date of Surgery/Procedure: 11/25/17 Time of Surgery/Procedure: 09:52
[2017-11-26 03:38] VITALS: RESP 20
[2017-11-26] MEDS: Levothyroxine 88 MCG TAB PO SCH (05:45)
[2017-11-26 06:31] LABS: BASO # 0.1 K/uL (0.0-0.2); BASO % 0.9 % (0.0-2.0); EOS # 0.2 K/uL (0.0-0.7); EOS % 3.4 % (0.0-4.0); HEMOGLOBIN 9.8 g/dL (11.0-16.0); LYMPH # 1.6 K/uL (1.0-4.3); LYMPH % 27.6 % (20.0-40.0); MEAN CELL VOLUME 91.3 fL (81.0-99.0); MEAN CORPUSCULAR HEMOGLOBIN 29.8 pg (27.0-31.0); MEAN CORPUSCULAR HGB CONC 32.7 g/dL (33.0-37.0); MEAN PLATELET VOLUME 8.2 fL (7.2-11.7); MONO # 0.5 K/uL (0.0-0.8); NEUT # 3.4 K/uL (1.8-7.0); NEUT % 60.1 % (50.0-75.0); NRBC % 0.1 % (0.0-2.0); RBC 3.29 Mil/uL (3.80-5.20); RED CELL DISTRIBUTION WIDTH 19.1 % (11.5-14.5); WHITE BLOOD COUNT 5.7 K/uL (4.8-10.8)
[2017-11-26 07:50] LABS: ALB/GLOB RATIO 1.1 (1.0-2.1); ALBUMIN 3.1 g/dL (3.5-5.0); ALT/SGPT 29 U/L (9-52); AST/SGOT 33 U/L (14-36); BLOOD UREA NITROGEN 15 mg/dL (7-17); CALCIUM 8.7 mg/dl (8.6-10.4); GFR AFRICAN-AMERICAN > 60; GFR NON-AFRICAN AMERICAN > 60
[2017-11-26] MEDS ORDERED: Oxycodone/Acetaminophen 5/325 mg Tab PO STA (09:05)
[2017-11-26] MEDS: Aspirin 325 mg EC Tablets PO SCH (09:38)
--- NOTE | 2017-11-26 11:41 | CP.PCM.PN ---
Subjective - Date & Time of Evaluation Date of Evaluation: 11/26/17 Time of Evaluation: 11:38 - Subjective Subjective: Podiatry progress note for Dr. Hooker 82 yo patient 1 day s/p hallux and fourth digit amputation. Patient seen resting comfortably, AAOx3, and NAD. She has no complaints of pain today. She states that she has rested well. She denies any other pedal complaints and denies N/V/F/C/SOB/CP/pain on posterior calf squeeze. Objective - Vital Signs/Intake and Output Vital Signs (last 24 hours): Temp Pulse Resp BP Pulse Ox 97.4 F L 54 L 20 160/53 H 97 11/26/17 07:15 11/26/17 07:15 11/26/17 07:15 11/26/17 07:15 11/26/17 07:15 Intake and Output: 11/26/17 11/26/17 06:59 18:59 Intake Total 400 Output Total 1100 Balance -700 - Medications Medications: Current Medications Acetaminophen (Tylenol 325mg Tab) 650 mg PO Q6 PRN PRN Reason: Pain, Mild (1-3) Last Admin: 11/26/17 01:38 Dose: 650 mg Aspirin (Ecotrin) 325 mg PO DAILY [facility] Last Admin: 11/26/17 09:38 Dose: 325 mg Dextrose (Dextrose 50% Inj) 0 ml IVP .STAT PRN; Protocol PRN Reason: Hypoglycemia Protocol Dextrose (Glutose 15) 15 gm PO .ONCE PRN; Protocol PRN Reason: Hypoglycemia Protocol Last Admin: 11/19/17 21:45 Dose: 15 gm Escitalopram Oxalate (Lexapro) 10 mg PO DAILY [facility] Last Admin: 11/26/17 09:37 Dose: 10 mg Glucagon (Glucagen Diagnostic Kit) 1 mg IM .STAT PRN; Protocol PRN Reason: Hypoglycemia Protocol Levetiracetam (Keppra) 500 mg PO BID [facility] Last Admin: 11/26/17 09:37 Dose: 500 mg Levothyroxine Sodium (Synthroid) 88 mcg PO DAILY@0630 [facility] Last Admin: 11/26/17 05:45 Dose: 88 mcg Rivaroxaban (Xarelto) 20 mg PO DAILY [facility] Last Admin: 11/26/17 09:35 Dose: 20 mg Rosuvastatin Calcium (Crestor) 10 mg PO HS [facility] Last Admin: 11/25/17 21:13 Dose: 10 mg - Labs Labs: 11/26/17 06:20 11/26/17 06:20 PT 13.2 SECONDS (9.7-12.2) H 11/25/17 06:24 INR 1.2 11/25/17 06:24 APTT 32 SECONDS (21-34) 11/25/17 06:24 - Constitutional Appears: Well, Non-toxic, No Acute Distress - Head Exam Head Exam: ATRAUMATIC, NORMOCEPHALIC - Extremities Exam Additional comments: Right Lower Extremity Examination VASC: Non-palpable pedal pulses, TG warm to cool proximal to distal, CFT > 3 secs to digits 2,3,5, no edema noted, pedal hair absent, erythema to surgical sights wnl of 1 day postop DERM: postop incisoin sites exhibit no evidence of dehiscence, sutures are intact, no malodor, no purulence, no active drainage, no open lesions noted, no clinical signs of acute infection. Dressing was clean, dry and intact NEURO: protective sensation grossly diminished MSK: minimal pain on palpation at surgical sites, contractures of other digits noted - Neurological Exam Neurological Exam: Alert, Awake, Oriented x3 - Psychiatric Exam Psychiatric exam: Normal Affect, Normal Mood Assessment and Plan - Assessment and Plan (Free Text) Assessment: 82 yo patient 1 day s/p right foot hallux and fourth digit amputation for treatment of osteomyelitis Plan: Patient seen and evaluated at bedside Patient plan discussed with attending, Dr. Hooker Chart, lab, and vitals reviewed. Afebrile, WBC 5.7 (11/26/17) Foot dressed with betadine, gauze and kerlix Sutures left intact Continue to monitor postop status Podiatry to follow patient while in-house
--- NOTE | 2017-11-26 14:42 | CP.PCM.PN ---
Subjective - Date & Time of Evaluation Date of Evaluation: 11/26/17 Time of Evaluation: 09:00 - Subjective Subjective: Medicine progress note for Dr. Jason's service Patient seen and examined. Patient has complaint of bandages on right foot being too tight. Patient states she has pain the foot because of the bandages and does not want pain medication. Patient also intermittently refusing Xarelto and Keppra. Objective - Vital Signs/Intake and Output Vital Signs (last 24 hours): Temp Pulse Resp BP Pulse Ox 97.4 F L 54 L 20 160/53 H 97 11/26/17 07:15 11/26/17 07:15 11/26/17 07:15 11/26/17 07:15 11/26/17 07:15 Intake and Output: 11/26/17 11/26/17 06:59 18:59 Intake Total 400 Output Total 1100 Balance -700 - Medications Medications: Current Medications Acetaminophen (Tylenol 325mg Tab) 650 mg PO Q6 PRN PRN Reason: Pain, Mild (1-3) Last Admin: 11/26/17 01:38 Dose: 650 mg Aspirin (Ecotrin) 325 mg PO DAILY [facility] Last Admin: 11/26/17 09:38 Dose: 325 mg Dextrose (Dextrose 50% Inj) 0 ml IVP .STAT PRN; Protocol PRN Reason: Hypoglycemia Protocol Dextrose (Glutose 15) 15 gm PO .ONCE PRN; Protocol PRN Reason: Hypoglycemia Protocol Last Admin: 11/19/17 21:45 Dose: 15 gm Escitalopram Oxalate (Lexapro) 10 mg PO DAILY [facility] Last Admin: 11/26/17 09:37 Dose: 10 mg Glucagon (Glucagen Diagnostic Kit) 1 mg IM .STAT PRN; Protocol PRN Reason: Hypoglycemia Protocol Levetiracetam (Keppra) 500 mg PO BID [facility] Last Admin: 11/26/17 09:37 Dose: 500 mg Levothyroxine Sodium (Synthroid) 88 mcg PO DAILY@0630 [facility] Last Admin: 11/26/17 05:45 Dose: 88 mcg Rivaroxaban (Xarelto) 20 mg PO DAILY [facility] Last Admin: 11/26/17 09:35 Dose: 20 mg Rosuvastatin Calcium (Crestor) 10 mg PO HS [facility] Last Admin: 11/25/17 21:13 Dose: 10 mg - Labs Labs: 11/26/17 06:20 11/26/17 06:20 PT 13.2 SECONDS (9.7-12.2) H 11/25/17 06:24 INR 1.2 11/25/17 06:24 APTT 32 SECONDS (21-34) 11/25/17 06:24 - Constitutional Appears: No Acute Distress - Head Exam Head Exam: ATRAUMATIC, NORMOCEPHALIC - Eye Exam Eye Exam: EOMI - ENT Exam ENT Exam: Mucous Membranes Moist - Respiratory Exam Respiratory Exam: Clear to Ausculation Bilateral, NORMAL BREATHING PATTERN - Cardiovascular Exam Cardiovascular Exam: +S1, +S2 - GI/Abdominal Exam GI & Abdominal Exam: Soft, Normal Bowel Sounds - Extremities Exam Additional comments: right foot wrapped in gauze and compression wrap - Neurological Exam Neurological Exam: Alert, Awake - Skin Skin Exam: Warm Assessment and Plan - Assessment and Plan (Free Text) Assessment: Gangrene of Right 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 Hooker, help appreciated 11/26 - POD#1 S/P right foot hallux distal Symes amputation, right foot fourth digit distal Symes amputation HO/PVR - 75% Stenosis of SFA and 30-49% stenosis of popliteal artery CTA - Heavily calcified iliac, femoral, popliteal, and tibial arteries bilaterally. Arterial supply below both knees from a single miniscule collateral vessel Abdominal angiogram- heavily calcified iliac, femoral, popliteal, and tibial arteries s/p angiogram with angioplasty and stent placement- R SFA arthroplasty with Dr. Marino earlier this month Xray Right foot (11/01/17): FINDINGS: BONES: There is severe diffuse bone demineralization. There is no acute displaced fracture or bone destruction. Bone alignment is normal. Calcifications there is a prominent plantar calcaneal spur. JOINTS: Normal. SOFT TISSUES: Normal. OTHER FINDINGS: There are advanced atherosclerotic vascular. IMPRESSION: No radiographic evidence of bone destruction or osteomyelitis. Dr. Ken, cardiology, help appreciated - Xarelto restarted 11/26 Hyperlipidemia Crestor 10mg PO HS LDL 56 on last admission Hx CVA with residual left sided hemiparesis No acute intervention Xarelto 20 mg po daily restarted 11/26 ASA 81 mg po daily - Being held in preparation for Saturday procedure Hypothyroidism Levothyroxine 88 mcg TSH 2.21 on last admission Diabetes Mellitus A1C: 5.3 on last admission Accuchecks [facility] Hypoglycemia Protocol ISS Glucerna shakes Seizure disorder Keppra 500mg PO BID Anxiety/Depression Lexapro 10mg PO Daily Electrolyte abnormality Will monitor and replete as needed Prophylaxis Xarelto restarted 11/26 All orders and management per Dr Jason
--- NOTE | 2017-11-27 02:50 | OP ---
PROCEDURE DATE: 11/21/2017 PREOPERATIVE DIAGNOSES: 1. Right foot hallux gangrene with osteomyelitis. 2. Right foot fourth digit gangrene with osteomyelitis. POSTOPERATIVE DIAGNOSES: 1. Right foot hallux gangrene with osteomyelitis. 2. Right foot fourth digit gangrene with osteomyelitis. NAME OF PROCEDURE: 1. Right foot partial hallux amputation. 2. Right foot fourth digit distal Symes amputation. SURGEON: Marisa Hooker DPM [employer]D PRINCIPAL: Mitra Sol PGY1 ANESTHESIOLOGIST: Andi Fernando CRNA/Dr. Tucker. INDICATIONS: The patient is an 82-year-old female with the above diagnoses. The patient has exhausted all conservative treatment at this time and now requires surgical intervention. The patient has signed the consent after careful explanation of risks, benefits, complications, and alternatives for surgical procedure. No guarantees were given nor implied. N.p.o. status was confirmed prior to taking the patient to the operating room. PREPARATION: The patient was brought into the operating room and placed on the operating room table in a supine position. A time-out was performed for identification of the correct patient and procedure. After induction of IV sedation, the patient received a total of 15 mL of 1:1 mixture of 2% lidocaine plain and 0.5% Marcaine plain in a digital block fashion to the right foot hallux and the right foot fourth digit. The right foot was then prepped and draped in normal sterile manner and the procedure began. No tourniquet was used during the procedure. DESCRIPTION OF PROCEDURE: 1. Right foot partial hallux amputation: Attention was drawn to the distal tip of the right hallux which was noted to exhibit dry gangrene with necrosis. At this time, a distal circumferential incision was made using a sterile #15 blade at the level of the interphalangeal joint dorsally leaving a longer plantar flap to allow for suitable skin closure. The incision was extended down to the subcutaneous layer down to the level of bone extending into the interphalangeal joint. Using a bone clamp to stabilize the hallux, the distal phalanx was then disarticulated from the foot at the level of IPJ. Using a sagittal saw, the distal half of the proximal phalanx was resected and passed from the operative field. Using a fresh 15 blade, all necrotic and nonviable tissue was then excisionally debrided from the surgical site, leaving the plantar fat pad of the hallux intact to allow for adequate cushioning and support. The wound was copiously flushed with sterile saline using a bulb syringe. The surgical site was then reapproximated with 3-0 nylon sutures. All removed bone was passed from the surgical field and sent for pathology. The surgical site was dressed with Betadine-soaked Adaptic, 4 x 4 gauze, and a Kerlix bandage. 2. Right foot fourth digit distal Symes amputation: Attention was then drawn to the dorsal aspect of the right foot fourth digit where a fish-mouth circumferential was made extending from the dorsal aspect of the fourth digit middle phalanx extending distally and plantarly around the fourth digit using a sterile #15 blade. This incision was extended down to the subcutaneous layers down to the level of bone. Using a bone clamp to stabilize the toe, the fourth digit was then disarticulated from the foot at the level of the distal interphalangeal joint. All bone and soft tissue were sent for pathology at that time. Using a sagittal saw, the distal half of the fourth digit middle phalanx was then resected and passed from the surgical field, also being sent to pathology. The wound was then copiously irrigated with sterile saline. The surgical site and skin was then reapproximated with a mixture of 3-0 nylon sutures and 4-0 Prolene sutures. The surgical site was dressed with Betadine-soaked Adaptic, 4 x 4 and Kerlix bandage. The foot was dressed with a light TOM bandage without any compression applied. POSTOPERATIVE CONDITION: The patient tolerated the anesthesia and procedure well, and was escorted to the recovery room with vital signs stable and neurovascular status intact to the right foot. The patient will remain in house, and Podiatry will continue to follow. Upon discharge, the patient will follow up in [facility] with Dr. Hooker within 1 week of discharge. Mitra Sol DPM ERROL
[2017-11-27] MEDS: Levothyroxine 88 MCG TAB PO SCH (05:40)
[2017-11-27 06:38] LABS: BASO # 0.1 K/uL (0.0-0.2); BASO % 0.8 % (0.0-2.0); EOS # 0.1 K/uL (0.0-0.7); EOS % 2.3 % (0.0-4.0); HEMOGLOBIN 10.3 g/dL (11.0-16.0); LYMPH % 15.3 % (20.0-40.0); MEAN CELL VOLUME 91.1 fL (81.0-99.0); MEAN CORPUSCULAR HEMOGLOBIN 31.1 pg (27.0-31.0); MEAN CORPUSCULAR HGB CONC 34.1 g/dL (33.0-37.0); MEAN PLATELET VOLUME 8.2 fL (7.2-11.7); MONO # 0.3 K/uL (0.0-0.8); MONO % 5.5 % (0.0-10.0); NEUT # 4.8 K/uL (1.8-7.0); NEUT % 76.1 % (50.0-75.0); RBC 3.3 Mil/uL (3.80-5.20); WHITE BLOOD COUNT 6.3 K/uL (4.8-10.8)
[2017-11-27 06:45] LABS: ALB/GLOB RATIO 1.1 (1.0-2.1); ALBUMIN 3.5 g/dL (3.5-5.0); ALT/SGPT 30 U/L (9-52); AST/SGOT 30 U/L (14-36); BLOOD UREA NITROGEN 12 mg/dL (7-17); CALCIUM 9.1 mg/dl (8.6-10.4); GFR AFRICAN-AMERICAN > 60; GFR NON-AFRICAN AMERICAN > 60
[2017-11-27 08:00] VITALS: PULSE 74
[2017-11-27] MEDS: Aspirin 325 mg EC Tablets PO SCH (09:49)
--- NOTE | 2017-11-27 11:49 | CP.PCM.PN ---
Subjective - Date & Time of Evaluation Date of Evaluation: 11/27/17 Time of Evaluation: 08:59 - Subjective Subjective: PGY 3 Med Progres Note- Dr. Jason's service Patient seen and examined in no apparent acute distress. Patient states that her dressings are wrapped on too tightly. Patient is a bit irritated. When asked whether patient wanted pain medications, patient declined. She denies chest pain, palpitations, nausea, vomiting at this time. Objective - Vital Signs/Intake and Output Vital Signs (last 24 hours): Temp Pulse Resp BP Pulse Ox 98.1 F 74 20 141/69 98 11/27/17 07:00 11/27/17 07:00 11/27/17 07:00 11/27/17 07:00 11/27/17 07:00 Intake and Output: 11/27/17 11/27/17 06:59 18:59 Output Total 250 Balance -250 - Medications Medications: Current Medications Acetaminophen (Tylenol 325mg Tab) 650 mg PO Q6 PRN PRN Reason: Pain, Mild (1-3) Last Admin: 11/26/17 01:38 Dose: 650 mg Aspirin (Ecotrin) 325 mg PO DAILY [facility] Last Admin: 11/27/17 09:49 Dose: 325 mg Dextrose (Dextrose 50% Inj) 0 ml IVP .STAT PRN; Protocol PRN Reason: Hypoglycemia Protocol Dextrose (Glutose 15) 15 gm PO .ONCE PRN; Protocol PRN Reason: Hypoglycemia Protocol Last Admin: 11/19/17 21:45 Dose: 15 gm Escitalopram Oxalate (Lexapro) 10 mg PO DAILY [facility] Last Admin: 11/27/17 09:49 Dose: 10 mg Glucagon (Glucagen Diagnostic Kit) 1 mg IM .STAT PRN; Protocol PRN Reason: Hypoglycemia Protocol Levetiracetam (Keppra) 500 mg PO BID [facility] Last Admin: 11/27/17 09:49 Dose: 500 mg Levothyroxine Sodium (Synthroid) 88 mcg PO DAILY@0630 [facility] Last Admin: 11/27/17 05:40 Dose: 88 mcg Rivaroxaban (Xarelto) 20 mg PO DAILY [facility] Last Admin: 11/27/17 09:49 Dose: 20 mg Rosuvastatin Calcium (Crestor) 10 mg PO HS [facility] Last Admin: 11/26/17 21:11 Dose: 10 mg - Labs Labs: 11/27/17 06:21 11/27/17 06:21 PT 13.2 SECONDS (9.7-12.2) H 11/25/17 06:24 INR 1.2 11/25/17 06:24 APTT 32 SECONDS (21-34) 11/25/17 06:24 - Constitutional Appears: Non-toxic, No Acute Distress - Head Exam Head Exam: ATRAUMATIC - Eye Exam Eye Exam: EOMI, Normal appearance - ENT Exam ENT Exam: Mucous Membranes Moist - Cardiovascular Exam Cardiovascular Exam: +S1, +S2, Murmur - GI/Abdominal Exam GI & Abdominal Exam: Soft, Normal Bowel Sounds - Extremities Exam Extremities Exam: Normal Capillary Refill Additional comments: bandage wrapped on loosely, site clean, dry and intact - Neurological Exam Neurological Exam: Alert, Awake - Skin Skin Exam: Dry, Warm Assessment and Plan - Assessment and Plan (Free Text) Assessment: Gangrene of Right 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 Hooker, help appreciated 11/26 - POD#1 S/P right foot hallux distal Symes amputation, right foot fourth digit distal Symes amputation HO/PVR - 75% Stenosis of SFA and 30-49% stenosis of popliteal artery CTA - Heavily calcified iliac, femoral, popliteal, and tibial arteries bilaterally. Arterial supply below both knees from a single miniscule collateral vessel Abdominal angiogram- heavily calcified iliac, femoral, popliteal, and tibial arteries s/p angiogram with angioplasty and stent placement- R SFA arthroplasty with Dr. Marino earlier this month Xray Right foot (11/01/17): FINDINGS: BONES: There is severe diffuse bone demineralization. There is no acute displaced fracture or bone destruction. Bone alignment is normal. Calcifications there is a prominent plantar calcaneal spur. JOINTS: Normal. SOFT TISSUES: Normal. OTHER FINDINGS: There are advanced atherosclerotic vascular. IMPRESSION: No radiographic evidence of bone destruction or osteomyelitis. Dr. Ken, cardiology, help appreciated - Xarelto restarted 11/26 Hyperlipidemia Crestor 10mg PO HS LDL 56 on last admission Hx CVA with residual left sided hemiparesis No acute intervention Xarelto 20 mg po daily restarted 11/26 ASA 81 mg po daily - Being held in preparation for Saturday procedure Hypothyroidism Levothyroxine 88 mcg TSH 2.21 on last admission Diabetes Mellitus A1C: 5.3 on last admission Accuchecks [facility] Hypoglycemia Protocol ISS Glucercornelius smithkes Seizure disorder Keppra 500mg PO BID Anxiety/Depression Lexapro 10mg PO Daily Electrolyte abnormality Will monitor and replete as needed Prophylaxis Xarelto restarted 11/26 Per Case management- Patient is wheelchair- bound. Patient assessed by physical therapy and not meeting requirements for [facility]. Patient does not meet clinical indications for nursing home care facility placement either. Case Management has been in touch with family members who indicated their wishes for patient upon discharge. Patient will benefit from home physical therapy and alf services for wound care management at least twice a week. Patient has home health care services that are asked to be continued upon discharge. Wound care management will consist of dressings of affected limb with betadine, gauze and kerlix. This can be reinforced with an junior bandage. Will be provided with a prescription to continue ongoing health care services. DC Instructions Patient is medically stable for discharge home with home nursing and physical therapy services. Patient to follow up with primary medical doctor within one week. Patient to follow up with [facility] within one week for follow up care. Patient to resume home medications. If symptoms return, go to the emergency room. Instructions explained to patient who is aware. Discussed with attending. All orders and management per Dr Jason
[2017-11-27 16:39] VITALS: BP 177/76; TEMP 99.4; O2SAT 100
--- NOTE | 2017-11-30 09:22 | DS ---
Ms. Thapa was admitted to the hospital with chief complaint of foot pain. Patient has peripheral vascular disease. The patient underwent surgery by a [employer] Operator postoperative recovery slow. The patient was discharged to be followed up as outpatient as noted. DIAGNOSIS: Peripheral vascular disease, ischemia lower extremities. Shauna Jason MD
== END 2017-11-27 21:37 | disposition home or self-care (01) | DRG 240 ==
LOC: C.ER 11:29 → C.9E 12:28 → C.6T 12:53 → C.9E 13:21 → C.6T 13:23
PROVIDERS: ADMIT Internal Medicine Pulmonary Disease; ATTEND Internal Medicine Pulmonary Disease
PROC: 0Y6P0Z1 Detachment at Right 1st Toe, High, Open Approach (ICD-10-PCS; principal; 2017-11-21)
PROC: 0Y6M0Z0 Detachment at Right Foot, Complete, Open Approach (ICD-10-PCS; 2017-11-21)
DX: E11.52 Type 2 diabetes mellitus with diabetic peripheral angiopathy with gangrene (principal); I96 Gangrene, not elsewhere classified; I69.354 Hemiplegia and hemiparesis following cerebral infarction affecting left non-dominant side; M86.171 Other acute osteomyelitis, right ankle and foot; E11.69 Type 2 diabetes mellitus with other specified complication; E03.9 Hypothyroidism, unspecified; Z79.4 Long term (current) use of insulin; E78.00 Pure hypercholesterolemia, unspecified; F41.8 Other specified anxiety disorders; G40.909 Epilepsy, unspecified, not intractable, without status epilepticus; I10 Essential (primary) hypertension; M77.30 Calcaneal spur, unspecified foot; Z95.820 Peripheral vascular angioplasty status with implants and grafts; E87.8 Other disorders of electrolyte and fluid balance, not elsewhere classified

== ENCOUNTER 2018-01-30 17:23 | Inpatient (IN) | payer OTHER ==
--- NOTE | 2018-01-30 18:08 | C.PDOC ---
History Of Present Illness 82 y/o female with history of HTN, Hypercholesterolemia and TIA presents to ED with c/o right 5th toe necrosis and pain. Patient denies numbness or weakness to foot, fever, chills, chest pain, sob or any other complaints at this time. Patient is wheelchair bound. Time Seen by Provider: 01/30/18 17:49 Chief Complaint (Nursing): Lower Extremity Problem/Injury History Per: Patient History/Exam Limitations: no limitations Onset/Duration Of Symptoms: Days Current Symptoms Are (Timing): Still Present Past Medical History Reviewed: Historical Data, Nursing Documentation, Vital Signs Vital Signs: Last Vital Signs Temp 98.6 F 01/30/18 17:33 Pulse 124 H 01/30/18 17:33 Resp 20 01/30/18 17:33 BP 138/55 L 01/30/18 17:33 Pulse Ox 98 01/30/18 18:35 - Medical History PMH: HTN, Hypercholesterolemia, Hyperlipidemia, TIA Surgical History: No Surg Hx - [facility] Procedures DETACHMENT AT RIGHT 1ST TOE, HIGH, OPEN APPROACH (11/19/17) DETACHMENT AT RIGHT FOOT, COMPLETE, OPEN APPROACH (11/19/17) DILATE L COM ILIAC ART W DRUG-ELUT INTRA, PERC (11/02/17) Family History: States: No Known Family Hx - Social History Hx Tobacco Use: No Hx Alcohol Use: No Hx Substance Use: No - Immunization History Hx Tetanus Toxoid Vaccination: Yes Hx Influenza Vaccination: Yes Hx Pneumococcal Vaccination: No Review Of Systems Constitutional: Negative for: Fever, Chills Cardiovascular: Negative for: Chest Pain Respiratory: Negative for: Shortness of Breath Musculoskeletal: Positive for: Foot Pain (toe) Skin: Negative for: Rash, Bruising Physical Exam - Physical Exam Appears: Non-toxic, No Acute Distress Skin: Warm, Dry, No Rash, Other (Necrotic right 5th toe) Head: Atraumatic, Normacephalic Eye(s): bilateral: Normal Inspection Oral Mucosa: Moist Cardiovascular: Rhythm Regular Respiratory: Normal Breath Sounds, No Rales, No Rhonchi, No Wheezing Extremity: Normal ROM, Capillary Refill (<2 seconds) Pulses: Right Dorsalis Pedis: Normal Neurological/Psych: Oriented x3, Normal Motor, Normal Sensation Gait: Other (wheelchair bound) ED Course And Treatment O2 Sat by Pulse Oximetry: 98 Medical Decision Making Medical Decision Making: Spoke to daughter Madison states patient lives alone, has no history of dementia and takes care of herself along with making her own decisions. The patient is refusing admission and lab work at this time. Disposition - Disposition Disposition Time: 19:12 Condition: STABLE Forms: [facility] (Citizen Of [place]) - Clinical Impression Clinical Impression: Dry gangrene, Diabetic infection of right foot - PA / SECOND CUTTER / Resident Statement /DO has reviewed & agrees with the documentation as recorded. - Scribe Statement The provider has reviewed the documentation as recorded by the Scribjohn Barber All medical record entries made by the Amy were at my direction and personally dictated by me. I have reviewed the chart and agree that the record accurately reflects my personal performance of the history, physical exam, medical decision making, and the department course for this patient. I have also personally directed, reviewed, and agree with the discharge instructions and disposition. Physician Patient Turnover Patient Signed Over To: Herson Lawton DO Handoff Comments: PEnding disposition
[2018-01-30 20:56] LABS: BASO % 0.7 % (0.0-2.0); EOS # 0.1 K/uL (0.0-0.7); EOS % 2.4 % (0.0-4.0); HEMOGLOBIN 11.3 g/dL (11.0-16.0); LYMPH # 1.8 K/uL (1.0-4.3); LYMPH % 30.7 % (20.0-40.0); MEAN CELL VOLUME 89.4 fL (81.0-99.0); MEAN CORPUSCULAR HEMOGLOBIN 30.7 pg (27.0-31.0); MEAN CORPUSCULAR HGB CONC 34.3 g/dL (33.0-37.0); MEAN PLATELET VOLUME 8.1 fL (7.2-11.7); MONO # 0.4 K/uL (0.0-0.8); MONO % 7.4 % (0.0-10.0); NEUT # 3.5 K/uL (1.8-7.0); NEUT % 58.8 % (50.0-75.0); NRBC % 0.2 % (0.0-2.0); RBC 3.68 Mil/uL (3.80-5.20); RED CELL DISTRIBUTION WIDTH 14.6 % (11.5-14.5); WHITE BLOOD COUNT 5.9 K/uL (4.8-10.8)
[2018-01-30 21:16] LABS: CALCIUM 8.8 mg/dl (8.6-10.4); GFR NON-AFRICAN AMERICAN > 60
[2018-01-30 21:17] LABS: ALB/GLOB RATIO 1.1 (1.0-2.1); ALBUMIN 3.3 g/dL (3.5-5.0); ALT/SGPT 20 U/L (9-52); AST/SGOT 28 U/L (14-36); BLOOD UREA NITROGEN 11 mg/dL (7-17)
[2018-01-30] MEDS ORDERED: Piperacill/Tazo 3.375gm in Dex 3.375 GM/50 ML BAG IVPB STA (21:59)
[2018-01-30] MEDS ORDERED: Vancomycin 1 gm/NS 200 ml 1 GM/200 ML BAG IVPB STA (22:25)
[2018-01-30] MEDS ORDERED: Oxycodone/Acetaminophen 5/325 mg Tab PO PRN (23:09)
[2018-01-30] MEDS ORDERED: [UNRECOGNIZED DRUG - OTHER] MC SCH (23:15)
[2018-01-31 01:36] VITALS: RESP 20
[2018-01-31] MEDS: Piperacillin/Tazobact 3.375 gm 100 ML IVPB SCH ×2 (05:30→12:11)
[2018-01-31] MEDS ORDERED: (Novolog) Insulin Aspart, Recombinant 100 u/ml 10 ml vial SC SCH (07:30)
[2018-01-31 07:50] LABS: ALB/GLOB RATIO 1.1 (1.0-2.1); ALBUMIN 3.4 g/dL (3.5-5.0); ALT/SGPT < 6 U/L (9-52); AST/SGOT 37 U/L (14-36); BLOOD UREA NITROGEN 8 mg/dL (7-17); CALCIUM 8.9 mg/dl (8.6-10.4); GFR NON-AFRICAN AMERICAN > 60
[2018-01-31] MEDS ORDERED: Levothyroxine 100 MCG TAB PO SCH (08:15)
--- NOTE | 2018-01-31 09:21 | CP.PCM.PN ---
<Trudy Pedro - Last Filed: 01/31/18 12:30> Subjective - Date & Time of Evaluation Date of Evaluation: 01/31/18 Time of Evaluation: 09:00 - Subjective Subjective: Progress Note for Dr. Jason's Service (covered by Hospitalist Service) Patient was seen and examined at bedside. Patient reports she feels slight foot pain. Denied fever, chills, headache, chest pain, SOB, or abdominal pain. Ms. 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 Hooker 11/25/17. PMD: [facility] Fragoso Podiatry: Dr. Hooker PMHx: As stated above PSHx: As stated above Home Medications: As per MAR, confirmed Allergies: Iodine Social History: Denies any tobacco, alcohol or illicit drug use Family History: Denies Objective - Vital Signs/Intake and Output Vital Signs (last 24 hours): Temp Pulse Resp BP Pulse Ox 97.7 F 52 L 20 185/61 H 97 01/31/18 07:18 01/31/18 07:18 01/31/18 07:18 01/31/18 07:18 01/31/18 07:18 Intake and Output: 01/31/18 01/31/18 06:59 18:59 Intake Total 280 Balance 280 - Medications Medications: Current Medications Amlodipine Besylate (Norvasc) 5 mg PO BID [facility] Baclofen (Lioresal) 1 mg PO BID [facility] Docusate Sodium (Colace) 100 mg PO DAILY [facility] Enoxaparin Sodium (Lovenox) 40 mg SC DAILY [facility] Escitalopram Oxalate (Lexapro) 10 mg PO DAILY [facility] Glipizide (Glucotrol Xl) 5 mg PO DAILY [facility] Piperacillin Sod/Tazobactam Sod (Zosyn 3.375 In Ns 100ml) 100 mls @ 200 mls/hr IVPB Q6 [facility] PRN Reason: Protocol Last Admin: 01/31/18 05:30 Dose: 200 mls/hr Vancomycin HCl 1 gm/ Sodium (Chloride) 200 mls @ 166.7 mls/hr IVPB Q12 [facility] PRN Reason: Protocol Insulin Aspart (Novolog) 0 unit SC ACHS [facility] PRN Reason: Protocol Last Admin: 01/31/18 08:31 Dose: Not Given Levetiracetam (Keppra) 500 mg PO BID [facility] Levothyroxine Sodium (Synthroid) 100 mcg PO DAILY@0630 [facility] Magnesium Oxide (Mag-Ox) 400 mg PO DAILY [facility] Oxycodone/Acetaminophen (Percocet 5/325 Mg Tab) 1 tab PO BID PRN PRN Reason: Pain, moderate (4-7) Stop: 02/02/18 23:10 Pantoprazole Sodium (Protonix Ec Tab) 40 mg PO DAILY [facility] Pneumococcal Polyvalent Vaccine (Pneumovax 23 Vaccine) 0.5 ml IM .ONCE ONE Stop: 02/01/18 10:01 Rivaroxaban (Xarelto) 20 mg PO QPM [facility] Rosuvastatin Calcium (Crestor) 5 mg PO HS [facility] - Labs Labs: 01/30/18 20:49 01/31/18 07:00 - Constitutional Appears: No Acute Distress - Head Exam Head Exam: NORMAL INSPECTION, NORMOCEPHALIC - Eye Exam Eye Exam: EOMI, Normal appearance, PERRL Pupil Exam: NORMAL ACCOMODATION - ENT Exam ENT Exam: Mucous Membranes Moist, Normal Exam - Respiratory Exam Respiratory Exam: Clear to Ausculation Bilateral, NORMAL BREATHING PATTERN. absent: Decreased Breath Sounds - Cardiovascular Exam Cardiovascular Exam: REGULAR RHYTHM - GI/Abdominal Exam GI & Abdominal Exam: Soft, Normal Bowel Sounds. absent: Distended, Tenderness - Rectal Exam Rectal Exam: Deferred - Extremities Exam Additional comments: right foot wrapped. dressing c/d/i - Neurological Exam Neurological Exam: Alert, Awake, Oriented x3 - Psychiatric Exam Psychiatric exam: Normal Affect, Normal Mood - Skin Skin Exam: Dry, Intact, Normal Color, Warm Assessment and Plan - Assessment and Plan (Free Text) Plan: Necrotic 5th Toe of Right Foot Secondary to PVD - Podiatry, Dr. Hooker, help appreciated - Vascular Surgery, Dr. Marino, consulted Imaging: - Right Foot Xray - HO/PVR Management: - Vanco Zosyshanna, Florastor - Follow up with Podiatry and Surgery Rec Previous 11/2017 Admission Workup: - Xray Right foot (11/01/17): IMPRESSION: No radiographic evidence of bone destruction or osteomyelitis. - HO/PVR - 75% Stenosis of SFA and 30-49% stenosis of popliteal artery - CTA - Heavily calcified iliac, femoral, popliteal, and tibial arteries bilaterally. Arterial supply below both knees from a single miniscule collateral vessel - Abdominal angiogram- heavily calcified iliac, femoral, popliteal, and tibial arteries - s/p angiogram with angioplasty and stent placement- R SFA arthroplasty with Dr. Marino November 2017 11/25/17 - S/P right foot hallux distal Symes amputation, right foot fourth digit distal Symes amputation Hx CVA with residual left sided hemiparesis - ASA 81 mg po daily - HELD in anticipation of surgical intervention - Xarelto 20 mg po daily - Will NEED TO BE held for 72 hours prior to surgical procedure Hypertension - Norvasc 5 daily Hyperlipidemia - Crestor 10mg PO HS Hypothyroidism - Levothyroxine 88 mcg - F/U TSH /Free T4 Diabetes Mellitus -Accuchecks - A1C: 5.3 on last admission - Hypoglycemia Protocol - ISS Seizure disorder - Keppra 500mg PO BID Anxiety/Depression - Lexapro 10mg PO Daily Prophylactic Measures - GI PPX: Protonix - DVT PPX: SCDs, Heparin Q8H, Xarelto (switch to heparin 72 hours before procedure) - PT/ OT Eval - Picc line ordered due to poor access and for IV abx Disposition: Pending surgery recommendations, will hold anticoagulation as needed DW Dr. Souza (covering for Dr. Jason), Trudy Pedro DO, PGY2 <Nohemy Souza - Last Filed: 02/01/18 18:46> Objective - Vital Signs/Intake and Output Vital Signs (last 24 hours): Temp Pulse Resp BP Pulse Ox 98.2 F 65 20 130/62 99 09/01/18 15:32 02/01/18 15:32 02/01/18 15:32 02/01/18 15:32 02/01/18 15:32 Intake and Output: 02/01/18 02/01/18 06:59 18:59 Intake Total 540 550 Balance 540 550 - Medications Medications: Current Medications Amlodipine Besylate (Norvasc) 5 mg PO DAILY [facility] Last Admin: 02/01/18 09:40 Dose: 5 mg Baclofen (Lioresal) 10 mg PO BID [facility] Last Admin: 02/01/18 17:24 Dose: 10 mg Dextrose (Dextrose 50% Inj) 0 ml IV STAT PRN; Protocol PRN Reason: Hypoglycemia Protocol Dextrose (Glutose 15) 0 gm PO ONCE PRN; Protocol PRN Reason: Hypoglycemia Protocol Docusate Sodium (Colace) 100 mg PO DAILY [facility] Last Admin: 02/01/18 09:40 Dose: 100 mg Escitalopram Oxalate (Lexapro) 10 mg PO DAILY [facility] Last Admin: 02/01/18 09:41 Dose: 10 mg Glucagon (Glucagen Diagnostic Kit) 0 mg IM STAT PRN; Protocol PRN Reason: Hypoglycemia Protocol Dextrose (Dextrose 5% In Water 1000 Ml) 1,000 mls @ 0 mls/hr IV .Q0M PRN; Protocol; Per Protocol PRN Reason: Hypoglycemia Protocol Vancomycin HCl 1 gm/ Sodium (Chloride) 200 mls @ 166.7 mls/hr IVPB Q24H [facility] PRN Reason: Protocol Last Admin: 02/01/18 11:00 Dose: 166.7 mls/hr Piperacillin Sod/Tazobactam Sod (Zosyn 3.375 Gm Iv Premix) 3.375 gm in 50 mls @ 100 mls/hr IVPB Q8 [facility] PRN Reason: Protocol Last Admin: 02/01/18 14:18 Dose: 100 mls/hr Insulin Human Regular (Novolin R) 0 unit SC ACHS [facility] PRN Reason: Protocol Last Admin: 02/01/18 11:32 Dose: Not Given Levetiracetam (Keppra) 500 mg PO BID [facility] Last Admin: 02/01/18 17:24 Dose: 500 mg Levothyroxine Sodium (Synthroid) 88 mcg PO DAILY@0630 [facility] Last Admin: 02/01/18 05:35 Dose: 88 mcg Magnesium Oxide (Mag-Ox) 400 mg PO DAILY [facility] Last Admin: 02/01/18 09:40 Dose: 400 mg Oxycodone/Acetaminophen (Percocet 5/325 Mg Tab) 1 tab PO BID PRN PRN Reason: Pain, moderate (4-7) Stop: 02/02/18 23:10 Pantoprazole Sodium (Protonix Ec Tab) 40 mg PO DAILY [facility] Last Admin: 02/01/18 09:41 Dose: 40 mg Rivaroxaban (Xarelto) 20 mg PO QPM [facility] Last Admin: 02/01/18 17:24 Dose: 20 mg Rosuvastatin Calcium (Crestor) 10 mg PO HS [facility] Last Admin: 01/31/18 21:50 Dose: 10 mg Saccharomyces Boulardii (Florastor) 250 mg PO Q12 [facility] Last Admin: 02/01/18 09:41 Dose: 250 mg - Labs Labs: 02/01/18 07:09 02/01/18 07:11 PT 15.4 SECONDS (9.7-12.2) H 01/31/18 16:00 INR 1.4 01/31/18 16:00 Attending/Attestation - Attestation I have personally seen and examined this patient.: Yes I have fully participated in the care of the patient.: Yes I have reviewed all pertinent clinical information, including history, physical exam and plan: Yes Notes (Text): Seen and examined with Dr Yates patient was lying comfortable.Has foot pain,no fever 1.Necrotic 5th Toe of Right Foot Secondary to PVDon Crystal Bolaños, Ashastor s/p angiogram with angioplasty and stent placement- R SFA arthroplasty with Dr. Marino November 2017 S/P right foot hallux distal Symes amputation, right foot fourth digit distal Symes amputation 2.Hx CVA with residual left sided hemiparesis-on xarelta 3.Hypertension and hyperlipidemia 4.Hypothyroidism 5.Diabetes Mellitus 6.Seizure disorder 7.Anxiety/Depression Assessment and the plan discussed with the resident and i agree with the documentation we will follow up with Dr Velazquez continue antibiotics
[2018-01-31] MEDS ORDERED: Glucagon Recombinant 1 mg Inj IM PRN (09:32)
[2018-01-31] MEDS ORDERED: Dextrose 50% SYRINGE Inj (50 ml) IV PRN (09:32)
[2018-01-31] MEDS ORDERED: Vancomycin 1 GM in Sodium Chloride 0.9% 200 ML IVPB SCH (10:00)
[2018-01-31] MEDS ORDERED: Enoxaparin 40 mg Syringe SC SCH (10:00)
[2018-01-31] MEDS ORDERED: GlipiZIDE 5 mg SR Tab PO SCH (10:00)
[2018-01-31] MEDS: Magnesium Oxide 400 mg Tab UD PO SCH (10:04)
[2018-01-31] MEDS: Saccharomyces Boulardi 250 mg Cap PO SCH ×2 (10:15→21:50)
[2018-01-31] MEDS: Pantoprazole 40 mg EC Tab PO SCH (10:15)
--- NOTE | 2018-01-31 10:52 | RAD ---
Date of service: 01/30/2018 PROCEDURE: Right Foot Radiographs. HISTORY: nectrotic 5th toe COMPARISON: Right foot radiographs dated 10/31/2017. FINDINGS: BONES: Diffuse osteopenia. Interval trans phalangeal 1st and 4th digit amputations. Multiple hammertoe deformities. JOINTS: Diffusely narrowed. SOFT TISSUES: Postsurgical changes. OTHER FINDINGS: Achilles enthesophyte. Inferior plantar calcaneal spur. IMPRESSION: Interval 1st and 4th digit trans phalangeal amputations. Acute infection cannot be excluded.
[2018-01-31] MEDS ORDERED: (Novolin R) Insulin Human Regular 100 units/ml vial SC SCH (11:30)
--- NOTE | 2018-01-31 11:39 | CP.PCM.CON ---
History of Present Illness - History of Present Illness History of Present Illness: dictated Past Patient History - Past Medical History & Family History Past Medical History?: Yes - Past Social History Smoking Status: Unknown If Ever Smoked - CARDIAC Hx Cardiac Disorders: Yes Hx Hypercholesterolemia: Yes Hx Hypertension: Yes - PULMONARY Hx Respiratory Disorders: No - NEUROLOGICAL Hx Neurological Disorder: Yes Hx Transient Ischemic Attacks (TIA): Yes - HEENT Hx HEENT Problems: Yes Other/Comment: wears prescription eyeglasses - RENAL Hx Chronic Kidney Disease: No - ENDOCRINE/METABOLIC Hx Endocrine Disorders: Yes Hx Diabetes Mellitus Type 2: Yes - HEMATOLOGICAL/ONCOLOGICAL Hx Blood Disorders: No - INTEGUMENTARY Hx Dermatological Problems: No - MUSCULOSKELETAL/RHEUMATOLOGICAL Hx Musculoskeletal Disorders: Yes Hx Falls: No 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) - GASTROINTESTINAL Hx Gastrointestinal Disorders: No - GENITOURINARY/GYNECOLOGICAL Hx Genitourinary Disorders: No - PSYCHIATRIC Hx Psychophysiologic Disorder: No Hx Substance Use: No - SURGICAL HISTORY Hx Surgeries: Yes Hx Amputation: Yes (R 1ST, 2ND, 3RD, 4TH TOE) Other/Comment: "HERNIA REMOVAL IN [place]" - ANESTHESIA Hx Anesthesia: Yes Hx Anesthesia Reactions: No Hx Malignant Hyperthermia: No Has any member of the family had a problem w/ anesthesia?: No Meds Allergies/Adverse Reactions: Allergies Allergy/AdvReac Type Severity Reaction Status Date / Time No Known Allergies Allergy Verified 01/30/18 17:30 - Medications Medications: Current Medications Amlodipine Besylate (Norvasc) 5 mg PO DAILY [facility] Last Admin: 01/31/18 10:05 Dose: 5 mg Baclofen (Lioresal) 10 mg PO BID [facility] Last Admin: 01/31/18 10:16 Dose: 10 mg Dextrose (Dextrose 50% Inj) 0 ml IV STAT PRN; Protocol PRN Reason: Hypoglycemia Protocol Dextrose (Glutose 15) 0 gm PO ONCE PRN; Protocol PRN Reason: Hypoglycemia Protocol Docusate Sodium (Colace) 100 mg PO DAILY [facility] Last Admin: 01/31/18 10:04 Dose: 100 mg Escitalopram Oxalate (Lexapro) 10 mg PO DAILY [facility] Last Admin: 01/31/18 10:04 Dose: 10 mg Glucagon (Glucagen Diagnostic Kit) 0 mg IM STAT PRN; Protocol PRN Reason: Hypoglycemia Protocol Heparin Sodium (Porcine) (Heparin) 5,000 units SC Q8 [facility] Piperacillin Sod/Tazobactam Sod (Zosyn 3.375 In Ns 100ml) 100 mls @ 200 mls/hr IVPB Q6 [facility] PRN Reason: Protocol Last Admin: 01/31/18 05:30 Dose: 200 mls/hr Dextrose (Dextrose 5% In Water 1000 Ml) 1,000 mls @ 0 mls/hr IV .Q0M PRN; Protocol; Per Protocol PRN Reason: Hypoglycemia Protocol Vancomycin HCl 1 gm/ Sodium (Chloride) 200 mls @ 166.7 mls/hr IVPB Q24H [facility] PRN Reason: Protocol Insulin Human Regular (Novolin R) 0 unit SC ACHS [facility] PRN Reason: Protocol Levetiracetam (Keppra) 500 mg PO BID [facility] Last Admin: 01/31/18 10:04 Dose: 500 mg Levothyroxine Sodium (Synthroid) 88 mcg PO DAILY@0630 [facility] Magnesium Oxide (Mag-Ox) 400 mg PO DAILY [facility] Last Admin: 01/31/18 10:04 Dose: 400 mg Oxycodone/Acetaminophen (Percocet 5/325 Mg Tab) 1 tab PO BID PRN PRN Reason: Pain, moderate (4-7) Stop: 02/02/18 23:10 Pantoprazole Sodium (Protonix Ec Tab) 40 mg PO DAILY [facility] Last Admin: 01/31/18 10:15 Dose: 40 mg Pneumococcal Polyvalent Vaccine (Pneumovax 23 Vaccine) 0.5 ml IM .ONCE ONE Stop: 02/01/18 10:01 Rosuvastatin Calcium (Crestor) 10 mg PO HS [facility] Saccharomyces Boulardii (Florastor) 250 mg PO Q12 [facility] Last Admin: 01/31/18 10:15 Dose: 250 mg Results - Vital Signs Recent Vital Signs: Last Vital Signs Temp 97.7 F 01/31/18 07:18 Pulse 52 L 01/31/18 07:18 Resp 20 01/31/18 07:18 BP 185/61 H 01/31/18 07:18 Pulse Ox 97 01/31/18 07:18 - Labs Result Diagrams: 01/30/18 20:49 01/31/18 07:00 Labs: Laboratory Results - last 24 hr 01/30/18 01/30/18 01/31/18 20:49 20:49 07:00 WBC 5.9 RBC 3.68 L Hgb 11.3 Hct 32.9 L MCV 89.4 MCH 30.7 MCHC 34.3 RDW 14.6 H Plt Count 247 MPV 8.1 Neut % (Auto) 58.8 Lymph % (Auto) 30.7 [place] % (Auto) 7.4 Eos % (Auto) 2.4 Baso % (Auto) 0.7 Neut # (Auto) 3.5 Lymph # (Auto) 1.8 [place] # (Auto) 0.4 Eos # (Auto) 0.1 Baso # (Auto) 0.0 Sodium 134 139 Potassium 4.6 5.1 Chloride 101 103 Carbon Dioxide 27 27 Anion Gap 11 14 BUN 11 8 Creatinine 0.6 L 0.6 L Est GFR ( Amer) > 60 > 60 Est GFR (Non-Af Amer) > 60 > 60 POC Glucose (mg/dL) Random Glucose 70 78 Calcium 8.8 8.9 Phosphorus 3.7 Magnesium 1.9 Total Bilirubin 0.6 1.1 AST 28 37 H D ALT 20 < 6 L D Alkaline Phosphatase 44 46 Total Protein 6.4 6.6 Albumin 3.3 L 3.4 L Globulin 3.1 3.1 Albumin/Globulin Ratio 1.1 1.1 Free T4 01/31/18 01/31/18 07:19 10:49 WBC RBC Hgb Hct MCV MCH MCHC RDW Plt Count MPV Neut % (Auto) Lymph % (Auto) [place] % (Auto) Eos % (Auto) Baso % (Auto) Neut # (Auto) Lymph # (Auto) [place] # (Auto) Eos # (Auto) Baso # (Auto) Sodium Potassium Chloride Carbon Dioxide Anion Gap BUN Creatinine Est GFR ( Amer) Est GFR (Non-Af Amer) POC Glucose (mg/dL) 71 Random Glucose Calcium Phosphorus Magnesium Total Bilirubin AST ALT Alkaline Phosphatase Total Protein Albumin Globulin Albumin/Globulin Ratio Free T4 1.22
[2018-01-31] MEDS: (Novolin R) Insulin Human Regular 100 units/ml vial SC SCH ×3 (12:12→22:01)
--- NOTE | 2018-01-31 12:50 | CP.PCM.CON ---
History of Present Illness - History of Present Illness History of Present Illness: Podiatry Consult note for Dr. Garcias 82F with PMH PVD, IDDM, HTN, HLD, CVA (2010) seen and evaluated at bedside for gangrenous changes to right foot at hallux amputation site, fourth digit amputation site and fifth digit. Patient states that she had the previous two amputations done in November by Dr. Hooker. She states that she has been having continual pain to the amputation sites over the last few days and has noticed them turning black over the last several weeks. She is AAO x 3 and NAD, resting comfortably in bed. Denies any further pedal complaints at this time. Denies any recent N/V/F/C/CP/SOB/D Meds: See MAR All: NKDA PSH: R SFA stend, R partial hallux and fourth digit amputation (DOS: 11/25/17) FH: Unknown Review of Systems - Review of Systems All systems: reviewed and no additional remarkable complaints except Review of Systems: as per HPI Past Patient History - Past Medical History & Family History Past Medical History?: Yes - Past Social History Smoking Status: Unknown If Ever Smoked - CARDIAC Hx Cardiac Disorders: Yes Hx Hypercholesterolemia: Yes Hx Hypertension: Yes - PULMONARY Hx Respiratory Disorders: No - NEUROLOGICAL Hx Neurological Disorder: Yes Hx Transient Ischemic Attacks (TIA): Yes - HEENT Hx HEENT Problems: Yes Other/Comment: wears prescription eyeglasses - RENAL Hx Chronic Kidney Disease: No - ENDOCRINE/METABOLIC Hx Endocrine Disorders: Yes Hx Diabetes Mellitus Type 2: Yes - HEMATOLOGICAL/ONCOLOGICAL Hx Blood Disorders: No - INTEGUMENTARY Hx Dermatological Problems: No - MUSCULOSKELETAL/RHEUMATOLOGICAL Hx Musculoskeletal Disorders: Yes Hx Falls: No 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) - GASTROINTESTINAL Hx Gastrointestinal Disorders: No - GENITOURINARY/GYNECOLOGICAL Hx Genitourinary Disorders: No - PSYCHIATRIC Hx Psychophysiologic Disorder: No Hx Substance Use: No - SURGICAL HISTORY Hx Surgeries: Yes Hx Amputation: Yes (R 1ST, 2ND, 3RD, 4TH TOE) Other/Comment: "HERNIA REMOVAL IN [place]" - ANESTHESIA Hx Anesthesia: Yes Hx Anesthesia Reactions: No Hx Malignant Hyperthermia: No Has any member of the family had a problem w/ anesthesia?: No Meds Allergies/Adverse Reactions: Allergies Allergy/AdvReac Type Severity Reaction Status Date / Time No Known Allergies Allergy Verified 01/30/18 17:30 - Medications Medications: Current Medications Amlodipine Besylate (Norvasc) 5 mg PO DAILY [facility] Last Admin: 01/31/18 10:05 Dose: 5 mg Baclofen (Lioresal) 10 mg PO BID [facility] Last Admin: 01/31/18 10:16 Dose: 10 mg Dextrose (Dextrose 50% Inj) 0 ml IV STAT PRN; Protocol PRN Reason: Hypoglycemia Protocol Dextrose (Glutose 15) 0 gm PO ONCE PRN; Protocol PRN Reason: Hypoglycemia Protocol Docusate Sodium (Colace) 100 mg PO DAILY [facility] Last Admin: 01/31/18 10:04 Dose: 100 mg Escitalopram Oxalate (Lexapro) 10 mg PO DAILY [facility] Last Admin: 01/31/18 10:04 Dose: 10 mg Glucagon (Glucagen Diagnostic Kit) 0 mg IM STAT PRN; Protocol PRN Reason: Hypoglycemia Protocol Piperacillin Sod/Tazobactam Sod (Zosyn 3.375 In Ns 100ml) 100 mls @ 200 mls/hr IVPB Q6 [facility] PRN Reason: Protocol Stop: 01/31/18 13:00 Last Admin: 01/31/18 12:11 Dose: Not Given Dextrose (Dextrose 5% In Water 1000 Ml) 1,000 mls @ 0 mls/hr IV .Q0M PRN; Protocol; Per Protocol PRN Reason: Hypoglycemia Protocol Vancomycin HCl 1 gm/ Sodium (Chloride) 200 mls @ 166.7 mls/hr IVPB Q24H [facility] PRN Reason: Protocol Piperacillin Sod/Tazobactam Sod (Zosyn 3.375 Gm Iv Premix) 3.375 gm in 50 mls @ 100 mls/hr IVPB Q8 [facility] PRN Reason: Protocol Insulin Human Regular (Novolin R) 0 unit SC ACHS [facility] PRN Reason: Protocol Last Admin: 01/31/18 12:12 Dose: Not Given Levetiracetam (Keppra) 500 mg PO BID [facility] Last Admin: 01/31/18 10:04 Dose: 500 mg Levothyroxine Sodium (Synthroid) 88 mcg PO DAILY@0630 [facility] Magnesium Oxide (Mag-Ox) 400 mg PO DAILY [facility] Last Admin: 01/31/18 10:04 Dose: 400 mg Oxycodone/Acetaminophen (Percocet 5/325 Mg Tab) 1 tab PO BID PRN PRN Reason: Pain, moderate (4-7) Stop: 02/02/18 23:10 Pantoprazole Sodium (Protonix Ec Tab) 40 mg PO DAILY [facility] Last Admin: 01/31/18 10:15 Dose: 40 mg Pneumococcal Polyvalent Vaccine (Pneumovax 23 Vaccine) 0.5 ml IM .ONCE ONE Stop: 02/01/18 10:01 Rivaroxaban (Xarelto) 20 mg PO QPM [facility] Rosuvastatin Calcium (Crestor) 10 mg PO HS [facility] Saccharomyces Boulardii (Florastor) 250 mg PO Q12 [facility] Last Admin: 01/31/18 10:15 Dose: 250 mg Physical Exam - Constitutional Appears: Well, Non-toxic, No Acute Distress - Extremities Exam Additional comments: LE focused exam: Vasc: DP/PT pulses faintly palpable 1/4. CFT > 3 seconds to all remaining digits. Skin temperature warm to cool from proximal to distal. No edema noted Neuro: Epicritic and protective sensation grossly intact b/l Derm: Superficial gangrenous changes noted to right hallux and fourth digit amputation site as well as dorsolateral right fifth digit. No periwound erythema , malodor, drainage, purulence, fluctuance, probe to bone, tracking, tunneling, undermining or other clinical signs of infection noted MSK: ROM and MMT WNL given age and comorbidities. Partial right hallux and fourth digit amputation appreciated - Neurological Exam Neurological exam: Alert, Oriented x3 - Psychiatric Exam Psychiatric exam: Normal Affect, Normal Mood Results - Vital Signs Recent Vital Signs: Last Vital Signs Temp 97.7 F 01/31/18 07:18 Pulse 52 L 01/31/18 07:18 Resp 20 01/31/18 07:18 BP 185/61 H 01/31/18 07:18 Pulse Ox 97 01/31/18 07:18 - Labs Result Diagrams: 01/30/18 20:49 01/31/18 07:00 Labs: Laboratory Results - last 24 hr 01/30/18 01/30/18 01/31/18 20:49 20:49 07:00 WBC 5.9 RBC 3.68 L Hgb 11.3 Hct 32.9 L MCV 89.4 MCH 30.7 MCHC 34.3 RDW 14.6 H Plt Count 247 MPV 8.1 Neut % (Auto) 58.8 Lymph % (Auto) 30.7 [place] % (Auto) 7.4 Eos % (Auto) 2.4 Baso % (Auto) 0.7 Neut # (Auto) 3.5 Lymph # (Auto) 1.8 [place] # (Auto) 0.4 Eos # (Auto) 0.1 Baso # (Auto) 0.0 Sodium 134 139 Potassium 4.6 5.1 Chloride 101 103 Carbon Dioxide 27 27 Anion Gap 11 14 BUN 11 8 Creatinine 0.6 L 0.6 L Est GFR ( Amer) > 60 > 60 Est GFR (Non-Af Amer) > 60 > 60 POC Glucose (mg/dL) Random Glucose 70 78 Calcium 8.8 8.9 Phosphorus 3.7 Magnesium 1.9 Total Bilirubin 0.6 1.1 AST 28 37 H D ALT 20 < 6 L D Alkaline Phosphatase 44 46 Total Protein 6.4 6.6 Albumin 3.3 L 3.4 L Globulin 3.1 3.1 Albumin/Globulin Ratio 1.1 1.1 Free T4 TSH 3rd Generation 01/31/18 01/31/18 01/31/18 07:19 10:49 10:49 WBC RBC Hgb Hct MCV MCH MCHC RDW Plt Count MPV Neut % (Auto) Lymph % (Auto) [place] % (Auto) Eos % (Auto) Baso % (Auto) Neut # (Auto) Lymph # (Auto) [place] # (Auto) Eos # (Auto) Baso # (Auto) Sodium Potassium Chloride Carbon Dioxide Anion Gap BUN Creatinine Est GFR ( Amer) Est GFR (Non-Af Amer) POC Glucose (mg/dL) 71 Random Glucose Calcium Phosphorus Magnesium Total Bilirubin AST ALT Alkaline Phosphatase Total Protein Albumin Globulin Albumin/Globulin Ratio Free T4 1.22 TSH 3rd Generation 0.50 01/31/18 11:38 WBC RBC Hgb Hct MCV MCH MCHC RDW Plt Count MPV Neut % (Auto) Lymph % (Auto) [place] % (Auto) Eos % (Auto) Baso % (Auto) Neut # (Auto) Lymph # (Auto) [place] # (Auto) Eos # (Auto) Baso # (Auto) Sodium Potassium Chloride Carbon Dioxide Anion Gap BUN Creatinine Est GFR ( Amer) Est GFR (Non-Af Amer) POC Glucose (mg/dL) 107 Random Glucose Calcium Phosphorus Magnesium Total Bilirubin AST ALT Alkaline Phosphatase Total Protein Albumin Globulin Albumin/Globulin Ratio Free T4 TSH 3rd Generation Assessment & Plan - Assessment and Plan (Free Text) Assessment: 82F seen at bedside for gangrenous changes to right partial hallux amputation site, right fourth digit amputation site and dorsolateral right fifth digit Plan: Patient seen and evaluated Plan discussed with attending Dr. Garcias Afebrile, absent leukocytosis No clinical evidence of infection so no wound culture taken. Gangrenous changes appear to be due to poor vascular status Foot xray: Read pending Arterial duplex ordered Vascular Surgery consulted Foot dressed with betadine, DSD No plan for surgical intervention at this time Podiatry will continue to follow while patient in house - Date & Time Date: 01/31/18 Time: 12:58
--- NOTE | 2018-01-31 13:53 | RAD ---
Date of service: 01/31/2018 HISTORY: verify right PICC COMPARISON: Chest radiograph dated 11/19/2017. FINDINGS: LUNGS: Questionable right basilar atelectasis. PLEURA: Stable elevation of the right hemidiaphragm. Small right effusion not excluded. No pneumothorax apparent. CARDIOVASCULAR: Atherosclerotic aortic calcifications. Cardiomediastinal silhouette stably enlarged. Heavy mitral annular calcification. OSSEOUS STRUCTURES: Unchanged. VISUALIZED UPPER ABDOMEN: Normal. OTHER FINDINGS: Right upper extremity PICC with catheter tip at the cavoatrial junction. IMPRESSION: Right upper extremity PICC in satisfactory position. No focal consolidation or pleural effusion. Right basilar atelectasis and/or small effusion.
[2018-01-31] MEDS: Piperacill/Tazo 3.375gm in Dex 3.375 GM/50 ML BAG IVPB SCH ×2 (14:49→21:50)
[2018-01-31 16:09] LABS: INR 1.4; PROTHROMBIN TIME 15.4 SECONDS (9.7-12.2)
--- NOTE | 2018-01-31 17:36 | CP.PCM.PN ---
Subjective - Date & Time of Evaluation Date of Evaluation: 01/31/18 Time of Evaluation: 17:35 - Subjective Subjective: vel has severe pvd based on previous cta about 3 months ago i recommend repeat imaging. she is in danger of limb loss Objective - Vital Signs/Intake and Output Vital Signs (last 24 hours): Temp Pulse Resp BP Pulse Ox 97.9 F 63 20 149/68 97 01/31/18 16:00 01/31/18 16:00 01/31/18 16:00 01/31/18 16:00 01/31/18 16:00 Intake and Output: 01/31/18 01/31/18 06:59 18:59 Intake Total 580 Balance 580 - Medications Medications: Current Medications Amlodipine Besylate (Norvasc) 5 mg PO DAILY [facility] Last Admin: 01/31/18 10:05 Dose: 5 mg Baclofen (Lioresal) 10 mg PO BID [facility] Last Admin: 01/31/18 10:16 Dose: 10 mg Dextrose (Dextrose 50% Inj) 0 ml IV STAT PRN; Protocol PRN Reason: Hypoglycemia Protocol Dextrose (Glutose 15) 0 gm PO ONCE PRN; Protocol PRN Reason: Hypoglycemia Protocol Docusate Sodium (Colace) 100 mg PO DAILY [facility] Last Admin: 01/31/18 10:04 Dose: 100 mg Escitalopram Oxalate (Lexapro) 10 mg PO DAILY [facility] Last Admin: 01/31/18 10:04 Dose: 10 mg Glucagon (Glucagen Diagnostic Kit) 0 mg IM STAT PRN; Protocol PRN Reason: Hypoglycemia Protocol Dextrose (Dextrose 5% In Water 1000 Ml) 1,000 mls @ 0 mls/hr IV .Q0M PRN; Protocol; Per Protocol PRN Reason: Hypoglycemia Protocol Vancomycin HCl 1 gm/ Sodium (Chloride) 200 mls @ 166.7 mls/hr IVPB Q24H [facility] PRN Reason: Protocol Piperacillin Sod/Tazobactam Sod (Zosyn 3.375 Gm Iv Premix) 3.375 gm in 50 mls @ 100 mls/hr IVPB Q8 [facility] PRN Reason: Protocol Last Admin: 01/31/18 14:49 Dose: 100 mls/hr Insulin Human Regular (Novolin R) 0 unit SC ACHS [facility] PRN Reason: Protocol Last Admin: 01/31/18 12:12 Dose: Not Given Levetiracetam (Keppra) 500 mg PO BID [facility] Last Admin: 01/31/18 10:04 Dose: 500 mg Levothyroxine Sodium (Synthroid) 88 mcg PO DAILY@0630 [facility] Magnesium Oxide (Mag-Ox) 400 mg PO DAILY [facility] Last Admin: 01/31/18 10:04 Dose: 400 mg Oxycodone/Acetaminophen (Percocet 5/325 Mg Tab) 1 tab PO BID PRN PRN Reason: Pain, moderate (4-7) Stop: 02/02/18 23:10 Pantoprazole Sodium (Protonix Ec Tab) 40 mg PO DAILY [facility] Last Admin: 01/31/18 10:15 Dose: 40 mg Pneumococcal Polyvalent Vaccine (Pneumovax 23 Vaccine) 0.5 ml IM .ONCE ONE Stop: 02/01/18 10:01 Rivaroxaban (Xarelto) 20 mg PO QPM [facility] Rosuvastatin Calcium (Crestor) 10 mg PO HS [facility] Saccharomyces Boulardii (Florastor) 250 mg PO Q12 [facility] Last Admin: 01/31/18 10:15 Dose: 250 mg - Labs Labs: 01/30/18 20:49 01/31/18 07:00 PT 15.4 SECONDS (9.7-12.2) H 01/31/18 16:00 INR 1.4 01/31/18 16:00
[2018-01-31] MEDS ORDERED: Piperacill/Tazo 3.375gm in Dex 3.375 GM/50 ML BAG IVPB SCH (18:00)
--- NOTE | 2018-02-01 01:58 | CON ---
Copied To: Deon Mera MD Attending MD: Deon Mera MD DATE: 01/31/2018 HISTORY OF PRESENT ILLNESS: The patient is an 82-year-old female. She only speaks [place]. She has history of hypertension, TIA, and high cholesterol. She is not a diabetic. She is only hypertensive, hypercholesterolemia, TIA and she came in with pain, complains of pain on right fifth toe and she has lot of osteoarthritis with almost fingers and toes are bend over and are hammertoes. She denies any weakness or numbness. No fever. No chills. She has been having pain in her right foot and she is wheelchair-bound. She is otherwise has no fevers. Has necrotic toes. Left foot is unremarkable. SOCIAL HISTORY: Significant for no history of tobacco, alcohol, or drug abuse. REVIEW OF SYSTEMS: She had no fever and no chills. Denies any chest pain. No shortness of breath. No abdominal pain. No nausea and no vomiting. She does have positive pain on the right foot and denies any bruising or any rash on it. She is a weak and thin-built cachectic female. She is very frail, appears pale with severe osteoarthritis, could be rheumatoid the way I see her fingers. MEDICATIONS: She is on Norvasc, baclofen, dextrose, Colace, Lexapro, heparin subcu, glucagon kit, Novolin R; so she is on coverage, Keppra, Synthroid, magnesium oxide, Percocet, and Protonix. She is on Zosyn and she is on vancomycin. The vancomycin have decreased to 1 g daily which will be good enough for this patient who is 82-year-old and she is on Zosyn and we will decrease the Zosyn to every 8 hours, which is more appropriate dose. REVIEW OF SYSTEMS: All negative except for this. PHYSICAL EXAMINATION: VITAL SIGNS: On examination, I find her temperature, she is 97.7, pulse is 52; is low, bradycardia, blood pressure 185/61, and respirations are 20. GENERAL: She is awake and alert. She is able to communicate in [place], but no Urdu. HEENT: Head is atraumatic and normocephalic. Pupils are reacting to light. Eye movements are unremarkable. Tongue is moist. NECK: Supple. JVP is flat. LUNGS: Clear. No crackles or rales present. Chest wall is symmetrical. She has severe kyphosis on the back. HEART: S1, S2 is regular. No murmurs appreciated. ABDOMEN: Soft, nontender. No guarding, no rigidity present. EXTREMITIES: Have a lot of deformities from the arthritic changes in both hands and both feet. Left foot is unremarkable; however, pulses are not palpable in both feet. Right foot, color is unremarkable, but in the great toe, there may have been partial amputation, appears necrotic. The fourth toe appears to have lost the toe tip but whatever is left of it is necrotic and the fifth toe starting to show ischemic changes and appears to be having ischemic necrotic changes on the fifth toe which probably making her have pain. Her left foot has no open wounds. LABORATORY DATA: White count is 5.9, hemoglobin 11.3, hematocrit 32.9, and platelet count is 247. The sodium is 139, potassium 5.1, chlorides are 103, CO2 is 27, BUN is 8, and creatinine 0.6. She had a foot x-ray done and the foot x-ray shows interval first and fourth transphalangeal amputation, acute infection cannot be excluded. IMPRESSION AND PLAN: My impression is that this patient is diabetic with ischemic changes, probably she is here with ischemic changes and necrosis of the fourth and fifth toe and along with the necrotic tip of the first toe and probably with osteomyelitis. We will follow with Podiatry and they are going to and she needs vascular evaluation and probably will follow with them. I have decreased the vancomycin and will continue with vancomycin and Zosyn at this time. We will wait to see what the vascular and serging machine operator automatic evaluation is. We will follow. Deon Mera MD
--- NOTE | 2018-02-01 03:40 | CP.PCM.PN ---
<Charity Hutchins - Last Filed: 02/01/18 03:37> Subjective - Date & Time of Evaluation Date of Evaluation: 02/01/18 Time of Evaluation: 03:38 - Subjective Subjective: PGY-1 Medicine Progress note for Hospitalist covering for Dr. Jason Patient was seen and examined at bedside in no acute distress. Nurse reports no overnight events. Patient reports R foot pain unchanged. Denies chest pain, shortness of breath, fever, chills, nausea, vomiting. Objective - Vital Signs/Intake and Output Vital Signs (last 24 hours): Temp Pulse Resp BP Pulse Ox 98.1 F 61 20 160/64 H 96 02/01/18 00:03 02/01/18 00:03 02/01/18 00:03 02/01/18 00:03 02/01/18 00:03 Intake and Output: 01/31/18 02/01/18 18:59 06:59 Intake Total 580 290 Balance 580 290 - Medications Medications: Current Medications Amlodipine Besylate (Norvasc) 5 mg PO DAILY [facility] Last Admin: 01/31/18 10:05 Dose: 5 mg Baclofen (Lioresal) 10 mg PO BID [facility] Last Admin: 01/31/18 18:13 Dose: 10 mg Dextrose (Dextrose 50% Inj) 0 ml IV STAT PRN; Protocol PRN Reason: Hypoglycemia Protocol Dextrose (Glutose 15) 0 gm PO ONCE PRN; Protocol PRN Reason: Hypoglycemia Protocol Docusate Sodium (Colace) 100 mg PO DAILY [facility] Last Admin: 01/31/18 10:04 Dose: 100 mg Escitalopram Oxalate (Lexapro) 10 mg PO DAILY [facility] Last Admin: 01/31/18 10:04 Dose: 10 mg Glucagon (Glucagen Diagnostic Kit) 0 mg IM STAT PRN; Protocol PRN Reason: Hypoglycemia Protocol Dextrose (Dextrose 5% In Water 1000 Ml) 1,000 mls @ 0 mls/hr IV .Q0M PRN; Protocol; Per Protocol PRN Reason: Hypoglycemia Protocol Vancomycin HCl 1 gm/ Sodium (Chloride) 200 mls @ 166.7 mls/hr IVPB Q24H [facility] PRN Reason: Protocol Piperacillin Sod/Tazobactam Sod (Zosyn 3.375 Gm Iv Premix) 3.375 gm in 50 mls @ 100 mls/hr IVPB Q8 [facility] PRN Reason: Protocol Last Admin: 01/31/18 21:50 Dose: 100 mls/hr Insulin Human Regular (Novolin R) 0 unit SC ACHS [facility] PRN Reason: Protocol Last Admin: 01/31/18 22:01 Dose: Not Given Levetiracetam (Keppra) 500 mg PO BID [facility] Last Admin: 01/31/18 18:13 Dose: 500 mg Levothyroxine Sodium (Synthroid) 88 mcg PO DAILY@0630 [facility] Magnesium Oxide (Mag-Ox) 400 mg PO DAILY [facility] Last Admin: 01/31/18 10:04 Dose: 400 mg Oxycodone/Acetaminophen (Percocet 5/325 Mg Tab) 1 tab PO BID PRN PRN Reason: Pain, moderate (4-7) Stop: 02/02/18 23:10 Pantoprazole Sodium (Protonix Ec Tab) 40 mg PO DAILY [facility] Last Admin: 01/31/18 10:15 Dose: 40 mg Pneumococcal Polyvalent Vaccine (Pneumovax 23 Vaccine) 0.5 ml IM .ONCE ONE Stop: 02/01/18 10:01 Rivaroxaban (Xarelto) 20 mg PO QPM [facility] Last Admin: 01/31/18 18:13 Dose: 20 mg Rosuvastatin Calcium (Crestor) 10 mg PO HS [facility] Last Admin: 01/31/18 21:50 Dose: 10 mg Saccharomyces Boulardii (Florastor) 250 mg PO Q12 [facility] Last Admin: 01/31/18 21:50 Dose: 250 mg - Labs Labs: 01/30/18 20:49 01/31/18 07:00 PT 15.4 SECONDS (9.7-12.2) H 01/31/18 16:00 INR 1.4 01/31/18 16:00 - Constitutional Appears: No Acute Distress - Head Exam Head Exam: NORMAL INSPECTION, NORMOCEPHALIC - Eye Exam Eye Exam: EOMI, Normal appearance - ENT Exam ENT Exam: Mucous Membranes Moist, Normal Exam - Respiratory Exam Respiratory Exam: Clear to Ausculation Bilateral, NORMAL BREATHING PATTERN. absent: Rales, Rhonchi, Wheezes - Cardiovascular Exam Cardiovascular Exam: REGULAR RHYTHM, +S1, +S2. absent: Murmur - GI/Abdominal Exam GI & Abdominal Exam: Soft, Normal Bowel Sounds. absent: Tenderness - Extremities Exam Additional comments: R foot wrapped, tender to palpation, dressings c/d/i - Neurological Exam Neurological Exam: Alert, Awake, Oriented x3 - Psychiatric Exam Psychiatric exam: Normal Affect, Normal Mood - Skin Skin Exam: Dry, Intact, Normal Color, Warm Assessment and Plan - Assessment and Plan (Free Text) Assessment: 82yoF PMH HTN, HLD, Hx CVA with residual L sided weakness, hypothyroidism, DM, seizure disorder, anxiety, depression with previous amputations of R foot exhibiting more gangrenous changes Plan: Necrotic 5th Toe of Right Foot Secondary to PVD - Podiatry, Dr. Hooker, help appreciated - Vascular Surgery, Dr. Marino, consulted Imaging: - Right Foot Xray - HO/PVR Management: - Crystal Bolaños Florastor - Follow up with Podiatry and Surgery Reccs Previous 11/2017 Admission Workup: - Xray Right foot (11/01/17): IMPRESSION: No radiographic evidence of bone destruction or osteomyelitis. - HO/PVR - 75% Stenosis of SFA and 30-49% stenosis of popliteal artery - CTA - Heavily calcified iliac, femoral, popliteal, and tibial arteries bilaterally. Arterial supply below both knees from a single miniscule collateral vessel - Abdominal angiogram- heavily calcified iliac, femoral, popliteal, and tibial arteries - s/p angiogram with angioplasty and stent placement- R SFA arthroplasty with Dr. Marino November 2017 11/25/17 - S/P right foot hallux distal Symes amputation, right foot fourth digit distal Symes amputation Hx CVA with residual left sided hemiparesis - ASA 81 mg po daily - HELD in anticipation of surgical intervention - Xarelto 20 mg po daily - Will NEED TO BE held for 72 hours prior to surgical procedure Hypertension - Norvasc 5 daily Hyperlipidemia - Crestor 10mg PO HS Hypothyroidism - Levothyroxine 88 mcg - TSH 0.50 - free T4 1.22 Diabetes Mellitus -Accuchecks - A1C: 5.3 on last admission - Hypoglycemia Protocol - ISS Seizure disorder - Keppra 500mg PO BID Anxiety/Depression - Lexapro 10mg PO Daily Prophylactic Measures - GI PPX: Protonix - DVT PPX: SCDs, Heparin Q8H, Xarelto (switch to heparin 72 hours before procedure) - PT/ OT Eval - Picc line ordered due to poor access and for IV abx Disposition: Pending surgery recommendations, will hold anticoagulation as needed will d/w Dr. Souza covering for Dr. Eren Hutchins PGY-1 <Nohemy Souza - Last Filed: 02/01/18 19:02> Objective - Vital Signs/Intake and Output Vital Signs (last 24 hours): Temp Pulse Resp BP Pulse Ox 98.2 F 65 20 130/62 99 02/01/18 15:32 02/01/18 15:32 02/01/18 15:32 02/01/18 15:32 02/01/18 15:32 Intake and Output: 02/01/18 02/01/18 06:59 18:59 Intake Total 540 550 Balance 540 550 - Medications Medications: Current Medications Amlodipine Besylate (Norvasc) 5 mg PO DAILY [facility] Last Admin: 02/01/18 09:40 Dose: 5 mg Baclofen (Lioresal) 10 mg PO BID [facility] Last Admin: 02/01/18 17:24 Dose: 10 mg Dextrose (Dextrose 50% Inj) 0 ml IV STAT PRN; Protocol PRN Reason: Hypoglycemia Protocol Dextrose (Glutose 15) 0 gm PO ONCE PRN; Protocol PRN Reason: Hypoglycemia Protocol Docusate Sodium (Colace) 100 mg PO DAILY [facility] Last Admin: 02/01/18 09:40 Dose: 100 mg Escitalopram Oxalate (Lexapro) 10 mg PO DAILY [facility] Last Admin: 02/01/18 09:41 Dose: 10 mg Glucagon (Glucagen Diagnostic Kit) 0 mg IM STAT PRN; Protocol PRN Reason: Hypoglycemia Protocol Dextrose (Dextrose 5% In Water 1000 Ml) 1,000 mls @ 0 mls/hr IV .Q0M PRN; Protocol; Per Protocol PRN Reason: Hypoglycemia Protocol Vancomycin HCl 1 gm/ Sodium (Chloride) 200 mls @ 166.7 mls/hr IVPB Q24H [facility] PRN Reason: Protocol Last Admin: 02/01/18 11:00 Dose: 166.7 mls/hr Piperacillin Sod/Tazobactam Sod (Zosyn 3.375 Gm Iv Premix) 3.375 gm in 50 mls @ 100 mls/hr IVPB Q8 [facility] PRN Reason: Protocol Last Admin: 02/01/18 14:18 Dose: 100 mls/hr Insulin Human Regular (Novolin R) 0 unit SC ACHS [facility] PRN Reason: Protocol Last Admin: 02/01/18 11:32 Dose: Not Given Levetiracetam (Keppra) 500 mg PO BID [facility] Last Admin: 02/01/18 17:24 Dose: 500 mg Levothyroxine Sodium (Synthroid) 88 mcg PO DAILY@0630 [facility] Last Admin: 02/01/18 05:35 Dose: 88 mcg Magnesium Oxide (Mag-Ox) 400 mg PO DAILY [facility] Last Admin: 02/01/18 09:40 Dose: 400 mg Oxycodone/Acetaminophen (Percocet 5/325 Mg Tab) 1 tab PO BID PRN PRN Reason: Pain, moderate (4-7) Stop: 02/02/18 23:10 Pantoprazole Sodium (Protonix Ec Tab) 40 mg PO DAILY [facility] Last Admin: 02/01/18 09:41 Dose: 40 mg Rivaroxaban (Xarelto) 20 mg PO QPM [facility] Last Admin: 02/01/18 17:24 Dose: 20 mg Rosuvastatin Calcium (Crestor) 10 mg PO HS [facility] Last Admin: 01/31/18 21:50 Dose: 10 mg Saccharomyces Boulardii (Florastor) 250 mg PO Q12 [facility] Last Admin: 02/01/18 09:41 Dose: 250 mg - Labs Labs: 02/01/18 07:09 02/01/18 07:11 PT 15.4 SECONDS (9.7-12.2) H 01/31/18 16:00 INR 1.4 01/31/18 16:00 Attending/Attestation - Attestation I have personally seen and examined this patient.: Yes I have fully participated in the care of the patient.: Yes I have reviewed all pertinent clinical information, including history, physical exam and plan: Yes Notes (Text): Seen and examined this morning.c/o toe pain 1.Necrotic 5th Toe of Right Foot Secondary to PVDon Crystal Bolaños Florastor s/p angiogram with angioplasty and stent placement- R SFA arthroplasty with Dr. 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 s/p angiography. Likely angioplasty soon continue antibiotics vanco and zosyn increase her pain meds
[2018-02-01] MEDS: Levothyroxine 88 MCG TAB PO SCH (05:35)
[2018-02-01] MEDS: Piperacill/Tazo 3.375gm in Dex 3.375 GM/50 ML BAG IVPB SCH ×3 (05:35→21:09)
[2018-02-01 07:22] LABS: BASO % 0.6 % (0.0-2.0); EOS # 0.1 K/uL (0.0-0.7); EOS % 1.9 % (0.0-4.0); HEMOGLOBIN 11.8 g/dL (11.0-16.0); LYMPH # 1.3 K/uL (1.0-4.3); LYMPH % 18.2 % (20.0-40.0); MEAN CELL VOLUME 89.5 fL (81.0-99.0); MEAN CORPUSCULAR HEMOGLOBIN 30.1 pg (27.0-31.0); MEAN CORPUSCULAR HGB CONC 33.6 g/dL (33.0-37.0); MEAN PLATELET VOLUME 8.5 fL (7.2-11.7); MONO # 0.4 K/uL (0.0-0.8); MONO % 4.9 % (0.0-10.0); NEUT # 5.4 K/uL (1.8-7.0); NEUT % 74.4 % (50.0-75.0); NRBC % 0.1 % (0.0-2.0); RBC 3.92 Mil/uL (3.80-5.20); RED CELL DISTRIBUTION WIDTH 14.9 % (11.5-14.5); WHITE BLOOD COUNT 7.3 K/uL (4.8-10.8)
[2018-02-01 07:52] LABS: ALB/GLOB RATIO 1.1 (1.0-2.1); ALBUMIN 3.2 g/dL (3.5-5.0); ALT/SGPT 18 U/L (9-52); AST/SGOT 17 U/L (14-36); BLOOD UREA NITROGEN 5 mg/dL (7-17); GFR NON-AFRICAN AMERICAN > 60
[2018-02-01] MEDS: (Novolin R) Insulin Human Regular 100 units/ml vial SC SCH ×4 (08:04→21:09)
[2018-02-01] MEDS ORDERED: Iodixanol 320 MG/ML 100 ML BOTTLE IV ONE (08:24)
[2018-02-01] MEDS ORDERED: Potassium Chloride 20 mEq ER Tab PO STA (09:09)
--- NOTE | 2018-02-01 09:23 | CP.PCM.PN ---
Subjective - Date & Time of Evaluation Date of Evaluation: 02/01/18 Time of Evaluation: 09:19 - Subjective Subjective: Surgery Pt seen and examined. No acute events. REsign in bed. Denies fever, nasuea. Pain controlled. Had CTA done. Objective - Vital Signs/Intake and Output Vital Signs (last 24 hours): Temp Pulse Resp BP Pulse Ox 98.7 F 56 L 20 159/67 H 96 02/01/18 08:00 02/01/18 08:00 02/01/18 08:00 02/01/18 08:00 02/01/18 08:00 Intake and Output: 02/01/18 02/01/18 06:59 18:59 Intake Total 540 Balance 540 - Medications Medications: Current Medications Amlodipine Besylate (Norvasc) 5 mg PO DAILY [facility] Last Admin: 01/31/18 10:05 Dose: 5 mg Baclofen (Lioresal) 10 mg PO BID [facility] Last Admin: 01/31/18 18:13 Dose: 10 mg Dextrose (Dextrose 50% Inj) 0 ml IV STAT PRN; Protocol PRN Reason: Hypoglycemia Protocol Dextrose (Glutose 15) 0 gm PO ONCE PRN; Protocol PRN Reason: Hypoglycemia Protocol Docusate Sodium (Colace) 100 mg PO DAILY [facility] Last Admin: 01/31/18 10:04 Dose: 100 mg Escitalopram Oxalate (Lexapro) 10 mg PO DAILY [facility] Last Admin: 01/31/18 10:04 Dose: 10 mg Glucagon (Glucagen Diagnostic Kit) 0 mg IM STAT PRN; Protocol PRN Reason: Hypoglycemia Protocol Dextrose (Dextrose 5% In Water 1000 Ml) 1,000 mls @ 0 mls/hr IV .Q0M PRN; Protocol; Per Protocol PRN Reason: Hypoglycemia Protocol Vancomycin HCl 1 gm/ Sodium (Chloride) 200 mls @ 166.7 mls/hr IVPB Q24H [facility] PRN Reason: Protocol Piperacillin Sod/Tazobactam Sod (Zosyn 3.375 Gm Iv Premix) 3.375 gm in 50 mls @ 100 mls/hr IVPB Q8 [facility] PRN Reason: Protocol Last Admin: 02/01/18 05:35 Dose: 100 mls/hr Insulin Human Regular (Novolin R) 0 unit SC ACHS [facility] PRN Reason: Protocol Last Admin: 02/01/18 08:04 Dose: Not Given Levetiracetam (Keppra) 500 mg PO BID [facility] Last Admin: 01/31/18 18:13 Dose: 500 mg Levothyroxine Sodium (Synthroid) 88 mcg PO DAILY@0630 [facility] Last Admin: 02/01/18 05:35 Dose: 88 mcg Magnesium Oxide (Mag-Ox) 400 mg PO DAILY [facility] Last Admin: 01/31/18 10:04 Dose: 400 mg Oxycodone/Acetaminophen (Percocet 5/325 Mg Tab) 1 tab PO BID PRN PRN Reason: Pain, moderate (4-7) Stop: 02/02/18 23:10 Pantoprazole Sodium (Protonix Ec Tab) 40 mg PO DAILY [facility] Last Admin: 01/31/18 10:15 Dose: 40 mg Pneumococcal Polyvalent Vaccine (Pneumovax 23 Vaccine) 0.5 ml IM .ONCE ONE Stop: 02/01/18 10:01 Rivaroxaban (Xarelto) 20 mg PO QPM [facility] Last Admin: 01/31/18 18:13 Dose: 20 mg Rosuvastatin Calcium (Crestor) 10 mg PO HS [facility] Last Admin: 01/31/18 21:50 Dose: 10 mg Saccharomyces Boulardii (Florastor) 250 mg PO Q12 [facility] Last Admin: 01/31/18 21:50 Dose: 250 mg - Labs Labs: 02/01/18 07:09 02/01/18 07:11 PT 15.4 SECONDS (9.7-12.2) H 01/31/18 16:00 INR 1.4 01/31/18 16:00 - Constitutional Appears: No Acute Distress - Head Exam Head Exam: ATRAUMATIC, NORMAL INSPECTION, NORMOCEPHALIC - Eye Exam Eye Exam: EOMI, Normal appearance, PERRL Pupil Exam: NORMAL ACCOMODATION, PERRL - ENT Exam ENT Exam: Mucous Membranes Moist, Normal Exam - Neck Exam Neck Exam: Full ROM, Normal Inspection. absent: Lymphadenopathy - Respiratory Exam Respiratory Exam: Clear to Ausculation Bilateral, NORMAL BREATHING PATTERN - Cardiovascular Exam Cardiovascular Exam: REGULAR RHYTHM, +S1, +S2. absent: Murmur - GI/Abdominal Exam GI & Abdominal Exam: Soft, Normal Bowel Sounds. absent: Tenderness - Exam Exam: Circumcision, NORMAL INSPECTION External exam: NORMAL EXTERNAL EXAM Speculum exam: NORMAL SPECULUM EXAM Bimanual exam: NORMAL BIMANUAL EXAM - Extremities Exam Extremities Exam: absent: Full ROM, Normal Inspection Additional comments: R foot dressing has sanguinous stains. b/l off loading boots in place. - Neurological Exam Neurological Exam: Alert, Awake, CN II-XII Intact, Oriented x3. absent: Normal Gait - Psychiatric Exam Psychiatric exam: Normal Affect, Normal Mood - Skin Skin Exam: absent: Dry, Intact Assessment and Plan - Assessment and Plan (Free Text) Assessment: b/l PVD w R foot gangrene h/o R foot osteomyelitis patirent has severe pvd based on previous cta about 3 months ago angioplasty was done on R SFA and Poplitial last month repeat imaging CTA:heavy b/l iliac/SFA/tib calcification she is in danger of limb loss -possible R BKA -On Xeralto Sean Marino
[2018-02-01] MEDS: Magnesium Oxide 400 mg Tab UD PO SCH (09:40)
[2018-02-01] MEDS: Saccharomyces Boulardi 250 mg Cap PO SCH ×2 (09:41→21:08)
[2018-02-01] MEDS: Pantoprazole 40 mg EC Tab PO SCH (09:41)
[2018-02-01] MEDS ORDERED: Pneumococcal 23-Valent Vaccine IM ONE (10:00)
[2018-02-01] MEDS: Vancomycin 1 GM in Sodium Chloride 0.9% 200 ML IVPB SCH (11:00)
--- NOTE | 2018-02-01 18:24 | CP.PCM.PN ---
Subjective - Date & Time of Evaluation Date of Evaluation: 02/01/18 Time of Evaluation: 10:55 - Subjective Subjective: Podiatry Consult note for Dr. Garcias: 82 yo female seen and evaluated for gangrenous changes to hallux amputation site, fourth digit amputation site and fifth digit of right foot. Patient states that she is in mild pain today to her right foot. Denies any other pedal complaints. Denies N/V/F/SOB/CP. Objective - Vital Signs/Intake and Output Vital Signs (last 24 hours): Temp Pulse Resp BP Pulse Ox 98.2 F 65 20 130/62 99 02/01/18 15:32 02/01/18 15:32 02/01/18 15:32 02/01/18 15:32 02/01/18 15:32 Intake and Output: 02/01/18 02/01/18 06:59 18:59 Intake Total 540 550 Balance 540 550 - Medications Medications: Current Medications Amlodipine Besylate (Norvasc) 5 mg PO DAILY [facility] Last Admin: 02/01/18 09:40 Dose: 5 mg Baclofen (Lioresal) 10 mg PO BID [facility] Last Admin: 02/01/18 17:24 Dose: 10 mg Dextrose (Dextrose 50% Inj) 0 ml IV STAT PRN; Protocol PRN Reason: Hypoglycemia Protocol Dextrose (Glutose 15) 0 gm PO ONCE PRN; Protocol PRN Reason: Hypoglycemia Protocol Docusate Sodium (Colace) 100 mg PO DAILY [facility] Last Admin: 02/01/18 09:40 Dose: 100 mg Escitalopram Oxalate (Lexapro) 10 mg PO DAILY [facility] Last Admin: 02/01/18 09:41 Dose: 10 mg Glucagon (Glucagen Diagnostic Kit) 0 mg IM STAT PRN; Protocol PRN Reason: Hypoglycemia Protocol Dextrose (Dextrose 5% In Water 1000 Ml) 1,000 mls @ 0 mls/hr IV .Q0M PRN; Protocol; Per Protocol PRN Reason: Hypoglycemia Protocol Vancomycin HCl 1 gm/ Sodium (Chloride) 200 mls @ 166.7 mls/hr IVPB Q24H [facility] PRN Reason: Protocol Last Admin: 02/01/18 11:00 Dose: 166.7 mls/hr Piperacillin Sod/Tazobactam Sod (Zosyn 3.375 Gm Iv Premix) 3.375 gm in 50 mls @ 100 mls/hr IVPB Q8 [facility] PRN Reason: Protocol Last Admin: 02/01/18 14:18 Dose: 100 mls/hr Insulin Human Regular (Novolin R) 0 unit SC ACHS [facility] PRN Reason: Protocol Last Admin: 02/01/18 11:32 Dose: Not Given Levetiracetam (Keppra) 500 mg PO BID [facility] Last Admin: 02/01/18 17:24 Dose: 500 mg Levothyroxine Sodium (Synthroid) 88 mcg PO DAILY@0630 [facility] Last Admin: 02/01/18 05:35 Dose: 88 mcg Magnesium Oxide (Mag-Ox) 400 mg PO DAILY [facility] Last Admin: 02/01/18 09:40 Dose: 400 mg Oxycodone/Acetaminophen (Percocet 5/325 Mg Tab) 1 tab PO BID PRN PRN Reason: Pain, moderate (4-7) Stop: 02/02/18 23:10 Pantoprazole Sodium (Protonix Ec Tab) 40 mg PO DAILY [facility] Last Admin: 02/01/18 09:41 Dose: 40 mg Rivaroxaban (Xarelto) 20 mg PO QPM [facility] Last Admin: 02/01/18 17:24 Dose: 20 mg Rosuvastatin Calcium (Crestor) 10 mg PO HS [facility] Last Admin: 01/31/18 21:50 Dose: 10 mg Saccharomyces Boulardii (Florastor) 250 mg PO Q12 [facility] Last Admin: 02/01/18 09:41 Dose: 250 mg - Labs Labs: 02/01/18 07:09 02/01/18 07:11 PT 15.4 SECONDS (9.7-12.2) H 01/31/18 16:00 INR 1.4 01/31/18 16:00 - Constitutional Appears: Well, Non-toxic, No Acute Distress - Head Exam Head Exam: ATRAUMATIC, NORMOCEPHALIC - Extremities Exam Additional comments: Vasc: DP/PT pulses 1/4 bilaterally, CFT > 3 seconds to all remaining digits, TG warm to cool, no edema noted to bilateral lower extremities Ortho: Partial right hallux and fourth digit amputation noted, mild tenderness to palpation of areas surrounding gangrenous changes Neuro: Gross and protective sensation intact bilaterally Derm: Superficial gangrenous changes noted to right hallux and fourth digit amputation site as well as dorsolateral right fifth digit. No erythema, no malodor, no drainage, no purulence, no fluctance, no clinical signs of infection noted bilaterally - Neurological Exam Neurological Exam: Alert, Awake, Oriented x3 - Psychiatric Exam Psychiatric exam: Normal Affect, Normal Mood Assessment and Plan - Assessment and Plan (Free Text) Assessment: 82yo female, seen and evaluated, for gangrenous changes to right partial hallux amputation site, fourth digit amputation site and fifth digit Plan: Patient seen and evaluated Plan discussed with Dr. Garcias Vitals, labs, chart reviewed; Afebrile, absent leukocytosis Right lower extremity dressed with betadine and DSD Vascular reccs appreciated; likely angioplasty next week per Dr. Joe Loco foot xray; pending Arterial duplex ordered No plan for surgical intervention at this time Podiatry will continue to follow while patient in house
[2018-02-01] MEDS ORDERED: oxyCODONE 5 mg Immediate Release Tab PO PRN (18:48)
[2018-02-02] MEDS: Piperacill/Tazo 3.375gm in Dex 3.375 GM/50 ML BAG IVPB SCH ×3 (05:05→21:27)
[2018-02-02] MEDS: Levothyroxine 88 MCG TAB PO SCH (05:44)
--- NOTE | 2018-02-02 07:34 | CP.PCM.PN ---
<JosueWhit TrinoCarol - Last Filed: 02/02/18 10:33> Subjective - Date & Time of Evaluation Date of Evaluation: 02/02/18 Time of Evaluation: 08:00 - Subjective Subjective: Medicine Progress Note: Patient was seen and examined at bedside in the AM. No acute events overnight. Patient states she continues to have pain in her left foot. She denies chest pain, shortness of breath, fever, chills, nausea, vomiting, diarrhea or constipation. Objective - Vital Signs/Intake and Output Vital Signs (last 24 hours): Temp Pulse Resp BP Pulse Ox 98 F 62 20 162/65 H 96 02/01/18 23:56 02/01/18 23:56 02/01/18 23:56 02/01/18 23:56 02/01/18 23:56 Intake and Output: 02/02/18 02/02/18 06:59 18:59 Intake Total 470 Output Total 300 Balance 170 - Medications Medications: Current Medications Amlodipine Besylate (Norvasc) 5 mg PO DAILY [facility] Last Admin: 02/01/18 09:40 Dose: 5 mg Baclofen (Lioresal) 10 mg PO BID [facility] Last Admin: 02/01/18 17:24 Dose: 10 mg Dextrose (Dextrose 50% Inj) 0 ml IV STAT PRN; Protocol PRN Reason: Hypoglycemia Protocol Dextrose (Glutose 15) 0 gm PO ONCE PRN; Protocol PRN Reason: Hypoglycemia Protocol Docusate Sodium (Colace) 100 mg PO DAILY [facility] Last Admin: 02/01/18 09:40 Dose: 100 mg Escitalopram Oxalate (Lexapro) 10 mg PO DAILY [facility] Last Admin: 02/01/18 09:41 Dose: 10 mg Glucagon (Glucagen Diagnostic Kit) 0 mg IM STAT PRN; Protocol PRN Reason: Hypoglycemia Protocol Dextrose (Dextrose 5% In Water 1000 Ml) 1,000 mls @ 0 mls/hr IV .Q0M PRN; Protocol; Per Protocol PRN Reason: Hypoglycemia Protocol Vancomycin HCl 1 gm/ Sodium (Chloride) 200 mls @ 166.7 mls/hr IVPB Q24H [facility] PRN Reason: Protocol Last Admin: 02/01/18 11:00 Dose: 166.7 mls/hr Piperacillin Sod/Tazobactam Sod (Zosyn 3.375 Gm Iv Premix) 3.375 gm in 50 mls @ 100 mls/hr IVPB Q8 [facility] PRN Reason: Protocol Last Admin: 02/02/18 05:05 Dose: 100 mls/hr Insulin Human Regular (Novolin R) 0 unit SC ACHS [facility] PRN Reason: Protocol Last Admin: 02/01/18 21:09 Dose: Not Given Levetiracetam (Keppra) 500 mg PO BID [facility] Last Admin: 02/01/18 17:24 Dose: 500 mg Levothyroxine Sodium (Synthroid) 88 mcg PO DAILY@0630 [facility] Last Admin: 02/02/18 05:44 Dose: 88 mcg Magnesium Oxide (Mag-Ox) 400 mg PO DAILY [facility] Last Admin: 02/01/18 09:40 Dose: 400 mg Oxycodone HCl (Oxycodone Immediate Release Tab) 5 mg PO Q6 PRN PRN Reason: Pain, moderate (4-7) Pantoprazole Sodium (Protonix Ec Tab) 40 mg PO DAILY [facility] Last Admin: 02/01/18 09:41 Dose: 40 mg Rivaroxaban (Xarelto) 20 mg PO QPM [facility] Last Admin: 02/01/18 17:24 Dose: 20 mg Rosuvastatin Calcium (Crestor) 10 mg PO HS [facility] Last Admin: 02/01/18 21:08 Dose: 10 mg Saccharomyces Boulardii (Florastor) 250 mg PO Q12 [facility] Last Admin: 02/01/18 21:08 Dose: 250 mg - Labs Labs: 02/01/18 07:09 02/01/18 07:11 PT 15.4 SECONDS (9.7-12.2) H 01/31/18 16:00 INR 1.4 01/31/18 16:00 - Constitutional Appears: No Acute Distress - Head Exam Head Exam: NORMAL INSPECTION - Eye Exam Eye Exam: EOMI, Normal appearance - ENT Exam ENT Exam: Mucous Membranes Moist - Respiratory Exam Respiratory Exam: Clear to Ausculation Bilateral, NORMAL BREATHING PATTERN - Cardiovascular Exam Cardiovascular Exam: REGULAR RHYTHM, +S1, +S2 - GI/Abdominal Exam GI & Abdominal Exam: Soft, Normal Bowel Sounds. absent: Tenderness - Extremities Exam Additional comments: Right foot wrapped, tender to palpation, dressings c/d/i - Neurological Exam Neurological Exam: Alert, Awake, Oriented x3 - Psychiatric Exam Psychiatric exam: Anxious - Skin Skin Exam: Normal Color Assessment and Plan - Assessment and Plan (Free Text) Assessment: Necrotic 5th Toe of Right Foot Secondary to PVD - Podiatry, Dr. Hooker, help appreciated - Vascular Surgery, Dr. Marino, consulted - per surgical team - likely angioplasty next week - Imaging: * Right Foot Xray: Interval 1st and 4th digit trans phalangeal amputations. Acute infection cannot be excluded. * Abdominal Angiography (01/31/18): heavily calcified iliac, femoral, popliteal and tibial arteries bilaterally. Arterial supply below both knees from a single miniscule collateral vessel. - Medications: * Vanco 1gm q24h - started 02/01/18 * Zosyn 3.375gm q8h - started 01/31/18 - Picc line ordered due to poor access and for IV abx Previous 11/2017 Admission Workup: - Xray Right foot (11/01/17): IMPRESSION: No radiographic evidence of bone destruction or osteomyelitis. - HO/PVR - 75% Stenosis of SFA and 30-49% stenosis of popliteal artery - CTA - Heavily calcified iliac, femoral, popliteal, and tibial arteries bilaterally. Arterial supply below both knees from a single miniscule collateral vessel - Abdominal angiogram- heavily calcified iliac, femoral, popliteal, and tibial arteries - s/p angiogram with angioplasty and stent placement- R SFA arthroplasty with Dr. 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 - ASA 81 mg po daily - HELD in anticipation of surgical intervention - Xarelto 20 mg po daily - Will NEED TO BE held for 72 hours prior to surgical procedure History of Hypertension - Norvasc 5 daily History of Hyperlipidemia - Crestor 10mg PO HS History of Hypothyroidism - Levothyroxine 88 mcg - TSH 0.50 - free T4 1.22 History of Diabetes Mellitus - Accuchecks - A1C: 5.3 on last admission - Hypoglycemia Protocol - ISS History of Seizure disorder - Keppra 500mg PO BID History of Anxiety/Depression - Lexapro 10mg PO Daily Prophylactic Measures - GI PPX: Protonix; Florastor 250mg q12h - DVT PPX: SCDs, Xarelto (switch to heparin 72 hours before procedure) - PT/ OT Eval Disposition: Pending surgery recommendations, will hold anticoagulation as needed Case discussed with Dr. Libby Salas PGY-2 <Nohemy Souza - Last Filed: 02/02/18 21:22> Objective - Vital Signs/Intake and Output Vital Signs (last 24 hours): Temp Pulse Resp BP Pulse Ox 98.0 F 53 L 20 110/51 L 97 02/02/18 15:00 02/02/18 15:00 02/02/18 15:00 02/02/18 15:00 02/02/18 15:00 Intake and Output: 02/02/18 02/03/18 18:59 06:59 Intake Total 650 Balance 650 - Medications Medications: Current Medications Amlodipine Besylate (Norvasc) 5 mg PO DAILY [facility] Last Admin: 02/02/18 10:23 Dose: 5 mg Baclofen (Lioresal) 10 mg PO BID [facility] Last Admin: 02/02/18 17:45 Dose: 10 mg Dextrose (Dextrose 50% Inj) 0 ml IV STAT PRN; Protocol PRN Reason: Hypoglycemia Protocol Dextrose (Glutose 15) 0 gm PO ONCE PRN; Protocol PRN Reason: Hypoglycemia Protocol Docusate Sodium (Colace) 100 mg PO TID [facility] Last Admin: 02/02/18 17:44 Dose: 100 mg Escitalopram Oxalate (Lexapro) 10 mg PO DAILY [facility] Last Admin: 02/02/18 10:23 Dose: 10 mg Glucagon (Glucagen Diagnostic Kit) 0 mg IM STAT PRN; Protocol PRN Reason: Hypoglycemia Protocol Dextrose (Dextrose 5% In Water 1000 Ml) 1,000 mls @ 0 mls/hr IV .Q0M PRN; Protocol; Per Protocol PRN Reason: Hypoglycemia Protocol Vancomycin HCl 1 gm/ Sodium (Chloride) 200 mls @ 166.7 mls/hr IVPB Q24H [facility] PRN Reason: Protocol Last Admin: 02/02/18 10:55 Dose: 166.7 mls/hr Piperacillin Sod/Tazobactam Sod (Zosyn 3.375 Gm Iv Premix) 3.375 gm in 50 mls @ 100 mls/hr IVPB Q8 [facility] PRN Reason: Protocol Last Admin: 02/02/18 14:26 Dose: 100 mls/hr Insulin Human Regular (Novolin R) 0 unit SC ACHS [facility] PRN Reason: Protocol Last Admin: 02/02/18 16:30 Dose: Not Given Levetiracetam (Keppra) 500 mg PO BID [facility] Last Admin: 02/02/18 17:44 Dose: 500 mg Levothyroxine Sodium (Synthroid) 88 mcg PO DAILY@0630 [facility] Last Admin: 02/02/18 05:44 Dose: 88 mcg Magnesium Oxide (Mag-Ox) 400 mg PO DAILY [facility] Last Admin: 02/02/18 10:24 Dose: 400 mg Oxycodone HCl (Oxycodone Immediate Release Tab) 5 mg PO TID [facility] Last Admin: 02/02/18 17:46 Dose: 5 mg Pantoprazole Sodium (Protonix Ec Tab) 40 mg PO DAILY [facility] Last Admin: 02/02/18 10:24 Dose: 40 mg Rivaroxaban (Xarelto) 20 mg PO QPM [facility] Last Admin: 02/02/18 17:47 Dose: 20 mg Rosuvastatin Calcium (Crestor) 10 mg PO HS [facility] Last Admin: 02/01/18 21:08 Dose: 10 mg Saccharomyces Boulardii (Florastor) 250 mg PO Q12 [facility] Last Admin: 02/02/18 10:23 Dose: 250 mg - Labs Labs: 02/02/18 08:10 02/02/18 08:10 PT 15.4 SECONDS (9.7-12.2) H 01/31/18 16:00 INR 1.4 01/31/18 16:00 Attending/Attestation - Attestation I have personally seen and examined this patient.: Yes I have fully participated in the care of the patient.: Yes I have reviewed all pertinent clinical information, including history, physical exam and plan: Yes Notes (Text): Seen and examined with the resident.She is complaining of foot pain 1.Necrotic 5th Toe of Right Foot Secondary to PVDon Vanco, Zosyshanna, Florastor s/p angiogram with angioplasty and stent placement- R SFA arthroplasty with Dr. 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 s/p angiography. angioplastynext week continue antibiotics vanco and zosyn
--- NOTE | 2018-02-02 08:00 | CP.PCM.PN ---
Subjective - Date & Time of Evaluation Date of Evaluation: 02/02/18 Time of Evaluation: 07:57 - Subjective Subjective: Surgery PT seen and examined. No acute events. Denies fever. c/o R resting leg/foot pain. Objective - Vital Signs/Intake and Output Vital Signs (last 24 hours): Temp Pulse Resp BP Pulse Ox 98 F 62 20 162/65 H 96 02/01/18 23:56 02/01/18 23:56 02/01/18 23:56 02/01/18 23:56 02/01/18 23:56 Intake and Output: 02/02/18 02/02/18 06:59 18:59 Intake Total 470 Output Total 300 Balance 170 - Medications Medications: Current Medications Amlodipine Besylate (Norvasc) 5 mg PO DAILY [facility] Last Admin: 02/01/18 09:40 Dose: 5 mg Baclofen (Lioresal) 10 mg PO BID [facility] Last Admin: 02/01/18 17:24 Dose: 10 mg Dextrose (Dextrose 50% Inj) 0 ml IV STAT PRN; Protocol PRN Reason: Hypoglycemia Protocol Dextrose (Glutose 15) 0 gm PO ONCE PRN; Protocol PRN Reason: Hypoglycemia Protocol Docusate Sodium (Colace) 100 mg PO DAILY [facility] Last Admin: 02/01/18 09:40 Dose: 100 mg Escitalopram Oxalate (Lexapro) 10 mg PO DAILY [facility] Last Admin: 02/01/18 09:41 Dose: 10 mg Glucagon (Glucagen Diagnostic Kit) 0 mg IM STAT PRN; Protocol PRN Reason: Hypoglycemia Protocol Dextrose (Dextrose 5% In Water 1000 Ml) 1,000 mls @ 0 mls/hr IV .Q0M PRN; Protocol; Per Protocol PRN Reason: Hypoglycemia Protocol Vancomycin HCl 1 gm/ Sodium (Chloride) 200 mls @ 166.7 mls/hr IVPB Q24H [facility] PRN Reason: Protocol Last Admin: 02/01/18 11:00 Dose: 166.7 mls/hr Piperacillin Sod/Tazobactam Sod (Zosyn 3.375 Gm Iv Premix) 3.375 gm in 50 mls @ 100 mls/hr IVPB Q8 [facility] PRN Reason: Protocol Last Admin: 02/02/18 05:05 Dose: 100 mls/hr Insulin Human Regular (Novolin R) 0 unit SC ACHS [facility] PRN Reason: Protocol Last Admin: 02/01/18 21:09 Dose: Not Given Levetiracetam (Keppra) 500 mg PO BID [facility] Last Admin: 02/01/18 17:24 Dose: 500 mg Levothyroxine Sodium (Synthroid) 88 mcg PO DAILY@0630 [facility] Last Admin: 02/02/18 05:44 Dose: 88 mcg Magnesium Oxide (Mag-Ox) 400 mg PO DAILY [facility] Last Admin: 02/01/18 09:40 Dose: 400 mg Oxycodone HCl (Oxycodone Immediate Release Tab) 5 mg PO Q6 PRN PRN Reason: Pain, moderate (4-7) Pantoprazole Sodium (Protonix Ec Tab) 40 mg PO DAILY [facility] Last Admin: 02/01/18 09:41 Dose: 40 mg Rivaroxaban (Xarelto) 20 mg PO QPM [facility] Last Admin: 02/01/18 17:24 Dose: 20 mg Rosuvastatin Calcium (Crestor) 10 mg PO HS [facility] Last Admin: 02/01/18 21:08 Dose: 10 mg Saccharomyces Boulardii (Florastor) 250 mg PO Q12 [facility] Last Admin: 02/01/18 21:08 Dose: 250 mg - Labs Labs: 02/01/18 07:09 02/01/18 07:11 PT 15.4 SECONDS (9.7-12.2) H 01/31/18 16:00 INR 1.4 01/31/18 16:00 - Constitutional Appears: No Acute Distress - Head Exam Head Exam: ATRAUMATIC, NORMAL INSPECTION, NORMOCEPHALIC - Eye Exam Eye Exam: EOMI, Normal appearance, PERRL Pupil Exam: NORMAL ACCOMODATION, PERRL - ENT Exam ENT Exam: Mucous Membranes Moist, Normal Exam - Neck Exam Neck Exam: Full ROM, Normal Inspection. absent: Lymphadenopathy - Respiratory Exam Respiratory Exam: NORMAL BREATHING PATTERN - Cardiovascular Exam Cardiovascular Exam: REGULAR RHYTHM, +S1, +S2. absent: Murmur - GI/Abdominal Exam GI & Abdominal Exam: Soft, Normal Bowel Sounds. absent: Distended, Tenderness - Extremities Exam Extremities Exam: absent: Full ROM, Normal Inspection Additional comments: R leg off loading boots. dressing in place on R foot. palpable SFA, non palpable popliteal. 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
[2018-02-02] MEDS: (Novolin R) Insulin Human Regular 100 units/ml vial SC SCH ×4 (08:02→21:26)
[2018-02-02 08:24] LABS: BASO % 0.6 % (0.0-2.0); EOS # 0.2 K/uL (0.0-0.7); EOS % 2.3 % (0.0-4.0); HEMOGLOBIN 11.2 g/dL (11.0-16.0); LYMPH # 1.6 K/uL (1.0-4.3); LYMPH % 23.7 % (20.0-40.0); MEAN CELL VOLUME 90.1 fL (81.0-99.0); MEAN CORPUSCULAR HEMOGLOBIN 30.1 pg (27.0-31.0); MEAN CORPUSCULAR HGB CONC 33.4 g/dL (33.0-37.0); MEAN PLATELET VOLUME 8.6 fL (7.2-11.7); MONO # 0.4 K/uL (0.0-0.8); MONO % 5.8 % (0.0-10.0); NEUT # 4.5 K/uL (1.8-7.0); NEUT % 67.6 % (50.0-75.0); NRBC % 0.1 % (0.0-2.0); RBC 3.72 Mil/uL (3.80-5.20); RED CELL DISTRIBUTION WIDTH 14.8 % (11.5-14.5); WHITE BLOOD COUNT 6.7 K/uL (4.8-10.8)
[2018-02-02 08:39] LABS: ALB/GLOB RATIO 1.1 (1.0-2.1); ALBUMIN 3.1 g/dL (3.5-5.0); ALT/SGPT 20 U/L (9-52); AST/SGOT 19 U/L (14-36); BLOOD UREA NITROGEN 8 mg/dL (7-17); CALCIUM 8.8 mg/dl (8.6-10.4); GFR NON-AFRICAN AMERICAN > 60
[2018-02-02] MEDS: Saccharomyces Boulardi 250 mg Cap PO SCH ×2 (10:23→21:26)
[2018-02-02] MEDS: Magnesium Oxide 400 mg Tab UD PO SCH (10:24)
[2018-02-02] MEDS: Pantoprazole 40 mg EC Tab PO SCH (10:24)
[2018-02-02] MEDS: oxyCODONE 5 mg Immediate Release Tab PO SCH ×3 (10:53→17:46)
[2018-02-02] MEDS: Vancomycin 1 GM in Sodium Chloride 0.9% 200 ML IVPB SCH (10:55)
--- NOTE | 2018-02-02 15:20 | VASCLAB ---
Date of service: 02/01/2018 PROCEDURE: HISTORY: Right gangrene, PVD COMPARISON: Last exam 11/01/2017, abnormal. TECHNIQUE: Grayscale and duplex Doppler evaluation of the right common femoral, femoral, profunda femoral, popliteal, posterior tibial, anterior tibial and dorsalis pedis arteries was performed. Report prepared by CAREY Mcallister FINDINGS: RIGHT LOWER EXTREMITY: * Common Femoral Artery: Peak Systolic Velocity - 219: Doppler Waveform: Stenotic : Plaque description - Calcific * Profunda Femoral Artery: Peak Systolic Velocity - 140: Doppler Waveform: Biphasic.: Plaque description - Calcific * Femoral Artery o Proximal Segment: Peak Systolic Velocity - 156: Doppler Waveform: Monophasic: Plaque description - Calcific o Middle Segment: Peak Systolic Velocity - 179: Doppler Waveform: Monophasic: Plaque description - o Distal Segment: Peak Systolic Velocity - 72: Doppler Waveform: Monophasic: Plaque description - * Popliteal Artery o Proximal Segment: Peak Systolic Velocity - 121: Doppler Waveform: Monophasic: Plaque description - Calcific o Middle Segment: Peak Systolic Velocity - 63: Doppler Waveform: Monophasic: Plaque description - o Distal Segment: Peak Systolic Velocity - 230: Doppler Waveform: Monophasic: Plaque description - * Posterior Tibial Artery: Peak Systolic Velocity - 72: Doppler Waveform: Monophasic: Plaque description - Calcific * Anterior Tibial Artery: Peak Systolic Velocity - 67: Doppler Waveform: Monophasic: Plaque description - Calcific * Peroneal Artery: Peak Systolic Velocity - 42: Doppler Waveform: Monophasic: Plaque description - Calcific OTHER FINDINGS: None. IMPRESSION: RIGHT LOWER EXTREMITY. 1. 50-75% stenosis at the right common femoral and popliteal arteries. 2. 30-49% stenosis at the right mid superficial femoral artery. 3. Severely dimished arterial flow noted of the tibial arteries.
--- NOTE | 2018-02-02 18:32 | CP.PCM.PN ---
Subjective - Date & Time of Evaluation Date of Evaluation: 02/02/18 Time of Evaluation: 18:30 - Subjective Subjective: Podiatry Consult note for Dr. Garcias: 82 yo female seen and evaluated for gangrenous changes to hallux amputation site, fourth digit amputation site and fifth digit of right foot. Patient states that she is in a lot of pain today to her right foot, especially her big toe. She notes that it hurts when she has her dressings changed. Denies any other pedal complaints. Denies N/V/F/SOB/CP. Objective - Vital Signs/Intake and Output Vital Signs (last 24 hours): Temp Pulse Resp BP Pulse Ox 98.0 F 53 L 20 110/51 L 97 02/02/18 15:00 02/02/18 15:00 02/02/18 15:00 02/02/18 15:00 02/02/18 15:00 Intake and Output: 02/02/18 02/02/18 06:59 18:59 Intake Total 470 650 Output Total 300 Balance 170 650 - Medications Medications: Current Medications Amlodipine Besylate (Norvasc) 5 mg PO DAILY [facility] Last Admin: 02/02/18 10:23 Dose: 5 mg Baclofen (Lioresal) 10 mg PO BID [facility] Last Admin: 02/02/18 17:45 Dose: 10 mg Dextrose (Dextrose 50% Inj) 0 ml IV STAT PRN; Protocol PRN Reason: Hypoglycemia Protocol Dextrose (Glutose 15) 0 gm PO ONCE PRN; Protocol PRN Reason: Hypoglycemia Protocol Docusate Sodium (Colace) 100 mg PO TID [facility] Last Admin: 02/02/18 17:44 Dose: 100 mg Escitalopram Oxalate (Lexapro) 10 mg PO DAILY [facility] Last Admin: 02/02/18 10:23 Dose: 10 mg Glucagon (Glucagen Diagnostic Kit) 0 mg IM STAT PRN; Protocol PRN Reason: Hypoglycemia Protocol Dextrose (Dextrose 5% In Water 1000 Ml) 1,000 mls @ 0 mls/hr IV .Q0M PRN; Protocol; Per Protocol PRN Reason: Hypoglycemia Protocol Vancomycin HCl 1 gm/ Sodium (Chloride) 200 mls @ 166.7 mls/hr IVPB Q24H [facility] PRN Reason: Protocol Last Admin: 02/02/18 10:55 Dose: 166.7 mls/hr Piperacillin Sod/Tazobactam Sod (Zosyn 3.375 Gm Iv Premix) 3.375 gm in 50 mls @ 100 mls/hr IVPB Q8 [facility] PRN Reason: Protocol Last Admin: 02/02/18 14:26 Dose: 100 mls/hr Insulin Human Regular (Novolin R) 0 unit SC ACHS [facility] PRN Reason: Protocol Last Admin: 02/02/18 16:30 Dose: Not Given Levetiracetam (Keppra) 500 mg PO BID [facility] Last Admin: 02/02/18 17:44 Dose: 500 mg Levothyroxine Sodium (Synthroid) 88 mcg PO DAILY@0630 [facility] Last Admin: 02/02/18 05:44 Dose: 88 mcg Magnesium Oxide (Mag-Ox) 400 mg PO DAILY [facility] Last Admin: 02/02/18 10:24 Dose: 400 mg Oxycodone HCl (Oxycodone Immediate Release Tab) 5 mg PO TID [facility] Last Admin: 02/02/18 17:46 Dose: 5 mg Pantoprazole Sodium (Protonix Ec Tab) 40 mg PO DAILY [facility] Last Admin: 02/02/18 10:24 Dose: 40 mg Rivaroxaban (Xarelto) 20 mg PO QPM [facility] Last Admin: 02/02/18 17:47 Dose: 20 mg Rosuvastatin Calcium (Crestor) 10 mg PO HS [facility] Last Admin: 02/01/18 21:08 Dose: 10 mg Saccharomyces Boulardii (Florastor) 250 mg PO Q12 [facility] Last Admin: 02/02/18 10:23 Dose: 250 mg - Labs Labs: 02/02/18 08:10 02/02/18 08:10 PT 15.4 SECONDS (9.7-12.2) H 01/31/18 16:00 INR 1.4 01/31/18 16:00 - Constitutional Appears: Non-toxic, No Acute Distress - Head Exam Head Exam: ATRAUMATIC, NORMOCEPHALIC - Extremities Exam Additional comments: Vasc: DP/PT pulses 1/4 bilaterally, CFT > 3 seconds to all remaining digits, TG warm to cool, no edema noted to bilateral lower extremities Ortho: Partial right hallux and fourth digit amputation noted, mild tenderness to palpation of areas surrounding gangrenous changes Neuro: Gross and protective sensation intact bilaterally Derm: Superficial gangrenous changes noted to right hallux and fourth digit amputation site as well as dorsolateral right fifth digit. No erythema, no malodor, no drainage, no purulence, no fluctance, no clinical signs of infection noted bilaterally - Neurological Exam Neurological Exam: Alert, Awake, Oriented x3 Assessment and Plan - Assessment and Plan (Free Text) Assessment: 82yo female, seen and evaluated, for gangrenous changes to right partial hallux amputation site, fourth digit amputation site and fifth digit Plan: Patient seen and evaluated; Plan discussed with Dr. Garcias Vitals, labs, chart reviewed; Afebrile, absent leukocytosis Right lower extremity dressed with betadine and DSD Vascular reccs appreciated; likely angioplasty next week R foot xray (01/30); 1st and 4th digit transphalangeal amputations with post surgical changes Arterial duplex (01/31); stenosis of right common femoral and popliteal arteries (50-75%), midsuperficial femoral artery (30-49%). Severely diminished arterial flow noted of the tibial arteries No plan for surgical intervention at this time from podiatric standpoint Podiatry will continue to follow while patient in house
--- NOTE | 2018-02-02 22:31 | CP.PCM.PN ---
Subjective - Date & Time of Evaluation Date of Evaluation: 02/02/18 - Subjective Subjective: dictated Objective - Vital Signs/Intake and Output Vital Signs (last 24 hours): Temp Pulse Resp BP Pulse Ox 98.0 F 53 L 20 110/51 L 97 02/02/18 15:00 02/02/18 15:00 02/02/18 15:00 02/02/18 15:00 02/02/18 15:00 Intake and Output: 02/02/18 02/03/18 18:59 06:59 Intake Total 650 Balance 650 - Medications Medications: Current Medications Amlodipine Besylate (Norvasc) 5 mg PO DAILY [facility] Last Admin: 02/02/18 10:23 Dose: 5 mg Baclofen (Lioresal) 10 mg PO BID [facility] Last Admin: 02/02/18 17:45 Dose: 10 mg Dextrose (Dextrose 50% Inj) 0 ml IV STAT PRN; Protocol PRN Reason: Hypoglycemia Protocol Dextrose (Glutose 15) 0 gm PO ONCE PRN; Protocol PRN Reason: Hypoglycemia Protocol Docusate Sodium (Colace) 100 mg PO TID [facility] Last Admin: 02/02/18 17:44 Dose: 100 mg Escitalopram Oxalate (Lexapro) 10 mg PO DAILY [facility] Last Admin: 02/02/18 10:23 Dose: 10 mg Glucagon (Glucagen Diagnostic Kit) 0 mg IM STAT PRN; Protocol PRN Reason: Hypoglycemia Protocol Dextrose (Dextrose 5% In Water 1000 Ml) 1,000 mls @ 0 mls/hr IV .Q0M PRN; Protocol; Per Protocol PRN Reason: Hypoglycemia Protocol Vancomycin HCl 1 gm/ Sodium (Chloride) 200 mls @ 166.7 mls/hr IVPB Q24H [facility] PRN Reason: Protocol Last Admin: 02/02/18 10:55 Dose: 166.7 mls/hr Piperacillin Sod/Tazobactam Sod (Zosyn 3.375 Gm Iv Premix) 3.375 gm in 50 mls @ 100 mls/hr IVPB Q8 [facility] PRN Reason: Protocol Last Admin: 02/02/18 21:27 Dose: 100 mls/hr Insulin Human Regular (Novolin R) 0 unit SC ACHS [facility] PRN Reason: Protocol Last Admin: 02/02/18 21:26 Dose: Not Given Levetiracetam (Keppra) 500 mg PO BID [facility] Last Admin: 02/02/18 17:44 Dose: 500 mg Levothyroxine Sodium (Synthroid) 88 mcg PO DAILY@0630 [facility] Last Admin: 02/02/18 05:44 Dose: 88 mcg Magnesium Oxide (Mag-Ox) 400 mg PO DAILY [facility] Last Admin: 02/02/18 10:24 Dose: 400 mg Oxycodone HCl (Oxycodone Immediate Release Tab) 5 mg PO TID [facility] Last Admin: 02/02/18 17:46 Dose: 5 mg Pantoprazole Sodium (Protonix Ec Tab) 40 mg PO DAILY [facility] Last Admin: 02/02/18 10:24 Dose: 40 mg Rivaroxaban (Xarelto) 20 mg PO QPM [facility] Last Admin: 02/02/18 17:47 Dose: 20 mg Rosuvastatin Calcium (Crestor) 10 mg PO HS [facility] Last Admin: 02/02/18 21:25 Dose: 10 mg Saccharomyces Boulardii (Florastor) 250 mg PO Q12 [facility] Last Admin: 02/02/18 21:26 Dose: 250 mg - Labs Labs: 02/02/18 08:10 02/02/18 08:10 PT 15.4 SECONDS (9.7-12.2) H 01/31/18 16:00 INR 1.4 01/31/18 16:00
[2018-02-03] MEDS: Piperacill/Tazo 3.375gm in Dex 3.375 GM/50 ML BAG IVPB SCH ×3 (05:15→21:16)
[2018-02-03] MEDS: Levothyroxine 88 MCG TAB PO SCH (05:29)
[2018-02-03 06:40] LABS: ALBUMIN 2.9 g/dL (3.5-5.0); ALT/SGPT 21 U/L (9-52); AST/SGOT 18 U/L (14-36); BLOOD UREA NITROGEN 11 mg/dL (7-17); CALCIUM 8.7 mg/dl (8.6-10.4); GFR NON-AFRICAN AMERICAN > 60
[2018-02-03 06:52] LABS: BASO % 0.7 % (0.0-2.0); EOS # 0.2 K/uL (0.0-0.7); EOS % 3.8 % (0.0-4.0); HEMOGLOBIN 10.6 g/dL (11.0-16.0); LYMPH # 1.5 K/uL (1.0-4.3); LYMPH % 25.4 % (20.0-40.0); MEAN CELL VOLUME 89.8 fL (81.0-99.0); MEAN CORPUSCULAR HEMOGLOBIN 30.4 pg (27.0-31.0); MEAN CORPUSCULAR HGB CONC 33.9 g/dL (33.0-37.0); MEAN PLATELET VOLUME 8.7 fL (7.2-11.7); MONO # 0.4 K/uL (0.0-0.8); MONO % 6.5 % (0.0-10.0); NEUT # 3.8 K/uL (1.8-7.0); NEUT % 63.6 % (50.0-75.0); RBC 3.49 Mil/uL (3.80-5.20); RED CELL DISTRIBUTION WIDTH 14.8 % (11.5-14.5)
[2018-02-03] MEDS: (Novolin R) Insulin Human Regular 100 units/ml vial SC SCH ×4 (07:49→21:15)
--- NOTE | 2018-02-03 08:42 | CP.PCM.PN ---
Subjective - Date & Time of Evaluation Date of Evaluation: 02/03/18 Time of Evaluation: 08:40 - Subjective Subjective: Surgery Pt seen and examined. Denies fever. c/o foot pain. Dressing intact. Objective - Vital Signs/Intake and Output Vital Signs (last 24 hours): Temp Pulse Resp BP Pulse Ox 97.7 F 60 20 146/66 95 02/03/18 07:00 02/03/18 07:00 02/03/18 07:00 02/03/18 07:00 02/03/18 07:00 Intake and Output: 02/03/18 02/03/18 06:59 18:59 Intake Total 690 Balance 690 - Medications Medications: Current Medications Amlodipine Besylate (Norvasc) 5 mg PO DAILY [facility] Last Admin: 02/02/18 10:23 Dose: 5 mg Baclofen (Lioresal) 10 mg PO BID [facility] Last Admin: 02/02/18 17:45 Dose: 10 mg Dextrose (Dextrose 50% Inj) 0 ml IV STAT PRN; Protocol PRN Reason: Hypoglycemia Protocol Dextrose (Glutose 15) 0 gm PO ONCE PRN; Protocol PRN Reason: Hypoglycemia Protocol Docusate Sodium (Colace) 100 mg PO TID [facility] Last Admin: 02/02/18 17:44 Dose: 100 mg Escitalopram Oxalate (Lexapro) 10 mg PO DAILY [facility] Last Admin: 02/02/18 10:23 Dose: 10 mg Glucagon (Glucagen Diagnostic Kit) 0 mg IM STAT PRN; Protocol PRN Reason: Hypoglycemia Protocol Dextrose (Dextrose 5% In Water 1000 Ml) 1,000 mls @ 0 mls/hr IV .Q0M PRN; Protocol; Per Protocol PRN Reason: Hypoglycemia Protocol Vancomycin HCl 1 gm/ Sodium (Chloride) 200 mls @ 166.7 mls/hr IVPB Q24H [facility] PRN Reason: Protocol Last Admin: 02/02/18 10:55 Dose: 166.7 mls/hr Piperacillin Sod/Tazobactam Sod (Zosyn 3.375 Gm Iv Premix) 3.375 gm in 50 mls @ 100 mls/hr IVPB Q8 [facility] PRN Reason: Protocol Last Admin: 02/03/18 05:15 Dose: 100 mls/hr Insulin Human Regular (Novolin R) 0 unit SC ACHS [facility] PRN Reason: Protocol Last Admin: 02/03/18 07:49 Dose: Not Given Levetiracetam (Keppra) 500 mg PO BID [facility] Last Admin: 02/02/18 17:44 Dose: 500 mg Levothyroxine Sodium (Synthroid) 88 mcg PO DAILY@0630 [facility] Last Admin: 02/03/18 05:29 Dose: 88 mcg Magnesium Oxide (Mag-Ox) 400 mg PO DAILY [facility] Last Admin: 02/02/18 10:24 Dose: 400 mg Oxycodone HCl (Oxycodone Immediate Release Tab) 5 mg PO TID [facility] Last Admin: 02/02/18 17:46 Dose: 5 mg Pantoprazole Sodium (Protonix Ec Tab) 40 mg PO DAILY [facility] Last Admin: 02/02/18 10:24 Dose: 40 mg Potassium Chloride (K-Dur 20 Meq Er Tab) 20 meq PO STAT STA Stop: 02/03/18 08:36 Rivaroxaban (Xarelto) 20 mg PO QPM [facility] Last Admin: 02/02/18 17:47 Dose: 20 mg Rosuvastatin Calcium (Crestor) 10 mg PO HS [facility] Last Admin: 02/02/18 21:25 Dose: 10 mg Saccharomyces Boulardii (Florastor) 250 mg PO Q12 [facility] Last Admin: 02/02/18 21:26 Dose: 250 mg - Labs Labs: 02/03/18 06:17 02/03/18 06:17 PT 15.4 SECONDS (9.7-12.2) H 01/31/18 16:00 INR 1.4 01/31/18 16:00 - Constitutional Appears: No Acute Distress - Head Exam Head Exam: ATRAUMATIC, NORMAL INSPECTION, NORMOCEPHALIC - Eye Exam Eye Exam: EOMI, Normal appearance, PERRL Pupil Exam: NORMAL ACCOMODATION, PERRL - ENT Exam ENT Exam: Mucous Membranes Moist, Normal Exam - Neck Exam Neck Exam: Full ROM, Normal Inspection. absent: Lymphadenopathy - Respiratory Exam Respiratory Exam: NORMAL BREATHING PATTERN - Cardiovascular Exam Cardiovascular Exam: REGULAR RHYTHM, +S1, +S2. absent: Murmur - GI/Abdominal Exam GI & Abdominal Exam: Soft. absent: Tenderness - Exam Exam: NORMAL INSPECTION - Extremities Exam Extremities Exam: Tenderness. absent: Full ROM, Normal Inspection, Pedal Edema Additional comments: R foot dressing in place. b/l off loading boots. palpable femoral pulses. thready popliteal pulses. Warm legs. 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
[2018-02-03] MEDS ORDERED: Potassium Chloride 20 mEq ER Tab PO ONE (08:45)
[2018-02-03] MEDS: Saccharomyces Boulardi 250 mg Cap PO SCH ×2 (09:00→21:17)
[2018-02-03] MEDS: Pantoprazole 40 mg EC Tab PO SCH (09:00)
[2018-02-03] MEDS: Magnesium Oxide 400 mg Tab UD PO SCH (09:01)
[2018-02-03] MEDS: oxyCODONE 5 mg Immediate Release Tab PO SCH ×3 (11:06→18:26)
[2018-02-03] MEDS: Vancomycin 1 GM in Sodium Chloride 0.9% 200 ML IVPB SCH (11:55)
--- NOTE | 2018-02-03 15:57 | CP.PCM.PN ---
Subjective - Date & Time of Evaluation Date of Evaluation: 02/03/18 Time of Evaluation: 03:45 - Subjective Subjective: Hospitalist Service Covering today Patient was seen and examined by me. She was with a family member at bedside. As mentioned previously this is an 82 year old female with a history of severe peripheral vascular disease. She is currently here with concerns of Right foot with osteomylitis, recently had vasculkar intervention and appears will need further vascular intervention of the right lower extremity She reported minimal pain when I came and saw her. Denied cold feet. Currently foot is well bandaged with gauze. She is on abx Objective - Vital Signs/Intake and Output Vital Signs (last 24 hours): Temp Pulse Resp BP Pulse Ox 98.1 F 60 20 107/44 L 96 02/03/18 15:00 02/03/18 15:00 02/03/18 15:00 02/03/18 15:00 02/03/18 15:00 Intake and Output: 02/03/18 02/03/18 06:59 18:59 Intake Total 690 450 Balance 690 450 - Medications Medications: Current Medications Amlodipine Besylate (Norvasc) 5 mg PO DAILY [facility] Last Admin: 02/03/18 09:00 Dose: 5 mg Baclofen (Lioresal) 10 mg PO BID [facility] Last Admin: 02/03/18 09:00 Dose: 10 mg Dextrose (Dextrose 50% Inj) 0 ml IV STAT PRN; Protocol PRN Reason: Hypoglycemia Protocol Dextrose (Glutose 15) 0 gm PO ONCE PRN; Protocol PRN Reason: Hypoglycemia Protocol Docusate Sodium (Colace) 100 mg PO TID [facility] Last Admin: 02/03/18 13:20 Dose: 100 mg Escitalopram Oxalate (Lexapro) 10 mg PO DAILY [facility] Last Admin: 02/03/18 09:00 Dose: 10 mg Glucagon (Glucagen Diagnostic Kit) 0 mg IM STAT PRN; Protocol PRN Reason: Hypoglycemia Protocol Vancomycin HCl 1 gm/ Sodium (Chloride) 200 mls @ 166.7 mls/hr IVPB Q24H [facility] PRN Reason: Protocol Last Admin: 02/03/18 11:55 Dose: 166.7 mls/hr Piperacillin Sod/Tazobactam Sod (Zosyn 3.375 Gm Iv Premix) 3.375 gm in 50 mls @ 100 mls/hr IVPB Q8 [facility] PRN Reason: Protocol Last Admin: 02/03/18 13:49 Dose: 100 mls/hr Insulin Human Regular (Novolin R) 0 unit SC ACHS [facility] PRN Reason: Protocol Last Admin: 02/03/18 12:03 Dose: Not Given Levetiracetam (Keppra) 500 mg PO BID [facility] Last Admin: 02/03/18 09:00 Dose: 500 mg Levothyroxine Sodium (Synthroid) 88 mcg PO DAILY@0630 [facility] Last Admin: 02/03/18 05:29 Dose: 88 mcg Magnesium Oxide (Mag-Ox) 400 mg PO DAILY [facility] Last Admin: 02/03/18 09:01 Dose: 400 mg Oxycodone HCl (Oxycodone Immediate Release Tab) 5 mg PO TID [facility] Last Admin: 02/03/18 13:20 Dose: 5 mg Pantoprazole Sodium (Protonix Ec Tab) 40 mg PO DAILY [facility] Last Admin: 02/03/18 09:00 Dose: 40 mg Rivaroxaban (Xarelto) 20 mg PO QPM [facility] Last Admin: 02/02/18 17:47 Dose: 20 mg Rosuvastatin Calcium (Crestor) 10 mg PO HS [facility] Last Admin: 02/02/18 21:25 Dose: 10 mg Saccharomyces Boulardii (Florastor) 250 mg PO Q12 [facility] Last Admin: 02/03/18 09:00 Dose: 250 mg - Labs Labs: 02/03/18 06:17 02/03/18 06:17 PT 15.4 SECONDS (9.7-12.2) H 01/31/18 16:00 INR 1.4 01/31/18 16:00 - Constitutional Appears: Cachectic, Chronically Ill - Head Exam Head Exam: NORMAL INSPECTION - Eye Exam Eye Exam: EOMI, Normal appearance - ENT Exam ENT Exam: Mucous Membranes Moist - Respiratory Exam Respiratory Exam: Clear to Ausculation Bilateral, NORMAL BREATHING PATTERN - Cardiovascular Exam Cardiovascular Exam: REGULAR RHYTHM - GI/Abdominal Exam GI & Abdominal Exam: Soft, Normal Bowel Sounds. absent: Firm, Guarding, Rigid, Tenderness - Neurological Exam Neurological Exam: Alert, Awake Neuro motor strength exam: Left Upper Extremity: 4, Right Upper Extremity: 4 - Psychiatric Exam Psychiatric exam: Depressed, Flat Affect - Skin Skin Exam: Pallor, Warm Assessment and Plan - Assessment and Plan (Free Text) Assessment: Necrotic 5th Toe of Right Foot Secondary to PVD 02/03: Per surgery will probably be having further angioplasty this comming week. She had a recent amgioplasty not to long ago showing severe stenosis of R SFA and R popliteal. - Imaging: * Right Foot Xray: Interval 1st and 4th digit trans phalangeal amputations. Acute infection cannot be excluded. * Abdominal Angiography (01/31/18): heavily calcified iliac, femoral, popliteal and tibial arteries bilaterally. Arterial supply below both knees from a single miniscule collateral vessel. - Medications: * Vanco 1gm q24h - started 02/01/18 * Zosyn 3.375gm q8h - started 01/31/18 - Picc line ordered due to poor access and for IV abx Previous 11/2017 Admission Workup: - Xray Right foot (11/01/17): IMPRESSION: No radiographic evidence of bone destruction or osteomyelitis. - HO/PVR - 75% Stenosis of SFA and 30-49% stenosis of popliteal artery - CTA - Heavily calcified iliac, femoral, popliteal, and tibial arteries bilaterally. Arterial supply below both knees from a single miniscule collateral vessel - Abdominal angiogram- heavily calcified iliac, femoral, popliteal, and tibial arteries - s/p angiogram with angioplasty and stent placement- R SFA arthroplasty with Dr. 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 - ASA 81 mg po daily - HELD in anticipation of surgical intervention - Xarelto 20 mg po daily - Will NEED TO BE held for 72 hours prior to surgical procedure History of Hypertension 02/03: Currently stable, would continue with the Norvasc 5 daily History of Hyperlipidemia Crestor 10mg PO HS History of Hypothyroidism - Levothyroxine 88 mcg - TSH 0.50 - free T4 1.22 History of Diabetes Mellitus - Accuchecks - A1C: 5.3 on last admission - Hypoglycemia Protocol - ISS History of Seizure disorder - Keppra 500mg PO BID History of Anxiety/Depression - Lexapro 10mg PO Daily Prophylactic Measures - GI PPX: Protonix; Florastor 250mg q12h - DVT PPX: SCDs, Xarelto (switch to heparin 72 hours before procedure) - PT/ OT Eval
--- NOTE | 2018-02-03 20:48 | CP.PCM.PN ---
Subjective - Date & Time of Evaluation Date of Evaluation: 02/03/18 Time of Evaluation: 16:35 - Subjective Subjective: dictated Objective - Vital Signs/Intake and Output Vital Signs (last 24 hours): Temp Pulse Resp BP Pulse Ox 98.1 F 60 20 107/44 L 96 02/03/18 15:00 02/03/18 15:00 02/03/18 15:00 02/03/18 15:00 02/03/18 15:00 Intake and Output: 02/03/18 02/04/18 18:59 06:59 Intake Total 450 Balance 450 - Medications Medications: Current Medications Amlodipine Besylate (Norvasc) 5 mg PO DAILY [facility] Last Admin: 02/03/18 09:00 Dose: 5 mg Baclofen (Lioresal) 10 mg PO BID [facility] Last Admin: 02/03/18 18:24 Dose: 10 mg Dextrose (Dextrose 50% Inj) 0 ml IV STAT PRN; Protocol PRN Reason: Hypoglycemia Protocol Dextrose (Glutose 15) 0 gm PO ONCE PRN; Protocol PRN Reason: Hypoglycemia Protocol Docusate Sodium (Colace) 100 mg PO TID [facility] Last Admin: 02/03/18 18:24 Dose: 100 mg Escitalopram Oxalate (Lexapro) 10 mg PO DAILY [facility] Last Admin: 02/03/18 09:00 Dose: 10 mg Glucagon (Glucagen Diagnostic Kit) 0 mg IM STAT PRN; Protocol PRN Reason: Hypoglycemia Protocol Vancomycin HCl 1 gm/ Sodium (Chloride) 200 mls @ 166.7 mls/hr IVPB Q24H [facility] PRN Reason: Protocol Last Admin: 02/03/18 11:55 Dose: 166.7 mls/hr Piperacillin Sod/Tazobactam Sod (Zosyn 3.375 Gm Iv Premix) 3.375 gm in 50 mls @ 100 mls/hr IVPB Q8 [facility] PRN Reason: Protocol Last Admin: 02/03/18 13:49 Dose: 100 mls/hr Insulin Human Regular (Novolin R) 0 unit SC ACHS [facility] PRN Reason: Protocol Last Admin: 02/03/18 18:24 Dose: Not Given Levetiracetam (Keppra) 500 mg PO BID [facility] Last Admin: 02/03/18 18:24 Dose: 500 mg Levothyroxine Sodium (Synthroid) 88 mcg PO DAILY@0630 [facility] Last Admin: 02/03/18 05:29 Dose: 88 mcg Magnesium Oxide (Mag-Ox) 400 mg PO DAILY [facility] Last Admin: 02/03/18 09:01 Dose: 400 mg Oxycodone HCl (Oxycodone Immediate Release Tab) 5 mg PO TID [facility] Last Admin: 02/03/18 18:26 Dose: 5 mg Pantoprazole Sodium (Protonix Ec Tab) 40 mg PO DAILY [facility] Last Admin: 02/03/18 09:00 Dose: 40 mg Rivaroxaban (Xarelto) 20 mg PO QPM [facility] Last Admin: 02/03/18 18:25 Dose: 20 mg Rosuvastatin Calcium (Crestor) 10 mg PO HS [facility] Last Admin: 02/02/18 21:25 Dose: 10 mg Saccharomyces Boulardii (Florastor) 250 mg PO Q12 [facility] Last Admin: 02/03/18 09:00 Dose: 250 mg - Labs Labs: 02/03/18 06:17 02/03/18 06:17 PT 15.4 SECONDS (9.7-12.2) H 01/31/18 16:00 INR 1.4 01/31/18 16:00
--- NOTE | 2018-02-04 01:56 | PN ---
Copied To: Deon Mera MD Attending MD: Deon Mera MD DATE: 02/03/2018 SUBJECTIVE: The patient was seen today. She still has some pain in her right foot and she remains on IV antibiotics and that she had necrotic ulcerations on the great toe, fourth toe which had been before amputated and on the fifth toe there is some discoloration. The patient has ischemic changes, and the patient continues to be on IV antibiotics. PHYSICAL EXAMINATION: VITAL SIGNS: T-max is 98.1, pulse is 60, blood pressure 107/44, respirations are 20. GENERAL: She is awake and alert. HEENT: Head is atraumatic, normocephalic. NECK: Supple. LUNGS: Clear. HEART: S1, S2 are regular. ABDOMEN: Soft, nontender. No guarding, no rigidity present. EXTREMITIES: Right foot has a dressing. LABORATORY DATA: Labs are noted. Labs show white count is 6, hemoglobin 10.6 and BUN is 11, creatinine 0.8. IMPRESSION AND PLAN: The patient has ischemic ulcerations, will follow with the Vascular, and we will see what can be done about it and keep the antibiotics going at this time. She is on vancomycin and Zosyn, and we will follow. There is no wound culture that was done. Deon Mera MD
[2018-02-04] MEDS: Levothyroxine 88 MCG TAB PO SCH (05:35)
[2018-02-04] MEDS: Piperacill/Tazo 3.375gm in Dex 3.375 GM/50 ML BAG IVPB SCH ×3 (05:35→21:22)
--- NOTE | 2018-02-04 06:57 | PN ---
Copied To: Deon Mera MD Attending MD: Deon Mera MD DATE: 02/02/2018 SUBJECTIVE: She was seen after several days today and the patient has had gangrenous changes to her a right legs and fourth toe. She is a previous amputee and it was hurting, dressing was changed today by the resident and she was having less pain when I saw. PHYSICAL EXAMINATION: VITAL SIGNS: T max is 98, heart rate of 53, blood pressure 110/51, respirations are 20. GENERAL: She is frail, thin, elderly female. She is awake and alert. HEENT: Head is atraumatic, normocephalic. NECK: Supple. LUNGS: Clear. No crackles or rales present. Decreased breath sounds on both bases. HEART: S1, S2 are regular. ABDOMEN: Soft, nontender. No guarding, no rigidity present. EXTREMITIES: Right foot had dressings on, I had seen them there was partial right hallux and fourth digit and they have gangrenous changes on the distal ends as well as of the right fifth digit and remains ischemic with ischemic changes. She is supposed to likely have an angioplasty and they are not having any plans to do surgical intervention at this point. LABORATORY DATA: Her labs today showed white count 6.7, hemoglobin 11.2, hematocrit 33.5 and platelets are 229. BUN is 8, creatinine 0.6. ASSESSMENT AND PLAN: So at this time, I am continuing antibiotics and we will wait to see what plan vascular has for her. She is on vancomycin and Zosyn at this time. We are continuing antibiotics and we are waiting for the vascular final decision to see. Deon Mera MD
--- NOTE | 2018-02-04 07:28 | CP.PCM.PN ---
Subjective - Date & Time of Evaluation Date of Evaluation: 02/04/18 Time of Evaluation: 07:20 - Subjective Subjective: Patient seen and examined. No acute events over night. Complains of some foot pain. At time of examination patient denied fever, chills, headache, chest pain , SOB, abdominal pain, n/v/d/c, dysuria. Objective - Vital Signs/Intake and Output Vital Signs (last 24 hours): Temp Pulse Resp BP Pulse Ox 97.4 F L 54 L 20 143/73 96 02/04/18 00:00 02/04/18 00:00 02/04/18 00:00 02/04/18 00:00 02/04/18 00:00 Intake and Output: 02/04/18 02/04/18 06:59 18:59 Intake Total 450 Balance 450 - Medications Medications: Current Medications Amlodipine Besylate (Norvasc) 5 mg PO DAILY [facility] Last Admin: 02/03/18 09:00 Dose: 5 mg Baclofen (Lioresal) 10 mg PO BID [facility] Last Admin: 02/03/18 18:24 Dose: 10 mg Dextrose (Dextrose 50% Inj) 0 ml IV STAT PRN; Protocol PRN Reason: Hypoglycemia Protocol Dextrose (Glutose 15) 0 gm PO ONCE PRN; Protocol PRN Reason: Hypoglycemia Protocol Docusate Sodium (Colace) 100 mg PO TID [facility] Last Admin: 02/03/18 18:24 Dose: 100 mg Escitalopram Oxalate (Lexapro) 10 mg PO DAILY [facility] Last Admin: 02/03/18 09:00 Dose: 10 mg Glucagon (Glucagen Diagnostic Kit) 0 mg IM STAT PRN; Protocol PRN Reason: Hypoglycemia Protocol Vancomycin HCl 1 gm/ Sodium (Chloride) 200 mls @ 166.7 mls/hr IVPB Q24H [facility] PRN Reason: Protocol Last Admin: 02/03/18 11:55 Dose: 166.7 mls/hr Piperacillin Sod/Tazobactam Sod (Zosyn 3.375 Gm Iv Premix) 3.375 gm in 50 mls @ 100 mls/hr IVPB Q8 [facility] PRN Reason: Protocol Last Admin: 02/04/18 05:35 Dose: 100 mls/hr Insulin Human Regular (Novolin R) 0 unit SC ACHS [facility] PRN Reason: Protocol Last Admin: 02/03/18 21:15 Dose: Not Given Levetiracetam (Keppra) 500 mg PO BID [facility] Last Admin: 02/03/18 18:24 Dose: 500 mg Levothyroxine Sodium (Synthroid) 88 mcg PO DAILY@0630 [facility] Last Admin: 02/04/18 05:35 Dose: 88 mcg Magnesium Oxide (Mag-Ox) 400 mg PO DAILY [facility] Last Admin: 02/03/18 09:01 Dose: 400 mg Oxycodone HCl (Oxycodone Immediate Release Tab) 5 mg PO TID [facility] Last Admin: 02/03/18 18:26 Dose: 5 mg Pantoprazole Sodium (Protonix Ec Tab) 40 mg PO DAILY [facility] Last Admin: 02/03/18 09:00 Dose: 40 mg Rivaroxaban (Xarelto) 20 mg PO QPM [facility] Last Admin: 02/03/18 18:25 Dose: 20 mg Rosuvastatin Calcium (Crestor) 10 mg PO HS [facility] Last Admin: 02/03/18 21:15 Dose: 10 mg Saccharomyces Boulardii (Florastor) 250 mg PO Q12 [facility] Last Admin: 02/03/18 21:17 Dose: 250 mg - Labs Labs: 02/03/18 06:17 02/03/18 06:17 PT 15.4 SECONDS (9.7-12.2) H 01/31/18 16:00 INR 1.4 01/31/18 16:00 - Constitutional Appears: No Acute Distress - Head Exam Head Exam: NORMOCEPHALIC - Eye Exam Eye Exam: EOMI, Normal appearance - ENT Exam ENT Exam: Mucous Membranes Moist - Respiratory Exam Respiratory Exam: NORMAL BREATHING PATTERN - Cardiovascular Exam Cardiovascular Exam: +S1, +S2 - GI/Abdominal Exam GI & Abdominal Exam: Soft - Neurological Exam Neurological Exam: Alert, Awake, Oriented x3 - Psychiatric Exam Psychiatric exam: Normal Mood - Skin Skin Exam: Dry, Intact, Warm Assessment and Plan - Assessment and Plan (Free Text) Assessment: 82F wtih PAD Plan: -Will f/u PVR results -Pending PVR results will tailor surgical plan -D/w Dr. Ned Thakur PGY3
[2018-02-04 07:29] LABS: BASO # 0.1 K/uL (0.0-0.2); EOS # 0.2 K/uL (0.0-0.7); EOS % 3.5 % (0.0-4.0); HEMOGLOBIN 11.3 g/dL (11.0-16.0); LYMPH # 1.6 K/uL (1.0-4.3); LYMPH % 26.2 % (20.0-40.0); MEAN CORPUSCULAR HEMOGLOBIN 30.8 pg (27.0-31.0); MEAN CORPUSCULAR HGB CONC 34.2 g/dL (33.0-37.0); MEAN PLATELET VOLUME 8.6 fL (7.2-11.7); MONO # 0.4 K/uL (0.0-0.8); MONO % 6.6 % (0.0-10.0); NEUT # 3.8 K/uL (1.8-7.0); NEUT % 62.7 % (50.0-75.0); RBC 3.66 Mil/uL (3.80-5.20); WHITE BLOOD COUNT 6.1 K/uL (4.8-10.8)
[2018-02-04 08:11] LABS: ALB/GLOB RATIO 1.2 (1.0-2.1); ALBUMIN 3.3 g/dL (3.5-5.0); ALT/SGPT 14 U/L (9-52); AST/SGOT 22 U/L (14-36); BLOOD UREA NITROGEN 10 mg/dL (7-17); CALCIUM 9.1 mg/dl (8.6-10.4); GFR NON-AFRICAN AMERICAN > 60
[2018-02-04] MEDS: (Novolin R) Insulin Human Regular 100 units/ml vial SC SCH ×4 (08:26→22:30)
--- NOTE | 2018-02-04 09:08 | CP.PCM.PN ---
Subjective - Date & Time of Evaluation Date of Evaluation: 02/04/18 Time of Evaluation: 09:00 - Subjective Subjective: Progress Note for Dr. Jason's Service Patient was seen and examined at bedside. Patient reports she has slight foot pain, but the pain is well controlled with pain medications. Denied fever, chills, headache, chest pain, SOB, abdominal pain, n/v/d/c, or urinary complaints. Objective - Vital Signs/Intake and Output Vital Signs (last 24 hours): Temp Pulse Resp BP Pulse Ox 97.6 F 59 L 20 152/76 H 95 02/04/18 08:12 02/04/18 08:12 02/04/18 08:12 02/04/18 08:12 02/04/18 08:12 Intake and Output: 02/04/18 02/04/18 06:59 18:59 Intake Total 450 Balance 450 - Medications Medications: Current Medications Amlodipine Besylate (Norvasc) 5 mg PO DAILY [facility] Last Admin: 02/03/18 09:00 Dose: 5 mg Baclofen (Lioresal) 10 mg PO BID [facility] Last Admin: 02/03/18 18:24 Dose: 10 mg Dextrose (Dextrose 50% Inj) 0 ml IV STAT PRN; Protocol PRN Reason: Hypoglycemia Protocol Dextrose (Glutose 15) 0 gm PO ONCE PRN; Protocol PRN Reason: Hypoglycemia Protocol Docusate Sodium (Colace) 100 mg PO TID [facility] Last Admin: 02/03/18 18:24 Dose: 100 mg Escitalopram Oxalate (Lexapro) 10 mg PO DAILY [facility] Last Admin: 02/03/18 09:00 Dose: 10 mg Glucagon (Glucagen Diagnostic Kit) 0 mg IM STAT PRN; Protocol PRN Reason: Hypoglycemia Protocol Vancomycin HCl 1 gm/ Sodium (Chloride) 200 mls @ 166.7 mls/hr IVPB Q24H [facility] PRN Reason: Protocol Last Admin: 02/03/18 11:55 Dose: 166.7 mls/hr Piperacillin Sod/Tazobactam Sod (Zosyn 3.375 Gm Iv Premix) 3.375 gm in 50 mls @ 100 mls/hr IVPB Q8 [facility] PRN Reason: Protocol Last Admin: 02/04/18 05:35 Dose: 100 mls/hr Insulin Human Regular (Novolin R) 0 unit SC ACHS [facility] PRN Reason: Protocol Last Admin: 02/04/18 08:26 Dose: Not Given Levetiracetam (Keppra) 500 mg PO BID [facility] Last Admin: 02/03/18 18:24 Dose: 500 mg Levothyroxine Sodium (Synthroid) 88 mcg PO DAILY@0630 [facility] Last Admin: 02/04/18 05:35 Dose: 88 mcg Magnesium Oxide (Mag-Ox) 400 mg PO DAILY [facility] Last Admin: 02/03/18 09:01 Dose: 400 mg Oxycodone HCl (Oxycodone Immediate Release Tab) 5 mg PO TID [facility] Last Admin: 02/03/18 18:26 Dose: 5 mg Pantoprazole Sodium (Protonix Ec Tab) 40 mg PO DAILY [facility] Last Admin: 02/03/18 09:00 Dose: 40 mg Rivaroxaban (Xarelto) 20 mg PO QPM [facility] Last Admin: 02/03/18 18:25 Dose: 20 mg Rosuvastatin Calcium (Crestor) 10 mg PO HS [facility] Last Admin: 02/03/18 21:15 Dose: 10 mg Saccharomyces Boulardii (Florastor) 250 mg PO Q12 [facility] Last Admin: 02/03/18 21:17 Dose: 250 mg - Labs Labs: 02/04/18 07:07 02/04/18 07:07 PT 15.4 SECONDS (9.7-12.2) H 01/31/18 16:00 INR 1.4 01/31/18 16:00 - Additional Findings Additional findings: - Constitutional Appears: No Acute Distress - Head Exam Head Exam: NORMAL INSPECTION - Eye Exam Eye Exam: EOMI, Normal appearance - ENT Exam ENT Exam: Mucous Membranes Moist - Respiratory Exam Respiratory Exam: Clear to Ausculation Bilateral, NORMAL BREATHING PATTERN - Cardiovascular Exam Cardiovascular Exam: REGULAR RHYTHM, +S1, +S2 - GI/Abdominal Exam GI & Abdominal Exam: Soft, Normal Bowel Sounds. absent: Tenderness - Extremities Exam Additional comments: Right foot wrapped, tender to palpation, dressings c/d/i - Neurological Exam Neurological Exam: Alert, Awake, Oriented x3 - Psychiatric Exam Psychiatric exam: Anxious - Skin Skin Exam: Normal Color Assessment and Plan - Assessment and Plan (Free Text) Plan: Necrotic 5th Toe of Right Foot Secondary to PVD - Podiatry, Dr. Hooker, help appreciated - Vascular Surgery, Dr. Marino, consulted - per surgical team - likely angioplasty this week, date TBD - Imaging: * Right Foot Xray: Interval 1st and 4th digit trans phalangeal amputations. Acute infection cannot be excluded. * Abdominal Angiography (01/31/18): heavily calcified iliac, femoral, popliteal and tibial arteries bilaterally. Arterial supply below both knees from a single miniscule collateral vessel. - Medications: * Vanco 1gm q24h - started 02/01/18 * Zosyn 3.375gm q8h - started 01/31/18 Previous 11/2017 Admission Workup: - Xray Right foot (11/01/17): IMPRESSION: No radiographic evidence of bone destruction or osteomyelitis. - HO/PVR - 75% Stenosis of SFA and 30-49% stenosis of popliteal artery - CTA - Heavily calcified iliac, femoral, popliteal, and tibial arteries bilaterally. Arterial supply below both knees from a single miniscule collateral vessel - Abdominal angiogram- heavily calcified iliac, femoral, popliteal, and tibial arteries - s/p angiogram with angioplasty and stent placement- R SFA arthroplasty with Dr. 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 - Patient is wheelchair bound - ASA 81 mg po daily - HELD in anticipation of surgical intervention - Xarelto 20 mg po daily - Will NEED TO BE held for 72 hours prior to surgical procedure History of Hypertension 02/03: Currently stable, would continue with the Norvasc 5 daily History of Hyperlipidemia Crestor 10mg PO HS History of Hypothyroidism - Levothyroxine 88 mcg - TSH 0.50, Free T4 1.22 History of Diabetes Mellitus - Accuchecks - A1C: 5.3 on last admission - Hypoglycemia Protocol - ISS History of Seizure disorder - Keppra 500mg PO BID History of Anxiety/Depression - Lexapro 10mg PO Daily Prophylactic Measures - GI PPX: Protonix; Florastor 250mg q12h - DVT PPX: SCDs, Xarelto (switch to heparin drip 72 hours before procedure) - PT/ OT Eval- recommend [facility]; patient wants home services. Case Management involved to set this up - PICC line: right arm 01/31/18 Disposition: Pending Surgery reccs. All medical management as per Dr. Jason. DW Dr. Jason, Trudy Pedro DO, PGY2
[2018-02-04] MEDS: Pantoprazole 40 mg EC Tab PO SCH (09:57)
[2018-02-04] MEDS: Magnesium Oxide 400 mg Tab UD PO SCH (09:57)
[2018-02-04] MEDS: Saccharomyces Boulardi 250 mg Cap PO SCH ×2 (09:57→21:21)
[2018-02-04] MEDS: oxyCODONE 5 mg Immediate Release Tab PO SCH ×3 (09:58→17:09)
[2018-02-04] MEDS: Vancomycin 1 GM in Sodium Chloride 0.9% 200 ML IVPB SCH (10:03)
--- NOTE | 2018-02-04 15:42 | CP.PCM.CON ---
History of Present Illness - History of Present Illness History of Present Illness: Podiatry Progress Note for Dr Garcias 82F seen and evaluated at bedside for necrotic changes to amputation sites on right foot. Patient is AAO x 3 and NAD, resting comfortably in bed. Complains of inermittent 5/10 pain in foot but states that pain medication helps. Denies any acute overnight events or new pedal complaints at this time. Denies any recent N/V/F/C/CP/SOB/D/posterior calf pain when squeezed. Review of Systems - Review of Systems All systems: reviewed and no additional remarkable complaints except Review of Systems: as per HPI Past Patient History - Past Medical History & Family History Past Medical History?: Yes - Past Social History Smoking Status: Unknown If Ever Smoked - CARDIAC Hx Cardiac Disorders: Yes Hx Hypercholesterolemia: Yes Hx Hypertension: Yes - PULMONARY Hx Respiratory Disorders: No - NEUROLOGICAL Hx Neurological Disorder: Yes Hx Transient Ischemic Attacks (TIA): Yes - HEENT Hx HEENT Problems: Yes Other/Comment: wears prescription eyeglasses - RENAL Hx Chronic Kidney Disease: No - ENDOCRINE/METABOLIC Hx Diabetes Mellitus Type 2: Yes - HEMATOLOGICAL/ONCOLOGICAL Hx Blood Disorders: No - INTEGUMENTARY Hx Dermatological Problems: No - MUSCULOSKELETAL/RHEUMATOLOGICAL Hx Musculoskeletal Disorders: Yes Hx Falls: No 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) - GASTROINTESTINAL Hx Gastrointestinal Disorders: No - GENITOURINARY/GYNECOLOGICAL Hx Genitourinary Disorders: No - PSYCHIATRIC Hx Psychophysiologic Disorder: No Hx Substance Use: No - SURGICAL HISTORY Hx Surgeries: Yes Hx Amputation: Yes (R 1ST, 2ND, 3RD, 4TH TOE) Other/Comment: "HERNIA REMOVAL IN [place]" - ANESTHESIA Hx Anesthesia: Yes Hx Anesthesia Reactions: No Hx Malignant Hyperthermia: No Has any member of the family had a problem w/ anesthesia?: No Meds Allergies/Adverse Reactions: Allergies Allergy/AdvReac Type Severity Reaction Status Date / Time No Known Allergies Allergy Verified 01/30/18 17:30 - Medications Medications: Current Medications Amlodipine Besylate (Norvasc) 5 mg PO DAILY [facility] Last Admin: 02/04/18 09:57 Dose: 5 mg Baclofen (Lioresal) 10 mg PO BID [facility] Last Admin: 02/04/18 10:00 Dose: 10 mg Dextrose (Dextrose 50% Inj) 0 ml IV STAT PRN; Protocol PRN Reason: Hypoglycemia Protocol Dextrose (Glutose 15) 0 gm PO ONCE PRN; Protocol PRN Reason: Hypoglycemia Protocol Docusate Sodium (Colace) 100 mg PO TID [facility] Last Admin: 02/04/18 14:47 Dose: 100 mg Escitalopram Oxalate (Lexapro) 10 mg PO DAILY [facility] Last Admin: 02/04/18 09:57 Dose: 10 mg Glucagon (Glucagen Diagnostic Kit) 0 mg IM STAT PRN; Protocol PRN Reason: Hypoglycemia Protocol Vancomycin HCl 1 gm/ Sodium (Chloride) 200 mls @ 166.7 mls/hr IVPB Q24H [facility] PRN Reason: Protocol Last Admin: 02/04/18 10:03 Dose: 166.7 mls/hr Piperacillin Sod/Tazobactam Sod (Zosyn 3.375 Gm Iv Premix) 3.375 gm in 50 mls @ 100 mls/hr IVPB Q8 [facility] PRN Reason: Protocol Last Admin: 02/04/18 14:45 Dose: 100 mls/hr Insulin Human Regular (Novolin R) 0 unit SC ACHS [facility] PRN Reason: Protocol Last Admin: 02/04/18 12:11 Dose: Not Given Levetiracetam (Keppra) 500 mg PO BID [facility] Last Admin: 02/04/18 09:57 Dose: 500 mg Levothyroxine Sodium (Synthroid) 88 mcg PO DAILY@0630 [facility] Last Admin: 02/04/18 05:35 Dose: 88 mcg Magnesium Oxide (Mag-Ox) 400 mg PO DAILY [facility] Last Admin: 02/04/18 09:57 Dose: 400 mg Oxycodone HCl (Oxycodone Immediate Release Tab) 5 mg PO TID [facility] Last Admin: 02/04/18 14:46 Dose: 5 mg Pantoprazole Sodium (Protonix Ec Tab) 40 mg PO DAILY [facility] Last Admin: 02/04/18 09:57 Dose: 40 mg Rivaroxaban (Xarelto) 20 mg PO QPM [facility] Last Admin: 02/03/18 18:25 Dose: 20 mg Rosuvastatin Calcium (Crestor) 10 mg PO HS [facility] Last Admin: 02/03/18 21:15 Dose: 10 mg Saccharomyces Boulardii (Florastor) 250 mg PO Q12 [facility] Last Admin: 02/04/18 09:57 Dose: 250 mg Physical Exam - Constitutional Appears: Well, Non-toxic, No Acute Distress - Extremities Exam Additional comments: Vasc: DP/PT pulses 1/4 bilaterally, CFT > 3 seconds to all remaining digits, TG warm to cool, no edema noted to bilateral lower extremities Ortho: Partial right hallux and fourth digit amputation noted, mild tenderness to palpation of areas surrounding gangrenous changes Neuro: Gross and protective sensation intact bilaterally Derm: Superficial gangrenous changes noted to right hallux and fourth digit amputation site as well as dorsolateral right fifth digit. No erythema, no malodor, no drainage, no purulence, no fluctance, no clinical signs of infection noted bilaterally. All sites appear stable at this time - Neurological Exam Neurological exam: Alert, Oriented x3 - Psychiatric Exam Psychiatric exam: Normal Affect, Normal Mood Results - Vital Signs Recent Vital Signs: Last Vital Signs Temp 97.6 F 02/04/18 08:12 Pulse 59 L 02/04/18 08:12 Resp 20 02/04/18 08:12 BP 152/76 H 02/04/18 08:12 Pulse Ox 95 02/04/18 08:12 - Labs Result Diagrams: 02/04/18 07:07 02/04/18 07:07 Labs: Laboratory Results - last 24 hr 02/03/18 02/03/18 02/03/18 11:20 16:13 21:12 WBC RBC Hgb Hct MCV MCH MCHC RDW Plt Count MPV Neut % (Auto) Lymph % (Auto) [place] % (Auto) Eos % (Auto) Baso % (Auto) Neut # (Auto) Lymph # (Auto) [place] # (Auto) Eos # (Auto) Baso # (Auto) Sodium Potassium Chloride Carbon Dioxide Anion Gap BUN Creatinine Est GFR ( Amer) Est GFR (Non-Af Amer) POC Glucose (mg/dL) 97 94 117 H Random Glucose Calcium Phosphorus Magnesium Total Bilirubin AST ALT Alkaline Phosphatase Total Protein Albumin Globulin Albumin/Globulin Ratio 02/04/18 02/04/18 02/04/18 07:07 07:07 07:25 WBC 6.1 RBC 3.66 L Hgb 11.3 Hct 32.9 L MCV 90.0 MCH 30.8 MCHC 34.2 RDW 15.0 H Plt Count 218 MPV 8.6 Neut % (Auto) 62.7 Lymph % (Auto) 26.2 [place] % (Auto) 6.6 Eos % (Auto) 3.5 Baso % (Auto) 1.0 Neut # (Auto) 3.8 Lymph # (Auto) 1.6 [place] # (Auto) 0.4 Eos # (Auto) 0.2 Baso # (Auto) 0.1 Sodium 141 Potassium 3.7 Chloride 103 Carbon Dioxide 32 H Anion Gap 10 BUN 10 Creatinine 0.8 Est GFR ( Amer) > 60 Est GFR (Non-Af Amer) > 60 POC Glucose (mg/dL) 145 H Random Glucose 117 H Calcium 9.1 Phosphorus 3.4 Magnesium 2.1 Total Bilirubin 0.2 AST 22 ALT 14 Alkaline Phosphatase 48 Total Protein 6.1 L Albumin 3.3 L Globulin 2.8 Albumin/Globulin Ratio 1.2 Assessment & Plan - Assessment and Plan (Free Text) Assessment: 82F seen and evaluated at bedside for necrotic changes to amputation sites on right foot Plan: Patient seen and evaluated Plan discussed with Dr. Garcias Afebrile, absent leukocytosis Foot Xray: 1st and 4th digit transphalangeal amputations with post surgical changes Arterial duplex: 50-75% stenosis of R CF and Pop arteries, 30-49% stenosis at R mid SFA, severely diminished flow of tibial arteries Abdominal angiography: Read pending No plan for surgical intervention at this time F/u Vascular Surgery plans Wound dressed with betadine, DSD Podiatry will continue to follow while patient in house - Date & Time Date: 02/04/18 Time: 15:45
--- NOTE | 2018-02-04 21:02 | CP.PCM.PN ---
Subjective - Date & Time of Evaluation Date of Evaluation: 02/04/18 Time of Evaluation: 14:20 - Subjective Subjective: dictated Objective - Vital Signs/Intake and Output Vital Signs (last 24 hours): Temp Pulse Resp BP Pulse Ox 97.3 F L 60 20 151/52 H 95 02/04/18 16:00 02/04/18 16:00 02/04/18 16:00 02/04/18 16:00 02/04/18 16:00 Intake and Output: 02/04/18 02/05/18 18:59 06:59 Intake Total 450 Balance 450 - Medications Medications: Current Medications Amlodipine Besylate (Norvasc) 5 mg PO DAILY [facility] Last Admin: 02/04/18 09:57 Dose: 5 mg Baclofen (Lioresal) 10 mg PO BID [facility] Last Admin: 02/04/18 17:09 Dose: 10 mg Dextrose (Dextrose 50% Inj) 0 ml IV STAT PRN; Protocol PRN Reason: Hypoglycemia Protocol Dextrose (Glutose 15) 0 gm PO ONCE PRN; Protocol PRN Reason: Hypoglycemia Protocol Docusate Sodium (Colace) 100 mg PO TID [facility] Last Admin: 02/04/18 17:09 Dose: 100 mg Escitalopram Oxalate (Lexapro) 10 mg PO DAILY [facility] Last Admin: 02/04/18 09:57 Dose: 10 mg Glucagon (Glucagen Diagnostic Kit) 0 mg IM STAT PRN; Protocol PRN Reason: Hypoglycemia Protocol Vancomycin HCl 1 gm/ Sodium (Chloride) 200 mls @ 166.7 mls/hr IVPB Q24H [facility] PRN Reason: Protocol Last Admin: 02/04/18 10:03 Dose: 166.7 mls/hr Piperacillin Sod/Tazobactam Sod (Zosyn 3.375 Gm Iv Premix) 3.375 gm in 50 mls @ 100 mls/hr IVPB Q8 [facility] PRN Reason: Protocol Last Admin: 02/04/18 14:45 Dose: 100 mls/hr Insulin Human Regular (Novolin R) 0 unit SC ACHS [facility] PRN Reason: Protocol Last Admin: 02/04/18 12:11 Dose: Not Given Levetiracetam (Keppra) 500 mg PO BID [facility] Last Admin: 02/04/18 17:09 Dose: 500 mg Levothyroxine Sodium (Synthroid) 88 mcg PO DAILY@0630 [facility] Last Admin: 02/04/18 05:35 Dose: 88 mcg Magnesium Oxide (Mag-Ox) 400 mg PO DAILY [facility] Last Admin: 02/04/18 09:57 Dose: 400 mg Oxycodone HCl (Oxycodone Immediate Release Tab) 5 mg PO TID [facility] Last Admin: 02/04/18 17:09 Dose: 5 mg Pantoprazole Sodium (Protonix Ec Tab) 40 mg PO DAILY [facility] Last Admin: 02/04/18 09:57 Dose: 40 mg Rivaroxaban (Xarelto) 20 mg PO QPM [facility] Last Admin: 02/04/18 17:09 Dose: 20 mg Rosuvastatin Calcium (Crestor) 10 mg PO HS [facility] Last Admin: 02/03/18 21:15 Dose: 10 mg Saccharomyces Boulardii (Florastor) 250 mg PO Q12 [facility] Last Admin: 02/04/18 09:57 Dose: 250 mg - Labs Labs: 02/04/18 07:07 02/04/18 07:07 PT 15.4 SECONDS (9.7-12.2) H 01/31/18 16:00 INR 1.4 01/31/18 16:00
[2018-02-05] MEDS: Piperacill/Tazo 3.375gm in Dex 3.375 GM/50 ML BAG IVPB SCH ×3 (05:13→21:34)
[2018-02-05] MEDS: Levothyroxine 88 MCG TAB PO SCH (05:35)
[2018-02-05 07:56] LABS: ALB/GLOB RATIO 1.1 (1.0-2.1); ALT/SGPT 16 U/L (9-52); AST/SGOT 18 U/L (14-36); BLOOD UREA NITROGEN 12 mg/dL (7-17); CALCIUM 8.9 mg/dl (8.6-10.4); GFR NON-AFRICAN AMERICAN > 60
[2018-02-05 08:05] LABS: BASO % 0.8 % (0.0-2.0); EOS # 0.3 K/uL (0.0-0.7); EOS % 4.4 % (0.0-4.0); HEMOGLOBIN 10.5 g/dL (11.0-16.0); LYMPH # 1.3 K/uL (1.0-4.3); LYMPH % 22.9 % (20.0-40.0); MEAN CORPUSCULAR HGB CONC 33.3 g/dL (33.0-37.0); MEAN PLATELET VOLUME 8.6 fL (7.2-11.7); MONO # 0.4 K/uL (0.0-0.8); MONO % 6.2 % (0.0-10.0); NEUT # 3.8 K/uL (1.8-7.0); NEUT % 65.7 % (50.0-75.0); RBC 3.5 Mil/uL (3.80-5.20); RED CELL DISTRIBUTION WIDTH 14.9 % (11.5-14.5); WHITE BLOOD COUNT 5.8 K/uL (4.8-10.8)
[2018-02-05] MEDS: (Novolin R) Insulin Human Regular 100 units/ml vial SC SCH ×4 (08:11→22:00)
--- NOTE | 2018-02-05 09:57 | CP.PCM.PN ---
Subjective - Date & Time of Evaluation Date of Evaluation: 02/05/18 Time of Evaluation: 09:00 - Subjective Subjective: Progress Note for Dr. Jason's Service Patient was seen and examined at bedside. Patient reports she has slight foot pain, but the pain is well controlled with pain medications. Denied fever, chills, headache, chest pain, SOB, abdominal pain, n/v/d/c, or urinary complaints. Objective - Vital Signs/Intake and Output Vital Signs (last 24 hours): Temp Pulse Resp BP Pulse Ox 98.3 F 62 20 123/71 95 02/05/18 08:09 02/05/18 08:09 02/05/18 08:09 02/05/18 08:09 02/05/18 08:09 Intake and Output: 02/05/18 02/05/18 06:59 18:59 Intake Total 290 Balance 290 - Medications Medications: Current Medications Amlodipine Besylate (Norvasc) 5 mg PO DAILY [facility] Last Admin: 02/04/18 09:57 Dose: 5 mg Baclofen (Lioresal) 10 mg PO BID [facility] Last Admin: 02/04/18 17:09 Dose: 10 mg Dextrose (Dextrose 50% Inj) 0 ml IV STAT PRN; Protocol PRN Reason: Hypoglycemia Protocol Dextrose (Glutose 15) 0 gm PO ONCE PRN; Protocol PRN Reason: Hypoglycemia Protocol Docusate Sodium (Colace) 100 mg PO TID [facility] Last Admin: 02/04/18 17:09 Dose: 100 mg Escitalopram Oxalate (Lexapro) 10 mg PO DAILY [facility] Last Admin: 02/04/18 09:57 Dose: 10 mg Glucagon (Glucagen Diagnostic Kit) 0 mg IM STAT PRN; Protocol PRN Reason: Hypoglycemia Protocol Vancomycin HCl 1 gm/ Sodium (Chloride) 200 mls @ 166.7 mls/hr IVPB Q24H [facility] PRN Reason: Protocol Last Admin: 02/04/18 10:03 Dose: 166.7 mls/hr Piperacillin Sod/Tazobactam Sod (Zosyn 3.375 Gm Iv Premix) 3.375 gm in 50 mls @ 100 mls/hr IVPB Q8 [facility] PRN Reason: Protocol Last Admin: 02/05/18 05:13 Dose: 100 mls/hr Insulin Human Regular (Novolin R) 0 unit SC ACHS [facility] PRN Reason: Protocol Last Admin: 02/05/18 08:11 Dose: Not Given Levetiracetam (Keppra) 500 mg PO BID [facility] Last Admin: 02/04/18 17:09 Dose: 500 mg Levothyroxine Sodium (Synthroid) 88 mcg PO DAILY@0630 [facility] Last Admin: 02/05/18 05:35 Dose: 88 mcg Magnesium Oxide (Mag-Ox) 400 mg PO DAILY [facility] Last Admin: 02/04/18 09:57 Dose: 400 mg Oxycodone HCl (Oxycodone Immediate Release Tab) 5 mg PO TID [facility] Last Admin: 02/04/18 17:09 Dose: 5 mg Pantoprazole Sodium (Protonix Ec Tab) 40 mg PO DAILY [facility] Last Admin: 02/04/18 09:57 Dose: 40 mg Potassium Chloride (K-Dur 20 Meq Er Tab) 40 meq PO ONCE ONE Stop: 02/05/18 10:01 Rivaroxaban (Xarelto) 20 mg PO QPM [facility] Last Admin: 02/04/18 17:09 Dose: 20 mg Rosuvastatin Calcium (Crestor) 10 mg PO HS [facility] Last Admin: 02/04/18 21:21 Dose: 10 mg Saccharomyces Boulardii (Florastor) 250 mg PO Q12 [facility] Last Admin: 02/04/18 21:21 Dose: 250 mg - Labs Labs: 02/05/18 07:10 02/05/18 07:10 PT 15.4 SECONDS (9.7-12.2) H 01/31/18 16:00 INR 1.4 01/31/18 16:00 - Additional Findings Additional findings: - Constitutional Appears: No Acute Distress - Head Exam Head Exam: NORMAL INSPECTION - Eye Exam Eye Exam: EOMI, Normal appearance - ENT Exam ENT Exam: Mucous Membranes Moist - Respiratory Exam Respiratory Exam: Clear to Ausculation Bilateral, NORMAL BREATHING PATTERN - Cardiovascular Exam Cardiovascular Exam: REGULAR RHYTHM, +S1, +S2 - GI/Abdominal Exam GI & Abdominal Exam: Soft, Normal Bowel Sounds. absent: Tenderness - Extremities Exam Additional comments: Right foot wrapped, tender to palpation, dressings c/d/i - Neurological Exam Neurological Exam: Alert, Awake, Oriented x3 - Psychiatric Exam Psychiatric exam: Anxious - Skin Skin Exam: Normal Color Assessment and Plan - Assessment and Plan (Free Text) Plan: Necrotic 5th Toe of Right Foot Secondary to PVD - Podiatry, Dr. Hooker, help appreciated - Vascular Surgery, Dr. Marino, consulted - per surgical team - likely angioplasty this week, date TBD - Imaging: * Right Foot Xray: Interval 1st and 4th digit trans phalangeal amputations. Acute infection cannot be excluded. * Abdominal Angiography (01/31/18): heavily calcified iliac, femoral, popliteal and tibial arteries bilaterally. Arterial supply below both knees from a single miniscule collateral vessel. * Arterial duplex: 50-75% stenosis of R CF and Pop arteries, 30-49% stenosis at R mid SFA, severely diminished flow of tibial arteries - Medications: * Vanco 1gm q24h - started 02/01/18 * Zosyn 3.375gm q8h - started 01/31/18 Previous 11/2017 Admission Workup: - Xray Right foot (11/01/17): IMPRESSION: No radiographic evidence of bone destruction or osteomyelitis. - HO/PVR - 75% Stenosis of SFA and 30-49% stenosis of popliteal artery - CTA - Heavily calcified iliac, femoral, popliteal, and tibial arteries bilaterally. Arterial supply below both knees from a single miniscule collateral vessel - Abdominal angiogram- heavily calcified iliac, femoral, popliteal, and tibial arteries - s/p angiogram with angioplasty and stent placement- R SFA arthroplasty with Dr. 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 - Patient is wheelchair bound - ASA 81 mg po daily - HELD in anticipation of surgical intervention - Xarelto 20 mg po daily - Will NEED TO BE held for 72 hours prior to surgical procedure History of Hypertension - Continue with the Norvasc 5 daily History of Hyperlipidemia - Crestor 10mg PO HS History of Hypothyroidism - Levothyroxine 88 mcg - TSH 0.50, Free T4 1.22 History of Diabetes Mellitus - Accuchecks - A1C: 5.3 on last admission - Hypoglycemia Protocol - ISS History of Seizure disorder - Keppra 500mg PO BID History of Anxiety/Depression - Lexapro 10mg PO Daily Prophylactic Measures - GI PPX: Protonix; Florastor 250mg q12h - DVT PPX: SCDs, Xarelto (switch to heparin drip 72 hours before procedure) - PT/ OT Eval- recommend [facility]; patient wants home services. Case Management involved to set this up. Pending actual surgical reccs - PICC line: right arm 01/31/18 Disposition: Pending Surgery reccs. All medical management as per Dr. Jason. DW Dr. Jason, Trudy Pedro DO, PGY2
[2018-02-05] MEDS ORDERED: Potassium Chloride 20 mEq ER Tab PO ONE (10:00)
[2018-02-05] MEDS: Saccharomyces Boulardi 250 mg Cap PO SCH ×2 (10:27→21:44)
[2018-02-05] MEDS: Magnesium Oxide 400 mg Tab UD PO SCH (10:27)
[2018-02-05] MEDS: Pantoprazole 40 mg EC Tab PO SCH (10:27)
[2018-02-05] MEDS: Vancomycin 1 GM in Sodium Chloride 0.9% 200 ML IVPB SCH (11:42)
[2018-02-05] MEDS: oxyCODONE 5 mg Immediate Release Tab PO SCH ×3 (11:43→17:35)
--- NOTE | 2018-02-05 21:39 | CP.PCM.PN ---
Subjective - Date & Time of Evaluation Date of Evaluation: 02/05/18 Time of Evaluation: 16:00 - Subjective Subjective: dictated Objective - Vital Signs/Intake and Output Vital Signs (last 24 hours): Temp Pulse Resp BP Pulse Ox 98.6 F 88 20 155/63 H 95 02/05/18 16:00 02/05/18 16:00 02/05/18 16:00 02/05/18 16:00 02/05/18 16:00 Intake and Output: 02/05/18 02/06/18 18:59 06:59 Intake Total 730 Balance 730 - Medications Medications: Current Medications Amlodipine Besylate (Norvasc) 5 mg PO DAILY [facility] Last Admin: 02/05/18 10:27 Dose: 5 mg Baclofen (Lioresal) 10 mg PO BID [facility] Last Admin: 02/05/18 17:37 Dose: 10 mg Dextrose (Dextrose 50% Inj) 0 ml IV STAT PRN; Protocol PRN Reason: Hypoglycemia Protocol Dextrose (Glutose 15) 0 gm PO ONCE PRN; Protocol PRN Reason: Hypoglycemia Protocol Docusate Sodium (Colace) 100 mg PO TID [facility] Last Admin: 02/05/18 17:35 Dose: 100 mg Escitalopram Oxalate (Lexapro) 10 mg PO DAILY [facility] Last Admin: 02/05/18 10:26 Dose: 10 mg Glucagon (Glucagen Diagnostic Kit) 0 mg IM STAT PRN; Protocol PRN Reason: Hypoglycemia Protocol Vancomycin HCl 1 gm/ Sodium (Chloride) 200 mls @ 166.7 mls/hr IVPB Q24H [facility] PRN Reason: Protocol Last Admin: 02/05/18 11:42 Dose: 166.7 mls/hr Piperacillin Sod/Tazobactam Sod (Zosyn 3.375 Gm Iv Premix) 3.375 gm in 50 mls @ 100 mls/hr IVPB Q8 [facility] PRN Reason: Protocol Last Admin: 02/05/18 21:34 Dose: 100 mls/hr Insulin Human Regular (Novolin R) 0 unit SC ACHS [facility] PRN Reason: Protocol Last Admin: 02/05/18 16:30 Dose: Not Given Levetiracetam (Keppra) 500 mg PO BID [facility] Last Admin: 02/05/18 17:37 Dose: 500 mg Levothyroxine Sodium (Synthroid) 88 mcg PO DAILY@0630 [facility] Last Admin: 02/05/18 05:35 Dose: 88 mcg Magnesium Oxide (Mag-Ox) 400 mg PO DAILY [facility] Last Admin: 02/05/18 10:27 Dose: 400 mg Oxycodone HCl (Oxycodone Immediate Release Tab) 5 mg PO TID [facility] Last Admin: 02/05/18 17:35 Dose: 5 mg Pantoprazole Sodium (Protonix Ec Tab) 40 mg PO DAILY [facility] Last Admin: 02/05/18 10:27 Dose: 40 mg Rivaroxaban (Xarelto) 20 mg PO QPM [facility] Last Admin: 02/05/18 17:35 Dose: 20 mg Rosuvastatin Calcium (Crestor) 10 mg PO HS [facility] Last Admin: 02/04/18 21:21 Dose: 10 mg Saccharomyces Boulardii (Florastor) 250 mg PO Q12 [facility] Last Admin: 02/05/18 10:27 Dose: 250 mg - Labs Labs: 02/05/18 07:10 02/05/18 07:10 PT 15.4 SECONDS (9.7-12.2) H 01/31/18 16:00 INR 1.4 01/31/18 16:00
[2018-02-06] MEDS: Levothyroxine 88 MCG TAB PO SCH (05:34)
[2018-02-06] MEDS: Piperacill/Tazo 3.375gm in Dex 3.375 GM/50 ML BAG IVPB SCH ×3 (05:34→13:55)
[2018-02-06 07:47] VITALS: O2SAT 95
[2018-02-06 07:50] LABS: BASO # 0.1 K/uL (0.0-0.2); BASO % 0.8 % (0.0-2.0); EOS # 0.1 K/uL (0.0-0.7); EOS % 1.3 % (0.0-4.0); HEMOGLOBIN 10.6 g/dL (11.0-16.0); LYMPH # 1.6 K/uL (1.0-4.3); LYMPH % 21.5 % (20.0-40.0); MEAN CELL VOLUME 89.7 fL (81.0-99.0); MEAN CORPUSCULAR HEMOGLOBIN 30.6 pg (27.0-31.0); MEAN CORPUSCULAR HGB CONC 34.1 g/dL (33.0-37.0); MEAN PLATELET VOLUME 8.7 fL (7.2-11.7); MONO # 0.3 K/uL (0.0-0.8); MONO % 4.6 % (0.0-10.0); NEUT # 5.2 K/uL (1.8-7.0); NEUT % 71.8 % (50.0-75.0); RBC 3.45 Mil/uL (3.80-5.20); RED CELL DISTRIBUTION WIDTH 15.1 % (11.5-14.5); WHITE BLOOD COUNT 7.3 K/uL (4.8-10.8)
[2018-02-06] MEDS: (Novolin R) Insulin Human Regular 100 units/ml vial SC SCH ×3 (07:53→16:30)
[2018-02-06 08:33] LABS: ALB/GLOB RATIO 1.1 (1.0-2.1); ALBUMIN 3.1 g/dL (3.5-5.0); ALT/SGPT 21 U/L (9-52); AST/SGOT 19 U/L (14-36); BLOOD UREA NITROGEN 10 mg/dL (7-17); CALCIUM 9.1 mg/dl (8.6-10.4); GFR NON-AFRICAN AMERICAN > 60
[2018-02-06] MEDS: Saccharomyces Boulardi 250 mg Cap PO SCH ×2 (09:37→21:23)
[2018-02-06] MEDS: oxyCODONE 5 mg Immediate Release Tab PO SCH ×3 (09:38→17:19)
[2018-02-06] MEDS: Pantoprazole 40 mg EC Tab PO SCH (09:39)
[2018-02-06] MEDS: Magnesium Oxide 400 mg Tab UD PO SCH (09:39)
[2018-02-06] MEDS: Vancomycin 1 GM in Sodium Chloride 0.9% 200 ML IVPB SCH (10:48)
--- NOTE | 2018-02-06 10:54 | CP.PCM.PN ---
Subjective - Date & Time of Evaluation Date of Evaluation: 02/06/18 Time of Evaluation: 09:00 - Subjective Subjective: Progress Note for Dr. Jason's Service Patient was seen and examined at bedside. Patient reports she has slight foot pain, but the pain is well controlled with pain medications. Denied fever, chills, headache, chest pain, SOB, abdominal pain, n/v/d/c, or urinary complaints. Objective - Vital Signs/Intake and Output Vital Signs (last 24 hours): Temp Pulse Resp BP Pulse Ox 98 F 72 20 147/67 95 02/06/18 07:44 02/06/18 07:44 02/06/18 07:44 02/06/18 07:44 02/06/18 07:44 Intake and Output: 02/06/18 02/06/18 06:59 18:59 Intake Total 250 Balance 250 - Medications Medications: Current Medications Amlodipine Besylate (Norvasc) 5 mg PO DAILY [facility] Last Admin: 02/06/18 09:39 Dose: 5 mg Baclofen (Lioresal) 10 mg PO BID [facility] Last Admin: 02/06/18 09:38 Dose: 10 mg Dextrose (Dextrose 50% Inj) 0 ml IV STAT PRN; Protocol PRN Reason: Hypoglycemia Protocol Dextrose (Glutose 15) 0 gm PO ONCE PRN; Protocol PRN Reason: Hypoglycemia Protocol Docusate Sodium (Colace) 100 mg PO TID [facility] Last Admin: 02/06/18 09:37 Dose: 100 mg Escitalopram Oxalate (Lexapro) 10 mg PO DAILY [facility] Last Admin: 02/06/18 09:37 Dose: 10 mg Glucagon (Glucagen Diagnostic Kit) 0 mg IM STAT PRN; Protocol PRN Reason: Hypoglycemia Protocol Vancomycin HCl 1 gm/ Sodium (Chloride) 200 mls @ 166.7 mls/hr IVPB Q24H [facility] PRN Reason: Protocol Last Admin: 02/06/18 10:48 Dose: 166.7 mls/hr Piperacillin Sod/Tazobactam Sod (Zosyn 3.375 Gm Iv Premix) 3.375 gm in 50 mls @ 100 mls/hr IVPB Q8 [facility] PRN Reason: Protocol Last Admin: 02/06/18 05:34 Dose: 100 mls/hr Insulin Human Regular (Novolin R) 0 unit SC ACHS [facility] PRN Reason: Protocol Last Admin: 02/06/18 07:53 Dose: Not Given Levetiracetam (Keppra) 500 mg PO BID [facility] Last Admin: 02/06/18 09:38 Dose: 500 mg Levothyroxine Sodium (Synthroid) 88 mcg PO DAILY@0630 [facility] Last Admin: 02/06/18 05:34 Dose: 88 mcg Magnesium Oxide (Mag-Ox) 400 mg PO DAILY [facility] Last Admin: 02/06/18 09:39 Dose: 400 mg Oxycodone HCl (Oxycodone Immediate Release Tab) 5 mg PO TID [facility] Last Admin: 02/06/18 09:38 Dose: 5 mg Pantoprazole Sodium (Protonix Ec Tab) 40 mg PO DAILY [facility] Last Admin: 02/06/18 09:39 Dose: 40 mg Rivaroxaban (Xarelto) 20 mg PO QPM [facility] Last Admin: 02/05/18 17:35 Dose: 20 mg Rosuvastatin Calcium (Crestor) 10 mg PO HS [facility] Last Admin: 02/05/18 21:44 Dose: 10 mg Saccharomyces Boulardii (Florastor) 250 mg PO Q12 [facility] Last Admin: 02/06/18 09:37 Dose: 250 mg - Labs Labs: 02/06/18 07:31 02/06/18 07:31 PT 15.4 SECONDS (9.7-12.2) H 01/31/18 16:00 INR 1.4 01/31/18 16:00 - Additional Findings Additional findings: - Constitutional Appears: No Acute Distress - Head Exam Head Exam: NORMAL INSPECTION - Eye Exam Eye Exam: EOMI, Normal appearance - ENT Exam ENT Exam: Mucous Membranes Moist - Respiratory Exam Respiratory Exam: Clear to Ausculation Bilateral, NORMAL BREATHING PATTERN - Cardiovascular Exam Cardiovascular Exam: REGULAR RHYTHM, +S1, +S2 - GI/Abdominal Exam GI & Abdominal Exam: Soft, Normal Bowel Sounds. absent: Tenderness - Extremities Exam Additional comments: Right foot wrapped, tender to palpation, dressings c/d/i - Neurological Exam Neurological Exam: Alert, Awake, Oriented x3 - Psychiatric Exam Psychiatric exam: Anxious - Skin Skin Exam: Normal Color Assessment and Plan - Assessment and Plan (Free Text) Plan: Necrotic 5th Toe of Right Foot Secondary to PVD - Podiatry, Dr. Hooker, help appreciated - Vascular Surgery, Dr. Marino, consulted - Imaging: * Right Foot Xray: Interval 1st and 4th digit trans phalangeal amputations. Acute infection cannot be excluded. * Abdominal Angiography (01/31/18): heavily calcified iliac, femoral, popliteal and tibial arteries bilaterally. Arterial supply below both knees from a single miniscule collateral vessel. * Arterial duplex: 50-75% stenosis of R CF and Pop arteries, 30-49% stenosis at R mid SFA, severely diminished flow of tibial arteries - Medications: * Vanco 1gm q24h - started 02/01/18 * Zosyn 3.375gm q8h - started 01/31/18 Previous 11/2017 Admission Workup: - Xray Right foot (11/01/17): IMPRESSION: No radiographic evidence of bone destruction or osteomyelitis. - HO/PVR - 75% Stenosis of SFA and 30-49% stenosis of popliteal artery - CTA - Heavily calcified iliac, femoral, popliteal, and tibial arteries bilaterally. Arterial supply below both knees from a single miniscule collateral vessel - Abdominal angiogram- heavily calcified iliac, femoral, popliteal, and tibial arteries - s/p angiogram with angioplasty and stent placement- R SFA arthroplasty with Dr. 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 - Patient is wheelchair bound - ASA 81 mg po daily - HELD in anticipation of surgical intervention - Xarelto 20 mg po daily - Will NEED TO BE held for 72 hours prior to surgical procedure History of Hypertension - Continue with the Norvasc 5 daily History of Hyperlipidemia - Crestor 10mg PO HS History of Hypothyroidism - Levothyroxine 88 mcg - TSH 0.50, Free T4 1.22 History of Diabetes Mellitus - Accuchecks - A1C: 5.3 on last admission - Hypoglycemia Protocol - ISS History of Seizure disorder - Keppra 500mg PO BID History of Anxiety/Depression - Lexapro 10mg PO Daily Prophylactic Measures - GI PPX: Protonix; Florastor 250mg q12h - DVT PPX: SCDs, Xarelto (switch to heparin drip 72 hours before procedure) - PT/ OT Eval- recommend [facility]; patient wants home services. Case Management involved to set this up. - PICC line: right arm 01/31/18 Disposition: No further surgical or podiatry interventions at this time. Please continue taking the medications you currently take at home. Please take Tylenol as needed for pain. Please take Keflex 500mg by mouth twice a day with food for 7 days. You will also be taking a probiotic twice a day with food for total 1 month to help prevent the antibiotic from irritating your stomach. Please follow up with Dr. Marino (the surgeon) in 1-2 weeks to monitor how your foot is doing. Please also follow up with Dr. Garcias (the foot doctor) in 1-2 weeks to monitor how your foot is doing. There will be a wound care nurse that will be visiting you every other day to change the dressings and manage the wound. The wound will most likely fall off on its own. If the pain worsens or the leg becomes cool to touch, please return to the ED. All medical management as per Dr. Jason. DW Dr. Jason, Trudy Pedro DO, PGY2
--- NOTE | 2018-02-06 12:58 | PN ---
DATE: 02/05/2018 SUBJECTIVE: The patient was complaining of too much pain in the right foot. It was with the dressing. I had seen the foot yesterday. It has ischemic changes on the tip of the amputated toes, especially the first toe, fourth toe, and the fifth toe appeared with some edema and swelling, but these all appeared to be ischemic changes; however, since the fifth toe appear swollen, the resident was calling me and there she goes home and they do not plan to do anything. I would send her home with Keflex b.i.d. for seven to ten days, otherwise for now she needs pain control. PHYSICAL EXAMINATION: VITAL SIGNS: T-max is 98.6, pulse 88, blood pressure 155/63, respirations are 20. HEENT: Head is atraumatic. NECK: Supple. LUNGS: Clear. HEART: S1 and S2 are regular. ABDOMEN: Soft and nontender. No guarding. No rigidity present. EXTREMITIES: Right foot is with the dressing. PLAN: We will continue antibiotics while she is here and we will see if vascular has any plans. I see a note from Vascular yesterday and is saying we will follow PVR results and will tell a surgical plan accordingly, so we will wait for that. Deon Mera MD
--- NOTE | 2018-02-06 13:39 | CP.PCM.PN ---
Subjective - Date & Time of Evaluation Date of Evaluation: 02/06/18 Time of Evaluation: 11:36 - Subjective Subjective: Podiatry Progress Note for Dr. Garcias 82F seen and evaluated at bedside for necrotic changes to amputation sites on right foot. Patient is AAO x 3 and NAD, resting comfortably in bed. States that she feels her dressing was too tight during her last dressing change but overall states that her pain is well controlled. Denies any acute overnight events or new pedal complaints at this time. Denies any recent N/V/F/C/CP/SOB/D/ posterior calf pain when squeezed Objective - Vital Signs/Intake and Output Vital Signs (last 24 hours): Temp Pulse Resp BP Pulse Ox 98 F 72 20 147/67 95 02/06/18 07:44 02/06/18 07:44 02/06/18 07:44 02/06/18 07:44 02/06/18 07:44 Intake and Output: 02/06/18 02/06/18 06:59 18:59 Intake Total 250 Balance 250 - Medications Medications: Current Medications Amlodipine Besylate (Norvasc) 5 mg PO DAILY [facility] Last Admin: 02/06/18 09:39 Dose: 5 mg Baclofen (Lioresal) 10 mg PO BID [facility] Last Admin: 02/06/18 09:38 Dose: 10 mg Dextrose (Dextrose 50% Inj) 0 ml IV STAT PRN; Protocol PRN Reason: Hypoglycemia Protocol Dextrose (Glutose 15) 0 gm PO ONCE PRN; Protocol PRN Reason: Hypoglycemia Protocol Docusate Sodium (Colace) 100 mg PO TID [facility] Last Admin: 02/06/18 09:37 Dose: 100 mg Escitalopram Oxalate (Lexapro) 10 mg PO DAILY [facility] Last Admin: 02/06/18 09:37 Dose: 10 mg Glucagon (Glucagen Diagnostic Kit) 0 mg IM STAT PRN; Protocol PRN Reason: Hypoglycemia Protocol Vancomycin HCl 1 gm/ Sodium (Chloride) 200 mls @ 166.7 mls/hr IVPB Q24H [facility] PRN Reason: Protocol Last Admin: 02/06/18 10:48 Dose: 166.7 mls/hr Piperacillin Sod/Tazobactam Sod (Zosyn 3.375 Gm Iv Premix) 3.375 gm in 50 mls @ 100 mls/hr IVPB Q8 [facility] PRN Reason: Protocol Last Admin: 02/06/18 05:34 Dose: 100 mls/hr Insulin Human Regular (Novolin R) 0 unit SC ACHS [facility] PRN Reason: Protocol Last Admin: 02/06/18 11:57 Dose: 1 unit Levetiracetam (Keppra) 500 mg PO BID [facility] Last Admin: 02/06/18 09:38 Dose: 500 mg Levothyroxine Sodium (Synthroid) 88 mcg PO DAILY@0630 [facility] Last Admin: 02/06/18 05:34 Dose: 88 mcg Magnesium Oxide (Mag-Ox) 400 mg PO DAILY [facility] Last Admin: 02/06/18 09:39 Dose: 400 mg Oxycodone HCl (Oxycodone Immediate Release Tab) 5 mg PO TID [facility] Last Admin: 02/06/18 09:38 Dose: 5 mg Pantoprazole Sodium (Protonix Ec Tab) 40 mg PO DAILY [facility] Last Admin: 02/06/18 09:39 Dose: 40 mg Rivaroxaban (Xarelto) 20 mg PO QPM [facility] Last Admin: 02/05/18 17:35 Dose: 20 mg Rosuvastatin Calcium (Crestor) 10 mg PO HS [facility] Last Admin: 02/05/18 21:44 Dose: 10 mg Saccharomyces Boulardii (Florastor) 250 mg PO Q12 [facility] Last Admin: 02/06/18 09:37 Dose: 250 mg - Labs Labs: 02/06/18 07:31 02/06/18 07:31 PT 15.4 SECONDS (9.7-12.2) H 01/31/18 16:00 INR 1.4 01/31/18 16:00 - Constitutional Appears: Well, Non-toxic, No Acute Distress - Extremities Exam Additional comments: RLE focused exam: Vasc: DP/PT pulses 1/4 bilaterally, CFT > 3 seconds to all remaining digits, TG warm to cool, no edema noted to bilateral lower extremities Ortho: Partial right hallux and fourth digit amputation noted, mild tenderness to palpation of areas surrounding necrotic changes Neuro: Gross and protective sensation intact bilaterally Derm: Superficial gangrenous changes noted to right hallux and fourth digit amputation site as well as dorsolateral right fifth digit. No erythema, no malodor, no drainage, no purulence, no fluctance, no clinical signs of infection noted bilaterally. All necrotic sites appear stable at this time - Neurological Exam Neurological Exam: Alert, Awake, Oriented x3 - Psychiatric Exam Psychiatric exam: Normal Affect, Normal Mood Assessment and Plan - Assessment and Plan (Free Text) Assessment: 82F seen and evaluated at bedside for necrotic changes to amputation sites on right foot Plan: Patient seen and evaluated Plan discussed with Dr. Prather Afebrile, absent leukocytosis Foot Xray: 1st and 4th digit transphalangeal amputations with post surgical changes Arterial duplex: 50-75% stenosis of R CF and Pop arteries, 30-49% stenosis at R mid SFA, severely diminished flow of tibial arteries Abdominal angiography: Read pending Per vascular team, no vascular intervention will be performed Wounds dressed with betadine soaked gauze, dry gauze and kirlix No plans for surgical intervention from podiatric standpoint Necrotic changes are stable and necrotic sites will be allowed to auto-amputate Patient should follow up with Dr. Garcias within one week following discharge Podiatry will continue to follow while patient in house
[2018-02-06 16:44] VITALS: BP 114/42; PULSE 68; TEMP 98.5
== END 2018-02-06 21:25 | DRG 300 ==
LOC: C.ER 17:23 → C.9E 21:59 → C.3T 23:10
PROVIDERS: ADMIT Internal Medicine Pulmonary Disease; ATTEND Internal Medicine Pulmonary Disease
DX: E11.52 Type 2 diabetes mellitus with diabetic peripheral angiopathy with gangrene (principal); I70.261 Atherosclerosis of native arteries of extremities with gangrene, right leg; M86.9 Osteomyelitis, unspecified; T87.53 Necrosis of amputation stump, right lower extremity; E11.621 Type 2 diabetes mellitus with foot ulcer; L97.519 Non-pressure chronic ulcer of other part of right foot with unspecified severity; E11.69 Type 2 diabetes mellitus with other specified complication; I69.354 Hemiplegia and hemiparesis following cerebral infarction affecting left non-dominant side; I10 Essential (primary) hypertension; E03.9 Hypothyroidism, unspecified; M19.90 Unspecified osteoarthritis, unspecified site; M20.41 Other hammer toe(s) (acquired), right foot; G40.909 Epilepsy, unspecified, not intractable, without status epilepticus; E78.5 Hyperlipidemia, unspecified; E78.00 Pure hypercholesterolemia, unspecified; F32.9 Major depressive disorder, single episode, unspecified; F41.9 Anxiety disorder, unspecified; Z89.411 Acquired absence of right great toe; Z89.421 Acquired absence of other right toe(s); Z95.820 Peripheral vascular angioplasty status with implants and grafts; Z79.4 Long term (current) use of insulin; Z99.3 Dependence on wheelchair

== ENCOUNTER 2018-06-05 15:27 | Inpatient (IN) | payer OTHER ==
--- NOTE | 2018-06-05 16:28 | C.PDOC ---
History Of Present Illness 82 y/o female with a PMHx of diabetes, R toe gangrene w/ amputation presents to the ED for evaluation of wounds to the right toes. Patient complains the wounds have not been healing since undergoing surgery in December 2017. She is s/p right 4th toe amputation. Otherwise she denies any fever, chills, or redness/streaking from the wounds. She denies any fall or trauma. No recent abx, has not seen her PMD or personal development coach recently. Patient sees Dr. Hooker in podiatry. PMD: Dr. Laughlin Podiatry: Dr. Hooker Time Seen by Provider: 06/05/18 16:26 Chief Complaint (Nursing): Lower Extremity Problem/Injury History Per: Patient History/Exam Limitations: no limitations Onset/Duration Of Symptoms: Days Current Symptoms Are (Timing): Still Present Past Medical History Reviewed: Historical Data, Nursing Documentation, Vital Signs Vital Signs: Last Vital Signs Temp 98.4 F 06/05/18 15:46 Pulse 58 L 06/05/18 15:46 Resp 20 06/05/18 15:46 BP 145/63 06/05/18 15:46 Pulse Ox 97 06/05/18 15:46 - Medical History PMH: HTN, Hypercholesterolemia, Hyperlipidemia, TIA Denies: Chronic Kidney Disease - [facility] Procedures DETACHMENT AT RIGHT 1ST TOE, HIGH, OPEN APPROACH (11/19/17) DETACHMENT AT RIGHT FOOT, COMPLETE, OPEN APPROACH (11/19/17) DILATE L COM ILIAC ART W DRUG-ELUT INTRA, PERC (11/02/17) INSERTION OF INFUSION DEV INTO SUP VENA CAVA, PERC APPROACH (01/30/18) Family History: States: No Known Family Hx - Social History Hx Tobacco Use: No Hx Alcohol Use: No Hx Substance Use: No - Immunization History Hx Tetanus Toxoid Vaccination: Yes Hx Influenza Vaccination: Yes Hx Pneumococcal Vaccination: No Review Of Systems Constitutional: Negative for: Fever, Chills, Weakness, Malaise Eyes: Negative for: Pain, Vision Change ENT: Negative for: Ear Pain, Ear Discharge, Nose Congestion Cardiovascular: Negative for: Chest Pain, Palpitations, Orthopnea Respiratory: Negative for: Cough, Shortness of Breath, SOB with Excertion, Pleuritic Pain Gastrointestinal: Negative for: Nausea, Vomiting, Abdominal Pain, Diarrhea, Constipation, Melena, Hematochezia, Hematemesis Genitourinary: Negative for: Dysuria, Frequency, Incontinence, Hematuria, Vaginal Discharge, Vaginal Bleeding, Rash Musculoskeletal: Positive for: Foot Pain. Negative for: Shoulder Pain, Back Pain, Hand Pain, Leg Pain Skin: Positive for: Other (Open wounds to right toes) Neurological: Negative for: Weakness, Numbness, Incoordination, Change in Speech, Confusion, Seizures, Altered Mental Status Physical Exam - Physical Exam Appears: Non-toxic, No Acute Distress Skin: Warm, Dry Head: Normacephalic Eye(s): bilateral: Normal Inspection, PERRL, EOMI Nose: Normal Oral Mucosa: Moist Tongue: Normal Appearing Lips: Normal Appearing Throat: Normal, No Erythema Neck: Trachea Midline, Supple, Other (No meningeal signs- negative kernig's and brudzinskis) Chest: Symmetrical Cardiovascular: Rhythm Regular, No Friction Rub Respiratory: Normal Breath Sounds, No Rales, No Rhonchi, No Wheezing Gastrointestinal/Abdominal: Soft, No Distention Extremity: Deformity (right 4th toe amputated, R 2nd, 3rd, 5th digit with dark eschar. Good DP pulse and n/v status. LLE unremarkable, good n/v status) Extremity: Right: Other (necrotic tissue to distal tip of right toes 1-3 and 5, (+) erythema), Bilateral: Atraumatic Pulses: Left Dorsalis Pedis: Normal, Right Dorsalis Pedis: Normal Neurological/Psych: Oriented x3, Normal Speech, Normal Cognition ED Course And Treatment - Laboratory Results Result Diagrams: 06/05/18 16:53 06/05/18 18:00 O2 Sat by Pulse Oximetry: 97 (RA) Pulse Ox Interpretation: Normal Medical Decision Making Medical Decision Makin yr old female w/ hx of DM2, gangrenous R toe w/ previous amputation p/w gangrenous R toes. No crepitus on exam. Likely recurrent gangrenous toes. Will seek labs, imaging, abx and consult. pt in NAD. Plan: --VBG --Blood work --Blood cultures --Right foot x-ray 1641 Podiatry resident paged. EK bpm, sinus bradycardia, no STEMI 1809 Appreciate consult w/ Dr. Manriquez (podiatry [facility] for [facility]) to be admitted, they will follow Appreciate consult w/ Dr. Garg to admit to her service pt agreeable to plan in NAD. No free air on XR Disposition - Disposition Disposition Time: 18:09 Condition: GOOD - Clinical Impression Clinical Impression: Foot infection - Scribe Statement The provider has reviewed the documentation as recorded by the Scribe Maribel Redmond Provider Attestation: All medical record entries made by the Scribe were at my direction and perso hannah dictated by me. I have reviewed the chart and agree that the record accurately reflects my personal performance of the history, physical exam, medical decision making, and the department course for this patient. I have also personally directed, reviewed, and agree with the discharge instructions and disposition.
[2018-06-05] MEDS ORDERED: Piperacill/Tazo 3.375gm in Dex 3.375 GM/50 ML BAG IVPB STA (16:49)
[2018-06-05 16:58] LABS: BASO # 0.1 K/uL (0.0-0.2); BASO % 0.8 % (0.0-2.0); EOS # 0.3 K/uL (0.0-0.7); EOS % 5.5 % (0.0-4.0); HEMOGLOBIN 11.6 g/dL (11.0-16.0); LYMPH # 1.7 K/uL (1.0-4.3); LYMPH % 27.6 % (20.0-40.0); MEAN CORPUSCULAR HGB CONC 33.1 g/dL (33.0-37.0); MONO # 0.5 K/uL (0.0-0.8); MONO % 8.4 % (0.0-10.0); NEUT # 3.6 K/uL (1.8-7.0); NEUT % 57.7 % (50.0-75.0); NRBC % 0.1 % (0.0-2.0); RBC 3.74 Mil/uL (3.80-5.20); RED CELL DISTRIBUTION WIDTH 14.9 % (11.5-14.5); WHITE BLOOD COUNT 6.2 K/uL (4.8-10.8)
[2018-06-05 17:05] LABS: MEAN CELL VOLUME 93.6 fL (81.0-99.0)
[2018-06-05] MEDS ORDERED: Piperacillin/Tazobact 3.375 gm 100 ML IVPB ONE ×2 (17:07→22:52)
[2018-06-05 17:25] LABS: VENOUS BLOOD GAS BASE EXCESS 1.6 mmol/L (0.0-2.0); VENOUS BLOOD GAS PCO2 60 mmHg (40-60); VENOUS BLOOD GAS PO2 24 mm/Hg (30-55)
[2018-06-05] MEDS ORDERED: Vancomycin 1 GM 1 GM/250 ML BAG IVPB ONE (18:17)
[2018-06-05 18:36] LABS: ALB/GLOB RATIO 1.3 (1.0-2.1); ALBUMIN 3.7 g/dL (3.5-5.0); ALT/SGPT 19 U/L (9-52); AST/SGOT 30 U/L (14-36); BLOOD UREA NITROGEN 18 mg/dL (7-17); CALCIUM 8.6 mg/dl (8.6-10.4); GFR NON-AFRICAN AMERICAN > 60
--- NOTE | 2018-06-05 18:43 | RAD ---
Date of service: 06/05/2018 PROCEDURE: Right Foot Radiographs. HISTORY: Infected foot COMPARISON: 01/30/2018 FINDINGS: BONES: Stable findings status post amputation distal tuft right 1st digit. Juxta-articular osteopenia is progressive JOINTS: Multiple hammertoe deformities. Pes cavum deformity. SOFT TISSUES: Normal. OTHER FINDINGS: No visualized radiopaque foreign body. IMPRESSION: No acute findings related to/ accounting for the clinical presentation.
[2018-06-05] MEDS ORDERED: DiphenhydrAMINE 50 mg/ml Inj IVP STA (18:52)
[2018-06-05] MEDS ORDERED: DiphenhydrAMINE 50 mg/ml Inj ONE (18:56)
[2018-06-05] MEDS: (Novolin R) Insulin Human Regular 100 units/ml vial SC SCH (22:12)
[2018-06-05] MEDS: Piperacill/Tazo 3.375gm in Dex 3.375 GM/50 ML BAG IVPB SCH (22:53)
[2018-06-06] MEDS: Saccharomyces Boulardi 250 mg Cap PO SCH ×3 (00:29→21:14)
[2018-06-06] MEDS: Piperacill/Tazo 3.375gm in Dex 3.375 GM/50 ML BAG IVPB SCH ×4 (04:34→21:13)
[2018-06-06 05:41] LABS: BASO % 0.6 % (0.0-2.0); EOS # 0.2 K/uL (0.0-0.7); EOS % 3.5 % (0.0-4.0); HEMOGLOBIN 11.2 g/dL (11.0-16.0); LYMPH # 1.5 K/uL (1.0-4.3); LYMPH % 22.7 % (20.0-40.0); MEAN CELL VOLUME 93.1 fL (81.0-99.0); MEAN CORPUSCULAR HEMOGLOBIN 31.6 pg (27.0-31.0); MEAN CORPUSCULAR HGB CONC 33.9 g/dL (33.0-37.0); MEAN PLATELET VOLUME 8.6 fL (7.2-11.7); MONO # 0.5 K/uL (0.0-0.8); MONO % 8.1 % (0.0-10.0); NEUT # 4.4 K/uL (1.8-7.0); NEUT % 65.1 % (50.0-75.0); RBC 3.56 Mil/uL (3.80-5.20); RED CELL DISTRIBUTION WIDTH 14.3 % (11.5-14.5); WHITE BLOOD COUNT 6.8 K/uL (4.8-10.8)
[2018-06-06 06:19] LABS: LDL CHOLESTEROL 73 mg/dL (0-129)
[2018-06-06 06:32] LABS: ALB/GLOB RATIO 1.2 (1.0-2.1); ALBUMIN 3.5 g/dL (3.5-5.0); ALT/SGPT 23 U/L (9-52); AST/SGOT 28 U/L (14-36); BLOOD UREA NITROGEN 15 mg/dL (7-17); CALCIUM 8.6 mg/dl (8.6-10.4); GFR NON-AFRICAN AMERICAN > 60; HDL CHOLESTEROL 53 mg/dL (30-70)
[2018-06-06] MEDS: Levothyroxine 88 MCG TAB PO SCH (06:33)
[2018-06-06] MEDS: (Novolin R) Insulin Human Regular 100 units/ml vial SC SCH ×4 (07:56→23:41)
--- NOTE | 2018-06-06 08:35 | CP.PCM.CON ---
Past Patient History - Past Medical History & Family History Past Medical History?: Yes - Past Social History Smoking Status: Never Smoked - CARDIAC Hx Cardiac Disorders: Yes Hx Hypercholesterolemia: Yes Hx Hypertension: Yes - PULMONARY Hx Respiratory Disorders: No - NEUROLOGICAL Hx Neurological Disorder: Yes Hx Transient Ischemic Attacks (TIA): Yes - HEENT Hx HEENT Problems: Yes Other/Comment: wears prescription eyeglasses - RENAL Hx Chronic Kidney Disease: No - ENDOCRINE/METABOLIC Hx Endocrine Disorders: Yes Hx Diabetes Mellitus Type 2: Yes - HEMATOLOGICAL/ONCOLOGICAL Hx Blood Disorders: No - INTEGUMENTARY Hx Dermatological Problems: No - MUSCULOSKELETAL/RHEUMATOLOGICAL Hx Musculoskeletal Disorders: Yes Hx Falls: Yes 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) - GASTROINTESTINAL Hx Gastrointestinal Disorders: No - GENITOURINARY/GYNECOLOGICAL Hx Genitourinary Disorders: No - PSYCHIATRIC Hx Psychophysiologic Disorder: No Hx Substance Use: No - SURGICAL HISTORY Hx Surgeries: Yes Hx Amputation: Yes (R 1ST, 2ND, 3RD, 4TH TOE) Other/Comment: "HERNIA REMOVAL IN [place]" - ANESTHESIA Hx Anesthesia: Yes Hx Anesthesia Reactions: No Hx Malignant Hyperthermia: No Meds Allergies/Adverse Reactions: Allergies Allergy/AdvReac Type Severity Reaction Status Date / Time vancomycin Allergy ITCHING Verified 06/05/18 21:51 - Medications Medications: Current Medications Amlodipine Besylate (Norvasc) 5 mg PO BID [facility] Escitalopram Oxalate (Lexapro) 10 mg PO DAILY [facility] Piperacillin Sod/Tazobactam Sod (Zosyn 3.375 Gm Iv Premix) 3.375 gm in 50 mls @ 100 mls/hr IVPB Q6H [facility]; Protocol Last Admin: 06/06/18 04:34 Dose: 100 mls/hr Vancomycin HCl 1 gm/ Sodium (Chloride) 250 mls @ 166.7 mls/hr IVPB Q24H [facility]; Protocol Last Admin: 06/06/18 00:30 Dose: Not Given Insulin Human Regular (Novolin R) [address] [facility]; Protocol Last Admin: 06/06/18 07:56 Dose: Not Given Levetiracetam (Keppra) 500 mg PO BID [facility] Levothyroxine Sodium (Synthroid) 88 mcg PO DAILY@0630 [facility] Last Admin: 06/06/18 06:33 Dose: 88 mcg Rosuvastatin Calcium (Crestor) 10 mg PO HS [facility] Last Admin: 06/05/18 22:53 Dose: 10 mg Saccharomyces Boulardii (Florastor) 250 mg PO Q12 [facility] Last Admin: 06/06/18 00:29 Dose: Not Given Results - Vital Signs Recent Vital Signs: Last Vital Signs Temp 98.0 F 06/05/18 23:45 Pulse 63 06/06/18 07:16 Resp 16 06/06/18 07:16 BP 184/61 H 06/06/18 07:16 Pulse Ox 98 06/06/18 07:16 - Labs Result Diagrams: 06/06/18 05:38 06/06/18 05:38 Labs: Laboratory Results - last 24 hr 06/05/18 06/05/18 06/05/18 16:53 17:15 18:00 WBC 6.2 RBC 3.74 L Hgb 11.6 Hct 35.0 MCV 93.6 D MCH 31.0 MCHC 33.1 RDW 14.9 H Plt Count 237 MPV 9.0 Neut % (Auto) 57.7 Lymph % (Auto) 27.6 [place] % (Auto) 8.4 Eos % (Auto) 5.5 H Baso % (Auto) 0.8 Neut # (Auto) 3.6 Lymph # (Auto) 1.7 [place] # (Auto) 0.5 Eos # (Auto) 0.3 Baso # (Auto) 0.1 pO2 24 L VBG pH 7.30 L VBG pCO2 60 VBG HCO3 24.5 VBG Total CO2 31.3 H VBG O2 Sat (Calc) 44.4 VBG Base Excess 1.6 VBG Potassium 3.8 Sodium 138.0 137 Chloride 107.0 103 Glucose 62 L Lactate 0.6 L Potassium 4.2 Carbon Dioxide 29 Anion Gap 10 BUN 18 H Creatinine 0.7 Est GFR ( Amer) > 60 Est GFR (Non-Af Amer) > 60 POC Glucose (mg/dL) Random Glucose 69 D Calcium 8.6 Total Bilirubin 0.3 AST 30 ALT 19 Alkaline Phosphatase 51 Total Protein 6.4 Albumin 3.7 Globulin 2.7 Albumin/Globulin Ratio 1.3 Triglycerides Cholesterol LDL Cholesterol Direct HDL Cholesterol TSH 3rd Generation Venous Blood Potassium 3.8 06/05/18 06/05/18 06/05/18 22:07 22:09 22:37 WBC RBC Hgb Hct MCV MCH MCHC RDW Plt Count MPV Neut % (Auto) Lymph % (Auto) [place] % (Auto) Eos % (Auto) Baso % (Auto) Neut # (Auto) Lymph # (Auto) [place] # (Auto) Eos # (Auto) Baso # (Auto) pO2 VBG pH VBG pCO2 VBG HCO3 VBG Total CO2 VBG O2 Sat (Calc) VBG Base Excess VBG Potassium Sodium Chloride Glucose Lactate Potassium Carbon Dioxide Anion Gap BUN Creatinine Est GFR ( Amer) Est GFR (Non-Af Amer) POC Glucose (mg/dL) 56 L 63 L 90 Random Glucose Calcium Total Bilirubin AST ALT Alkaline Phosphatase Total Protein Albumin Globulin Albumin/Globulin Ratio Triglycerides Cholesterol LDL Cholesterol Direct HDL Cholesterol TSH 3rd Generation Venous Blood Potassium 06/06/18 06/06/18 05:38 05:38 WBC 6.8 RBC 3.56 L Hgb 11.2 Hct 33.1 L MCV 93.1 MCH 31.6 H MCHC 33.9 RDW 14.3 Plt Count 215 MPV 8.6 Neut % (Auto) 65.1 Lymph % (Auto) 22.7 [place] % (Auto) 8.1 Eos % (Auto) 3.5 Baso % (Auto) 0.6 Neut # (Auto) 4.4 Lymph # (Auto) 1.5 [place] # (Auto) 0.5 Eos # (Auto) 0.2 Baso # (Auto) 0.0 pO2 VBG pH VBG pCO2 VBG HCO3 VBG Total CO2 VBG O2 Sat (Calc) VBG Base Excess VBG Potassium Sodium 134 Chloride 102 Glucose Lactate Potassium 4.2 Carbon Dioxide 28 Anion Gap 8 L BUN 15 Creatinine 0.7 Est GFR ( Amer) > 60 Est GFR (Non-Af Amer) > 60 POC Glucose (mg/dL) Random Glucose 90 D Calcium 8.6 Total Bilirubin 0.5 AST 28 ALT 23 Alkaline Phosphatase 47 Total Protein 6.4 Albumin 3.5 Globulin 2.9 Albumin/Globulin Ratio 1.2 Triglycerides 112 D Cholesterol 146 LDL Cholesterol Direct 73 HDL Cholesterol 53 TSH 3rd Generation 3.09 Venous Blood Potassium Assessment & Plan - Date & Time Date: 06/05/18 Time: 22:15
--- NOTE | 2018-06-06 08:54 | CP.PCM.CON ---
History of Present Illness - History of Present Illness History of Present Illness: Podiatry Consult Note - Dr. Marisa Hooker 82F with PMHx of DM2 seen in ED for right foot gangrenous digits. Pt is known to Dr. Hooker's podiatry service and routinely follows up in [facility] podiatry clinic for management of gangrenous digits. She currently expresses pain at a 7/10 to the right foot digits. [facility] bandage one time per week and reapply betadine. She denies of an y new pedal complaints, just says that the pain has progressively worsened to the right foot toes. 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 All: Vancomycin SocHx: denies EtOH, cigarette or illicit drug use Review of Systems - Review of Systems All systems: reviewed and no additional remarkable complaints except (per HPI) Past Patient History - Past Medical History & Family History Past Medical History?: Yes - Past Social History Smoking Status: Never Smoked - CARDIAC Hx Cardiac Disorders: Yes Hx Hypercholesterolemia: Yes Hx Hypertension: Yes - PULMONARY Hx Respiratory Disorders: No - NEUROLOGICAL Hx Neurological Disorder: Yes Hx Transient Ischemic Attacks (TIA): Yes - HEENT Hx HEENT Problems: Yes Other/Comment: wears prescription eyeglasses - RENAL Hx Chronic Kidney Disease: No - ENDOCRINE/METABOLIC Hx Endocrine Disorders: Yes Hx Diabetes Mellitus Type 2: Yes - HEMATOLOGICAL/ONCOLOGICAL Hx Blood Disorders: No - INTEGUMENTARY Hx Dermatological Problems: No - MUSCULOSKELETAL/RHEUMATOLOGICAL Hx Musculoskeletal Disorders: Yes Hx Falls: Yes 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) - GASTROINTESTINAL Hx Gastrointestinal Disorders: No - GENITOURINARY/GYNECOLOGICAL Hx Genitourinary Disorders: No - PSYCHIATRIC Hx Psychophysiologic Disorder: No Hx Substance Use: No - SURGICAL HISTORY Hx Surgeries: Yes Hx Amputation: Yes (R 1ST, 2ND, 3RD, 4TH TOE) Other/Comment: "HERNIA REMOVAL IN [place]" - ANESTHESIA Hx Anesthesia: Yes Hx Anesthesia Reactions: No Hx Malignant Hyperthermia: No Meds Allergies/Adverse Reactions: Allergies Allergy/AdvReac Type Severity Reaction Status Date / Time vancomycin Allergy ITCHING Verified 06/05/18 21:51 - Medications Medications: Current Medications Amlodipine Besylate (Norvasc) 5 mg PO BID [facility] Escitalopram Oxalate (Lexapro) 10 mg PO DAILY [facility] Piperacillin Sod/Tazobactam Sod (Zosyn 3.375 Gm Iv Premix) 3.375 gm in 50 mls @ 100 mls/hr IVPB Q6H [facility]; Protocol Last Admin: 06/06/18 04:34 Dose: 100 mls/hr Vancomycin HCl 1 gm/ Sodium (Chloride) 250 mls @ 166.7 mls/hr IVPB Q24H [facility]; Protocol Last Admin: 06/06/18 00:30 Dose: Not Given Insulin Human Regular (Novolin R) 0 unit SC ACHS [facility]; Protocol Last Admin: 06/06/18 07:56 Dose: Not Given Levetiracetam (Keppra) 500 mg PO BID [facility] Levothyroxine Sodium (Synthroid) 88 mcg PO DAILY@0630 [facility] Last Admin: 06/06/18 06:33 Dose: 88 mcg Rosuvastatin Calcium (Crestor) 10 mg PO HS [facility] Last Admin: 06/05/18 22:53 Dose: 10 mg Saccharomyces Boulardii (Florastor) 250 mg PO Q12 [facility] Last Admin: 06/06/18 00:29 Dose: Not Given Physical Exam - Constitutional Appears: Well, Non-toxic, No Acute Distress - Extremities Exam Additional comments: Right lower extremity exam: Vascular: DP and PT pulses faintly palpable. No pedal edema noted. Capillary refill time absent to right foot digits. Temperature gradient is warm to cool extending to level of midfoot; distal to midfoot is cold to the touch Derm: Gaqngrenous necrotic changes to digits, increased to digits 1, 4 and 5. No discrete open lesions or breaks in skin. No drainage or purulence, no erythema, no malodor, no fluctuance. Neuro: protective sensation and gross sensation intact Ortho: mild pain on palpation of right foot digits 1-5 - Neurological Exam Neurological exam: Alert, Oriented x3 - Psychiatric Exam Psychiatric exam: Normal Affect, Normal Mood Results - Vital Signs Recent Vital Signs: Last Vital Signs Temp 98.0 F 06/05/18 23:45 Pulse 63 06/06/18 07:16 Resp 16 06/06/18 07:16 BP 184/61 H 06/06/18 07:16 Pulse Ox 98 06/06/18 07:16 - Labs Result Diagrams: 06/06/18 05:38 06/06/18 05:38 Labs: Laboratory Results - last 24 hr 06/05/18 06/05/18 06/05/18 16:53 17:15 18:00 WBC 6.2 RBC 3.74 L Hgb 11.6 Hct 35.0 MCV 93.6 D MCH 31.0 MCHC 33.1 RDW 14.9 H Plt Count 237 MPV 9.0 Neut % (Auto) 57.7 Lymph % (Auto) 27.6 [place] % (Auto) 8.4 Eos % (Auto) 5.5 H Baso % (Auto) 0.8 Neut # (Auto) 3.6 Lymph # (Auto) 1.7 [place] # (Auto) 0.5 Eos # (Auto) 0.3 Baso # (Auto) 0.1 pO2 24 L VBG pH 7.30 L VBG pCO2 60 VBG HCO3 24.5 VBG Total CO2 31.3 H VBG O2 Sat (Calc) 44.4 VBG Base Excess 1.6 VBG Potassium 3.8 Sodium 138.0 137 Chloride 107.0 103 Glucose 62 L Lactate 0.6 L Potassium 4.2 Carbon Dioxide 29 Anion Gap 10 BUN 18 H Creatinine 0.7 Est GFR ( Amer) > 60 Est GFR (Non-Af Amer) > 60 POC Glucose (mg/dL) Random Glucose 69 D Hemoglobin A1c Calcium 8.6 Total Bilirubin 0.3 AST 30 ALT 19 Alkaline Phosphatase 51 Total Protein 6.4 Albumin 3.7 Globulin 2.7 Albumin/Globulin Ratio 1.3 Triglycerides Cholesterol LDL Cholesterol Direct HDL Cholesterol TSH 3rd Generation Venous Blood Potassium 3.8 06/05/18 06/05/18 06/05/18 22:07 22:09 22:37 WBC RBC Hgb Hct MCV MCH MCHC RDW Plt Count MPV Neut % (Auto) Lymph % (Auto) [place] % (Auto) Eos % (Auto) Baso % (Auto) Neut # (Auto) Lymph # (Auto) [place] # (Auto) Eos # (Auto) Baso # (Auto) pO2 VBG pH VBG pCO2 VBG HCO3 VBG Total CO2 VBG O2 Sat (Calc) VBG Base Excess VBG Potassium Sodium Chloride Glucose Lactate Potassium Carbon Dioxide Anion Gap BUN Creatinine Est GFR ( Amer) Est GFR (Non-Af Amer) POC Glucose (mg/dL) 56 L 63 L 90 Random Glucose Hemoglobin A1c Calcium Total Bilirubin AST ALT Alkaline Phosphatase Total Protein Albumin Globulin Albumin/Globulin Ratio Triglycerides Cholesterol LDL Cholesterol Direct HDL Cholesterol TSH 3rd Generation Venous Blood Potassium 06/06/18 06/06/18 06/06/18 05:38 05:38 05:38 WBC 6.8 RBC 3.56 L Hgb 11.2 Hct 33.1 L MCV 93.1 MCH 31.6 H MCHC 33.9 RDW 14.3 Plt Count 215 MPV 8.6 Neut % (Auto) 65.1 Lymph % (Auto) 22.7 [place] % (Auto) 8.1 Eos % (Auto) 3.5 Baso % (Auto) 0.6 Neut # (Auto) 4.4 Lymph # (Auto) 1.5 [place] # (Auto) 0.5 Eos # (Auto) 0.2 Baso # (Auto) 0.0 pO2 VBG pH VBG pCO2 VBG HCO3 VBG Total CO2 VBG O2 Sat (Calc) VBG Base Excess VBG Potassium Sodium 134 Chloride 102 Glucose Lactate Potassium 4.2 Carbon Dioxide 28 Anion Gap 8 L BUN 15 Creatinine 0.7 Est GFR ( Amer) > 60 Est GFR (Non-Af Amer) > 60 POC Glucose (mg/dL) Random Glucose 90 D Hemoglobin A1c 5.2 Calcium 8.6 Total Bilirubin 0.5 AST 28 ALT 23 Alkaline Phosphatase 47 Total Protein 6.4 Albumin 3.5 Globulin 2.9 Albumin/Globulin Ratio 1.2 Triglycerides 112 D Cholesterol 146 LDL Cholesterol Direct 73 HDL Cholesterol 53 TSH 3rd Generation 3.09 Venous Blood Potassium Assessment & Plan - Assessment and Plan (Free Text) Assessment: 82 y/o female with PMHx of DM2 with right foot gangrenous digits Plan Patient seen at bedside in ED Discussed in detail with Dr. Hooker Digits cleaned with saline and dressing applied with betadine and gauze Consult placed for Dr. Ken for evaluation of peripheral circulation - recommendations appreciated Continue IV antibiotics per medicine team Will continue to follow patient in house - Date & Time Date: 06/05/18 Time: 22:20
--- NOTE | 2018-06-06 09:31 | CP.PCM.PN ---
Subjective - Date & Time of Evaluation Date of Evaluation: 06/06/18 Time of Evaluation: 09:31 - Subjective Subjective: H&P [facility] #[id number] Objective - Vital Signs/Intake and Output Vital Signs (last 24 hours): Temp Pulse Resp BP Pulse Ox 98.0 F 63 16 184/61 H 98 06/05/18 23:45 06/06/18 07:16 06/06/18 07:16 06/06/18 07:16 06/06/18 07:16 - Medications Medications: Current Medications Amlodipine Besylate (Norvasc) 5 mg PO BID [facility] Escitalopram Oxalate (Lexapro) 10 mg PO DAILY [facility] Piperacillin Sod/Tazobactam Sod (Zosyn 3.375 Gm Iv Premix) 3.375 gm in 50 mls @ 100 mls/hr IVPB Q6H [facility]; Protocol Last Admin: 06/06/18 09:13 Dose: 100 mls/hr Vancomycin HCl 1 gm/ Sodium (Chloride) 250 mls @ 166.7 mls/hr IVPB Q24H [facility]; Protocol Last Admin: 06/06/18 00:30 Dose: Not Given Insulin Human Regular (Novolin R) 0 unit SC ACHS [facility]; Protocol Last Admin: 06/06/18 07:56 Dose: Not Given Levetiracetam (Keppra) 500 mg PO BID [facility] Levothyroxine Sodium (Synthroid) 88 mcg PO DAILY@0630 [facility] Last Admin: 06/06/18 06:33 Dose: 88 mcg Rosuvastatin Calcium (Crestor) 10 mg PO HS [facility] Last Admin: 06/05/18 22:53 Dose: 10 mg Saccharomyces Boulardii (Florastor) 250 mg PO Q12 [facility] Last Admin: 06/06/18 00:29 Dose: Not Given - Labs Labs: 06/06/18 05:38 06/06/18 05:38
--- NOTE | 2018-06-06 17:33 | CP.PCM.CON ---
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 Patient complains the wounds have not been healing since undergoing surgery in December 2017. She is s/p right 4th toe amputation. - Medical History PMH: HTN, Hypercholesterolemia, Hyperlipidemia, TIA Denies: Chronic Kidney Disease - [facility] Procedures DETACHMENT AT RIGHT 1ST TOE, HIGH, OPEN APPROACH (11/19/17) DETACHMENT AT RIGHT FOOT, COMPLETE, OPEN APPROACH (11/19/17) DILATE L COM ILIAC ART W DRUG-ELUT INTRA, PERC (11/02/17) INSERTION OF INFUSION DEV INTO SUP VENA CAVA, PERC APPROACH (01/30/18) Review of Systems - Review of Systems All systems: reviewed and no additional remarkable complaints except - Constitutional Constitutional: As Per HPI - EENT Eyes: absent: As Per HPI, Blind Spots, Blurred Vision, Change in Vision, Decreased Night Vision, Diplopia, Discharge, Dry Eye, Exophthalmos, Floaters, Irritation, Itchy Eyes, Loss of Peripheral Vision, Pain, Photophobia, Requires Corrective Lenses, Sees Flashes, Spots in Vision, Tunnel Vision, Other Visual Disturbances, Loss of Vision, Other Ears: absent: As Per HPI, Decreased Hearing, Ear Discharge, Ear Pain, Tinnitus, Abnormal Hearing, Disequilibrium, Dizziness, Other Nose/Mouth/Throat: absent: As Per HPI, Epistaxis, Nasal Congestion, Nasal Discharge, Nasal Obstruction, Nasal Trauma, Nose Pain, Post Nasal Drip, Sinus Pain, Sinus Pressure, Bleeding Gums, Change in Voice, Dental Pain, Dry Mouth, Dysphagia, Halitosis, Hoarsness, Lip Swelling, Mouth Lesions, Mouth Pain, Odynophagia, Sore Throat, Throat Swelling, Tongue Swelling, Facial Pain, Neck Pain, Neck Mass, Other - Breasts Breasts: absent: As Per HPI, Change in Shape, Mass, Pain, Nipple Discharge, Nipple Inversion, Skin Changes, Swelling, Other - Cardiovascular Cardiovascular: absent: As Per HPI, Acrocyanosis, Chest Pain, Chest Pain at Rest, Chest Pain with Activity, Claudication, Diaphoresis, Dyspnea, Dyspnea on Exertion, Edema, Irregular Heart Rhythm, Pain Radiating to Arm/Neck/Jaw, Leg Edema, Leg Ulcers, Lightheadedness, Orthopnea, Palpitations, Paroxysmal Nocturnal Dyspnea, Pedal Edema, Radiating Pain, Rapid Heart Rate, Slow Heart Rate, Syncope, Other - Respiratory Respiratory: absent: As Per HPI, Cough, Dyspnea, Hemoptysis, Dyspnea on Exertion, Wheezing, Snoring, Stridor, Pain on Inspiration, Chest Congestion, Excessive Mucous Production, Change in Mucous Color, Pain with Coughing, Other - Gastrointestinal Gastrointestinal: absent: As Per HPI, Abdominal Pain, Belching, Bloating, Change in Bowel Habits, Change in Stool Character, Coffee Ground Emesis, Constipation, Cramping, Diarrhea, Dyspepsia, Dysphagia, Early Satiety, Excessive Flatus, Fecal Incontinence, Heartburn, Hematemesis, Hematochezia, Loose Stools, Melena, Nausea, Odynophagia, Temesmus, Vomiting, Other - Genitourinary Genitourinary: absent: As Per HPI, Change in Urinary Stream, Difficulty Urinating, Dysuria, Flank Pain, Hematuria, Pyuria, Nocturia, Urinary Incontinence, Urinary Frequency, Urinary Hesitance, Urinary Urgency, Voiding Freq/Small Amts, Freq UTI, Hx Renal/Bladder Calculi, Hx /Renal Surgery, Bladder Distension, Other - Reproductive: Female Reproductive:Female: absent: As Per HPI, Amenorrhea, Amenorrhea/ Control, Currently Menstual, Cycle <21 Days, Cycle >35 Days, Cycle Variable, Menses 1-7 Days, Menses >/= 8 Days, Menses Variable, Cycle > 4 Weeks Between, No Menses for 6 Months, Heavy Menses, Light Menses, Normal Menses, Spotting Between Cycles, S/P Hysterectomy, Menopausal, Post Menopausal, Premenarche, Abnormal Vaginal Bleeding, Dysmenorrhea, Dyspareunia, Genital Lesions, Genital Pruritis, Pelvic Pain, Prolapse Symptoms, Sexual Dysfunction, Vaginal Discharge, Vaginal Dryness, Vaginal Odor, Vaginal Pruritis, Other - Menstruation Menstruation: absent: As Per HPI, Amenorrhea, Amenorrhea/ Control, Currently Menstual, Cycle <21 Days, Cycle >35 Days, Cycle Variable, Menses 1-7 Days, Menses >/= 8 Days, Menses Variable, Cycle > 4 Weeks Between, No Menses for 6 Months, Heavy Menses, Light Menses, Normal Menses, Spotting Between Cycles, S/P Hysterectomy, Menopausal, Post Menopausal, Premenarche, Abnormal Vaginal Bleeding, Dysmenorrhea, Other - Musculoskeletal Musculoskeletal: As Per HPI - Integumentary Integumentary: As Per HPI - Neurological Neurological: As Per HPI - Psychiatric Psychiatric: absent: As Per HPI, Abnormal Sleep Pattern, Anhedonia, Anxiety, Auditory Hallucinations, Behavioral Changes, Change in Appetite, Change in Libido, Confusion, Depression, Difficulty Concentrating, Hallucinations, Homicidal Ideation, Hopelessness, Irritability, Memory Loss, Mood Swings, Panic Attacks, Paranoia, Suicidal Ideation, Visual Hallucinations, Tactile Hallucinations, Other - Endocrine Endocrine: absent: As Per HPI, Change in Body Appearance, Change in Libido, Cold Intolorance, Deepening of Voice, Excessive Sweating, Fatigue, Flushing, Heat Intolorance, Increase in Ring/Shoe/Hat Size, Palpitations, Polydipsia, Polyphagia, Polyuria, Other Past Patient History - Past Medical History & Family History Past Medical History?: Yes - Past Social History Smoking Status: Never Smoked - CARDIAC Hx Cardiac Disorders: Yes Hx Hypercholesterolemia: Yes Hx Hypertension: Yes - PULMONARY Hx Respiratory Disorders: No - NEUROLOGICAL Hx Neurological Disorder: Yes Hx Transient Ischemic Attacks (TIA): Yes - HEENT Hx HEENT Problems: Yes Other/Comment: wears prescription eyeglasses - RENAL Hx Chronic Kidney Disease: No - ENDOCRINE/METABOLIC Hx Endocrine Disorders: Yes Hx Diabetes Mellitus Type 2: Yes - HEMATOLOGICAL/ONCOLOGICAL Hx Blood Disorders: No - INTEGUMENTARY Hx Dermatological Problems: No - MUSCULOSKELETAL/RHEUMATOLOGICAL Hx Musculoskeletal Disorders: Yes Hx Falls: Yes 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) - GASTROINTESTINAL Hx Gastrointestinal Disorders: No - GENITOURINARY/GYNECOLOGICAL Hx Genitourinary Disorders: No - PSYCHIATRIC Hx Psychophysiologic Disorder: No Hx Substance Use: No - SURGICAL HISTORY Hx Surgeries: Yes Hx Amputation: Yes (R 1ST, 2ND, 3RD, 4TH TOE) Other/Comment: "HERNIA REMOVAL IN [place]" - ANESTHESIA Hx Anesthesia: Yes Hx Anesthesia Reactions: No Hx Malignant Hyperthermia: No Meds Allergies/Adverse Reactions: Allergies Allergy/AdvReac Type Severity Reaction Status Date / Time vancomycin Allergy ITCHING Verified 06/05/18 21:51 - Medications Medications: Current Medications Amlodipine Besylate (Norvasc) 5 mg PO BID [facility] Last Admin: 06/06/18 09:46 Dose: 5 mg Escitalopram Oxalate (Lexapro) 10 mg PO DAILY [facility] Last Admin: 06/06/18 09:46 Dose: 10 mg Piperacillin Sod/Tazobactam Sod (Zosyn 3.375 Gm Iv Premix) 3.375 gm in 50 mls @ 100 mls/hr IVPB Q6H [facility]; Protocol Last Admin: 06/06/18 09:13 Dose: 100 mls/hr Vancomycin HCl 1 gm/ Sodium (Chloride) 250 mls @ 166.7 mls/hr IVPB Q24H [facility]; Protocol Last Admin: 06/06/18 00:30 Dose: Not Given Insulin Human Regular (Novolin R) 0 unit SC ACHS [facility]; Protocol Last Admin: 06/06/18 17:22 Dose: Not Given Levetiracetam (Keppra) 500 mg PO BID [facility] Last Admin: 06/06/18 09:46 Dose: 500 mg Levothyroxine Sodium (Synthroid) 88 mcg PO DAILY@0630 [facility] Last Admin: 06/06/18 06:33 Dose: 88 mcg Rosuvastatin Calcium (Crestor) 10 mg PO HS [facility] Last Admin: 06/05/18 22:53 Dose: 10 mg Saccharomyces Boulardii (Florastor) 250 mg PO Q12 [facility] Last Admin: 06/06/18 09:46 Dose: 250 mg Physical Exam - Constitutional Appears: Non-toxic, Chronically Ill - Head Exam Head Exam: NORMOCEPHALIC - Eye Exam Eye Exam: absent: Scleral icterus - ENT Exam ENT Exam: Mucous Membranes Dry, Normal External Ear Exam - Neck Exam Neck exam: Negative for: Lymphadenopathy, Thyromegaly - Respiratory Exam Respiratory Exam: Decreased Breath Sounds, Clear to Auscultation Bilateral - Cardiovascular Exam Cardiovascular Exam: REGULAR RHYTHM, +S1, +S2 - GI/Abdominal Exam GI & Abdominal Exam: Diminished Bowel Sounds, Soft. absent: Tenderness - Rectal Exam Rectal Exam: Deferred - Exam Exam: NORMAL INSPECTION - Extremities Exam Extremities exam: Negative for: calf tenderness, normal capillary refill, normal inspection, tenderness, pedal pulses present Additional comments: decreased pulses aura f=right leg with gangremous changes to toes - Back Exam Back exam: absent: CVA tenderness (L), CVA tenderness (R) - Neurological Exam Neurological exam: Alert, CN II-XII Intact, Oriented x3, Reflexes Normal - Psychiatric Exam Psychiatric exam: Depressed - Skin Skin Exam: Dry Results - Vital Signs Recent Vital Signs: Last Vital Signs Temp 98.3 F 06/06/18 11:23 Pulse 67 06/06/18 11:23 Resp 20 06/06/18 11:23 BP 160/61 H 06/06/18 11:23 Pulse Ox 98 06/06/18 11:23 - Labs Result Diagrams: 06/06/18 05:38 06/06/18 05:38 Labs: Laboratory Results - last 24 hr 06/05/18 06/05/18 06/05/18 18:00 22:07 22:09 WBC RBC Hgb Hct MCV MCH MCHC RDW Plt Count MPV Neut % (Auto) Lymph % (Auto) [place] % (Auto) Eos % (Auto) Baso % (Auto) Neut # (Auto) Lymph # (Auto) [place] # (Auto) Eos # (Auto) Baso # (Auto) Sodium 137 Potassium 4.2 Chloride 103 Carbon Dioxide 29 Anion Gap 10 BUN 18 H Creatinine 0.7 Est GFR ( Amer) > 60 Est GFR (Non-Af Amer) > 60 POC Glucose (mg/dL) 56 L 63 L Random Glucose 69 D Hemoglobin A1c Calcium 8.6 Total Bilirubin 0.3 AST 30 ALT 19 Alkaline Phosphatase 51 Total Protein 6.4 Albumin 3.7 Globulin 2.7 Albumin/Globulin Ratio 1.3 Triglycerides Cholesterol LDL Cholesterol Direct HDL Cholesterol TSH 3rd Generation 06/05/18 06/06/18 06/06/18 22:37 05:38 05:38 WBC 6.8 RBC 3.56 L Hgb 11.2 Hct 33.1 L MCV 93.1 MCH 31.6 H MCHC 33.9 RDW 14.3 Plt Count 215 MPV 8.6 Neut % (Auto) 65.1 Lymph % (Auto) 22.7 [place] % (Auto) 8.1 Eos % (Auto) 3.5 Baso % (Auto) 0.6 Neut # (Auto) 4.4 Lymph # (Auto) 1.5 [place] # (Auto) 0.5 Eos # (Auto) 0.2 Baso # (Auto) 0.0 Sodium 134 Potassium 4.2 Chloride 102 Carbon Dioxide 28 Anion Gap 8 L BUN 15 Creatinine 0.7 Est GFR ( Amer) > 60 Est GFR (Non-Af Amer) > 60 POC Glucose (mg/dL) 90 Random Glucose 90 D Hemoglobin A1c Calcium 8.6 Total Bilirubin 0.5 AST 28 ALT 23 Alkaline Phosphatase 47 Total Protein 6.4 Albumin 3.5 Globulin 2.9 Albumin/Globulin Ratio 1.2 Triglycerides 112 D Cholesterol 146 LDL Cholesterol Direct 73 HDL Cholesterol 53 TSH 3rd Generation 3.09 06/06/18 06/06/18 06/06/18 05:38 07:48 10:53 WBC RBC Hgb Hct MCV MCH MCHC RDW Plt Count MPV Neut % (Auto) Lymph % (Auto) [place] % (Auto) Eos % (Auto) Baso % (Auto) Neut # (Auto) Lymph # (Auto) [place] # (Auto) Eos # (Auto) Baso # (Auto) Sodium Potassium Chloride Carbon Dioxide Anion Gap BUN Creatinine Est GFR ( Amer) Est GFR (Non-Af Amer) POC Glucose (mg/dL) 89 123 H Random Glucose Hemoglobin A1c 5.2 Calcium Total Bilirubin AST ALT Alkaline Phosphatase Total Protein Albumin Globulin Albumin/Globulin Ratio Triglycerides Cholesterol LDL Cholesterol Direct HDL Cholesterol TSH 3rd Generation 06/06/18 16:08 WBC RBC Hgb Hct MCV MCH MCHC RDW Plt Count MPV Neut % (Auto) Lymph % (Auto) [place] % (Auto) Eos % (Auto) Baso % (Auto) Neut # (Auto) Lymph # (Auto) [place] # (Auto) Eos # (Auto) Baso # (Auto) Sodium Potassium Chloride Carbon Dioxide Anion Gap BUN Creatinine Est GFR ( Amer) Est GFR (Non-Af Amer) POC Glucose (mg/dL) 106 Random Glucose Hemoglobin A1c Calcium Total Bilirubin AST ALT Alkaline Phosphatase Total Protein Albumin Globulin Albumin/Globulin Ratio Triglycerides Cholesterol LDL Cholesterol Direct HDL Cholesterol TSH 3rd Generation Assessment & Plan (1) Foot infection Status: Acute (2) Diabetic infection of right foot Status: Acute (3) Dry gangrene Status: Acute (4) PVD (peripheral vascular disease) Status: Acute - Assessment and Plan (Free Text) Assessment: cont iv rx as ordered await cultures cont woiund care vascular eval prognosis for salvage of limb guarded- may need rtma OR bka
[2018-06-07] MEDS: Piperacill/Tazo 3.375gm in Dex 3.375 GM/50 ML BAG IVPB SCH ×4 (03:11→21:33)
--- NOTE | 2018-06-07 05:39 | HP ---
CHIEF COMPLAINT: Right foot pain and infection, progressively getting worse since the amputation. HISTORY OF PRESENT ILLNESS: Ms. Thapa is an 82-year-old female with a past medical history of hypertension, diabetes mellitus, hyperlipidemia, CVA with minimal residual left-sided weakness, peripheral arterial disease, status post stent placement to right SFA in 11/2017 and status post right fourth toe and first toe amputation for dry gangrene who has been following up with Dr. Hooker as Podiatry and came into the emergency room with complaints of right foot pain and progressive worsening of black discoloration of the toes since the surgery. All the history was obtained from the patient via a [place]-speaking nursing teacher over the phone. As per the patient, her symptoms have been progressively getting worse and the foot pain. Denies any headache or dizziness. Denies any chest pain, shortness of breath, or wheezing. Denies any nausea, vomiting, abdominal pain, diarrhea, or constipation. Denies any urinary complaints. PAST MEDICAL HISTORY: As described, hypertension, hyperlipidemia, diabetes mellitus, peripheral vascular disease, status post SFA stent placement and history of CVA with residual left-sided weakness, right foot dry gangrene. PAST SURGICAL HISTORY: Right hallux and fourth toe partial amputation. FAMILY HISTORY: Diabetes mellitus in her mother and father. PERSONAL HISTORY: She is a , living alone. Having two daughters who also participated in the patient's care. SOCIAL HISTORY: Denies smoking, alcohol, or drug abuse. ALLERGIES: SHE IS ALLERGIC TO VANCOMYCIN. MEDICATIONS: Her medications include Percocet as needed, Keppra one tab p.o. b.i.d., Norvasc one tab p.o. b.i.d., Zocor 40 mg daily, Florastor 250 mg p.o. every 12 hours, Xarelto one tab daily, magnesium oxide one tab daily, Synthroid 88 mcg daily, glipizide 5 mg daily, Nexium daily, Lexapro daily, Colace daily, Keflex . REVIEW OF SYSTEMS: As described in history of present illness. All other systems reviewed and were found to be negative. PHYSICAL EXAMINATION: GENERAL: Elderly female, lying in bed, in no acute distress. VITAL SIGNS: Blood pressure 160/61, pulse 67, respirations 20, temperature 98.3 degrees Fahrenheit, O2 sat is 98% on room air. HEENT: Pupils equal, round, and reacting to light and accommodation. Extraocular muscles intact. No icterus. No pallor. No oral thrush. No pharyngeal congestion. NECK: Supple. No JVD. LUNGS: Bilateral vesicular breath sounds. No wheezing. No rhonchi. CARDIOVASCULAR SYSTEM: S1 and S2 present, regular. ABDOMEN: Soft, nontender. Bowel sounds present. No guarding. No rigidity. No rebound tenderness noted. CENTRAL NERVOUS SYSTEM: Alert, awake, oriented x3. EXTREMITIES: Right foot with the big toe and fourth toe with dry gangrene with dressing in place, surrounding erythema, and no discharge. LABORATORY DATA: Labs done from the emergency room: WBC 6.2, hemoglobin 11.6, hematocrit 35, platelets 237. Sodium 137, potassium 4.2, chloride 103, bicarb 29, BUN 18, creatinine 0.7, glucose 69, calcium 8.6. Total bilirubin 0.3, AST 30, ALT 19, alkaline phosphatase 51, total protein 6.4, albumin 3.7, globulin 2.7. Foot x-ray, no acute findings related to . EKG consistent with wide QRS rhythm, right bundle-branch block. ASSESSMENT AND PLAN: Elderly female with history of hypertension, hyperlipidemia, diabetes mellitus, hypothyroidism, history of cerebrovascular accident, status post stent placement in right superficial femoral artery for peripheral vascular disease, status post right hallux and fourth partial amputations of the digit in 11/2017, admitted for worsening right foot pain and black discoloration since the discharge. The patient is being admitted for further evaluation and management. 1. 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 2. Diabetes mellitus. 3. Hypertension. 4. Hyperlipidemia. 5. Peripheral vascular disease, status post amputation. 6. History of cerebrovascular accident, on antiseizure medication. 7. Hypothyroidism. 8. Hypertension. PLAN: The patient is being admitted to the floor. The patient received IV antibiotics in the emergency room. We will continue with Zosyn to 3.375 g IV every 6 hours for dry gangrene. We will obtain Podiatry consult and ID consult. We will follow up with Vascular Surgery. Continue with her home medications. We will do Accu-Cheks every before meals and at bedtime. We will add further recommendations as her clinical course progresses. Overall prognosis is guarded. Aman Calvo MD [facility] # [id number]
[2018-06-07] MEDS: Levothyroxine 88 MCG TAB PO SCH (06:08)
[2018-06-07] MEDS: (Novolin R) Insulin Human Regular 100 units/ml vial SC SCH ×4 (07:56→21:34)
--- NOTE | 2018-06-07 10:27 | CP.PCM.PN ---
Subjective - Date & Time of Evaluation Date of Evaluation: 06/07/18 Time of Evaluation: 10:27 - Subjective Subjective: Podiatry Consult Note: Dr. Marisa Hooker 82 year old female seen and evaluated for right foot gangrenous digits. Patient is resting comfortably in bed and in NAD. She notes that sh is in mild pain to her b/l feet with more pain to the R during dressing changes. She denies any acute pedal complaints at this time. Denies N/V/F/SOB/CP. Objective - Vital Signs/Intake and Output Vital Signs (last 24 hours): Temp Pulse Resp BP Pulse Ox 97.8 F 68 20 123/50 L 95 06/07/18 08:00 06/07/18 08:00 06/07/18 08:00 06/07/18 08:00 06/07/18 08:00 Intake and Output: 06/07/18 06/07/18 06:59 18:59 Intake Total 290 Output Total 500 Balance -210 - Medications Medications: Current Medications Amlodipine Besylate (Norvasc) 5 mg PO BID [facility] Last Admin: 06/06/18 17:56 Dose: 5 mg Escitalopram Oxalate (Lexapro) 10 mg PO DAILY [facility] Last Admin: 06/06/18 09:46 Dose: 10 mg Piperacillin Sod/Tazobactam Sod (Zosyn 3.375 Gm Iv Premix) 3.375 gm in 50 mls @ 100 mls/hr IVPB Q6H [facility]; Protocol Last Admin: 06/07/18 08:59 Dose: 100 mls/hr Insulin Human Regular (Novolin R) 0 unit SC ACHS [facility]; Protocol Last Admin: 06/07/18 07:56 Dose: Not Given Levetiracetam (Keppra) 500 mg PO BID [facility] Last Admin: 06/06/18 17:56 Dose: 500 mg Levothyroxine Sodium (Synthroid) 88 mcg PO DAILY@0630 [facility] Last Admin: 06/07/18 06:08 Dose: 88 mcg Rosuvastatin Calcium (Crestor) 10 mg PO HS [facility] Last Admin: 06/06/18 21:14 Dose: 10 mg Saccharomyces Boulardii (Florastor) 250 mg PO Q12 [facility] Last Admin: 06/06/18 21:14 Dose: 250 mg - Labs Labs: 06/06/18 05:38 06/06/18 05:38 - Constitutional Appears: Well, Non-toxic, No Acute Distress - Head Exam Head Exam: ATRAUMATIC, NORMOCEPHALIC - Extremities Exam Additional comments: Right lower extremity exam: Vascular: DP and PT pulses faintly palpable. No pedal edema noted. Capillary refill time absent to right foot digits. Temperature gradient is warm to cool extending to level of midfoot; distal to midfoot is cold to the touch Derm: Gaqngrenous necrotic changes to digits, increased to digits 1, 4 and 5. No discrete open lesions or breaks in skin. No drainage or purulence, no erythema, no malodor, no fluctuance. Neuro: protective sensation and gross sensation intact Ortho: mild pain on palpation of right foot digits 1-5 - Neurological Exam Neurological Exam: Alert, Awake, Oriented x3 - Psychiatric Exam Psychiatric exam: Normal Affect, Normal Mood Assessment and Plan - Assessment and Plan (Free Text) Assessment: 82 year old female with right foot gangrenous digits Plan: Patient seen and examined at bedside Discussed in detail with Dr. Hooker Digits cleaned with saline and dressing applied with betadine and gauze R foot x-ray; stable findings s/p amputation distal tuft R 1st digit Blood cx; no growth after 24 hrs Consult placed for Dr. Ken for evaluation of peripheral circulation - recommendations appreciated Continue IV antibiotics per medicine team Will continue to follow patient in house
--- NOTE | 2018-06-07 10:54 | CP.PCM.PN ---
Subjective - Date & Time of Evaluation Date of Evaluation: 06/07/18 Time of Evaluation: 10:54 - Subjective Subjective: Progress note dictated #[id number] Objective - Vital Signs/Intake and Output Vital Signs (last 24 hours): Temp Pulse Resp BP Pulse Ox 97.8 F 68 20 123/50 L 95 06/07/18 08:00 06/07/18 08:00 06/07/18 08:00 06/07/18 08:00 06/07/18 08:00 Intake and Output: 06/07/18 06/07/18 06:59 18:59 Intake Total 290 Output Total 500 Balance -210 - Medications Medications: Current Medications Amlodipine Besylate (Norvasc) 5 mg PO BID [facility] Last Admin: 06/06/18 17:56 Dose: 5 mg Escitalopram Oxalate (Lexapro) 10 mg PO DAILY [facility] Last Admin: 06/06/18 09:46 Dose: 10 mg Piperacillin Sod/Tazobactam Sod (Zosyn 3.375 Gm Iv Premix) 3.375 gm in 50 mls @ 100 mls/hr IVPB Q6H [facility]; Protocol Last Admin: 06/07/18 08:59 Dose: 100 mls/hr Insulin Human Regular (Novolin R) 0 unit SC ACHS [facility]; Protocol Last Admin: 06/07/18 07:56 Dose: Not Given Levetiracetam (Keppra) 500 mg PO BID [facility] Last Admin: 06/06/18 17:56 Dose: 500 mg Levothyroxine Sodium (Synthroid) 88 mcg PO DAILY@0630 [facility] Last Admin: 06/07/18 06:08 Dose: 88 mcg Rosuvastatin Calcium (Crestor) 10 mg PO HS [facility] Last Admin: 06/06/18 21:14 Dose: 10 mg Saccharomyces Boulardii (Florastor) 250 mg PO Q12 [facility] Last Admin: 06/06/18 21:14 Dose: 250 mg - Labs Labs: 06/06/18 05:38 06/06/18 05:38
[2018-06-07] MEDS: Saccharomyces Boulardi 250 mg Cap PO SCH ×2 (11:01→21:34)
[2018-06-07 12:06] LABS: SQUAMOUS EPITHIAL 1 /hpf (0-5); URINE BILIRUBIN NEGATIVE (NEGATIVE); URINE BLOOD 1+ (NEGATIVE); URINE CLARITY Clear (Clear); URINE COLOR Yellow (YELLOW); URINE GLUCOSE (UA) NORMAL (Normal); URINE LEUKOCYTE ESTERASE 3+ Leu/uL (Negative); URINE PROTEIN NEGATIVE (NEGATIVE); URINE UROBILINOGEN NORMAL mg/dL (0.2-1.0)
--- NOTE | 2018-06-07 22:30 | PN ---
DATE: 06/07/2018 SUBJECTIVE: The patient was seen and examined at bedside. The patient offers no new complaints other than right foot pain. All other systems reviewed and negative. PHYSICAL EXAMINATION: GENERAL: Elderly female, lying in bed, in no acute distress. VITAL SIGNS: Blood pressure 125/60, pulse 77, respirations 20, temperature 97.8 degrees Fahrenheit, O2 saturation 95% on room air. HEENT: Pupils are equal, round and reacting to light and accommodation. Extraocular muscles intact. No icterus. No pallor. No oral thrush. No pharyngeal congestion. NECK: Supple. No JVD. LUNGS: Bilateral vesicular breath sounds. No wheezing. No rhonchi. CARDIOVASCULAR SYSTEM: S1 and S2 present and regular. ABDOMEN: Soft. Nontender. Bowel sounds present. No guarding. No rigidity. No rebound tenderness noted. CENTRAL NERVOUS SYSTEM: Alert, awake, and oriented x3. No focal deficits noted. EXTREMITIES: Right foot with a dressing in place. Right hallux and fourth toe dry gangrene. MEDICATIONS: Include amlodipine 5 mg p.o. b.i.d., Lexapro 10 mg daily, Keppra 500 mg p.o. b.i.d., Synthroid 88 mcg daily, Zosyn 3.375 g IV every 6 hours, Crestor 10 mg p.o. at bedtime. LABORATORY DATA: Accu-Chek is 106, 138, 120, 137, 105. UA: Specific gravity 1.009, pH of 7, blood 1+, leukocyte esterase 3+, wbc's 12. Blood culture so far is negative. ASSESSMENT AND PLAN: Elderly female with history of hypertension, hyperlipidemia, diabetes mellitus, hypothyroidism, history of cerebrovascular accident, status post stent placement in right superficial femoral artery for peripheral arterial disease, status post right hallux and fourth toe partial amputation. Admitted for dry gangrene with cellulitic changes. Continue with current antibiotics. Infectious disease consult and podiatry consult appreciated. Cardiology consult pending. Continue with current medication. Follow up with Podiatry regarding further care from podiatric standpoint. Aman Calvo MD
[2018-06-08] MEDS: Piperacill/Tazo 3.375gm in Dex 3.375 GM/50 ML BAG IVPB SCH ×3 (02:42→14:34)
[2018-06-08] MEDS: Levothyroxine 88 MCG TAB PO SCH (05:40)
[2018-06-08] MEDS: (Novolin R) Insulin Human Regular 100 units/ml vial SC SCH ×3 (07:49→16:30)
--- NOTE | 2018-06-08 08:19 | CP.PCM.PN ---
Subjective - Date & Time of Evaluation Date of Evaluation: 06/08/18 Time of Evaluation: 08:16 - Subjective Subjective: Podiatry Consult Note: Dr. Hooker 82 year old female patient seen and evaluated at bedside for right foot gangrenous digits. Patient is resting comfortably in bed and in NAD. No acute events overnight. Denies N/V/F/SOB/CP. Objective - Vital Signs/Intake and Output Vital Signs (last 24 hours): Temp Pulse Resp BP Pulse Ox 97.3 F L 64 20 159/56 H 94 L 06/08/18 07:00 06/08/18 07:00 06/08/18 07:00 06/08/18 07:00 06/08/18 07:00 Intake and Output: 06/08/18 06/08/18 06:59 18:59 Output Total 700 Balance -700 - Medications Medications: Current Medications Amlodipine Besylate (Norvasc) 5 mg PO BID [facility] Last Admin: 06/07/18 18:42 Dose: 5 mg Escitalopram Oxalate (Lexapro) 10 mg PO DAILY [facility] Last Admin: 06/07/18 11:01 Dose: 10 mg Piperacillin Sod/Tazobactam Sod (Zosyn 3.375 Gm Iv Premix) 3.375 gm in 50 mls @ 100 mls/hr IVPB Q6H [facility]; Protocol Last Admin: 06/08/18 02:42 Dose: 100 mls/hr Insulin Human Regular (Novolin R) 0 unit SC ACHS [facility]; Protocol Last Admin: 06/08/18 07:49 Dose: Not Given Levetiracetam (Keppra) 500 mg PO BID [facility] Last Admin: 06/07/18 18:36 Dose: 500 mg Levothyroxine Sodium (Synthroid) 88 mcg PO DAILY@0630 [facility] Last Admin: 06/08/18 05:40 Dose: 88 mcg Rosuvastatin Calcium (Crestor) 10 mg PO HS [facility] Last Admin: 06/07/18 21:34 Dose: 10 mg Saccharomyces Boulardii (Florastor) 250 mg PO Q12 [facility] Last Admin: 06/07/18 21:34 Dose: 250 mg - Labs Labs: 06/06/18 05:38 06/06/18 05:38 - Constitutional Appears: Well, Non-toxic, No Acute Distress - Extremities Exam Additional comments: Right lower extremity exam: Vascular: DP and PT pulses faintly palpable. No pedal edema noted. Capillary refill time absent to right foot digits. Temperature gradient is warm to cool extending to level of midfoot; distal to midfoot is cold to the touch Derm: Gangrenous necrotic changes to digits, increased to digits 1, 4 and 5. No discrete open lesions or breaks in skin. No drainage or purulence, no erythema, no malodor, no fluctuance. Neuro: protective sensation and gross sensation intact Ortho: mild pain on palpation of right foot digits 1-5 - Neurological Exam Neurological Exam: Alert, Awake, Oriented x3 - Psychiatric Exam Psychiatric exam: Normal Affect, Normal Mood Assessment and Plan - Assessment and Plan (Free Text) Assessment: 82 year old female with right foot dry gangrenous digits, stable Plan: Patient seen and examined at bedside Discussed in detail with Dr. Hooker Digits cleaned with saline and dressing applied with betadine and gauze R foot x-ray; stable findings s/p amputation distal tuft R 1st digit Blood cx; gram + cocci Consult placed for Dr. Ken for evaluation of peripheral circulation - recommendations appreciated for further planning Continue IV antibiotics per ID Will continue to follow
[2018-06-08] MEDS: Saccharomyces Boulardi 250 mg Cap PO SCH ×2 (11:04→22:15)
--- NOTE | 2018-06-08 11:39 | CP.PCM.PN ---
Subjective - Date & Time of Evaluation Date of Evaluation: 06/08/18 Time of Evaluation: 11:39 - Subjective Subjective: Progress note dictated #[id number] Objective - Vital Signs/Intake and Output Vital Signs (last 24 hours): Temp Pulse Resp BP Pulse Ox 97.3 F L 64 20 159/56 H 94 L 06/08/18 07:00 06/08/18 07:00 06/08/18 07:00 06/08/18 07:00 06/08/18 07:00 Intake and Output: 06/08/18 06/08/18 06:59 18:59 Output Total 700 Balance -700 - Medications Medications: Current Medications Amlodipine Besylate (Norvasc) 5 mg PO BID [facility] Last Admin: 06/08/18 11:04 Dose: 5 mg Escitalopram Oxalate (Lexapro) 10 mg PO DAILY [facility] Last Admin: 06/08/18 11:03 Dose: 10 mg Piperacillin Sod/Tazobactam Sod (Zosyn 3.375 Gm Iv Premix) 3.375 gm in 50 mls @ 100 mls/hr IVPB Q6H [facility]; Protocol Last Admin: 06/08/18 10:53 Dose: 100 mls/hr Insulin Human Regular (Novolin R) 0 unit SC ACHS [facility]; Protocol Last Admin: 06/08/18 07:49 Dose: Not Given Levetiracetam (Keppra) 500 mg PO BID [facility] Last Admin: 06/08/18 11:04 Dose: 500 mg Levothyroxine Sodium (Synthroid) 88 mcg PO DAILY@0630 [facility] Last Admin: 06/08/18 05:40 Dose: 88 mcg Rosuvastatin Calcium (Crestor) 10 mg PO HS [facility] Last Admin: 06/07/18 21:34 Dose: 10 mg Saccharomyces Boulardii (Florastor) 250 mg PO Q12 [facility] Last Admin: 06/08/18 11:04 Dose: 250 mg - Labs Labs: 06/06/18 05:38 06/06/18 05:38
--- NOTE | 2018-06-08 13:08 | CARD ---
APPROVED REPORT Date of service: 06/05/2018 EKG Measurement Heart [id number] <Conclusion> Wide QRS rhythm Right bundle branch block Inferior infarct, age undetermined Abnormal ECG
[2018-06-08] MEDS: ceFAZolin 1 gm FROZEN Premix 1 GM/50 ML ML IVPB SCH (18:15)
--- NOTE | 2018-06-08 20:55 | PN ---
DATE: 06/08/2018 SUBJECTIVE: The patient was seen and examined at bedside. The patient offers no new complaints, complaining of right foot pain, slightly better than on admission. Denies any new complaints. PHYSICAL EXAMINATION: GENERAL: Elderly female, lying in bed, in no acute distress. VITAL SIGNS: Blood pressure 135/80, pulse 59, respirations 20, temperature 98.4 degrees Fahrenheit, O2 saturations 94% on room air. HEENT: Pupils are equal, round, and reacting to light and accommodation. Extraocular muscles intact. No icterus. No pallor. No oral thrush. No pharyngeal congestion. NECK: Supple. No JVD. LUNGS: Bilateral vesicular breath sounds. No wheezing. No rhonchi. CVS: S1 and S2 present, regular. ABDOMEN: Soft, nontender. Bowel sounds present. No guarding. No rigidity. No rebound tenderness noted. PALM GATHERER: Alert, awake, oriented x3. No focal deficits noted. EXTREMITIES: Right foot with dressing in place. MEDICATIONS: Include: Amlodipine 5 mg b.i.d., Ancef 1 g IV every 8 hours, Lexapro 10 mg daily, Keppra 500 mg p.o. b.i.d., Synthroid 88 mcg daily, Crestor 10 mg p.o. at bedtime. LABORATORY DATA: Accu-Cheks 105, 132, 124, 117, 143. Blood cultures: Gram-positive cocci, Staph aureus, and coag-negative staph. ASSESSMENT AND PLAN: Elderly female with history of hypertension, hyperlipidemia, diabetes mellitus, hypothyroidism, history of cerebrovascular accident, status post right superficial femoral artery stent placement, status post right hallux and 4th toe amputation of the digit partially in 11/2017, admitted for dry gangrene and cellulitic changes of the right 1st and 4th toes. Antibiotics changed. Continue with the dressing as per Podiatry. We will continue with other current medications. One set of blood cultures are positive with Staph aureus. We will review blood cultures. I will continue with current medications. Follow up with Podiatry regarding the treatment plan. Follow up with Infectious Disease regarding the length of antibiotic course. Awaiting for vascular evaluation by Dr. Ken. Aman Calvo MD [facility] # [id number]
--- NOTE | 2018-06-08 23:14 | CP.PCM.PN ---
Subjective - Date & Time of Evaluation Date of Evaluation: 06/08/18 Time of Evaluation: 08:00 - Subjective Subjective: no new complaints blood c/s + 1/2 sets c/o itch Objective - Vital Signs/Intake and Output Vital Signs (last 24 hours): Temp Pulse Resp BP Pulse Ox 98.4 F 59 L 20 135/80 94 L 06/08/18 15:30 06/08/18 15:30 06/08/18 15:30 06/08/18 15:30 06/08/18 15:30 Intake and Output: 06/08/18 06/08/18 06:59 18:59 Output Total 700 Balance -700 - Medications Medications: Current Medications Amlodipine Besylate (Norvasc) 5 mg PO BID [facility] Last Admin: 06/08/18 11:04 Dose: 5 mg Escitalopram Oxalate (Lexapro) 10 mg PO DAILY [facility] Last Admin: 06/08/18 11:03 Dose: 10 mg Piperacillin Sod/Tazobactam Sod (Zosyn 3.375 Gm Iv Premix) 3.375 gm in 50 mls @ 100 mls/hr IVPB Q6H [facility]; Protocol Last Admin: 06/08/18 14:34 Dose: 100 mls/hr Insulin Human Regular (Novolin R) 0 unit SC ACHS [facility]; Protocol Last Admin: 06/08/18 11:54 Dose: Not Given Levetiracetam (Keppra) 500 mg PO BID [facility] Last Admin: 06/08/18 11:04 Dose: 500 mg Levothyroxine Sodium (Synthroid) 88 mcg PO DAILY@0630 [facility] Last Admin: 06/08/18 05:40 Dose: 88 mcg Rosuvastatin Calcium (Crestor) 10 mg PO HS [facility] Last Admin: 06/07/18 21:34 Dose: 10 mg Saccharomyces Boulardii (Florastor) 250 mg PO Q12 [facility] Last Admin: 06/08/18 11:04 Dose: 250 mg - Labs Labs: 06/06/18 05:38 06/06/18 05:38 - Constitutional Appears: Non-toxic, Chronically Ill - Head Exam Head Exam: NORMOCEPHALIC - Eye Exam Eye Exam: absent: Scleral icterus Pupil Exam: NORMAL ACCOMODATION - ENT Exam ENT Exam: Mucous Membranes Dry - Neck Exam Neck Exam: absent: Lymphadenopathy - Respiratory Exam Respiratory Exam: Decreased Breath Sounds - Cardiovascular Exam Cardiovascular Exam: REGULAR RHYTHM - GI/Abdominal Exam GI & Abdominal Exam: Distended, Soft - Rectal Exam Rectal Exam: Deferred - Extremities Exam Extremities Exam: Pedal Edema, Tenderness. absent: Calf Tenderness Additional comments: Right lower extremity exam: Vascular: DP and PT pulses faintly palpable. No pedal edema noted. Capillary refill time absent to right foot digits. Temperature gradient is warm to cool extending to level of midfoot; distal to midfoot is cold to the touch Derm: Gangrenous necrotic changes to digits, increased to digits 1, 4 and 5. No discrete open lesions or breaks in skin. No drainage or purulence, no erythema, no malodor, no fluctuance. Neuro: protective sensation and gross sensation intact Ortho: mild pain on palpation of right foot digits 1-5 - Back Exam Back Exam: absent: CVA tenderness (L), CVA tenderness (R) - Neurological Exam Neurological Exam: Alert, Awake, CN II-XII Intact, Oriented x3 - Psychiatric Exam Psychiatric exam: Depressed - Skin Skin Exam: Dry Assessment and Plan (1) Foot infection Status: Acute (2) Diabetic infection of right foot Status: Acute (3) Dry gangrene Status: Acute (4) PVD (peripheral vascular disease) Status: Acute - Assessment and Plan (Free Text) Assessment: blood isolate pending ID leandro solano contaminant CONT WOUND CARE AND IV ANTIBIOTICS VASCULAR AND PODIATRY EVAL IN PROGRESS
[2018-06-09] MEDS: ceFAZolin 1 gm FROZEN Premix 1 GM/50 ML ML IVPB SCH ×3 (01:40→17:18)
[2018-06-09] MEDS: Levothyroxine 88 MCG TAB PO SCH (06:24)
[2018-06-09] MEDS: (Novolin R) Insulin Human Regular 100 units/ml vial SC SCH ×4 (07:25→22:00)
[2018-06-09] MEDS: Saccharomyces Boulardi 250 mg Cap PO SCH ×2 (09:35→23:30)
--- NOTE | 2018-06-09 11:21 | CP.PCM.PN ---
Subjective - Date & Time of Evaluation Date of Evaluation: 06/09/18 Time of Evaluation: 11:21 - Subjective Subjective: Progress note dictated #[id number] Objective - Vital Signs/Intake and Output Vital Signs (last 24 hours): Temp Pulse Resp BP Pulse Ox 97.8 F 65 20 167/70 H 97 06/09/18 07:00 06/09/18 07:00 06/09/18 07:00 06/09/18 07:00 06/09/18 07:00 Intake and Output: 06/09/18 06/09/18 06:59 18:59 Intake Total 200 Output Total 810 Balance -610 - Medications Medications: Current Medications Amlodipine Besylate (Norvasc) 5 mg PO BID [facility] Last Admin: 06/09/18 09:35 Dose: 5 mg Escitalopram Oxalate (Lexapro) 10 mg PO DAILY [facility] Last Admin: 06/09/18 09:35 Dose: 10 mg Cefazolin Sodium (Ancef) 1 gm in 50 mls @ 100 mls/hr IVPB Q8H [facility]; Protocol Last Admin: 06/09/18 09:35 Dose: 100 mls/hr Insulin Human Regular (Novolin R) 0 unit SC ACHS [facility]; Protocol Last Admin: 06/09/18 07:25 Dose: Not Given Levetiracetam (Keppra) 500 mg PO BID [facility] Last Admin: 06/09/18 09:35 Dose: 500 mg Levothyroxine Sodium (Synthroid) 88 mcg PO DAILY@0630 [facility] Last Admin: 06/09/18 06:24 Dose: 88 mcg Rosuvastatin Calcium (Crestor) 10 mg PO HS [facility] Last Admin: 06/08/18 22:15 Dose: 10 mg Saccharomyces Boulardii (Florastor) 250 mg PO Q12 [facility] Last Admin: 06/09/18 09:35 Dose: 250 mg - Labs Labs: 06/06/18 05:38 06/06/18 05:38
--- NOTE | 2018-06-09 12:49 | CP.PCM.PN ---
Subjective - Date & Time of Evaluation Date of Evaluation: 06/09/18 Time of Evaluation: 08:00 - Subjective Subjective: blood c/a 1/2 sets coag neg staph this is likley a contaminant denies fever allergic to Vanco cont foot / wound care Objective - Vital Signs/Intake and Output Vital Signs (last 24 hours): Temp Pulse Resp BP Pulse Ox 97.8 F 65 20 167/70 H 97 06/09/18 07:00 06/09/18 07:00 06/09/18 07:00 06/09/18 07:00 06/09/18 07:00 Intake and Output: 06/09/18 06/09/18 06:59 18:59 Intake Total 200 Output Total 810 Balance -610 - Medications Medications: Current Medications Amlodipine Besylate (Norvasc) 5 mg PO BID [facility] Last Admin: 06/09/18 09:35 Dose: 5 mg Escitalopram Oxalate (Lexapro) 10 mg PO DAILY [facility] Last Admin: 06/09/18 09:35 Dose: 10 mg Cefazolin Sodium (Ancef) 1 gm in 50 mls @ 100 mls/hr IVPB Q8H [facility]; Protocol Last Admin: 06/09/18 09:35 Dose: 100 mls/hr Insulin Human Regular (Novolin R) 0 unit SC ACHS [facility]; Protocol Last Admin: 06/09/18 12:00 Dose: Not Given Levetiracetam (Keppra) 500 mg PO BID [facility] Last Admin: 06/09/18 09:35 Dose: 500 mg Levothyroxine Sodium (Synthroid) 88 mcg PO DAILY@0630 [facility] Last Admin: 06/09/18 06:24 Dose: 88 mcg Rosuvastatin Calcium (Crestor) 10 mg PO HS [facility] Last Admin: 06/08/18 22:15 Dose: 10 mg Saccharomyces Boulardii (Florastor) 250 mg PO Q12 [facility] Last Admin: 06/09/18 09:35 Dose: 250 mg - Labs Labs: 06/06/18 05:38 06/06/18 05:38 - Constitutional Appears: Non-toxic, Chronically Ill - Head Exam Head Exam: NORMOCEPHALIC - Eye Exam Eye Exam: PERRL - ENT Exam ENT Exam: Mucous Membranes Dry - Neck Exam Neck Exam: absent: Thyromegaly - Respiratory Exam Respiratory Exam: Decreased Breath Sounds - Cardiovascular Exam Cardiovascular Exam: REGULAR RHYTHM - GI/Abdominal Exam GI & Abdominal Exam: Distended, Soft - Rectal Exam Rectal Exam: Deferred - Exam Exam: NORMAL INSPECTION - Extremities Exam Extremities Exam: Pedal Edema - Back Exam Back Exam: absent: CVA tenderness (L), CVA tenderness (R) - Neurological Exam Neurological Exam: Alert, Awake - Psychiatric Exam Psychiatric exam: Depressed Assessment and Plan (1) Foot infection Status: Acute (2) Diabetic infection of right foot Status: Acute (3) Dry gangrene Status: Acute (4) PVD (peripheral vascular disease) Status: Acute - Assessment and Plan (Free Text) Assessment: staph epi on blood c/s leandro mcneill
--- NOTE | 2018-06-09 23:42 | PN ---
DATE: 06/09/2018 SUBJECTIVE: The patient was seen and examined at bedside. The patient offers no new complaints. PHYSICAL EXAMINATION: GENERAL: Elderly female, lying in bed, in no acute distress. VITAL SIGNS: Blood pressure 154/68, pulse 62, respirations 20, temperature 98 degrees Fahrenheit, O2 sats 95% on room air. HEENT: Pupils are equal, round, and reacting to light and accommodation. Extraocular muscles intact. No icterus. No pallor. No oral thrush. No pharyngeal congestion. NECK: Supple. No JVD. LUNGS: Bilateral vesicular breath sounds. No wheezing, no rhonchi. CARDIOVASCULAR SYSTEM: S1 and S2 present, regular. ABDOMEN: Soft, nontender. Bowel sounds present. No guarding. No rigidity. No rebound tenderness noted. CENTRAL NERVOUS SYSTEM: Alert, awake, oriented x3. No focal deficits noted. EXTREMITIES: Right foot with dressing in place. MEDICATIONS: Include amlodipine 5 mg b.i.d., Ancef 1 g IV every 8 hours, Lexapro 10 mg daily, Keppra 500 mg p.o. b.i.d., Synthroid 88 mcg daily, Crestor 10 mg p.o. at bedtime, Florastor daily. LABORATORY DATA: Accu-Cheks 118, 93, 90, 128, and 150. Repeat blood cultures negative so far. One set of blood cultures done on admission shows Staph coag-negative. ASSESSMENT AND PLAN: Elderly female with history of hypertension, hyperlipidemia, diabetes mellitus, hypothyroidism, cerebrovascular, status post right superficial femoral artery stent placement, status post hallux and fourth toe partial amputation of the digit done in 11/2017, admitted for dry gangrene and cellulitic changes of the right first and fourth toes, on Ancef. One set of blood cultures positive for Staph coag-negative, possible contamination. Repeat blood cultures are negative so far. Awaiting for vascular consult with Dr. Ken for peripheral artery disease. We will follow up with Podiatry and Infectious Disease. We will need social media marketing manager for discharge planning. Aman Calvo MD [facility] # [id number]
--- NOTE | 2018-06-09 23:48 | CP.PCM.CON ---
History of Present Illness - History of Present Illness History of Present Illness: Consultation for PVD HPI: 82-year-old female with past medical history significant for diabetes mellitus who presented to the emergency room for gangrene of the right foot digits. Patient has been followed by Dr. Hooker's podiatry service for management of gangrenous digit. Upon presentation complaining of discomfort on the right foot at baseline she has limited activity and does not ambulate secondary to history of residual weakness from a prior stroke. She was last seen by me back in November at which time as I was going on vacation had given the case with Dr. Alexandra who had placed in SFA stenting. Review of Systems - Review of Systems Systems not reviewed;Unavailable: Acuity of Condition - Constitutional Constitutional: As Per HPI - EENT Eyes: As Per HPI Ears: As Per HPI Nose/Mouth/Throat: As Per HPI - Breasts Breasts: As Per HPI - Cardiovascular Cardiovascular: As Per HPI - Respiratory Respiratory: As Per HPI - Gastrointestinal Gastrointestinal: As Per HPI - Genitourinary Genitourinary: As Per HPI - Reproductive: Female Reproductive:Female: As Per HPI - Menstruation Menstruation: As Per HPI - Musculoskeletal Musculoskeletal: As Per HPI - Integumentary Integumentary: As Per HPI - Neurological Neurological: As Per HPI - Psychiatric Psychiatric: As Per HPI - Endocrine Endocrine: As Per HPI - Hematologic/Lymphatic Hematologic: As Per HPI Past Patient History - Past Medical History & Family History Past Medical History?: Yes - Past Social History Smoking Status: Never Smoked - CARDIAC Hx Cardiac Disorders: Yes Hx Hypercholesterolemia: Yes Hx Hypertension: Yes - PULMONARY Hx Respiratory Disorders: No - NEUROLOGICAL Hx Neurological Disorder: Yes Hx Transient Ischemic Attacks (TIA): Yes - HEENT Hx HEENT Problems: Yes Other/Comment: wears prescription eyeglasses - RENAL Hx Chronic Kidney Disease: No - ENDOCRINE/METABOLIC Hx Endocrine Disorders: Yes Hx Diabetes Mellitus Type 2: Yes - HEMATOLOGICAL/ONCOLOGICAL Hx Blood Disorders: No - INTEGUMENTARY Hx Dermatological Problems: No - MUSCULOSKELETAL/RHEUMATOLOGICAL Hx Musculoskeletal Disorders: Yes Hx Falls: Yes 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) - GASTROINTESTINAL Hx Gastrointestinal Disorders: No - GENITOURINARY/GYNECOLOGICAL Hx Genitourinary Disorders: No - PSYCHIATRIC Hx Psychophysiologic Disorder: No Hx Substance Use: No - SURGICAL HISTORY Hx Surgeries: Yes Hx Amputation: Yes (R 1ST, 2ND, 3RD, 4TH TOE) Other/Comment: "HERNIA REMOVAL IN [place]" - ANESTHESIA Hx Anesthesia: Yes Hx Anesthesia Reactions: No Hx Malignant Hyperthermia: No Meds Allergies/Adverse Reactions: Allergies Allergy/AdvReac Type Severity Reaction Status Date / Time vancomycin Allergy ITCHING Verified 06/05/18 21:51 - Medications Medications: Current Medications Amlodipine Besylate (Norvasc) 5 mg PO BID [facility] Last Admin: 06/09/18 17:18 Dose: 5 mg Escitalopram Oxalate (Lexapro) 10 mg PO DAILY [facility] Last Admin: 06/09/18 09:35 Dose: 10 mg Cefazolin Sodium (Ancef) 1 gm in 50 mls @ 100 mls/hr IVPB Q8H [facility]; Protocol Last Admin: 06/09/18 17:18 Dose: 100 mls/hr Insulin Human Regular (Novolin R) 0 unit SC ACHS [facility]; Protocol Last Admin: 06/09/18 12:00 Dose: Not Given Levetiracetam (Keppra) 500 mg PO BID [facility] Last Admin: 06/09/18 17:17 Dose: 500 mg Levothyroxine Sodium (Synthroid) 88 mcg PO DAILY@0630 [facility] Last Admin: 06/09/18 06:24 Dose: 88 mcg Rosuvastatin Calcium (Crestor) 10 mg PO HS [facility] Last Admin: 06/08/18 22:15 Dose: 10 mg Saccharomyces Boulardii (Florastor) 250 mg PO Q12 [facility] Last Admin: 06/09/18 09:35 Dose: 250 mg Physical Exam - Constitutional Appears: Well - Head Exam Head Exam: ATRAUMATIC, NORMAL INSPECTION, NORMOCEPHALIC - Eye Exam Eye Exam: EOMI, Normal appearance, PERRL Pupil Exam: NORMAL ACCOMODATION, PERRL - ENT Exam ENT Exam: Mucous Membranes Moist, Normal Exam - Neck Exam Neck exam: Positive for: Normal Inspection - Respiratory Exam Respiratory Exam: Clear to Auscultation Bilateral, NORMAL BREATHING PATTERN - Cardiovascular Exam Cardiovascular Exam: REGULAR RHYTHM, Systolic Murmur - GI/Abdominal Exam GI & Abdominal Exam: Normal Bowel Sounds, Soft. absent: Tenderness - Extremities Exam Additional comments: gangrene of the toes - Back Exam Back exam: NORMAL INSPECTION - Neurological Exam Neurological exam: Alert, Oriented x3 - Psychiatric Exam Psychiatric exam: Normal Affect, Normal Mood - Skin Skin Exam: Dry, Intact, Normal Color, Warm Results - Vital Signs Recent Vital Signs: Last Vital Signs Temp 98.0 F 06/09/18 15:00 Pulse 62 06/09/18 15:00 Resp 20 06/09/18 15:00 BP 154/68 H 06/09/18 15:00 Pulse Ox 95 06/09/18 15:00 - Labs Result Diagrams: 06/06/18 05:38 06/06/18 05:38 Labs: Laboratory Results - last 24 hr 06/08/18 06/08/18 06/09/18 17:00 21:18 06:40 POC Glucose (mg/dL) 118 H 93 90 06/09/18 06/09/18 06/09/18 11:36 16:16 21:34 POC Glucose (mg/dL) 128 H 150 H 149 H Assessment & Plan (1) PVD (peripheral vascular disease) Assessment and Plan: asa CTA statins arbs Status: Acute (2) Foot infection Assessment and Plan: Abx podiatry Status: Acute (3) Afib Assessment and Plan: OAC Status: Acute (4) Diabetic infection of right foot Status: Acute (5) Dry gangrene Status: Acute
--- NOTE | 2018-06-09 23:53 | CP.PCM.PN ---
Subjective - Date & Time of Evaluation Date of Evaluation: 06/09/18 Time of Evaluation: 19:00 - Subjective Subjective: RLE discomfort angio pending Objective - Vital Signs/Intake and Output Vital Signs (last 24 hours): Temp Pulse Resp BP Pulse Ox 98.0 F 62 20 154/68 H 95 06/09/18 15:00 06/09/18 15:00 06/09/18 15:00 06/09/18 15:00 06/09/18 15:00 Intake and Output: 06/09/18 06/10/18 18:59 06:59 Output Total 400 Balance -400 - Medications Medications: Current Medications Amlodipine Besylate (Norvasc) 5 mg PO BID [facility] Last Admin: 06/09/18 17:18 Dose: 5 mg Aspirin (Aspirin Chewable) 81 mg PO DAILY [facility] Escitalopram Oxalate (Lexapro) 10 mg PO DAILY [facility] Last Admin: 06/09/18 09:35 Dose: 10 mg Cefazolin Sodium (Ancef) 1 gm in 50 mls @ 100 mls/hr IVPB Q8H [facility]; Protocol Last Admin: 06/09/18 17:18 Dose: 100 mls/hr Insulin Human Regular (Novolin R) 0 unit SC ACHS [facility]; Protocol Last Admin: 06/09/18 12:00 Dose: Not Given Levetiracetam (Keppra) 500 mg PO BID [facility] Last Admin: 06/09/18 17:17 Dose: 500 mg Levothyroxine Sodium (Synthroid) 88 mcg PO DAILY@0630 [facility] Last Admin: 06/09/18 06:24 Dose: 88 mcg Losartan Potassium (Cozaar) 25 mg PO DAILY [facility] Rosuvastatin Calcium (Crestor) 10 mg PO HS [facility] Last Admin: 06/08/18 22:15 Dose: 10 mg Saccharomyces Boulardii (Florastor) 250 mg PO Q12 [facility] Last Admin: 06/09/18 09:35 Dose: 250 mg - Labs Labs: 06/06/18 05:38 06/06/18 05:38 - Constitutional Appears: Well - Head Exam Head Exam: ATRAUMATIC, NORMAL INSPECTION, NORMOCEPHALIC - Eye Exam Eye Exam: EOMI, Normal appearance, PERRL Pupil Exam: NORMAL ACCOMODATION, PERRL - ENT Exam ENT Exam: Mucous Membranes Moist, Normal Exam - Neck Exam Neck Exam: Full ROM, Normal Inspection. absent: Lymphadenopathy - Respiratory Exam Respiratory Exam: Clear to Ausculation Bilateral, NORMAL BREATHING PATTERN - Cardiovascular Exam Cardiovascular Exam: Irregular Rhythm, +S1, +S2, Murmur - GI/Abdominal Exam GI & Abdominal Exam: Soft, Normal Bowel Sounds. absent: Tenderness - Extremities Exam Extremities Exam: Full ROM, Normal Capillary Refill, Normal Inspection. absent: Joint Swelling, Pedal Edema - Back Exam Back Exam: NORMAL INSPECTION - Neurological Exam Neurological Exam: Alert, Awake, CN II-XII Intact, Normal Gait, Oriented x3 - Psychiatric Exam Psychiatric exam: Normal Affect, Normal Mood - Skin Skin Exam: Dry, Intact, Normal Color, Warm Assessment and Plan (1) PVD (peripheral vascular disease) Status: Acute (2) Foot infection Status: Acute (3) Afib Status: Acute (4) Diabetic infection of right foot Status: Acute (5) Dry gangrene Status: Acute
[2018-06-10] MEDS: ceFAZolin 1 gm FROZEN Premix 1 GM/50 ML ML IVPB SCH ×3 (02:00→19:05)
[2018-06-10] MEDS ORDERED: Iodixanol 320 mg/ml 150 ml Bottle IV ONE (03:07)
[2018-06-10] MEDS: Levothyroxine 88 MCG TAB PO SCH (06:33)
[2018-06-10] MEDS: (Novolin R) Insulin Human Regular 100 units/ml vial SC SCH ×3 (07:58→18:41)
[2018-06-10] MEDS: Saccharomyces Boulardi 250 mg Cap PO SCH ×2 (10:08→22:17)
--- NOTE | 2018-06-10 10:43 | CP.PCM.PN ---
Subjective - Date & Time of Evaluation Date of Evaluation: 06/10/18 Time of Evaluation: 10:38 - Subjective Subjective: aortogram shows high grade calcific stenosis no documentatino of afib no echo in system Objective - Vital Signs/Intake and Output Vital Signs (last 24 hours): Temp Pulse Resp BP Pulse Ox 98.4 F 60 20 119/70 95 06/10/18 08:00 06/10/18 08:00 06/10/18 08:00 06/10/18 08:00 06/10/18 08:00 Intake and Output: 06/10/18 06/10/18 06:59 18:59 Output Total 500 Balance -500 - Medications Medications: Current Medications Amlodipine Besylate (Norvasc) 5 mg PO BID [facility] Last Admin: 06/10/18 10:08 Dose: 5 mg Aspirin (Aspirin Chewable) 81 mg PO DAILY [facility] Last Admin: 06/10/18 10:08 Dose: 81 mg Escitalopram Oxalate (Lexapro) 10 mg PO DAILY [facility] Last Admin: 06/10/18 10:08 Dose: 10 mg Cefazolin Sodium (Ancef) 1 gm in 50 mls @ 100 mls/hr IVPB Q8H [facility]; Protocol Last Admin: 06/10/18 08:14 Dose: 100 mls/hr Insulin Human Regular (Novolin R) 0 unit SC ACHS [facility]; Protocol Last Admin: 06/10/18 07:58 Dose: Not Given Levetiracetam (Keppra) 500 mg PO BID [facility] Last Admin: 06/10/18 10:08 Dose: 500 mg Levothyroxine Sodium (Synthroid) 88 mcg PO DAILY@0630 [facility] Last Admin: 06/10/18 06:33 Dose: 88 mcg Losartan Potassium (Cozaar) 25 mg PO DAILY [facility] Last Admin: 06/10/18 10:08 Dose: 25 mg Rosuvastatin Calcium (Crestor) 10 mg PO HS [facility] Last Admin: 06/09/18 23:30 Dose: 10 mg Saccharomyces Boulardii (Florastor) 250 mg PO Q12 [facility] Last Admin: 06/10/18 10:08 Dose: 250 mg - Labs Labs: 06/06/18 05:38 06/06/18 05:38 - Constitutional Appears: Well - Head Exam Head Exam: ATRAUMATIC, NORMAL INSPECTION, NORMOCEPHALIC - Eye Exam Eye Exam: EOMI, Normal appearance, PERRL Pupil Exam: NORMAL ACCOMODATION, PERRL - ENT Exam ENT Exam: Mucous Membranes Moist, Normal Exam - Neck Exam Neck Exam: Full ROM, Normal Inspection. absent: Lymphadenopathy - Respiratory Exam Respiratory Exam: Clear to Ausculation Bilateral, NORMAL BREATHING PATTERN - Cardiovascular Exam Cardiovascular Exam: REGULAR RHYTHM, +S1, +S2. absent: Murmur - GI/Abdominal Exam GI & Abdominal Exam: Soft, Normal Bowel Sounds. absent: Tenderness - Extremities Exam Extremities Exam: Full ROM, Normal Capillary Refill, Normal Inspection. absent: Joint Swelling, Pedal Edema - Back Exam Back Exam: NORMAL INSPECTION - Neurological Exam Neurological Exam: Alert, Awake, CN II-XII Intact, Normal Gait, Oriented x3 - Psychiatric Exam Psychiatric exam: Normal Affect, Normal Mood - Skin Skin Exam: Dry, Intact, Normal Color, Warm Assessment and Plan (1) PVD (peripheral vascular disease) Assessment & Plan: CT angiogram showed high grade calcific stenosis plan for peripheral angiogram in am npo p mn cont asa add plavix add BB Status: Acute (2) Foot infection Status: Chronic (3) Afib Assessment & Plan: hx of paroxysmal ? EP eval dapt AC ? due to risk of bleeding ( Dced in the past ) Afib ?? - CVA on xarelto in the past Status: Acute (4) Diabetic infection of right foot Status: Acute (5) Dry gangrene Status: Acute
--- NOTE | 2018-06-10 11:20 | CP.PCM.PN ---
Subjective - Date & Time of Evaluation Date of Evaluation: 06/10/18 Time of Evaluation: 11:20 - Subjective Subjective: Progress note dictated #[id number] Objective - Vital Signs/Intake and Output Vital Signs (last 24 hours): Temp Pulse Resp BP Pulse Ox 98.4 F 60 20 119/70 95 06/10/18 08:00 06/10/18 08:00 06/10/18 08:00 06/10/18 08:00 06/10/18 08:00 Intake and Output: 06/10/18 06/10/18 06:59 18:59 Output Total 500 Balance -500 - Medications Medications: Current Medications Aspirin (Aspirin Chewable) 81 mg PO DAILY [facility] Last Admin: 06/10/18 10:08 Dose: 81 mg Escitalopram Oxalate (Lexapro) 10 mg PO DAILY [facility] Last Admin: 06/10/18 10:08 Dose: 10 mg Cefazolin Sodium (Ancef) 1 gm in 50 mls @ 100 mls/hr IVPB Q8H [facility]; Protocol Last Admin: 06/10/18 08:14 Dose: 100 mls/hr Insulin Human Regular (Novolin R) 0 unit SC ACHS [facility]; Protocol Last Admin: 06/10/18 07:58 Dose: Not Given Levetiracetam (Keppra) 500 mg PO BID [facility] Last Admin: 06/10/18 10:08 Dose: 500 mg Levothyroxine Sodium (Synthroid) 88 mcg PO DAILY@0630 [facility] Last Admin: 06/10/18 06:33 Dose: 88 mcg Losartan Potassium (Cozaar) 25 mg PO DAILY [facility] Last Admin: 06/10/18 10:08 Dose: 25 mg Rosuvastatin Calcium (Crestor) 10 mg PO HS [facility] Last Admin: 06/09/18 23:30 Dose: 10 mg Saccharomyces Boulardii (Florastor) 250 mg PO Q12 [facility] Last Admin: 06/10/18 10:08 Dose: 250 mg - Labs Labs: 06/06/18 05:38 06/06/18 05:38
--- NOTE | 2018-06-10 12:24 | CT ---
Date of service: 06/10/2018 PROCEDURE: CT Angiography Abdomen, Pelvis and Lower Extremity with Contrast HISTORY: gangrene of the toes COMPARISON: None available. TECHNIQUE: Technique: CT angiography of the abdomen, pelvis and bilateral lower extremities performed in the arterial phase of enhancement. Coronal and sagittal reformats, and well as rotating MIP images of the vessels generated at the workstation. Intravenous contrast dose: 150 milliliters Visipaque 320 Radiation dose: Total exam DLP = 1880.53 mGy-cm. This CT exam was performed using one or more of the following dose reduction techniques: Automated exposure control, adjustment of the mA and/or kV according to patient size, and/or use of iterative reconstruction technique. FINDINGS: CT ANGIOGRAPHY: ABDOMINAL AORTA:: Severe calcific plaque throughout the abdominal aorta without aneurysm or stenosis. MAJOR AORTIC BRANCHES: Celiac [place]: Unremarkable. Superior mesenteric artery: Severe calcific plaque at the origin of the SMA with possible moderate stenosis. Inferior mesenteric artery: Unremarkable. Renal arteries: Calcific plaque at the origin of both right and left renal arteries with possible [id number] stenosis. PELVIC ARTERIES: Right Common Iliac: Moderate calcific plaque with no stenosis. Right External Iliac: Moderate calcific plaque with no stenosis. Right Internal Iliac: Unremarkable. Left Common Iliac: Moderate calcific plaque with no stenosis. Left External Iliac: Calcific plaque with no stenosis. Left Internal Iliac: Unremarkable. RIGHT LOWER EXTREMITY ARTERIES: Right Common Femoral: Moderate calcific plaque no stenosis. Right Superficial Femoral: There is severe calcific plaque in the mid and distal SFA which limits evaluation. Possible moderate stenosis in this segment. Right Profunda Femoris: Unremarkable. Right Popliteal:Moderate calcific and popliteal artery with mild stenosis. Right Anterior Tibial: Occluded in the proximal segment with distal reconstitution. Right Tibioperoneal Trunk: Likely calcified per Right Posterior Tibial: Mild calcific plaque in the posterior tibial artery with moderate stenosis throughout. Right Peroneal: Moderate calcific plaque in the proximal segment and is otherwise unremarkable. Right dorsalis pedis : Unremarkable. LEFT LOWER EXTREMITY ARTERIES: Left Common Femoral: Moderate calcific plaque with no significant stenosis. Left Superficial Femoral: Mild to moderate calcific plaque throughout the SFA with no significant stenosis. Left Profunda Femoris: Unremarkable. Left Popliteal: Moderate calcific plaque with mild stenosis. Left Anterior Tibial: Moderate to severe calcific plaque throughout the anterior tibial artery. Possible multiple areas of [id number]-md-[id number] stenosis throughout the anterior tibial artery. Left Tibioperoneal Trunk: Unremarkable. Left Posterior Tibial: A very short segment of severe stenosis in the proximal posterior tibial artery which is otherwise unremarkable. Left Peroneal: Mildly calcified proximal segment but otherwise patent. Left Dorsalis pedis: Unremarkable. NON-ANGIOGRAPHIC ASPECT OF THE EXAM: LOWER THORAX: Unremarkable. LIVER: Unremarkable. No gross lesion or ductal dilatation. GALLBLADDER AND BILE DUCTS: Unremarkable. PANCREAS: Unremarkable. No gross lesion or ductal dilatation. SPLEEN: Unremarkable. ADRENALS: Unremarkable. No mass. KIDNEYS AND URETERS: Unremarkable. No hydronephrosis. No solid mass. STOMACH AND BOWEL: Unremarkable. No obstruction. No gross mural thickening. APPENDIX: Normal appendix. PERITONEUM: Unremarkable. No free fluid. No free air. LYMPH NODES: Unremarkable. No enlarged lymph nodes. BLADDER: Unremarkable. REPRODUCTIVE: Unremarkable. BONES: No acute fracture. OTHER FINDINGS: None. IMPRESSION: CT angiogram abdomen/pelvis: 1. Moderate calcific plaque throughout the abdominal aorta and pelvic arteries without significant stenosis. 2. Moderate calcific plaque at the origin of the SMA with possible moderate stenosis. 3. Mild to severe calcific plaque at the origin of right and left renal artery is a possible moderate stenosis. Right lower extremity CT angiogram: 1. The common femoral artery profunda femoral artery are mildly calcified with no stenosis. 2. There is moderate calcific plaque in the proximal SFA and severe calcific plaque in the mid and distal SFA which limits evaluation. Possible dfok-dk-yueciigm stenosis in this segment. 3. Moderate calcific plaque of the popliteal artery with husy-bq-heeptsni stenosis. 4. Runoff shows a moderate calcific plaque in the proximal peroneal artery which is otherwise unremarkable. The posterior tibial artery has multiple areas of moderate stenosis throughout. The anterior tibial artery occludes the proximal segment with distal reconstitution. Left lower extremity CT angiogram: 1. The common femoral and profunda femoral are mildly calcified with no stenosis. 2. The SFA is mildly calcified with no significant stenosis. 3. Popliteal artery is moderate calcific plaque with mild stenosis. 4. Runoff shows patent peroneal artery with mild calcific plaques in proximal segment. Posterior tibial arteries patent except for a very short segment of severe stenosis in the proximal segment. The anterior tibial artery is mildly calcified which limits evaluation. Possible multiple areas of moderate stenosis throughout the anterior tibial artery.
--- NOTE | 2018-06-10 16:36 | CP.PCM.PN ---
Subjective - Date & Time of Evaluation Date of Evaluation: 06/10/18 Time of Evaluation: 12:30 - Subjective Subjective: Podiatry Progress Note- Dr. Hooker 82F seen and evaluated at bedside for right foot dry gangrenous digits- stable. Patient is resting comfortably in bed and in NAD. No acute events overnight. Patient denies of pain currently. Dressing is clean, dry, intact without strikethrough. Denies N/V/F/SOB/CP. Objective - Vital Signs/Intake and Output Vital Signs (last 24 hours): Temp Pulse Resp BP Pulse Ox 98.2 F 65 20 129/56 L 95 06/10/18 15:00 06/10/18 15:00 06/10/18 15:00 06/10/18 15:00 06/10/18 15:00 Intake and Output: 06/10/18 06/10/18 06:59 18:59 Intake Total 300 Output Total 500 200 Balance -500 100 - Medications Medications: Current Medications Aspirin (Aspirin Chewable) 81 mg PO DAILY [facility] Last Admin: 06/10/18 10:08 Dose: 81 mg Clopidogrel Bisulfate (Plavix) 75 mg PO DAILY [facility] Last Admin: 06/10/18 14:42 Dose: 75 mg Escitalopram Oxalate (Lexapro) 10 mg PO DAILY [facility] Last Admin: 06/10/18 10:08 Dose: 10 mg Cefazolin Sodium (Ancef) 1 gm in 50 mls @ 100 mls/hr IVPB Q8H [facility]; Protocol Last Admin: 06/10/18 08:14 Dose: 100 mls/hr Insulin Human Regular (Novolin R) 0 unit SC ACHS [facility]; Protocol Last Admin: 06/10/18 11:36 Dose: Not Given Levetiracetam (Keppra) 500 mg PO BID [facility] Last Admin: 06/10/18 10:08 Dose: 500 mg Levothyroxine Sodium (Synthroid) 88 mcg PO DAILY@0630 [facility] Last Admin: 06/10/18 06:33 Dose: 88 mcg Losartan Potassium (Cozaar) 25 mg PO DAILY [facility] Last Admin: 06/10/18 10:08 Dose: 25 mg Rosuvastatin Calcium (Crestor) 10 mg PO HS [facility] Last Admin: 06/09/18 23:30 Dose: 10 mg Saccharomyces Boulardii (Florastor) 250 mg PO Q12 [facility] Last Admin: 06/10/18 10:08 Dose: 250 mg - Labs Labs: 06/06/18 05:38 06/06/18 05:38 - Constitutional Appears: Well, Non-toxic, No Acute Distress - Extremities Exam Extremities Exam: absent: Calf Tenderness Additional comments: Right lower extremity exam: Vascular: DP and PT pulses faintly palpable. No pedal edema noted. Capillary refill time absent to right foot digits. Temperature gradient is warm to cool extending to level of midfoot; distal to midfoot is cold to the touch Derm: Dry gangrenous necrotic changes to digits, increased to digits 1, 4 and 5. No discrete open lesions or breaks in skin. No drainage or purulence, no erythema, no malodor, no fluctuance. Neuro: protective sensation and gross sensation intact Ortho: mild pain on palpation of right foot digits 1-5 Assessment and Plan - Assessment and Plan (Free Text) Assessment: 82 year old female with right foot dry gangrenous digits, stable Plan: Patient seen and examined at bedside Discussed in detail with Dr. Morro Loco foot x-ray; stable findings s/p amputation distal tuft R 1st digit Afebrile, absent leukocytosis Digits cleansed with betadine, dressed with dry gauze and kerlix Dr. Ken recommendations appreciated Further planning pending vascular intervention Podiatry will continue to provide local wound care while in house Continue IV antibiotics per ID Will continue to follow while in house
--- NOTE | 2018-06-10 18:51 | CON ---
DATE: 06/10/2018 CONSULT SERVICE: Clinical Cardiac Electrophysiology. PHYSICIAN PERFORMING CONSULT: Eleno Alexander MD PHYSICIAN REQUESTING CONSULT: Garrett Ken MD REASON FOR CONSULTATION: History of cerebrovascular accident in the past, question atrial fibrillation. HISTORY OF PRESENT ILLNESS: Ms. Eryn Thapa is a very pleasant 82-year-old Thai-speaking female with a history of diabetes mellitus, peripheral arterial disease, history of prior CVA with residual weakness, who presents with a longstanding right gangrenous foot who presented to [facility] with worsening right foot gangrene. The patient has had SFA stenting in the past, but again returns with dry gangrene of the right foot. As noted, the patient has a history of stroke in the past and believe she had been on Xarelto although there is no objective history of atrial fibrillation for the patient, although she is not the best historian. She denies any palpitations, lightheadedness, or dizziness. She states currently she feels very well. She is currently following with both cardiology and podiatry services. REVIEW OF SYSTEMS: A comprehensive 10-point review of systems was performed and notable for what was seen above. FAMILY HISTORY: Noncontributory. SOCIAL HISTORY: Noncontributory. PHYSICAL EXAMINATION: GENERAL: The patient is alert, oriented, thin. VITAL SIGNS: The patient's blood pressure is 150/60, heart rate of 64, respiratory rate of 12. NECK: Supple. PULMONARY: Lungs are clear anterior. CARDIOVASCULAR: Regular rate and rhythm. S1, S2, 2/6 systolic ejection murmur. GASTROINTESTINAL: Abdomen is soft. EXTREMITIES: Right foot is wrapped and has dry gangrene. PSYCHIATRIC: Normal affect. SKIN: No rashes. OBJECTIVE DATA: Reviewed. EKG is reviewed in the system dating back to the last 2 to 3 years and no AFib was noted. She did have an EKG demonstrating sinus rhythm in 11/2017 with a P-R interval of 240 msec; however, now it appears that her P-R interval is now 340 msec with a minimally wide right bundle of 125 msec. There is no echo noted in the system. ASSESSMENT: Ms. Eryn Thapa has peripheral vascular disease and dry gangrene of her right foot and is currently undergoing evaluation for this. From electrophysiologic perspective, she does have a history of stroke in the past with a question of being on oral anticoagulation. It is unknown if she has any history of atrial fibrillation as she is unaware of this, and there is no objective data that I can see in the hospital system records to demonstrate this either. Her EKGs have all demonstrated normal sinus. She is currently not on telemetry, but her heart rates have all been relatively well controlled and I suspect if this has been in sinus rhythm as well. For now, I would not make any major changes from an EP perspective. Certainly, the most pressing issue appears to be her gangrene and this needs to be addressed from the aforementioned specialists. We could consider putting her back on telemetry, which make it reasonable to assess for atrial fibrillation, and certainly as an outpatient, we could consider ambulatory monitoring and/or event loop recorder as she does have a history of stroke in the past of unknown etiology. Thank you very much for allowing me to participate in the care of this patient. Eleno Alexander MD
--- NOTE | 2018-06-10 23:02 | PN ---
DATE: 06/10/2018 SUBJECTIVE: The patient was seen and examined at bedside. The patient denies any new complaints other than right foot pain. PHYSICAL EXAMINATION GENERAL: Elderly female, lying in bed, in no acute distress. VITAL SIGNS: Blood pressure 129/56, pulse 65, respirations 20, temperature 98.2 degrees Fahrenheit, O2 sats 95% on room air. HEENT: Pupils are equal, round and reacting to light and accommodation. Extraocular muscles intact. No icterus. No pallor. No oral thrush. No pharyngeal congestion. NECK: Supple. No JVD. LUNGS: Bilateral vesicular breath sounds. No wheezing, no rhonchi. CARDIOVASCULAR SYSTEM: S1 and S2 present, regular. ABDOMEN: Soft, nontender. Bowel sounds present. No guarding. No rigidity. No rebound tenderness noted. CENTRAL NERVOUS SYSTEM: Alert, awake, oriented x3. No focal deficits noted. EXTREMITIES: No edema. Right foot with dressing in place. MEDICATIONS: Include aspirin 81 mg daily, Ancef 1 g IV every 8 hours, Plavix 75 mg daily, Lexapro 10 mg daily, Keppra 500 mg p.o. b.i.d., Synthroid 88 mcg daily, losartan 25 mg daily, Crestor 10 mg p.o. at bedtime. LABORATORY DATA: Accu-Cheks 150, 149, 113 and 139. Repeat blood cultures negative. 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 CT angiogram done shows moderate calcific plaque throughout the abdominal aorta and pelvic arteries without significant stenosis, moderate calcific plaque at the superior mesenteric artery with possible moderate stenosis, [id number] calcific plaque at the origin of the right and left renal artery with possible moderate stenosis, moderate calcific plaque of the popliteal artery with [id number] stenosis. I discussed with Dr. Ken and Dr. Alexander for possible angioplasty by Dr. Ken. We will continue with current antibiotics as per Dr. Jenkins. Follow up with Podiatry. We will repeat labs. Aman Calvo MD [facility] # [id number]
[2018-06-11 00:29] LABS: BASO % 0.6 % (0.0-2.0); EOS # 0.3 K/uL (0.0-0.7); HEMOGLOBIN 10.4 g/dL (11.0-16.0); LYMPH # 1.5 K/uL (1.0-4.3); LYMPH % 21.9 % (20.0-40.0); MEAN CELL VOLUME 92.6 fL (81.0-99.0); MEAN CORPUSCULAR HEMOGLOBIN 30.9 pg (27.0-31.0); MEAN CORPUSCULAR HGB CONC 33.4 g/dL (33.0-37.0); MEAN PLATELET VOLUME 9.1 fL (7.2-11.7); MONO # 0.6 K/uL (0.0-0.8); MONO % 9.6 % (0.0-10.0); NEUT # 4.3 K/uL (1.8-7.0); NEUT % 63.9 % (50.0-75.0); NRBC % 0.1 % (0.0-2.0); RBC 3.36 Mil/uL (3.80-5.20); RED CELL DISTRIBUTION WIDTH 14.5 % (11.5-14.5); WHITE BLOOD COUNT 6.7 K/uL (4.8-10.8)
[2018-06-11 00:50] LABS: ALB/GLOB RATIO 1.2 (1.0-2.1); ALBUMIN 3.5 g/dL (3.5-5.0); ALT/SGPT 17 U/L (9-52); AST/SGOT 29 U/L (14-36); BLOOD UREA NITROGEN 13 mg/dL (7-17); CALCIUM 8.5 mg/dl (8.6-10.4); GFR NON-AFRICAN AMERICAN > 60
[2018-06-11] MEDS: ceFAZolin 1 gm FROZEN Premix 1 GM/50 ML ML IVPB SCH ×3 (01:12→17:55)
[2018-06-11] MEDS: Levothyroxine 88 MCG TAB PO SCH (06:04)
[2018-06-11] MEDS: (Novolin R) Insulin Human Regular 100 units/ml vial SC SCH ×4 (07:35→21:55)
[2018-06-11] MEDS ORDERED: DiphenhydrAMINE 50 mg/ml Inj IVP ONE (09:30)
[2018-06-11] MEDS: Saccharomyces Boulardi 250 mg Cap PO SCH ×2 (09:50→21:56)
--- NOTE | 2018-06-11 11:41 | CP.PCM.PN ---
Subjective - Date & Time of Evaluation Date of Evaluation: 06/11/18 Time of Evaluation: 11:41 - Subjective Subjective: Progress note dictated #[id number] Objective - Vital Signs/Intake and Output Vital Signs (last 24 hours): Temp Pulse Resp BP Pulse Ox 98.0 F 59 L 20 126/62 94 L 06/11/18 07:13 06/11/18 07:13 06/11/18 07:13 06/11/18 07:13 06/11/18 07:13 Intake and Output: 06/11/18 06/11/18 06:59 18:59 Intake Total 200 Output Total 150 300 Balance -150 -100 - Medications Medications: Current Medications Aspirin (Aspirin Chewable) 81 mg PO DAILY [facility] Last Admin: 06/11/18 09:53 Dose: 81 mg Clopidogrel Bisulfate (Plavix) 75 mg PO DAILY [facility] Last Admin: 06/11/18 09:53 Dose: 75 mg Diphenhydramine HCl (Benadryl) 25 mg PO Q8 PRN PRN Reason: Itching / Pruritus Last Admin: 06/11/18 09:54 Dose: 25 mg Escitalopram Oxalate (Lexapro) 10 mg PO DAILY [facility] Last Admin: 06/11/18 09:50 Dose: 10 mg Cefazolin Sodium (Ancef) 1 gm in 50 mls @ 100 mls/hr IVPB Q8H [facility]; Protocol Last Admin: 06/11/18 08:35 Dose: 100 mls/hr Insulin Human Regular (Novolin R) 0 unit SC ACHS [facility]; Protocol Last Admin: 06/11/18 11:33 Dose: Not Given Levetiracetam (Keppra) 500 mg PO BID [facility] Last Admin: 06/11/18 09:54 Dose: 500 mg Levothyroxine Sodium (Synthroid) 88 mcg PO DAILY@0630 [facility] Last Admin: 06/11/18 06:04 Dose: 88 mcg Losartan Potassium (Cozaar) 25 mg PO DAILY [facility] Last Admin: 06/11/18 09:50 Dose: 25 mg Rosuvastatin Calcium (Crestor) 10 mg PO HS [facility] Last Admin: 06/10/18 22:17 Dose: 10 mg Saccharomyces Boulardii (Florastor) 250 mg PO Q12 [facility] Last Admin: 06/11/18 09:50 Dose: 250 mg - Labs Labs: 06/11/18 00:26 06/11/18 00:26
[2018-06-11] MEDS ORDERED: Potassium Chloride 20 mEq ER Tab PO ONE (11:45)
--- NOTE | 2018-06-11 13:57 | CP.PCM.PN ---
Subjective - Date & Time of Evaluation Date of Evaluation: 06/11/18 Time of Evaluation: 12:00 - Subjective Subjective: Podiatry Progress Note- Dr. Hooker 82F seen and evaluated at bedside for right foot dry gangrenous digits, stable. Patient is resting comfortably in bed and in NAD. Denies acute events overnight. Patient denies of pain currently. Expresses pain with dressing changes. Dressing is clean, dry, intact. Denies N/V/F/SOB/CP. Objective - Vital Signs/Intake and Output Vital Signs (last 24 hours): Temp Pulse Resp BP Pulse Ox 98.0 F 59 L 20 126/62 94 L 06/11/18 07:13 06/11/18 07:13 06/11/18 07:13 06/11/18 07:13 06/11/18 07:13 Intake and Output: 06/11/18 06/11/18 06:59 18:59 Intake Total 200 Output Total 150 300 Balance -150 -100 - Medications Medications: Current Medications Aspirin (Aspirin Chewable) 81 mg PO DAILY [facility] Last Admin: 06/11/18 09:53 Dose: 81 mg Clopidogrel Bisulfate (Plavix) 75 mg PO DAILY [facility] Last Admin: 06/11/18 09:53 Dose: 75 mg Diphenhydramine HCl (Benadryl) 25 mg PO Q8 PRN PRN Reason: Itching / Pruritus Last Admin: 06/11/18 09:54 Dose: 25 mg Escitalopram Oxalate (Lexapro) 10 mg PO DAILY [facility] Last Admin: 06/11/18 09:50 Dose: 10 mg Cefazolin Sodium (Ancef) 1 gm in 50 mls @ 100 mls/hr IVPB Q8H [facility]; Protocol Last Admin: 06/11/18 08:35 Dose: 100 mls/hr Insulin Human Regular (Novolin R) 0 unit SC ACHS [facility]; Protocol Last Admin: 06/11/18 11:33 Dose: Not Given Levetiracetam (Keppra) 500 mg PO BID [facility] Last Admin: 06/11/18 09:54 Dose: 500 mg Levothyroxine Sodium (Synthroid) 88 mcg PO DAILY@0630 [facility] Last Admin: 06/11/18 06:04 Dose: 88 mcg Losartan Potassium (Cozaar) 25 mg PO DAILY [facility] Last Admin: 01/09/19 09:50 Dose: 25 mg Rosuvastatin Calcium (Crestor) 10 mg PO HS [facility] Last Admin: 06/10/18 22:17 Dose: 10 mg Saccharomyces Boulardii (Florastor) 250 mg PO Q12 [facility] Last Admin: 06/11/18 09:50 Dose: 250 mg - Labs Labs: 06/11/18 00:26 06/11/18 00:26 - Constitutional Appears: Well, Non-toxic, No Acute Distress - Extremities Exam Extremities Exam: absent: Calf Tenderness Additional comments: Right lower extremity exam: Vascular: DP and PT pulses faintly palpable. No pedal edema noted. Capillary refill time absent to right foot digits. Temperature gradient is warm to cool extending to level of midfoot; distal to midfoot is cold to the touch Derm: Dry gangrenous necrotic changes to digits, increased to digits 1, 4 and 5. No discrete open lesions or breaks in skin. No drainage or purulence, no erythema, no malodor, no fluctuance. Neuro: protective sensation and gross sensation intact Ortho: mild pain on palpation of right foot digits 1-5 - Neurological Exam Neurological Exam: Alert, Awake Assessment and Plan - Assessment and Plan (Free Text) Assessment: 82 year old female with right foot dry gangrenous digits, stable Plan: Patient seen and examined at bedside Discussed in detail with Dr. Morro Loco foot x-ray; stable findings s/p amputation distal tuft R 1st digit Afebrile, absent leukocytosis Digits cleansed with betadine, dressed with dry gauze and kerlix Dr. Ken recommendations appreciated Further planning pending vascular intervention Podiatry will continue to provide local wound care while in house Continue IV antibiotics per ID Will continue to follow while in house
--- NOTE | 2018-06-11 19:10 | CP.PCM.PN ---
Subjective - Date & Time of Evaluation Date of Evaluation: 06/11/18 Time of Evaluation: 19:09 - Subjective Subjective: plan for peripheral angio in am Objective - Vital Signs/Intake and Output Vital Signs (last 24 hours): Temp Pulse Resp BP Pulse Ox 97.4 F L 60 20 109/48 L 97 06/11/18 15:54 06/11/18 15:54 06/11/18 15:54 06/11/18 15:54 06/11/18 15:54 Intake and Output: 06/11/18 06/12/18 18:59 06:59 Intake Total 620 Output Total 800 Balance -180 - Medications Medications: Current Medications Aspirin (Aspirin Chewable) 81 mg PO DAILY [facility] Last Admin: 06/11/18 09:53 Dose: 81 mg Clopidogrel Bisulfate (Plavix) 75 mg PO DAILY [facility] Last Admin: 06/11/18 09:53 Dose: 75 mg Diphenhydramine HCl (Benadryl) 25 mg PO Q8 PRN PRN Reason: Itching / Pruritus Last Admin: 06/11/18 18:30 Dose: 25 mg Escitalopram Oxalate (Lexapro) 10 mg PO DAILY [facility] Last Admin: 06/11/18 09:50 Dose: 10 mg Cefazolin Sodium (Ancef) 1 gm in 50 mls @ 100 mls/hr IVPB Q8H [facility]; Protocol Last Admin: 06/11/18 17:55 Dose: 100 mls/hr Insulin Human Regular (Novolin R) 0 unit SC ACHS [facility] [place]; Protocol Last Admin: 06/11/18 11:33 Dose: Not Given Levetiracetam (Keppra) 500 mg PO BID [facility] [place] Last Admin: 06/11/18 18:30 Dose: 500 mg Levothyroxine Sodium (Synthroid) 88 mcg PO DAILY@0630 [facility] Last Admin: 06/11/18 06:04 Dose: 88 mcg Losartan Potassium (Cozaar) 25 mg PO DAILY [facility] [place] Last Admin: 06/11/18 09:50 Dose: 25 mg Rosuvastatin Calcium (Crestor) 10 mg PO HS [facility] [place] Last Admin: 06/10/18 22:17 Dose: 10 mg Saccharomyces Boulardii (Florastor) 250 mg PO Q12 [facility] Last Admin: 06/11/18 09:50 Dose: 250 mg - Labs Labs: 06/11/18 00:26 06/11/18 00:26 - Constitutional Appears: Well - Head Exam Head Exam: ATRAUMATIC, NORMAL INSPECTION, NORMOCEPHALIC - Eye Exam Eye Exam: EOMI, Normal appearance, PERRL Pupil Exam: NORMAL ACCOMODATION, PERRL - ENT Exam ENT Exam: Mucous Membranes Moist, Normal Exam - Neck Exam Neck Exam: Full ROM, Normal Inspection. absent: Lymphadenopathy - Respiratory Exam Respiratory Exam: Clear to Ausculation Bilateral, NORMAL BREATHING PATTERN - Cardiovascular Exam Cardiovascular Exam: REGULAR RHYTHM, +S1, +S2. absent: Murmur - GI/Abdominal Exam GI & Abdominal Exam: Soft, Normal Bowel Sounds. absent: Tenderness - Extremities Exam Extremities Exam: Full ROM, Normal Capillary Refill, Normal Inspection. absent: Joint Swelling, Pedal Edema - Back Exam Back Exam: NORMAL INSPECTION - Neurological Exam Neurological Exam: Alert, Awake, CN II-XII Intact, Normal Gait, Oriented x3 - Psychiatric Exam Psychiatric exam: Normal Affect, Normal Mood - Skin Skin Exam: Dry, Intact, Normal Color, Warm Assessment and Plan (1) PVD (peripheral vascular disease) Status: Acute (2) Foot infection Status: Chronic (3) Afib Status: Acute (4) Diabetic infection of right foot Status: Acute (5) Dry gangrene Status: Acute
[2018-06-11 19:58] LABS: INR 1.4; PROTHROMBIN TIME 14.9 SECONDS (9.7-12.2)
--- NOTE | 2018-06-12 00:06 | PN ---
DATE: 06/11/2018 SUBJECTIVE: The patient is seen and examined at bedside. The patient offers no new complaint. PHYSICAL EXAMINATION: GENERAL: Elderly female, lying in bed, in no acute distress. VITAL SIGNS: Blood pressure 126/62, pulse 59, respirations 20, temperature 98 degrees Fahrenheit, O2 sat 97% on room air. HEENT: Pupils are equal, round, reacting to light and accommodation. Extraocular muscles intact. No icterus. No pallor. No oral thrush. No pharyngeal congestion. NECK: Supple. No JVD. LUNGS: Bilateral vesicular breath sounds. No wheezing. No rhonchi. CARDIOVASCULAR SYSTEM: S1 and S2 present, regular. ABDOMEN: Soft, nontender. Bowel sounds present. No guarding. No rigidity. No rebound tenderness noted. CENTRAL NERVOUS SYSTEM: Alert, awake, oriented x3. Residual left-sided weakness. EXTREMITIES: Right foot with dressing in place. MEDICATIONS: Include aspirin 81 mg daily, Ancef 1 g IV every 8 hours, Plavix 75 mg daily, Benadryl 25 mg p.o. every 8 hours p.r.n., Lexapro 10 mg daily, Keppra 500 mg p.o. b.i.d., Synthroid 88 mcg daily, losartan 25 mg daily, Crestor 10 mg p.o. at bedtime. LABORATORY DATA: Labs from this morning, WBC 6.7, hemoglobin 10.4, hematocrit 31.1, platelets 236. Sodium 135, potassium 3.4, chloride 101, bicarb 27, BUN 13, creatinine 0.5, glucose 125, calcium 8.5. Other LFTs within normal limits. Repeat blood cultures negative so far. 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 CT angiogram results noted, discussed with Dr. Ken for possible angiogram and intervention in morning. Will continue with Ancef, as per Infectious Disease recommendation. Continue with wound care, as per Podiatry. Her blood pressure is stable. Accu-Cheks are fair without the hypoglycemic agents. Xarelto was only held during this admission because of the uncertainty of any procedures to be done by either Podiatry or Vascular intervention. We will follow up with Dr. Ken and continue with other current medications. Aman Calvo MD
[2018-06-12] MEDS: ceFAZolin 1 gm FROZEN Premix 1 GM/50 ML ML IVPB SCH ×3 (00:32→17:11)
[2018-06-12] MEDS: Levothyroxine 88 MCG TAB PO SCH (05:37)
[2018-06-12] MEDS ORDERED: Iodixanol 320 MG/ML 200 ML BOTTLE IV ONE (06:43)
[2018-06-12] MEDS ORDERED: Midazolam 2 MG/2 ML VIAL ONE (07:44)
[2018-06-12] MEDS ORDERED: Verapamil 2 ML ONE (08:10)
[2018-06-12] MEDS ORDERED: Nitroglycerin 50mg in D5W 50 MG/250 ML BOTTLE IV ONE (08:11)
[2018-06-12] MEDS ORDERED: Iodixanol 320 MG/ML 100 ML BOTTLE IV ONE (08:44)
[2018-06-12] MEDS: (Novolin R) Insulin Human Regular 100 units/ml vial SC SCH ×3 (10:14→21:09)
[2018-06-12] MEDS: Saccharomyces Boulardi 250 mg Cap PO SCH ×2 (10:14→21:32)
[2018-06-12] MEDS ORDERED: Protamine 50mg/5mL Inj IV ONE (10:16)
[2018-06-12] MEDS ORDERED: Phytonadione 10 mg/ml Inj (Adult) IV ONE (10:30)
--- NOTE | 2018-06-12 10:54 | CP.PCM.PN ---
Subjective - Date & Time of Evaluation Date of Evaluation: 06/12/18 - Subjective Subjective: Progressnote dictated #[id number] Objective - Vital Signs/Intake and Output Vital Signs (last 24 hours): Temp Pulse Resp BP Pulse Ox 98 F 81 20 148/59 L 94 L 06/11/18 23:00 06/11/18 23:00 06/11/18 23:00 06/11/18 23:00 06/11/18 23:00 - Medications Medications: Current Medications Aspirin (Aspirin Chewable) 81 mg PO DAILY [facility] Clopidogrel Bisulfate (Plavix) 75 mg PO DAILY [facility] Diphenhydramine HCl (Benadryl) 25 mg PO Q8 PRN PRN Reason: Itching / Pruritus Last Admin: 06/11/18 18:30 Dose: 25 mg Escitalopram Oxalate (Lexapro) 10 mg PO DAILY [facility] Last Admin: 06/12/18 10:14 Dose: Not Given Cefazolin Sodium (Ancef) 1 gm in 50 mls @ 100 mls/hr IVPB Q8H [facility]; Protocol Last Admin: 06/12/18 10:13 Dose: Not Given Insulin Human Regular (Novolin R) 0 unit SC ACHS [facility]; Protocol Last Admin: 06/12/18 10:14 Dose: Not Given Levetiracetam (Keppra) 500 mg PO BID [facility] Last Admin: 06/12/18 10:14 Dose: Not Given Levothyroxine Sodium (Synthroid) 88 mcg PO DAILY@0630 [facility] Last Admin: 06/12/18 05:37 Dose: 88 mcg Losartan Potassium (Cozaar) 25 mg PO DAILY [facility] Last Admin: 06/12/18 10:14 Dose: Not Given Rosuvastatin Calcium (Crestor) 10 mg PO HS [facility] Last Admin: 06/11/18 21:56 Dose: 10 mg Saccharomyces Boulardii (Florastor) 250 mg PO Q12 [facility] Last Admin: 06/12/18 10:14 Dose: Not Given - Labs Labs: 06/11/18 00:26 06/11/18 00:26 PT 14.9 SECONDS (9.7-12.2) H 06/11/18 19:42 INR 1.4 06/11/18 19:42 APTT 35 SECONDS (21-34) H 06/11/18 19:42
--- NOTE | 2018-06-12 15:30 | VAS ---
DATE: 06/12/2018 INDICATION: Ms. Thapa is an 82-year-old female admitted with gangrene on the toes, underwent a CT showing high-grade calcific stenosis of the SFA, brought for revascularization for ischemia with lower extremity pain. PROCEDURE PERFORMED: Distal abdominal aortogram with bilateral iliac runoff, selective bilateral iliofemoral angiogram with runoff, TIP CEMENTER atherectomy of right common femoral SFA. Popliteal use of 1.25 CSI atherectomy device, balloon angioplasty with a 5 x 200 drug-coated balloon degeneration from multiple tandem 60% to 70% lesions down to less than 10% and resolution of the gradient which was 70 mm from the common femoral to the popliteal, severe infragenicular disease. Angiographic findings of left lower extremity, left common iliac, and external iliac are patent. Common iliac stent patent, SFA diffuse, multiple tandem 70% to 80% stenosis with one vessel run off, high-grade trifurcation disease with one-vessel run off, popliteal below the knee right lower extremity, right common iliac and external iliac patent. Profunda femoris patent. SFA diffusely diseased, 60% to 70% tandem lesions with 70 mm gradient from the common femoral up to the popliteal. 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 Right SFA atherectomy and balloon angioplasty done for resolution of 70 mm gradient. Infragenicular vessels not treated due to complexity of the case. The patient will need staged intervention of the below the knee for complete revascularization. Continue the patient on dual-antiplatelet therapy. The patient to be brought back for staged intervention in 48 to 72 hours. Garrett Ken MD
[2018-06-12] MEDS: Sodium Chloride 0.45% 1,000 ML IV SCH (21:32)
[2018-06-13] MEDS: ceFAZolin 1 gm FROZEN Premix 1 GM/50 ML ML IVPB SCH ×3 (00:07→17:51)
--- NOTE | 2018-06-13 01:36 | PN ---
DATE: 06/12/2018 SUBJECTIVE: The patient offers no new complaints, underwent procedure this morning. PHYSICAL EXAMINATION GENERAL: Elderly female, lying in bed, in no acute distress. VITAL SIGNS: Blood pressure 160/64, pulse 74, respirations 20, temperature 98.7 degrees Fahrenheit, O2 sat 96% on room air. HEENT: Pupils are equal, round and reacting to light and accommodation. Extraocular muscles intact. No icterus. No pallor. No oral thrush. No pharyngeal congestion. NECK: Supple. No JVD. LUNGS: Bilateral vesicular breath sounds. No wheezing. No rhonchi. CARDIOVASCULAR SYSTEM: S1 and S2 present, regular. ABDOMEN: Soft, nontender. Bowel sounds present. No guarding. No rigidity. No rebound tenderness noted. CENTRAL NERVOUS SYSTEM: Alert, awake, oriented x3. Left-sided residual weakness. EXTREMITIES: Right foot with dressing in place. MEDICATIONS: Include aspirin 81 mg daily, Ancef 1 g IV every 8 hours, Plavix 75 mg p.o. daily, Benadryl 25 mg p.o. every 8 hours, Lexapro 10 mg daily, Keppra 500 mg p.o. b.i.d., Synthroid 88 mcg daily, losartan 25 mg p.o. daily, Crestor 10 mg p.o. at bedtime. LABORATORY DATA: Accu-Cheks 144, 100, 119, 106 and 121. 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 The patient underwent angiogram with atherectomy this morning. We will follow up with Cardiology for possible staged intervention as documented by Cardiology. We will continue with current antibiotics, follow up with Podiatry. Discussed with the patient's granddaughter over the phone. We will repeat labs in a.m. Blood pressure is slightly high. We will monitor blood pressure closely, adjust medication as needed. Aman Calvo MD [facility] # [id number]
[2018-06-13] MEDS: Levothyroxine 88 MCG TAB PO SCH (06:35)
[2018-06-13] MEDS: (Novolin R) Insulin Human Regular 100 units/ml vial SC SCH ×3 (07:28→17:51)
[2018-06-13 08:19] LABS: BASO # 0.1 K/uL (0.0-0.2); BASO % 0.7 % (0.0-2.0); EOS # 0.4 K/uL (0.0-0.7); EOS % 4.6 % (0.0-4.0); HEMOGLOBIN 10.6 g/dL (11.0-16.0); LYMPH # 1.7 K/uL (1.0-4.3); LYMPH % 21.8 % (20.0-40.0); MEAN CELL VOLUME 92.5 fL (81.0-99.0); MEAN CORPUSCULAR HGB CONC 33.5 g/dL (33.0-37.0); MEAN PLATELET VOLUME 8.9 fL (7.2-11.7); MONO # 0.7 K/uL (0.0-0.8); MONO % 8.6 % (0.0-10.0); NEUT % 64.3 % (50.0-75.0); RBC 3.42 Mil/uL (3.80-5.20); RED CELL DISTRIBUTION WIDTH 13.9 % (11.5-14.5); WHITE BLOOD COUNT 7.8 K/uL (4.8-10.8)
[2018-06-13 08:41] LABS: ALB/GLOB RATIO 1.1 (1.0-2.1); ALBUMIN 3.2 g/dL (3.5-5.0); ALT/SGPT 26 U/L (9-52); AST/SGOT 34 U/L (14-36); BLOOD UREA NITROGEN 13 mg/dL (7-17); CALCIUM 8.6 mg/dl (8.6-10.4); GFR NON-AFRICAN AMERICAN > 60
--- NOTE | 2018-06-13 10:21 | CP.PCM.PN ---
Subjective - Date & Time of Evaluation Date of Evaluation: 06/13/18 Time of Evaluation: 10:21 - Subjective Subjective: Progress note dictated #[id number] Objective - Vital Signs/Intake and Output Vital Signs (last 24 hours): Temp Pulse Resp BP Pulse Ox 98.4 F 67 20 109/58 L 97 06/13/18 07:00 06/13/18 07:00 06/13/18 07:00 06/13/18 07:00 06/13/18 07:00 Intake and Output: 06/13/18 06/13/18 06:59 18:59 Intake Total 530 Output Total 500 Balance 30 - Medications Medications: Current Medications Aspirin (Aspirin Chewable) 81 mg PO DAILY [facility] Clopidogrel Bisulfate (Plavix) 75 mg PO DAILY [facility] Diphenhydramine HCl (Benadryl) 25 mg PO Q8 PRN PRN Reason: Itching / Pruritus Last Admin: 06/11/18 18:30 Dose: 25 mg Escitalopram Oxalate (Lexapro) 10 mg PO DAILY [facility] Last Admin: 06/12/18 10:14 Dose: Not Given Cefazolin Sodium (Ancef) 1 gm in 50 mls @ 100 mls/hr IVPB Q8H [facility]; Protocol Last Admin: 06/13/18 08:49 Dose: 100 mls/hr Sodium Chloride (Sodium Chloride 0.45%) 1,000 mls @ 60 mls/hr IV .[id number] [facility] Last Admin: 06/12/18 21:32 Dose: 60 mls/hr Insulin Human Regular (Novolin R) 0 unit SC ACHS [facility]; Protocol Last Admin: 06/13/18 07:28 Dose: Not Given Levetiracetam (Keppra) 500 mg PO BID [facility] Last Admin: 06/12/18 17:11 Dose: 500 mg Levothyroxine Sodium (Synthroid) 88 mcg PO DAILY@0630 [facility] Last Admin: 06/13/18 06:35 Dose: 88 mcg Losartan Potassium (Cozaar) 25 mg PO DAILY [facility] Last Admin: 06/12/18 10:14 Dose: Not Given Rosuvastatin Calcium (Crestor) 10 mg PO HS [facility] Last Admin: 06/12/18 21:32 Dose: 10 mg Saccharomyces Boulardii (Florastor) 250 mg PO Q12 [facility] Last Admin: 01/10/19 21:32 Dose: 250 mg - Labs Labs: 06/13/18 08:12 06/13/18 08:12 PT 14.9 SECONDS (9.7-12.2) H 06/11/18 19:42 INR 1.4 06/11/18 19:42 APTT 35 SECONDS (21-34) H 06/11/18 19:42
[2018-06-13] MEDS: Saccharomyces Boulardi 250 mg Cap PO SCH ×2 (11:15→21:59)
[2018-06-13] MEDS: Sodium Chloride 0.45% 1,000 ML IV SCH (15:00)
--- NOTE | 2018-06-13 17:08 | CP.PCM.PN ---
Subjective - Date & Time of Evaluation Date of Evaluation: 06/13/18 Time of Evaluation: 17:07 - Subjective Subjective: s/p atherectomy/POBA of SFA Objective - Vital Signs/Intake and Output Vital Signs (last 24 hours): Temp Pulse Resp BP Pulse Ox 98.7 F 62 20 108/50 L 96 06/13/18 15:00 06/13/18 15:00 06/13/18 15:00 06/13/18 15:00 06/13/18 15:00 Intake and Output: 06/13/18 06/13/18 06:59 18:59 Intake Total 530 Output Total 500 Balance 30 - Medications Medications: Current Medications Aspirin (Aspirin Chewable) 81 mg PO DAILY [facility] Last Admin: 06/13/18 11:15 Dose: 81 mg Clopidogrel Bisulfate (Plavix) 75 mg PO DAILY [facility] Last Admin: 06/13/18 11:16 Dose: 75 mg Diphenhydramine HCl (Benadryl) 25 mg PO Q8 PRN PRN Reason: Itching / Pruritus Last Admin: 06/11/18 18:30 Dose: 25 mg Escitalopram Oxalate (Lexapro) 10 mg PO DAILY [facility] Last Admin: 06/13/18 11:16 Dose: 10 mg Cefazolin Sodium (Ancef) 1 gm in 50 mls @ 100 mls/hr IVPB Q8H [facility]; Protocol Last Admin: 06/13/18 08:49 Dose: 100 mls/hr Sodium Chloride (Sodium Chloride 0.45%) 1,000 mls @ 60 mls/hr IV .[id number] [facility] Last Admin: 06/12/18 21:32 Dose: 60 mls/hr Insulin Human Regular (Novolin R) 0 unit SC ACHS [facility]; Protocol Last Admin: 06/13/18 11:16 Dose: Not Given Levetiracetam (Keppra) 500 mg PO BID [facility] Last Admin: 06/13/18 11:16 Dose: 500 mg Levothyroxine Sodium (Synthroid) 88 mcg PO DAILY@0630 [facility] Last Admin: 06/13/18 06:35 Dose: 88 mcg Losartan Potassium (Cozaar) 25 mg PO DAILY [facility] Last Admin: 06/13/18 11:15 Dose: 25 mg Rosuvastatin Calcium (Crestor) 10 mg PO HS [facility] Last Admin: 06/12/18 21:32 Dose: 10 mg Saccharomyces Boulardii (Florastor) 250 mg PO Q12 [facility] Last Admin: 06/13/18 11:15 Dose: 250 mg - Labs Labs: 06/13/18 08:12 06/13/18 08:12 PT 14.9 SECONDS (9.7-12.2) H 06/11/18 19:42 INR 1.4 06/11/18 19:42 APTT 35 SECONDS (21-34) H 06/11/18 19:42 - Constitutional Appears: Well - Head Exam Head Exam: ATRAUMATIC, NORMAL INSPECTION, NORMOCEPHALIC - Eye Exam Eye Exam: EOMI, Normal appearance, PERRL Pupil Exam: NORMAL ACCOMODATION, PERRL - ENT Exam ENT Exam: Mucous Membranes Moist, Normal Exam - Neck Exam Neck Exam: Full ROM, Normal Inspection. absent: Lymphadenopathy - Respiratory Exam Respiratory Exam: Clear to Ausculation Bilateral, NORMAL BREATHING PATTERN - Cardiovascular Exam Cardiovascular Exam: REGULAR RHYTHM, +S1, +S2. absent: Murmur - GI/Abdominal Exam GI & Abdominal Exam: Soft, Normal Bowel Sounds. absent: Tenderness - Extremities Exam Extremities Exam: Full ROM, Normal Capillary Refill, Normal Inspection. absent: Joint Swelling, Pedal Edema - Back Exam Back Exam: NORMAL INSPECTION - Neurological Exam Neurological Exam: Alert, Awake, CN II-XII Intact, Normal Gait, Oriented x3 - Psychiatric Exam Psychiatric exam: Normal Affect, Normal Mood - Skin Skin Exam: Dry, Intact, Normal Color, Warm Assessment and Plan (1) PVD (peripheral vascular disease) Assessment & Plan: plan for staged intervention of BTK on Saturday Status: Acute (2) Foot infection Status: Chronic (3) Afib Status: Acute (4) Diabetic infection of right foot Status: Acute (5) Dry gangrene Status: Acute
--- NOTE | 2018-06-13 20:05 | CP.PCM.PN ---
Subjective - Date & Time of Evaluation Date of Evaluation: 06/13/18 Time of Evaluation: 07:00 - Subjective Subjective: s/p atherectomy/POBA of SFA Objective - Vital Signs/Intake and Output Vital Signs (last 24 hours): Temp Pulse Resp BP Pulse Ox 98.7 F 62 20 108/50 L 96 06/13/18 15:00 06/13/18 15:00 06/13/18 15:00 06/13/18 15:00 06/13/18 15:00 - Medications Medications: Current Medications Aspirin (Aspirin Chewable) 81 mg PO DAILY [facility] Last Admin: 06/13/18 11:15 Dose: 81 mg Clopidogrel Bisulfate (Plavix) 75 mg PO DAILY [facility] Last Admin: 06/13/18 11:16 Dose: 75 mg Diphenhydramine HCl (Benadryl) 25 mg PO Q8 PRN PRN Reason: Itching / Pruritus Last Admin: 06/11/18 18:30 Dose: 25 mg Escitalopram Oxalate (Lexapro) 10 mg PO DAILY [facility] Last Admin: 06/13/18 11:16 Dose: 10 mg Cefazolin Sodium (Ancef) 1 gm in 50 mls @ 100 mls/hr IVPB Q8H [facility]; Protocol Last Admin: 06/13/18 17:51 Dose: 100 mls/hr Sodium Chloride (Sodium Chloride 0.45%) 1,000 mls @ 60 mls/hr IV .[id number] [facility] Last Admin: 06/13/18 15:00 Dose: 60 mls/hr Insulin Human Regular (Novolin R) 0 unit SC ACHS [facility]; Protocol Last Admin: 06/13/18 17:51 Dose: Not Given Levetiracetam (Keppra) 500 mg PO BID [facility] Last Admin: 06/13/18 17:51 Dose: 500 mg Levothyroxine Sodium (Synthroid) 88 mcg PO DAILY@0630 [facility] Last Admin: 06/13/18 06:35 Dose: 88 mcg Losartan Potassium (Cozaar) 25 mg PO DAILY [facility] Last Admin: 06/13/18 11:15 Dose: 25 mg Rosuvastatin Calcium (Crestor) 10 mg PO HS [facility] Last Admin: 06/12/18 21:32 Dose: 10 mg Saccharomyces Boulardii (Florastor) 250 mg PO Q12 [facility] Last Admin: 06/13/18 11:15 Dose: 250 mg - Labs Labs: 06/13/18 08:12 06/13/18 08:12 PT 14.9 SECONDS (9.7-12.2) H 06/11/18 19:42 INR 1.4 06/11/18 19:42 APTT 35 SECONDS (21-34) H 06/11/18 19:42 - Constitutional Appears: Non-toxic, Chronically Ill - Head Exam Head Exam: NORMOCEPHALIC - Eye Exam Eye Exam: absent: Scleral icterus - ENT Exam ENT Exam: Mucous Membranes Dry - Neck Exam Neck Exam: absent: Lymphadenopathy - Respiratory Exam Respiratory Exam: Decreased Breath Sounds - Cardiovascular Exam Cardiovascular Exam: REGULAR RHYTHM - GI/Abdominal Exam GI & Abdominal Exam: Distended, Soft - Rectal Exam Rectal Exam: Deferred - Exam Exam: NORMAL INSPECTION - Extremities Exam Extremities Exam: absent: Pedal Edema - Back Exam Back Exam: absent: CVA tenderness (L), CVA tenderness (R) - Neurological Exam Neurological Exam: Alert, Awake Assessment and Plan (1) Foot infection Status: Chronic (2) Diabetic infection of right foot Status: Acute (3) Dry gangrene Status: Acute (4) PVD (peripheral vascular disease) Status: Acute - Assessment and Plan (Free Text) Assessment: cont wound care IV antibiotics s/p atherectomy/POBA of SFA
--- NOTE | 2018-06-13 23:34 | PN ---
DATE: 06/13/2018 SUBJECTIVE: The patient was seen and examined at bedside. The patient offers no new complaints. No acute overnight events noted. PHYSICAL EXAMINATION: GENERAL: Elderly female, lying in bed, in no acute distress. VITAL SIGNS: Blood pressure 109/58, pulse 67, respirations 20, temperature 98.4 degrees Fahrenheit, O2 sat is 97% on room air. HEENT: Pupils equal, round, reacting to light and accommodation. Extraocular muscles intact. No icterus. No pallor. No oral thrush. No pharyngeal congestion. NECK: Supple. No JVD. LUNGS: Bilateral vesicular breath sounds. No wheezing. No rhonchi. CARDIOVASCULAR SYSTEM: S1, S2 present, regular. ABDOMEN: Soft, nontender. Bowel sounds present. No guarding. No rigidity. No rebound tenderness noted. CENTRAL NERVOUS SYSTEM: Alert, awake, oriented x2 to 3 with left-sided residual weakness. EXTREMITIES: Right foot dressing in place. MEDICATIONS: Include aspirin 81 mg daily, Plavix 75 mg daily, Benadryl 25 mg p.o. every 8 hours p.r.n., doxycycline 100 mg IV every 12 hours, Lexapro 10 mg daily, Keppra 500 mg p.o. b.i.d., Synthroid 88 mcg daily, Prozac 25 mg p.o. daily, Crestor 10 mg p.o. at bedtime, and half-normal saline at 60 mL an hour. LABORATORY DATA: Labs from this morning, WBC 7.8, hemoglobin 10.6, hematocrit 31.7, platelets 229. Sodium 131, potassium 3.5, chloride 97, bicarb 27, BUN 13, creatinine 0.5, glucose 126, calcium 8.6. Total bilirubin 0.4, AST 34, ALT 26, alkaline phosphatase 51, total protein 6.1, albumin 3.2. 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 We will continue with current medication. Her antibiotics are changed by Dr. Jenkins. We will continue with other current medications. Continue to hold her hypoglycemics as her AccuCheks are fair. Discussed with case management and social media editor for discharge plan. Repeat laboratories in a.m. Aman Calvo MD cc: MD Chitra
[2018-06-14] MEDS: Levothyroxine 88 MCG TAB PO SCH (06:04)
[2018-06-14] MEDS: Sodium Chloride 0.45% 1,000 ML IV SCH (06:06)
[2018-06-14] MEDS: (Novolin R) Insulin Human Regular 100 units/ml vial SC SCH ×4 (08:12→21:37)
[2018-06-14] MEDS: Saccharomyces Boulardi 250 mg Cap PO SCH ×2 (09:35→22:06)
--- NOTE | 2018-06-14 10:12 | CP.PCM.PN ---
Subjective - Date & Time of Evaluation Date of Evaluation: 06/14/18 Time of Evaluation: 10:12 - Subjective Subjective: Progress note dictated #[id number] Objective - Vital Signs/Intake and Output Vital Signs (last 24 hours): Temp Pulse Resp BP Pulse Ox 97.8 F 63 18 150/53 L 95 06/14/18 08:25 06/14/18 09:34 06/14/18 08:25 06/14/18 09:34 06/14/18 08:25 Intake and Output: 06/14/18 06/14/18 06:59 18:59 Intake Total 1120 Output Total 1300 Balance -180 - Medications Medications: Current Medications Aspirin (Aspirin Chewable) 81 mg PO DAILY [facility] Last Admin: 06/14/18 09:36 Dose: 81 mg Clopidogrel Bisulfate (Plavix) 75 mg PO DAILY [facility] Last Admin: 06/14/18 09:36 Dose: 75 mg Diphenhydramine HCl (Benadryl) 25 mg PO Q8 PRN PRN Reason: Itching / Pruritus Last Admin: 06/11/18 18:30 Dose: 25 mg Escitalopram Oxalate (Lexapro) 10 mg PO DAILY [facility] Last Admin: 06/14/18 09:36 Dose: 10 mg Sodium Chloride (Sodium Chloride 0.45%) 1,000 mls @ 60 mls/hr IV .[id number] [facility] Last Admin: 06/14/18 06:06 Dose: 60 mls/hr Doxycycline Hyclate 100 mg/ (Sodium Chloride) 100 mls @ 100 mls/hr IVPB Q12H [facility]; Protocol Last Admin: 06/14/18 08:35 Dose: 100 mls/hr Insulin Human Regular (Novolin R) 0 unit SC ACHS [facility]; Protocol Last Admin: 06/14/18 08:12 Dose: Not Given Levetiracetam (Keppra) 500 mg PO BID [facility] Last Admin: 06/14/18 09:34 Dose: 500 mg Levothyroxine Sodium (Synthroid) 88 mcg PO DAILY@0630 [facility] Last Admin: 06/14/18 06:04 Dose: 88 mcg Losartan Potassium (Cozaar) 25 mg PO DAILY [facility] Last Admin: 06/14/18 09:34 Dose: 25 mg Rosuvastatin Calcium (Crestor) 10 mg PO HS [facility] Last Admin: 06/13/18 21:12 Dose: 10 mg Saccharomyces Boulardii (Florastor) 250 mg PO Q12 [facility] Last Admin: 06/14/18 09:35 Dose: 250 mg - Labs Labs: 06/13/18 08:12 06/13/18 08:12 PT 14.9 SECONDS (9.7-12.2) H 06/11/18 19:42 INR 1.4 06/11/18 19:42 APTT 35 SECONDS (21-34) H 06/11/18 19:42
--- NOTE | 2018-06-14 22:26 | PN ---
DATE: 06/14/2018 SUBJECTIVE: The patient was seen and examined at bedside. The patient offers no new complaints. Events from yesterday noted. Denies any other new complaints. PHYSICAL EXAMINATION: GENERAL: Elderly female, lying in bed, in no acute distress. VITAL SIGNS: Blood pressure 150/53, pulse 63, respirations 20, temperature 98.2 degrees Fahrenheit, O2 saturation 96% on room air. HEENT: Pupils equal, round, and reactive to light and accommodation. Extraocular muscles intact. No icterus. No pallor. No oral thrush. No pharyngeal congestion. NECK: Supple. No JVD. LUNGS: Bilateral vesicular breath sounds. No wheezing. No rhonchi. CARDIOVASCULAR: S1, S2 present, regular. ABDOMEN: Soft, nontender. Bowel sounds present. No guarding. No rigidity. No rebound tenderness noted. CENTRAL NERVOUS SYSTEM: Alert, awake, and oriented x3. No new focal deficits. Left-sided residual deficits. EXTREMITIES: Right foot with dressing in place. MEDICATIONS: Include aspirin 81 mg daily, Plavix 75 mg daily, Benadryl 25 mg p.o. every 8 hours, doxycycline 100 mg IV every 12 hours, Lexapro 10 mg daily, Keppra 500 mg p.o. b.i.d., Synthroid 88 mcg daily, Cozaar 25 mg daily, Crestor 10 mg p.o. at bedtime, Accu-Cheks 112, 152, 134, 149, 166. 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 Renal function remains stable. We will continue with current medication. Continue with doxycycline as per Dr. Jenkins. Follow up with Cardiology regarding discharge planning. Aman Calvo MD
[2018-06-15] MEDS: Levothyroxine 88 MCG TAB PO SCH (06:10)
[2018-06-15] MEDS: (Novolin R) Insulin Human Regular 100 units/ml vial SC SCH ×4 (07:39→21:48)
[2018-06-15] MEDS: Saccharomyces Boulardi 250 mg Cap PO SCH ×2 (10:38→21:49)
--- NOTE | 2018-06-15 15:25 | CP.PCM.PN ---
Subjective - Date & Time of Evaluation Date of Evaluation: 06/15/18 Time of Evaluation: 07:00 - Subjective Subjective: afeb on iv rx Objective - Vital Signs/Intake and Output Vital Signs (last 24 hours): Temp Pulse Resp BP Pulse Ox 97.8 F 58 L 20 121/54 L 97 06/15/18 08:00 06/15/18 08:00 06/15/18 08:00 06/15/18 10:37 06/15/18 08:00 Intake and Output: 06/15/18 06/15/18 06:59 18:59 Output Total 1000 Balance -1000 - Medications Medications: Current Medications Acetaminophen (Tylenol 325mg Tab) 650 mg PO Q6 PRN PRN Reason: Pain, Mild (1-3) Last Admin: 06/15/18 01:21 Dose: 650 mg Aspirin (Aspirin Chewable) 81 mg PO DAILY [facility] Last Admin: 06/15/18 10:38 Dose: 81 mg Clopidogrel Bisulfate (Plavix) 75 mg PO DAILY [facility] Last Admin: 06/15/18 10:38 Dose: 75 mg Diphenhydramine HCl (Benadryl) 25 mg PO Q8 PRN PRN Reason: Itching / Pruritus Last Admin: 06/15/18 01:22 Dose: 25 mg Escitalopram Oxalate (Lexapro) 10 mg PO DAILY [facility] Last Admin: 06/15/18 10:38 Dose: 10 mg Doxycycline Hyclate 100 mg/ (Sodium Chloride) 100 mls @ 100 mls/hr IVPB Q12H [facility]; Protocol Last Admin: 06/15/18 10:38 Dose: 100 mls/hr Insulin Human Regular (Novolin R) 0 unit SC ACHS [facility]; Protocol Last Admin: 06/15/18 12:03 Dose: Not Given Levetiracetam (Keppra) 500 mg PO BID [facility] Last Admin: 06/15/18 10:38 Dose: 500 mg Levothyroxine Sodium (Synthroid) 88 mcg PO DAILY@0630 [facility] Last Admin: 06/15/18 06:10 Dose: 88 mcg Losartan Potassium (Cozaar) 25 mg PO DAILY [facility] Last Admin: 06/15/18 10:38 Dose: 25 mg Metoprolol Tartrate (Lopressor) 25 mg PO BID [facility] Last Admin: 06/15/18 10:37 Dose: Not Given Rosuvastatin Calcium (Crestor) 10 mg PO HS [facility] Last Admin: 06/14/18 22:06 Dose: 10 mg Saccharomyces Boulardii (Florastor) 250 mg PO Q12 [facility] Last Admin: 06/15/18 10:38 Dose: 250 mg - Labs Labs: 06/13/18 08:12 06/13/18 08:12 PT 14.9 SECONDS (9.7-12.2) H 06/11/18 19:42 INR 1.4 06/11/18 19:42 APTT 35 SECONDS (21-34) H 06/11/18 19:42 - Constitutional Appears: Cachectic - Head Exam Head Exam: NORMOCEPHALIC - Eye Exam Eye Exam: absent: Scleral icterus - ENT Exam ENT Exam: Mucous Membranes Dry - Neck Exam Neck Exam: absent: Lymphadenopathy - Respiratory Exam Respiratory Exam: Decreased Breath Sounds - Cardiovascular Exam Cardiovascular Exam: REGULAR RHYTHM - GI/Abdominal Exam GI & Abdominal Exam: Distended - Rectal Exam Rectal Exam: Deferred Assessment and Plan (1) Foot infection Status: Chronic (2) Diabetic infection of right foot Status: Acute (3) Dry gangrene Status: Acute (4) PVD (peripheral vascular disease) Status: Acute - Assessment and Plan (Free Text) Assessment: improving
--- NOTE | 2018-06-15 17:07 | CP.PCM.PN ---
Subjective - Date & Time of Evaluation Date of Evaluation: 06/15/18 Time of Evaluation: 17:06 - Subjective Subjective: Progress note dictated #[id number] Objective - Vital Signs/Intake and Output Vital Signs (last 24 hours): Temp Pulse Resp BP Pulse Ox 97.8 F 60 20 151/64 H 98 06/15/18 15:00 06/15/18 15:00 06/15/18 15:00 06/15/18 15:00 06/15/18 15:00 Intake and Output: 06/15/18 06/15/18 06:59 18:59 Intake Total 580 Output Total 1000 300 Balance -1000 280 - Medications Medications: Current Medications Acetaminophen (Tylenol 325mg Tab) 650 mg PO Q6 PRN PRN Reason: Pain, Mild (1-3) Last Admin: 06/15/18 01:21 Dose: 650 mg Aspirin (Aspirin Chewable) 81 mg PO DAILY [facility] Last Admin: 06/15/18 10:38 Dose: 81 mg Clopidogrel Bisulfate (Plavix) 75 mg PO DAILY [facility] Last Admin: 06/15/18 10:38 Dose: 75 mg Diphenhydramine HCl (Benadryl) 25 mg PO Q8 PRN PRN Reason: Itching / Pruritus Last Admin: 06/15/18 01:22 Dose: 25 mg Escitalopram Oxalate (Lexapro) 10 mg PO DAILY [facility] Last Admin: 06/15/18 10:38 Dose: 10 mg Doxycycline Hyclate 100 mg/ (Sodium Chloride) 100 mls @ 100 mls/hr IVPB Q12H [facility]; Protocol Last Admin: 06/15/18 10:38 Dose: 100 mls/hr Insulin Human Regular (Novolin R) 0 unit SC [facility]; Protocol Last Admin: 06/15/18 16:26 Dose: Not Given Levetiracetam (Keppra) 500 mg PO BID [facility] Last Admin: 06/15/18 10:38 Dose: 500 mg Levothyroxine Sodium (Synthroid) 88 mcg PO DAILY@0630 [facility] Last Admin: 06/15/18 06:10 Dose: 88 mcg Losartan Potassium (Cozaar) 25 mg PO DAILY [facility] Last Admin: 06/15/18 10:38 Dose: 25 mg Metoprolol Tartrate (Lopressor) 25 mg PO BID [facility] Last Admin: 06/15/18 10:37 Dose: Not Given Rosuvastatin Calcium (Crestor) 10 mg PO HS [facility] Last Admin: 06/14/18 22:06 Dose: 10 mg Saccharomyces Boulardii (Florastor) 250 mg PO Q12 [facility] Last Admin: 06/15/18 10:38 Dose: 250 mg - Labs Labs: 06/13/18 08:12 06/13/18 08:12 PT 14.9 SECONDS (9.7-12.2) H 06/11/18 19:42 INR 1.4 06/11/18 19:42 APTT 35 SECONDS (21-34) H 06/11/18 19:42
[2018-06-15] MEDS: Dextrose 5%/0.45% NS 1,000 ML IV SCH (18:20)
[2018-06-16] MEDS: Levothyroxine 88 MCG TAB PO SCH ×2 (06:05→06:22)
[2018-06-16] MEDS: Dextrose 5%/0.45% NS 1,000 ML IV SCH (07:49)
--- NOTE | 2018-06-16 07:56 | PN ---
DATE: 06/15/2018 SUBJECTIVE: The patient was seen and examined at bedside. The patient complains of . PHYSICAL EXAMINATION GENERAL: Elderly female, lying in bed, in no acute distress. VITAL SIGNS: Blood pressure , pulse 60, respirations 20, temperature degrees Fahrenheit, saturation 98% on room air. HEENT: Pupils are equal, round and reacting to light and accommodation. Extraocular muscles intact. No icterus. No pallor. No oral thrush. No pharyngeal congestion. NECK: Supple. No JVD. LUNGS: Bilateral vesicular breath sounds. No wheezing. No rhonchi. CARDIOVASCULAR SYSTEM: S1 and S2 present, regular. ABDOMEN: Soft, nontender. Bowel sounds present. CENTRAL NERVOUS SYSTEM: Alert, awake, oriented x3. Left-sided residual weakness. EXTREMITIES: Right foot with dressing in place. MEDICATIONS: Tylenol 650 as needed, aspirin 81 mg daily, Plavix 75 mg daily, Benadryl as needed, doxycycline 100 mg daily every 4 hours, Lexapro 10 mg daily, Keppra 500 mg p.o. b.i.d., Synthroid 88 mcg daily, Cozaar 25 mg daily, Lopressor 25 mg p.o. b.i.d., Crestor 10 mg p.o. at bedtime. LABORATORY DATA: Accu-Cheks are 156, 186, 172, 132 . 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 Continue with current antibiotics. We will keep the patient nothing by mouth for possible in a.m. I will restart the fluids as the patient is nothing by mouth. Follow up with Cardiology regarding further treatment and plan. Aman Calvo MD [facility] # [id number]
[2018-06-16] MEDS: (Novolin R) Insulin Human Regular 100 units/ml vial SC SCH ×4 (09:02→22:19)
--- NOTE | 2018-06-16 10:24 | CP.PCM.PN ---
Subjective - Date & Time of Evaluation Date of Evaluation: 06/16/18 Time of Evaluation: 10:24 - Subjective Subjective: Progress note dictated #[id number] Objective - Vital Signs/Intake and Output Vital Signs (last 24 hours): Temp Pulse Resp BP Pulse Ox 97.4 F L 59 L 20 175/60 H 100 06/16/18 08:00 06/16/18 08:00 06/16/18 08:00 06/16/18 08:00 06/16/18 08:00 Intake and Output: 06/16/18 06/16/18 06:59 18:59 Intake Total 440 Output Total 400 Balance 40 - Medications Medications: Current Medications Acetaminophen (Tylenol 325mg Tab) 650 mg PO Q6 PRN PRN Reason: Pain, Mild (1-3) Last Admin: 06/16/18 00:23 Dose: 650 mg Aspirin (Aspirin Chewable) 81 mg PO DAILY [facility] Last Admin: 06/15/18 10:38 Dose: 81 mg Clopidogrel Bisulfate (Plavix) 75 mg PO DAILY [facility] Last Admin: 06/15/18 10:38 Dose: 75 mg Diphenhydramine HCl (Benadryl) 25 mg PO Q8 PRN PRN Reason: Itching / Pruritus Last Admin: 06/16/18 00:24 Dose: 25 mg Escitalopram Oxalate (Lexapro) 10 mg PO DAILY [facility] Last Admin: 06/15/18 10:38 Dose: 10 mg Doxycycline Hyclate 100 mg/ (Sodium Chloride) 100 mls @ 100 mls/hr IVPB Q12H [facility]; Protocol Last Admin: 06/15/18 20:45 Dose: 100 mls/hr Dextrose/Sodium Chloride (Dextrose 5%/0.45% Ns 1000 Ml) 1,000 mls @ 70 mls/hr IV .[id number] [facility] Last Admin: 06/15/18 18:20 Dose: 70 mls/hr Insulin Human Regular (Novolin R) 0 unit SC ACHS [facility]; Protocol Last Admin: 06/16/18 09:02 Dose: Not Given Levetiracetam (Keppra) 500 mg PO BID [facility] Last Admin: 06/15/18 17:54 Dose: 500 mg Levothyroxine Sodium (Synthroid) 88 mcg PO DAILY@0630 [facility] Last Admin: 06/16/18 06:22 Dose: Not Given Losartan Potassium (Cozaar) 25 mg PO DAILY [facility] Last Admin: 06/15/18 10:38 Dose: 25 mg Metoprolol Tartrate (Lopressor) 25 mg PO BID [facility] Last Admin: 06/15/18 17:54 Dose: 25 mg Rosuvastatin Calcium (Crestor) 10 mg PO HS [facility] Last Admin: 06/15/18 21:49 Dose: 10 mg Saccharomyces Boulardii (Florastor) 250 mg PO Q12 [facility] Last Admin: 06/15/18 21:49 Dose: 250 mg - Labs Labs: 06/13/18 08:12 06/13/18 08:12 PT 14.9 SECONDS (9.7-12.2) H 06/11/18 19:42 INR 1.4 06/11/18 19:42 APTT 35 SECONDS (21-34) H 06/11/18 19:42
[2018-06-16] MEDS: Saccharomyces Boulardi 250 mg Cap PO SCH ×2 (10:43→22:18)
--- NOTE | 2018-06-16 11:01 | CP.PCM.PN ---
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 Ken - Cardiology Seen and examined at bedside w/ Swedish nurse site interpreter. Denies CP, SOB, or Palpitations In Bilateral Lower Extr, patient complains of no numbness/ tingling, no sensat ion deficit, no pain. Explained to patient need for re-vascularization below the knee however she is adamant that she does not want further intervention Patient states she does not walk anyway and hence does not feel the need to have further intervetnion It was Explained to patient that if wound may worsen; and if wound worsens/ does not heal then she will need to follow up in order to restore circulation Objective - Vital Signs/Intake and Output Vital Signs (last 24 hours): Temp Pulse Resp BP Pulse Ox 97.4 F L 59 L 20 138/64 100 06/16/18 08:00 06/16/18 08:00 06/16/18 08:00 06/16/18 10:43 06/16/18 08:00 Intake and Output: 06/16/18 06/16/18 06:59 18:59 Intake Total 440 Output Total 400 Balance 40 - Medications Medications: Current Medications Acetaminophen (Tylenol 325mg Tab) 650 mg PO Q6 PRN PRN Reason: Pain, Mild (1-3) Last Admin: 06/16/18 00:23 Dose: 650 mg Aspirin (Aspirin Chewable) 81 mg PO DAILY [facility] Last Admin: 06/16/18 10:43 Dose: 81 mg Clopidogrel Bisulfate (Plavix) 75 mg PO DAILY [facility] Last Admin: 06/16/18 10:43 Dose: 75 mg Diphenhydramine HCl (Benadryl) 25 mg PO Q8 PRN PRN Reason: Itching / Pruritus Last Admin: 06/16/18 00:24 Dose: 25 mg Escitalopram Oxalate (Lexapro) 10 mg PO DAILY [facility] Last Admin: 06/16/18 10:43 Dose: 10 mg Doxycycline Hyclate 100 mg/ (Sodium Chloride) 100 mls @ 100 mls/hr IVPB Q12H [facility]; Protocol Last Admin: 06/16/18 10:44 Dose: Not Given Dextrose/Sodium Chloride (Dextrose 5%/0.45% Ns 1000 Ml) 1,000 mls @ 70 mls/hr IV .[id number] [facility] Last Admin: 06/16/18 07:49 Dose: Not Given Insulin Human Regular (Novolin R) 0 unit SC ACHS [facility]; Protocol Last Admin: 06/16/18 09:02 Dose: Not Given Levetiracetam (Keppra) 500 mg PO BID [facility] Last Admin: 06/16/18 10:43 Dose: 500 mg Levothyroxine Sodium (Synthroid) 88 mcg PO DAILY@0630 [facility] Last Admin: 06/16/18 06:22 Dose: Not Given Losartan Potassium (Cozaar) 25 mg PO DAILY [facility] Last Admin: 06/16/18 10:43 Dose: 25 mg Metoprolol Tartrate (Lopressor) 25 mg PO BID [facility] Last Admin: 06/16/18 10:43 Dose: 25 mg Rosuvastatin Calcium (Crestor) 10 mg PO HS [facility] Last Admin: 06/15/18 21:49 Dose: 10 mg Saccharomyces Boulardii (Florastor) 250 mg PO Q12 [facility] Last Admin: 06/16/18 10:43 Dose: 250 mg - Labs Labs: 06/13/18 08:12 06/13/18 08:12 PT 14.9 SECONDS (9.7-12.2) H 06/11/18 19:42 INR 1.4 06/11/18 19:42 APTT 35 SECONDS (21-34) H 06/11/18 19:42 - Constitutional Appears: Well, Non-toxic, No Acute Distress - Head Exam Head Exam: ATRAUMATIC, NORMOCEPHALIC - Eye Exam Eye Exam: EOMI, Normal appearance, PERRL - ENT Exam ENT Exam: Mucous Membranes Moist - Respiratory Exam Respiratory Exam: Clear to Ausculation Bilateral, NORMAL BREATHING PATTERN - Cardiovascular Exam Cardiovascular Exam: RRR, +S1, +S2. absent: Murmur - GI/Abdominal Exam GI & Abdominal Exam: Soft. absent: Tenderness - Extremities Exam Additional comments: Lower extremities are warm bilaterally Diminished bilaterally Neurologically intact No tenderness to palpation Skin along lower extremities is well perfused w/o mottling Assessment and Plan (1) Foot infection Status: Chronic (2) Afib Status: Acute (3) Diabetic infection of right foot Status: Acute (4) PVD (peripheral vascular disease) Status: Acute (5) Hyponatremia Status: Acute - Assessment and Plan (Free Text) Assessment: DC ASA Start Xarelto 10 QD + Plavix 75 QD - to decrease major adverse limb event Can F/u in 2 wks for BKA re-vascularization if patient agreeable Cont Metoprolol 25 BID Cont Cozaar 25 QD Cont Crestor 10 QD Primary team to address HypoNatremia/HypoChloremia <Garrett Ken - Last Filed: 06/16/18 17:42> Objective - Vital Signs/Intake and Output Vital Signs (last 24 hours): Temp Pulse Resp BP Pulse Ox 98.1 F 50 L 20 139/57 L 97 06/16/18 15:00 06/16/18 15:00 06/16/18 15:00 06/16/18 15:00 06/16/18 15:00 Intake and Output: 06/16/18 06/16/18 06:59 18:59 Intake Total 440 Output Total 400 Balance 40 - Medications Medications: Current Medications Acetaminophen (Tylenol 325mg Tab) 650 mg PO Q6 PRN PRN Reason: Pain, Mild (1-3) Last Admin: 06/16/18 00:23 Dose: 650 mg Clopidogrel Bisulfate (Plavix) 75 mg PO DAILY [facility] Last Admin: 06/16/18 10:43 Dose: 75 mg Diphenhydramine HCl (Benadryl) 25 mg PO Q8 PRN PRN Reason: Itching / Pruritus Last Admin: 06/16/18 00:24 Dose: 25 mg Doxycycline Hyclate (Doryx) 100 mg PO BID [facility]; Protocol Stop: 06/23/18 18:01 Escitalopram Oxalate (Lexapro) 10 mg PO DAILY [facility] Last Admin: 06/16/18 10:43 Dose: 10 mg Dextrose/Sodium Chloride (Dextrose 5%/0.45% Ns 1000 Ml) 1,000 mls @ 70 mls/hr IV .[id number] [facility] Last Admin: 06/16/18 07:49 Dose: Not Given Insulin Human Regular (Novolin R) 0 unit SC [facility]; Protocol Last Admin: 06/16/18 13:08 Dose: Not Given Levetiracetam (Keppra) 500 mg PO BID [facility] Last Admin: 06/16/18 10:43 Dose: 500 mg Levothyroxine Sodium (Synthroid) 88 mcg PO DAILY@0630 [facility] Last Admin: 06/16/18 06:22 Dose: Not Given Losartan Potassium (Cozaar) 25 mg PO DAILY [facility] Last Admin: 06/16/18 10:43 Dose: 25 mg Metoprolol Tartrate (Lopressor) 25 mg PO BID [facility] Last Admin: 06/16/18 10:43 Dose: 25 mg Rivaroxaban (Xarelto) 10 mg PO DAILY [facility] Rosuvastatin Calcium (Crestor) 10 mg PO HS [facility] Last Admin: 06/15/18 21:49 Dose: 10 mg Saccharomyces Boulardii (Florastor) 250 mg PO Q12 [facility] Last Admin: 06/16/18 10:43 Dose: 250 mg - Labs Labs: 06/16/18 11:29 06/16/18 11:29 PT 14.9 SECONDS (9.7-12.2) H 06/11/18 19:42 INR 1.4 06/11/18 19:42 APTT 35 SECONDS (21-34) H 06/11/18 19:42 Assessment and Plan (1) PVD (peripheral vascular disease) Status: Acute (2) Foot infection Status: Chronic (3) Afib Status: Acute (4) Diabetic infection of right foot Status: Acute (5) Dry gangrene Status: Acute Attending/Attestation - Attestation I have personally seen and examined this patient.: Yes I have fully participated in the care of the patient.: Yes I have reviewed all pertinent clinical information, including history, physical exam and plan: Yes
[2018-06-16 11:42] LABS: BASO # 0.1 K/uL (0.0-0.2); BASO % 0.9 % (0.0-2.0); EOS # 0.3 K/uL (0.0-0.7); EOS % 4.7 % (0.0-4.0); HEMOGLOBIN 11.5 g/dL (11.0-16.0); LYMPH # 1.4 K/uL (1.0-4.3); LYMPH % 19.3 % (20.0-40.0); MEAN CORPUSCULAR HEMOGLOBIN 31.1 pg (27.0-31.0); MEAN CORPUSCULAR HGB CONC 33.8 g/dL (33.0-37.0); MEAN PLATELET VOLUME 9.1 fL (7.2-11.7); MONO # 0.5 K/uL (0.0-0.8); MONO % 6.7 % (0.0-10.0); NEUT # 4.8 K/uL (1.8-7.0); NEUT % 68.4 % (50.0-75.0); RBC 3.69 Mil/uL (3.80-5.20); RED CELL DISTRIBUTION WIDTH 13.7 % (11.5-14.5); WHITE BLOOD COUNT 7.1 K/uL (4.8-10.8)
[2018-06-16 12:04] LABS: ALB/GLOB RATIO 1.3 (1.0-2.1); ALBUMIN 3.8 g/dL (3.5-5.0); ALT/SGPT 21 U/L (9-52); AST/SGOT 41 U/L (14-36); BLOOD UREA NITROGEN 14 mg/dL (7-17); CALCIUM 8.9 mg/dl (8.6-10.4); GFR NON-AFRICAN AMERICAN > 60
--- NOTE | 2018-06-16 12:34 | CP.PCM.PN ---
Subjective - Date & Time of Evaluation Date of Evaluation: 06/16/18 Time of Evaluation: 07:00 - Subjective Subjective: REFUSING OR / STAGED PROCEDURE TO [facility] FOR D/C ON PO RX FOLLOW UP WITH PODIATRY Objective - Vital Signs/Intake and Output Vital Signs (last 24 hours): Temp Pulse Resp BP Pulse Ox 97.4 F L 59 L 20 138/64 100 06/16/18 08:00 06/16/18 08:00 06/16/18 08:00 06/16/18 10:43 06/16/18 08:00 Intake and Output: 06/16/18 06/16/18 06:59 18:59 Intake Total 440 Output Total 400 Balance 40 - Medications Medications: Current Medications Acetaminophen (Tylenol 325mg Tab) 650 mg PO Q6 PRN PRN Reason: Pain, Mild (1-3) Last Admin: 06/16/18 00:23 Dose: 650 mg Aspirin (Aspirin Chewable) 81 mg PO DAILY [facility] Last Admin: 06/16/18 10:43 Dose: 81 mg Clopidogrel Bisulfate (Plavix) 75 mg PO DAILY [facility] Last Admin: 06/16/18 10:43 Dose: 75 mg Diphenhydramine HCl (Benadryl) 25 mg PO Q8 PRN PRN Reason: Itching / Pruritus Last Admin: 06/16/18 00:24 Dose: 25 mg Doxycycline Hyclate (Doryx) 100 mg PO BID [facility]; Protocol Stop: 06/23/18 18:01 Escitalopram Oxalate (Lexapro) 10 mg PO DAILY [facility] Last Admin: 06/16/18 10:43 Dose: 10 mg Dextrose/Sodium Chloride (Dextrose 5%/0.45% Ns 1000 Ml) 1,000 mls @ 70 mls/hr IV .[id number] [facility] Last Admin: 06/16/18 07:49 Dose: Not Given Insulin Human Regular (Novolin R) 0 unit SC ACHS [facility]; Protocol Last Admin: 06/16/18 09:02 Dose: Not Given Levetiracetam (Keppra) 500 mg PO BID [facility] Last Admin: 06/16/18 10:43 Dose: 500 mg Levothyroxine Sodium (Synthroid) 88 mcg PO DAILY@0630 [facility] Last Admin: 06/16/18 06:22 Dose: Not Given Losartan Potassium (Cozaar) 25 mg PO DAILY [facility] Last Admin: 06/16/18 10:43 Dose: 25 mg Metoprolol Tartrate (Lopressor) 25 mg PO BID [facility] Last Admin: 06/16/18 10:43 Dose: 25 mg Rosuvastatin Calcium (Crestor) 10 mg PO HS [facility] Last Admin: 06/15/18 21:49 Dose: 10 mg Saccharomyces Boulardii (Florastor) 250 mg PO Q12 [facility] Last Admin: 06/16/18 10:43 Dose: 250 mg - Labs Labs: 06/16/18 11:29 06/16/18 11:29 PT 14.9 SECONDS (9.7-12.2) H 06/11/18 19:42 INR 1.4 06/11/18 19:42 APTT 35 SECONDS (21-34) H 06/11/18 19:42 - Constitutional Appears: Non-toxic, Cachectic, Chronically Ill - Head Exam Head Exam: NORMOCEPHALIC - ENT Exam ENT Exam: Mucous Membranes Dry - Neck Exam Neck Exam: absent: Lymphadenopathy - Respiratory Exam Respiratory Exam: Decreased Breath Sounds - Cardiovascular Exam Cardiovascular Exam: REGULAR RHYTHM - GI/Abdominal Exam GI & Abdominal Exam: Distended, Soft - Rectal Exam Rectal Exam: Deferred - Exam Exam: NORMAL INSPECTION - Extremities Exam Extremities Exam: absent: Pedal Edema - Back Exam Back Exam: absent: CVA tenderness (L), CVA tenderness (R) - Neurological Exam Neurological Exam: Alert, Awake, Oriented x3 Assessment and Plan (1) Foot infection Status: Chronic (2) Diabetic infection of right foot Status: Acute (3) Dry gangrene Status: Acute (4) PVD (peripheral vascular disease) Status: Acute - Assessment and Plan (Free Text) Assessment: REFUSING OR / STAGED PROCEDURE TO [facility] FOR D/C ON PO RX FOLLOW UP WITH PODIATRY
--- NOTE | 2018-06-17 01:32 | PN ---
DATE: 06/16/2018 SUBJECTIVE: The patient was seen and examined at bedside. The patient offers no new complaints. Claims that she will be going home this afternoon. Denies any new complaints. PHYSICAL EXAMINATION: GENERAL: Elderly female, lying in bed, in no acute distress. VITAL SIGNS: Blood pressure 139/57, pulse 50, respirations 20, temperature 98.1 degrees Fahrenheit, and O2 sats 97% on room air. HEENT: Pupils are equal, round, and reacting to light and accommodation. Extraocular muscles intact. No icterus. No pallor. No oral thrush. No pharyngeal congestion. NECK: Supple. No JVD. LUNGS: Bilateral vesicular breath sounds. No wheezing. No rhonchi. CVS: S1 and S2 present, regular. ABDOMEN: Soft and nontender. Bowel sounds are present. No guarding. No rigidity. No rebound tenderness noted. NEWS PRODUCER: Alert, awake, and oriented x3. No focal deficits noted. EXTREMITIES: Right foot with dressing in place. MEDICATIONS: Include Tylenol 650 mg every 6 p.r.n., Plavix 75 mg daily, D5 half normal saline 70 mL an hour, Benadryl as needed, doxycycline 100 mg p.o. b.i.d., Lexapro 10 mg daily, Keppra 500 mg p.o. b.i.d., Synthroid 88 mcg daily, losartan 25 mg daily, metoprolol 25 mg p.o. b.i.d., Xarelto 10 mg daily, Crestor 10 mg p.o. at bedtime, and Florastor 250 mg p.o. every 12 hours. LABORATORY DATA: From today; WBC 7.1, hemoglobin 11.5, hematocrit 33.9, and platelets 284. Sodium 129, potassium 3.8, chloride 95, bicarb 25, BUN 14, creatinine 0.6, glucose 127, and calcium 8.9. AST 41, ALT 21, alkaline phosphatase 56, total protein 6.8, and albumin 3.8. ASSESSMENT AND PLAN: Elderly female with history of hypertension, hyperlipidemia, diabetes mellitus, peripheral vascular disease, history of cerebrovascular accident with left-sided residual weakness, right foot dry gangrene, status post superficial femoral artery stent placement, readmitted for worsening right foot dry gangrene, underwent angioplasty and atherectomy. The patient refusing staging procedure for atherectomy below the knee. Discussed with Cardiology. Recommended Xarelto 10 mg daily along with Plavix 75 mg daily. To follow up with Dr. Ken as outpatient. If the patient is cleared by Podiatry and Infectious Disease, will discharge the patient home as the patient is refusing any further intervention while in the hospital. The patient understands the consequences and risks of refusing the procedure. Will continue with current medication. Aman Calvo MD
[2018-06-17] MEDS: Levothyroxine 88 MCG TAB PO SCH (06:53)
[2018-06-17] MEDS: (Novolin R) Insulin Human Regular 100 units/ml vial SC SCH ×4 (08:01→21:43)
--- NOTE | 2018-06-17 09:40 | CP.PCM.PN ---
Subjective - Date & Time of Evaluation Date of Evaluation: 06/17/18 Time of Evaluation: 15:00 - Subjective Subjective: Ervin Higgins DO PGY1 - Internal Medicine System Programmer - Cardiology Note for Dr. Ken Patient vital signs reviewed, vital signs within normal limits. No acute events reported by nursing overnight. Patient seen and evaluated at bedside this morning w/ solomon islander nurse interpreting. Voicing no complaints, denies cp, sob, palpitations, LE pain/numbness/tingling; Remainder 12 system ROS is otherwise negative. Objective - Vital Signs/Intake and Output Vital Signs (last 24 hours): Temp Pulse Resp BP Pulse Ox 98.1 F 58 L 20 127/58 L 97 06/17/18 00:00 06/17/18 00:00 06/17/18 00:00 06/17/18 00:00 06/17/18 00:00 Intake and Output: 06/17/18 06/17/18 06:59 18:59 Intake Total 960 Output Total 500 Balance 460 - Medications Medications: Current Medications Acetaminophen (Tylenol 325mg Tab) 650 mg PO Q6 PRN PRN Reason: Pain, Mild (1-3) Last Admin: 06/16/18 00:23 Dose: 650 mg Clopidogrel Bisulfate (Plavix) 75 mg PO DAILY [facility] Last Admin: 06/16/18 10:43 Dose: 75 mg Diphenhydramine HCl (Benadryl) 25 mg PO Q8 PRN PRN Reason: Itching / Pruritus Last Admin: 06/16/18 00:24 Dose: 25 mg Doxycycline Hyclate (Doryx) 100 mg PO BID [facility]; Protocol Stop: 06/23/18 18:01 Last Admin: 06/16/18 18:56 Dose: 100 mg Escitalopram Oxalate (Lexapro) 10 mg PO DAILY [facility] Last Admin: 06/16/18 10:43 Dose: 10 mg Dextrose/Sodium Chloride (Dextrose 5%/0.45% Ns 1000 Ml) 1,000 mls @ 70 mls/hr IV .[id number] [facility] Last Admin: 06/16/18 07:49 Dose: Not Given Insulin Human Regular (Novolin R) 0 unit SC ACHS [facility]; Protocol Last Admin: 06/17/18 08:01 Dose: Not Given Levetiracetam (Keppra) 500 mg PO BID [facility] Last Admin: 06/16/18 18:57 Dose: 500 mg Levothyroxine Sodium (Synthroid) 88 mcg PO DAILY@0630 [facility] Last Admin: 06/17/18 06:53 Dose: 88 mcg Losartan Potassium (Cozaar) 25 mg PO DAILY [facility] Last Admin: 06/16/18 10:43 Dose: 25 mg Metoprolol Tartrate (Lopressor) 25 mg PO BID [facility] Last Admin: 06/16/18 18:55 Dose: 25 mg Rivaroxaban (Xarelto) 10 mg PO DAILY [facility] Last Admin: 06/16/18 18:56 Dose: 10 mg Rosuvastatin Calcium (Crestor) 10 mg PO HS [facility] Last Admin: 06/16/18 22:19 Dose: 10 mg Saccharomyces Boulardii (Florastor) 250 mg PO Q12 [facility] Last Admin: 06/16/18 22:18 Dose: 250 mg - Labs Labs: 06/16/18 11:29 06/16/18 11:29 PT 14.9 SECONDS (9.7-12.2) H 06/11/18 19:42 INR 1.4 06/11/18 19:42 APTT 35 SECONDS (21-34) H 06/11/18 19:42 - Constitutional Appears: Well, Non-toxic, No Acute Distress - Head Exam Head Exam: ATRAUMATIC, NORMOCEPHALIC - Eye Exam Eye Exam: EOMI, Normal appearance, PERRL - ENT Exam ENT Exam: Mucous Membranes Moist - Respiratory Exam Respiratory Exam: Clear to Ausculation Bilateral, NORMAL BREATHING PATTERN - Cardiovascular Exam Cardiovascular Exam: RRR, +S1, +S2. absent: Murmur - GI/Abdominal Exam GI & Abdominal Exam: Soft. absent: Tenderness - Extremities Exam Additional comments: Lower extremities are warm bilaterally Diminished bilaterally Neurologically intact No tenderness to palpation Skin along lower extremities is well perfused w/o mottling Assessment and Plan (1) Foot infection Status: Chronic (2) Afib Status: Acute (3) Diabetic infection of right foot Status: Acute (4) PVD (peripheral vascular disease) Status: Acute (5) Hyponatremia Status: Acute - Assessment and Plan (Free Text) Plan: Patient can continue on Plavix 75 daily and Xarelto 10 daily. Continue metoprolol 25 twice a day Continue with Cozaar 25 daily Continue with Crestor 10 daily Patient is pending discharge is cleared by podiatry at this time Patient is to follow up w/ podiatry/wound care as outpt Patient can follow up in office within 2 weeks
[2018-06-17] MEDS: Saccharomyces Boulardi 250 mg Cap PO SCH ×3 (10:20→21:49)
--- NOTE | 2018-06-17 11:02 | CP.PCM.PN ---
Subjective - Date & Time of Evaluation Date of Evaluation: 06/17/18 Time of Evaluation: 11:02 - Subjective Subjective: Progress note dictated # [id number] Discharge summary dictated #[id number] Objective - Vital Signs/Intake and Output Vital Signs (last 24 hours): Temp Pulse Resp BP Pulse Ox 97.7 F 58 L 20 155/59 H 96 06/17/18 07:10 06/17/18 07:10 06/17/18 07:10 06/17/18 07:10 06/17/18 07:10 Intake and Output: 06/17/18 06/17/18 06:59 18:59 Intake Total 960 Output Total 500 Balance 460 - Medications Medications: Current Medications Acetaminophen (Tylenol 325mg Tab) 650 mg PO Q6 PRN PRN Reason: Pain, Mild (1-3) Last Admin: 06/17/18 10:18 Dose: 650 mg Clopidogrel Bisulfate (Plavix) 75 mg PO DAILY [facility] Last Admin: 06/17/18 10:26 Dose: Not Given Diphenhydramine HCl (Benadryl) 25 mg PO Q8 PRN PRN Reason: Itching / Pruritus Last Admin: 06/16/18 00:24 Dose: 25 mg Doxycycline Hyclate (Doryx) 100 mg PO BID [facility]; Protocol Stop: 06/23/18 18:01 Last Admin: 06/17/18 10:27 Dose: Not Given Escitalopram Oxalate (Lexapro) 10 mg PO DAILY [facility] Last Admin: 06/17/18 10:26 Dose: Not Given Dextrose/Sodium Chloride (Dextrose 5%/0.45% Ns 1000 Ml) 1,000 mls @ 70 mls/hr IV .[id number] [facility] Last Admin: 06/16/18 07:49 Dose: Not Given Insulin Human Regular (Novolin R) 0 unit SC [facility]; Protocol Last Admin: 06/17/18 08:01 Dose: Not Given Levetiracetam (Keppra) 500 mg PO BID [facility] Last Admin: 06/17/18 10:27 Dose: Not Given Levothyroxine Sodium (Synthroid) 88 mcg PO DAILY@0630 [facility] Last Admin: 06/17/18 06:53 Dose: 88 mcg Losartan Potassium (Cozaar) 25 mg PO DAILY [facility] Last Admin: 06/17/18 10:27 Dose: Not Given Metoprolol Tartrate (Lopressor) 25 mg PO BID [facility] Last Admin: 06/17/18 10:27 Dose: Not Given Rivaroxaban (Xarelto) 10 mg PO DAILY [facility] Last Admin: 06/17/18 10:26 Dose: Not Given Rosuvastatin Calcium (Crestor) 10 mg PO HS [facility] Last Admin: 06/16/18 22:19 Dose: 10 mg Saccharomyces Boulardii (Florastor) 250 mg PO Q12 [facility] Last Admin: 06/17/18 10:27 Dose: Not Given - Labs Labs: 06/16/18 11:29 06/16/18 11:29 PT 14.9 SECONDS (9.7-12.2) H 06/11/18 19:42 INR 1.4 06/11/18 19:42 APTT 35 SECONDS (21-34) H 06/11/18 19:42
--- NOTE | 2018-06-17 18:33 | CP.PCM.PN ---
Subjective - Date & Time of Evaluation Date of Evaluation: 06/16/18 Time of Evaluation: 18:00 - Subjective Subjective: Podiatry Progress Note- Dr. Hooker 82F seen and evaluated at bedside for right foot dry gangrenous digits, stable. Patient is resting comfortably in bed and in NAD. Denies acute events overnight. Patient denies of pain currently. Expresses pain with dressing changes. Dressing is clean, dry, intact. Denies N/V/F/SOB/CP. Objective - Vital Signs/Intake and Output Vital Signs (last 24 hours): Temp Pulse Resp BP Pulse Ox 97.7 F 65 20 136/50 L 97 06/17/18 15:00 06/17/18 15:00 06/17/18 15:00 06/17/18 15:00 06/17/18 15:00 Intake and Output: 06/17/18 06/17/18 06:59 18:59 Intake Total 960 300 Output Total 500 400 Balance 460 -100 - Medications Medications: Current Medications Acetaminophen (Tylenol 325mg Tab) 650 mg PO Q6 PRN PRN Reason: Pain, Mild (1-3) Last Admin: 06/17/18 10:18 Dose: 650 mg Clopidogrel Bisulfate (Plavix) 75 mg PO DAILY [facility] Last Admin: 06/17/18 10:26 Dose: Not Given Diphenhydramine HCl (Benadryl) 25 mg PO Q8 PRN PRN Reason: Itching / Pruritus Last Admin: 06/16/18 00:24 Dose: 25 mg Doxycycline Hyclate (Doryx) 100 mg PO BID [facility]; Protocol Stop: 06/23/18 18:01 Last Admin: 06/17/18 18:19 Dose: 100 mg Escitalopram Oxalate (Lexapro) 10 mg PO DAILY [facility] Last Admin: 06/17/18 10:26 Dose: Not Given Dextrose/Sodium Chloride (Dextrose 5%/0.45% Ns 1000 Ml) 1,000 mls @ 70 mls/hr IV .[id number] [facility] Last Admin: 06/16/18 07:49 Dose: Not Given Insulin Human Regular (Novolin R) 0 unit SC [facility]; Protocol Last Admin: 06/17/18 16:58 Dose: Not Given Levetiracetam (Keppra) 500 mg PO BID [facility] Last Admin: 06/17/18 18:14 Dose: 500 mg Levothyroxine Sodium (Synthroid) 88 mcg PO DAILY@0630 [facility] Last Admin: 06/17/18 06:53 Dose: 88 mcg Losartan Potassium (Cozaar) 25 mg PO DAILY [facility] Last Admin: 06/17/18 10:27 Dose: Not Given Metoprolol Tartrate (Lopressor) 25 mg PO BID [facility] Last Admin: 06/17/18 17:45 Dose: Not Given Rivaroxaban (Xarelto) 10 mg PO DAILY [facility] Last Admin: 06/17/18 10:26 Dose: Not Given Rosuvastatin Calcium (Crestor) 10 mg PO HS [facility] Last Admin: 06/16/18 22:19 Dose: 10 mg Saccharomyces Boulardii (Florastor) 250 mg PO Q12 [facility] Last Admin: 06/17/18 10:27 Dose: Not Given - Labs Labs: 06/16/18 11:29 06/16/18 11:29 PT 14.9 SECONDS (9.7-12.2) H 06/11/18 19:42 INR 1.4 06/11/18 19:42 APTT 35 SECONDS (21-34) H 06/11/18 19:42 - Constitutional Appears: Well, Non-toxic, No Acute Distress - Extremities Exam Extremities Exam: absent: Calf Tenderness Additional comments: Right lower extremity exam: Vascular: DP and PT pulses faintly palpable. No pedal edema noted. Capillary refill time absent to right foot digits. Temperature gradient is warm to cool extending to level of midfoot; distal to midfoot is cold to the touch Derm: Dry gangrenous necrotic changes to digits, increased to digits 1, 4 and 5. No discrete open lesions or breaks in skin. No drainage or purulence, no erythema, no malodor, no fluctuance. Neuro: protective sensation and gross sensation intact Ortho: mild pain on palpation of right foot digits 1-5 Assessment and Plan - Assessment and Plan (Free Text) Assessment: 82 year old female with right foot dry gangrenous digits, stable Plan: Patient seen and examined at bedside Discussed in detail with Dr. Morro Loco foot x-ray; stable findings s/p amputation distal tuft R 1st digit Afebrile, absent leukocytosis Digits cleansed with betadine, dressed with dry gauze and kerlix Dr. Ken recommendations appreciated Patient is s/p atherectomy/POBA of SFA Podiatry will continue to provide local wound care while in house Continue IV antibiotics per ID Will continue to follow while in house and provide local wound care Plan: podiatry has plans for no surgical intervention during hospital stay patient to follow up with Dr. Hooker in podiatry clinic upon discharge, patient instructed to get dressing change every 2-3 days. Cleans ed foot with betadine, cover foot with dsd, and light kerlix.
--- NOTE | 2018-06-18 02:15 | PN ---
DATE: 06/17/2018 SUBJECTIVE: The patient was seen and examined at bedside. The patient offers no new complaints. PHYSICAL EXAMINATION: GENERAL: Elderly female, lying in bed, in no acute distress. VITAL SIGNS: Blood pressure 136/50, pulse 65, respirations 20, temperature 97.7 degrees Fahrenheit, O2 sat 97% on room air. HEENT: Pupils equal, round, and reacting to light and accommodation. Extraocular muscles intact. No icterus. No pallor. No oral thrush. No pharyngeal congestion. NECK: Supple. No JVD. LUNGS: Bilateral vesicular breath sounds. No wheezing. No rhonchi. CARDIOVASCULAR SYSTEM: S1 and S2 present, regular. ABDOMEN: Soft, nontender. Bowel sounds present. CENTRAL NERVOUS SYSTEM: Alert, awake, oriented x3. No focal deficits noted. EXTREMITIES: Right foot edema present. MEDICATIONS: Include Tylenol as needed, Plavix 75 mg daily, D5 half normal saline at 70 mL an hour, Benadryl as needed, doxycycline 100 mg p.o. b.i.d., Lexapro 10 mg daily, Keppra 500 mg b.i.d., Synthroid 88 mcg daily, losartan 25 mg daily, metoprolol 25 mg p.o. b.i.d., Xarelto 10 mg daily, and Crestor 10 mg p.o. at bedtime. LABORATORY DATA: AccuCheks 192, 112, 121, 123, 144. 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 The patient refused staging procedure, to be done by Cardiology for more atherectomy below the knee for peripheral vascular disease. The patient's family was not able to fiber picker the patient yesterday. The patient was supposed to be discharged today. Without notifying the school social worker or case management, it is documented that the patient's family canceled transportation services. The patient was not able to be discharged. There was no family member available to fiber picker the patient. The patient is otherwise hemodynamically stable for discharge. We will follow up with school social worker for transportation arrangements. We will continue with current medication. Follow up with Podiatry and Cardiology. Aman Calvo MD
[2018-06-18] MEDS: Levothyroxine 88 MCG TAB PO SCH (05:52)
[2018-06-18 08:26] VITALS: BP 101/46; PULSE 60; TEMP 97.5
[2018-06-18 10:54] VITALS: RESP 14; O2SAT 100
--- NOTE | 2018-06-19 03:51 | DS ---
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 HISTORY OF PRESENT ILLNESS: Ms. Thapa is an 82-year-old female with past medical history of hypertension, diabetes mellitus, hyperlipidemia, CVA with minimal residual left-sided weakness, peripheral vascular disease, status post stent placement, right SFA in 11/2017, status post right fourth and first digit partial amputation for dry gangrene, who has been following up with Dr. Marisa Hooker as primary care physician and Dr. Ken as Cardiology, and stenting was done by Dr. Marino, came into the emergency room for worsening right foot pain and black discoloration. In the ED, the patient was found to be having cellulitic changes, and the patient is being admitted for further management. Today, the patient is feeling better. Denied any headache or dizziness. Denied any chest pain, shortness of breath, or wheezing. Denied any nausea, vomiting, abdominal pain, diarrhea, or constipation. Denied any urinary complaints. Denied any leg pains or leg cramps. All other systems reviewed and were negative. PHYSICAL EXAMINATION: GENERAL: Elderly female, lying in bed, in no acute distress. VITAL SIGNS: Blood pressure 148/58, pulse 57, respirations 20, temperature 97.3 degrees Fahrenheit, and O2 sats 98% on room air. HEENT: Pupils equal, round, and reacting to light and accommodation. Extraocular muscles intact. No icterus. No pallor. No oral thrush. No pharyngeal congestion. NECK: Supple. No JVD. LUNGS: Bilateral vesicular breath sounds. No wheezing. No rhonchi. CARDIOVASCULAR SYSTEM: S1 and S2 present, regular. ABDOMEN: Soft and nontender. Bowel sounds present. No guarding. No rigidity. No rebound tenderness noted. CENTRAL NERVOUS SYSTEM: Alert, awake, oriented x3 with minimal left-sided residual weakness. EXTREMITIES: Right foot with dressing in place. LABORATORY DATA: AccuChecks 192, 112, 121, 123, 144. WBC 7.1, hemoglobin 11.5, hematocrit 33.9, platelets 284. Sodium 129, potassium 3.8, chloride 95, bicarb 25, BUN 14, creatinine 0.6, glucose 127. LFTs within normal limits. Hemoglobin A1c is 5.2. Lipids within normal limits. TSH normal. HOSPITAL COURSE: The patient was admitted to the hospital for right foot dry gangrene. The patient was evaluated by Podiatry, has been undergoing dressing and wound care. The patient was started on IV antibiotics by ID. One of her blood cultures grew coagulase negative, probable contamination as the patient did not have any other signs of sepsis. Repeat blood cultures were negative after almost two weeks of IV antibiotics. Her antibiotics were switched to p.o. doxycycline by Dr. Jenkins, were to be continued for another week. The patient was evaluated by Cardiology, underwent angiogram and angioplasty with atherectomy done by Dr. Ken, and recommended multiple staging atherectomies below the knee recommended, but the patient refused to undergo any further intervention while in the hospital. Instead, she wanted to be discharged and followed up as outpatient as the patient understands the consequences of going home without having these procedures done, and the patient is cleared by Cardiology. Cardiology recommended Xarelto 10 mg along with Plavix 75 mg for peripheral vascular disease and to be followed up as outpatient as the patient already has director of social work established for home care. The patient is otherwise doing well, and the patient is being discharged to be followed up with Podiatry and Cardiology as outpatient. CONDITION UPON DISCHARGE: The patient is alert, awake, and oriented x3, and hemodynamically stable. DISCHARGE INSTRUCTIONS: Followup with PMD. Followup with Podiatry. Followup with Cardiology. DISCHARGE DIET: Heart healthy, low cholesterol, 1800-calorie ADA diet. ACTIVITY: As tolerated. DISCHARGE MEDICATIONS: Include Plavix 75 mg daily, doxycycline 100 mg b.i.d for seven days, losartan 25 mg daily, metoprolol 25 mg b.i.d., Xarelto 10 mg daily, Zocor 40 mg daily, Synthroid 88 mcg daily, Keppra 500 mg p.o. b.i.d., Nexium 40 mg daily, Lexapro 10 mg daily, Colace as needed, and baclofen as needed. Advised the patient to return to ED if any worsening symptoms. Called the patient's granddaughter and left a message, waiting to hear back from the granddaughter. Aman Calvo MD
== END 2018-06-18 08:45 | disposition home or self-care (01) | DRG 271 ==
LOC: C.ER 15:27 → C.9E 18:08 → C.5S 06-06 09:30
PROVIDERS: ADMIT Internal Medicine; ATTEND Internal Medicine
PROC: 04CK3ZZ Extirpation of Matter from Right Femoral Artery, Percutaneous Approach (ICD-10-PCS; principal; 2018-06-12)
PROC: 047K3Z1 Dilation of Right Femoral Artery using Drug-Coated Balloon, Percutaneous Approach (ICD-10-PCS; 2018-06-12)
PROC: B41DZZZ Fluoroscopy of Aorta and Bilateral Lower Extremity Arteries (ICD-10-PCS; 2018-06-12)
DX: E11.52 Type 2 diabetes mellitus with diabetic peripheral angiopathy with gangrene (principal); L03.115 Cellulitis of right lower limb; I69.354 Hemiplegia and hemiparesis following cerebral infarction affecting left non-dominant side; E87.1 Hypo-osmolality and hyponatremia; L08.9 Local infection of the skin and subcutaneous tissue, unspecified; I10 Essential (primary) hypertension; I48.91 Unspecified atrial fibrillation; E87.8 Other disorders of electrolyte and fluid balance, not elsewhere classified; E03.9 Hypothyroidism, unspecified; E78.5 Hyperlipidemia, unspecified; E78.00 Pure hypercholesterolemia, unspecified; Z53.29 Procedure and treatment not carried out because of patient's decision for other reasons; Z89.421 Acquired absence of other right toe(s); Z89.411 Acquired absence of right great toe; Z95.820 Peripheral vascular angioplasty status with implants and grafts; Z88.1 Allergy status to other antibiotic agents; Z83.3 Family history of diabetes mellitus